=== PATIENT | female | born 1965 | race Caucasian/White ===

== ENCOUNTER → 2017-08-29 15:59 | Outpatient (CLI) | payer BC, SELFPAY ==
[2017-08-29 18:35] LABS: ALB/GLOB Ratio 1.2 RATIO (0.9-2.4); AST(SGOT) 15 U/L (15-37); Alanine Aminotransfer ALT/SGPT 26 U/L (13-56); Albumin, Serum 4.2 g/dL (3.2-5.0); Alkaline Phosphatase 145 U/L (45-117); Anion Gap 10 (5-15); BUN 13 mg/dL (7-18); BUN/Creat Ratio 19.5 RATIO (10-20); Calcium,Total 9.4 mg/dL (8.5-10.1); Chloride 103 mmol/L (98-107); Creatinine, Serum 0.67 mg/dL (0.55-1.02); EST Glomerular Filtration Rate 98 mL/min (>60); Est Glom Filt Rate - Afr Amer 118 mL/min (>60); Globulin 3.6 g/dL (2.2-4.2); Glucose 70 mg/dL (70-110); Potassium 3.6 mmol/L (3.5-5.1); Protein, Total 7.8 g/dL (6.4-8.2); Sodium Level 139 mmol/L (136-145); Thyroid Stim Hormone (TSH) 0.67 uIU/mL (0.358-3.74)
== END ==
PROVIDERS: Family Provider Family Medicine; PCP Family Medicine; Visit Provider Internal Medicine Endocrinology, Diabetes & Metabolism
DX: E03.8 Other specified hypothyroidism (principal); Q60.0 Renal agenesis, unilateral; N13.30 Unspecified hydronephrosis
CPT/HCPCS: 36415; 80053; 84443

== ENCOUNTER → 2017-10-03 16:02 | Outpatient (CLI) | payer BC, SELFPAY ==
[2017-10-03 18:02] LABS: Anion Gap 9 (5-15); BUN 17 mg/dL (7-18); BUN/Creat Ratio 20.6 RATIO (10-20); Calcium,Total 8.8 mg/dL (8.5-10.1); Chloride 104 mmol/L (98-107); Creatinine, Serum 0.83 mg/dL (0.55-1.02); EST Glomerular Filtration Rate 76 mL/min (>60); Est Glom Filt Rate - Afr Amer 93 mL/min (>60); Glucose 97 mg/dL (74-106); Potassium 3.8 mmol/L (3.5-5.1); Sodium Level 141 mmol/L (136-145)
== END ==
PROVIDERS: Family Provider Family Medicine; PCP Family Medicine; Visit Provider Family Medicine
DX: N13.30 Unspecified hydronephrosis (principal); Q60.0 Renal agenesis, unilateral
CPT/HCPCS: 36415; 80048

== ENCOUNTER → 2017-10-14 15:46 | Outpatient (CLI) | payer BC, SELFPAY ==
--- NOTE | 2017-10-14 15:47 | HPBI_ITS ---
MAMMOGRAPHY - BILATERAL SCREENING REASON FOR EXAM: Female, 52 years old. Routine annual screening examination. PERTINENT HISTORY: Aunt with breast cancer. TECHNIQUE: Digital bilateral breast clarita (3D mammographic acquisition) in the CC and MLO projections. 2-D mediolateral oblique (MLO) and craniocaudad (CC) views of both breasts were obtained. CAD: Full Field Digital Mammography with Computer Added Detection was performed. COMPARISON: Comparison is made with prior study dated October 10, 2016 and October 10, 2015. FINDINGS: Breast Composition: There are scattered areas of fibroglandular density. There are no dominant masses or suspicious calcifications. Stable bilateral benign appearing axillary lymph nodes. No other significant abnormalities are identified. There has been no significant change since the prior study. HPBI/SCREENING MAMM (CAD), BILAT IMPRESSION: Stable bilateral screening mammogram. Yearly follow-up mammogram recommended. (A) ASSESSMENT CATEGORY: BIRADS Category 2: Benign. A letter regarding these results will be sent to the patient by the facility within 30 days. Approximately 10% of breast cancers are not detected by mammography. A normal mammogram should not delay biopsy of a clinically suspicious abnormality. [id number] Electronically Signed: Jacob Chappell MD at 8:17 EDT Tel [phone], Service support ,
== END ==
PROVIDERS: Family Provider Family Medicine; PCP Family Medicine; Visit Provider Obstetrics & Gynecology
DX: Z12.31 Encounter for screening mammogram for malignant neoplasm of breast (principal)
CPT/HCPCS: 77063; 77067

== ENCOUNTER → 2017-10-31 16:09 | Outpatient (CLI) | payer BC, SELFPAY ==
[2017-10-31 18:04] LABS: Anion Gap 8 (5-15); BUN 18 mg/dL (7-18); BUN/Creat Ratio 21.1 RATIO (10-20); Calcium,Total 9.1 mg/dL (8.5-10.1); Chloride 106 mmol/L (98-107); Creatinine, Serum 0.85 mg/dL (0.55-1.02); EST Glomerular Filtration Rate 74 mL/min (>60); Est Glom Filt Rate - Afr Amer 89 mL/min (>60); Glucose 77 mg/dL (74-106); Potassium 4.1 mmol/L (3.5-5.1); Sodium Level 140 mmol/L (136-145)
== END ==
PROVIDERS: Family Provider Family Medicine; PCP Family Medicine; Visit Provider Family Medicine
DX: N13.30 Unspecified hydronephrosis (principal); Q60.0 Renal agenesis, unilateral
CPT/HCPCS: 36415; 80048

== ENCOUNTER → 2018-01-02 15:57 | Outpatient (CLI) | payer BC, SELFPAY ==
--- NOTE | 2018-01-02 15:57 | DT_ITS ---
This patient was seen during an EMR downtime December 30, 2017 - January 06, 2018. This patient may have a combination of paper and electronic documentation or all paper documentation. All documentation is viewable within the e-chart portion of [facility] for each patient visit.
[2018-01-07 03:07] LABS: Anion Gap 10 (5-15); BUN 16 mg/dL (7-18); BUN/Creat Ratio 16.8 RATIO (10-20); Calcium,Total 9.2 mg/dL (8.5-10.1); Chloride 105 mmol/L (98-107); Creatinine, Serum 0.95 mg/dL (0.55-1.02); EST Glomerular Filtration Rate 65 mL/min (>60); Est Glom Filt Rate - Afr Amer 79 mL/min (>60); Potassium 3.8 mmol/L (3.5-5.1); Sodium Level 140 mmol/L (136-145)
[2018-01-07 03:08] LABS: Glucose 97 mg/dL (74-106)
== END ==
PROVIDERS: Family Provider Family Medicine; PCP Family Medicine; Visit Provider Family Medicine
DX: Q60.0 Renal agenesis, unilateral (principal); N13.30 Unspecified hydronephrosis
CPT/HCPCS: 36415; 80048

== ENCOUNTER → 2018-02-25 16:11 | Outpatient (CLI) | payer BC, SELFPAY ==
--- NOTE | 2018-02-25 16:28 | VDUE_ITS ---
Reason For Study: RUE PAIN Right Proximal Right jugular vein is spontaneous, widely patent, phasic, with no intraluminal echogenicity noted. Right subclavian vein is spontaneous, widely patent, phasic, with no intraluminal echogenicity noted. Right Lower Arm Right radial vein is compressible. Right ulnar vein is compressible. Right Arm Right axillary vein is spontaneous, patent, phasic, competent, compressible and demonstrates augmentation. Right brachial vein is compressible. Right cephalic vein is compressible. Right basilic vein is compressible. Patient Safety Prelim Report faxed and called to Lisette SAAB @ Dr. Griggs's office 4:40 pm. Interpretation Summary Deep veins of the right upper extremity are patent and compressible segmentally. There is no evidence of deep vein thrombosis. The superficial veins of the right upper extremity, the basilic and cephalic veins, are patent and compressible. There is no evidence of right upper extremity superficial thrombophlebitis involving the veins imaged. Ordering Physician: Satinder Griggs Referring Physician: Satinder Griggs Performed By: Allison Doan, DAMIEN, RVT ???
== END ==
PROVIDERS: Family Provider Family Medicine; PCP Family Medicine; Visit Provider Family Medicine
DX: I80.8 Phlebitis and thrombophlebitis of other sites (principal)
CPT/HCPCS: 93971

== ENCOUNTER → 2018-03-03 15:46 | Outpatient (CLI) | payer BC, SELFPAY ==
[2018-03-03 17:08] LABS: ALB/GLOB Ratio 1.1 RATIO (0.9-2.4); AST(SGOT) 20 U/L (15-37); Alanine Aminotransfer ALT/SGPT 23 U/L (13-56); Albumin, Serum 3.8 g/dL (3.2-5.0); Alkaline Phosphatase 135 U/L (45-117); Anion Gap 9 (5-15); BUN 17 mg/dL (7-18); BUN/Creat Ratio 18.2 RATIO (10-20); Calcium,Total 8.8 mg/dL (8.5-10.1); Chloride 104 mmol/L (98-107); Creatinine, Serum 0.94 mg/dL (0.55-1.02); EST Glomerular Filtration Rate 66 mL/min (>60); Est Glom Filt Rate - Afr Amer 80 mL/min (>60); Globulin 3.6 g/dL (2.2-4.2); Glucose 87 mg/dL (74-106); Protein, Total 7.4 g/dL (6.4-8.2); Sodium Level 141 mmol/L (136-145); Thyroid Stim Hormone (TSH) 5.09 uIU/mL (0.358-3.74)
== END ==
PROVIDERS: Family Provider Family Medicine; PCP Family Medicine; Visit Provider Internal Medicine Endocrinology, Diabetes & Metabolism
DX: E03.8 Other specified hypothyroidism (principal)
CPT/HCPCS: 36415; 80053; 84443

== ENCOUNTER → 2018-05-08 15:50 | Outpatient (CLI) | payer BC, SELFPAY ==
[2018-05-08 18:02] LABS: Anion Gap 8 (5-15); BUN 25 mg/dL (7-18); BUN/Creat Ratio 25.3 RATIO (10-20); Calcium,Total 9.6 mg/dL (8.5-10.1); Chloride 103 mmol/L (98-107); Creatinine, Serum 0.99 mg/dL (0.55-1.02); EST Glomerular Filtration Rate 62 mL/min (>60); Est Glom Filt Rate - Afr Amer 75 mL/min (>60); Glucose 75 mg/dL (74-106); Potassium 4.5 mmol/L (3.5-5.1); Sodium Level 136 mmol/L (136-145); Thyroid Stim Hormone (TSH) 0.14 uIU/mL (0.358-3.74)
== END ==
PROVIDERS: Family Provider Family Medicine; PCP Family Medicine; Referring Provider Internal Medicine Endocrinology, Diabetes & Metabolism; Visit Provider Internal Medicine Endocrinology, Diabetes & Metabolism
DX: Q60.0 Renal agenesis, unilateral (principal); N13.30 Unspecified hydronephrosis; E03.8 Other specified hypothyroidism
CPT/HCPCS: 36415; 80048; 84443

== ENCOUNTER → 2018-08-01 11:56 | Outpatient (CLI) | payer BC, SELFPAY ==
[2018-08-05 14:47] LABS: HPV HC, High Risk Negative (Negative)
== END ==
PROVIDERS: Visit Provider Obstetrics & Gynecology
DX: Z12.4 Encounter for screening for malignant neoplasm of cervix (principal)
CPT/HCPCS: 87624; 88175; G0145

== ENCOUNTER → 2018-09-01 15:52 | Outpatient (CLI) | payer BC, SELFPAY ==
[2018-09-01 17:41] LABS: ALB/GLOB Ratio 1.1 RATIO (0.9-2.4); AST(SGOT) 20 U/L (15-37); Alanine Aminotransfer ALT/SGPT 27 U/L (13-56); Albumin, Serum 3.9 g/dL (3.2-5.0); Alkaline Phosphatase 140 U/L (45-117); Anion Gap 8 (5-15); BUN 18 mg/dL (7-18); BUN/Creat Ratio 21.4 RATIO (10-20); Calcium,Total 8.5 mg/dL (8.5-10.1); Chloride 107 mmol/L (98-107); Creatinine, Serum 0.84 mg/dL (0.55-1.02); EST Glomerular Filtration Rate 75 mL/min (>60); Est Glom Filt Rate - Afr Amer 90 mL/min (>60); Globulin 3.6 g/dL (2.2-4.2); Glucose 106 mg/dL (74-106); Potassium 3.9 mmol/L (3.5-5.1); Protein, Total 7.5 g/dL (6.4-8.2); Sodium Level 139 mmol/L (136-145); Thyroid Stim Hormone (TSH) 0.21 uIU/mL (0.358-3.74)
[2018-09-01 17:50] LABS: PTHIN 50.3 pg/mL (18.4-80.1)
== END ==
PROVIDERS: Family Provider Family Medicine; PCP Family Medicine; Referring Provider Internal Medicine Endocrinology, Diabetes & Metabolism; Visit Provider Internal Medicine Endocrinology, Diabetes & Metabolism
DX: E03.8 Other specified hypothyroidism (principal); E21.1 Secondary hyperparathyroidism, not elsewhere classified
CPT/HCPCS: 36415; 80053; 83970; 84443

== ENCOUNTER → 2018-10-15 15:48 | Outpatient (CLI) | payer BC, SELFPAY ==
--- NOTE | 2018-10-15 15:51 | BI_ITS ---
MAMMOGRAPHY - BILATERAL SCREENING 3-D ELISA SYNTHESIS REASON FOR EXAM: Female, 53 years old. Bilateral Screening 3-D tomosynthesis PERTINENT HISTORY: Right breast cyst removed at age 27. 8 years of hormone use. TECHNIQUE: 2-D mammograms and 3-D Elisa synthesis of the breast (s) were performed. CAD was performed. COMPARISON: October 10, 2016, October 10, 2015 FINDINGS: The breast composition is almost entirely fat. Scattered benign calcifications are stable. There are stable lymph nodes in both axillae. No dense spiculated masses or suspicious microcalcifications are identified. No architectural distortion is identified. There is no skin thickening or retraction. There has been no significant change since the prior study. BI/SCREENING MAMM (CAD), BILAT IMPRESSION: No mammographic signs of malignancy. Routine yearly mammograms recommended. ASSESSMENT CATEGORY: BIRADS Category 2: Benign. A letter regarding these results will be sent to the patient by the facility within 30 days. FOLLOW UP RECOMMENDATION: Yearly follow up mammogram recommended. (A) Approximately 10% of breast cancers are not detected by mammography. A normal mammogram should not delay biopsy of a clinically suspicious abnormality. Electronically Signed: Kevin Orosco MD at 13:12 EDT , Service support ,
== END ==
PROVIDERS: Visit Provider Obstetrics & Gynecology
DX: Z12.31 Encounter for screening mammogram for malignant neoplasm of breast (principal)
CPT/HCPCS: 77063; 77067

== ENCOUNTER → 2019-01-05 10:01 | Outpatient (CLI) | payer BC, SELFPAY | PROVIDERS: Family Provider Family Medicine; PCP Family Medicine; Visit Provider Family Medicine | DX: N30.00 Acute cystitis without hematuria (principal) | CPT/HCPCS: 87086; 87088 ==

== ENCOUNTER → 2019-01-20 10:41 | Outpatient (CLI) | payer BC, SELFPAY ==
--- NOTE | 2019-01-20 10:48 | US_ITS ---
STUDY: ABDOMINAL ULTRASOUND - RIGHT UPPER QUADRANT REASON FOR VISIT: Female, 53 years old. Right upper quadrant pain. TECHNIQUE: Ultrasound evaluation of the right upper quadrant was performed with real-time and static mcdonald-scale imaging. TECHNICAL QUALITY: Adequate. COMPARISON: July 27, 2017 FINDINGS: Liver: The liver measures 16.54 cm. There is normal echogenicity of the liver. The bile ducts are within normal limits. There is hepatic color flow. The direction of portal flow is hepatopetal. There is no demonstrated mass lesion. Gallbladder: Normal distended gallbladder. The gallbladder wall measures 2.4 mm. There is a negative sonographic Mina's sign. There is no pericholecystic fluid. There are no gallstones. Common Bile Duct (C.B.D.): The common bile duct measures 5.3 mm. Pancreas: Normal size of the head, body and tail of the pancreas. There is normal echogenicity of the pancreas. There is no demonstrated pancreatic mass or cyst. Right Kidney: Normal size of the right kidney. The right kidney measures 11.8 cm in length. Normal renal cortex. There is no demonstrated renal mass or cyst. There is no right hydronephrosis. US/Abdomen Limited IMPRESSION: Within normal limits right upper quadrant ultrasound examination. Electronically Signed: Theresa Aguiar MD at 16:21 EDT Tel , Service support ,
== END ==
PROVIDERS: Family Provider Family Medicine; PCP Family Medicine; Referring Provider Family Medicine; Visit Provider Family Medicine
DX: R10.11 Right upper quadrant pain (principal)
CPT/HCPCS: 76705

== ENCOUNTER → 2019-01-23 16:02 | Outpatient (CLI) | payer BC, SELFPAY ==
--- NOTE | 2019-01-23 16:05 | RAD_ITS ---
STUDY: X-RAY - THORACIC SPINE REASON FOR EXAM: Female, 53 years old. Pain. TECHNIQUE: 3 view(s) of the thoracic spine were obtained. COMPARISON: None. FINDINGS: Normal kyphosis of the thoracic spine. There is no substantial scoliosis. There is multilevel endplate spondylosis of the thoracic vertebrae. There is multilevel disc space narrowing of the thoracic spine. No acute fractures or dislocations. The soft tissue structures are unremarkable. RAD/Thoracic Spine 3 Views IMPRESSION: Mild degenerative changes. No acute or focal abnormality. Electronically Signed: Jesus Floyd MD at 19:29 EDT , Service support ,
== END ==
PROVIDERS: Family Provider Family Medicine; PCP Family Medicine; Referring Provider Family Medicine; Visit Provider Family Medicine
DX: M54.9 Dorsalgia, unspecified (principal)
CPT/HCPCS: 72072

== ENCOUNTER → 2019-01-26 09:19 | Outpatient (CLI) | payer BC, SELFPAY ==
--- NOTE | 2019-01-26 09:21 | NM_ITS ---
CLINICAL: 23-year-old female with reported history of right upper quadrant abdominal pain and nausea. RADIONUCLIDE HEPATOBILIARY SCINTIGRAPHY COMPARISON: Abdominal ultrasound report 01/20/2019 FINDINGS: Following the intravenous administration of 5.2 mCi of 99m Tc Mebrofenin, hepatobiliary images reveal:. 1. Relatively prompt and homogeneous radiopharmaceutical concentration is noted by a normal sized liver. No parenchymal defects are identified. 2. Gallbladder activity is identified at 45 minutes post radiopharmaceutical administration. 3. Small intestinal tract is observed at 15 minutes following tracer injection. 4. Washout of the radiopharmaceutical by the hepatic parenchyma appears qualitatively normal. Cholecystokinin (0.02 ug/kg) was administered intravenously over a 30-minute period. The post CCK gallbladder ejection fraction calculated at 20 minutes following Cholecystokinin administration was noted to be 63.0 % (normal greater than 35%). During 30 minutes of post CCK imaging, there is scintigraphic evidence of refilling of the gallbladder. NM/Hepatobilliary Img w/Pharm Int IMPRESSION: 1. A gallbladder ejection fraction calculated to be greater than 35% following the administration of Cholecystokinin makes the probability of functional hepatobiliary disease (gallbladder dyskinesia) and/or organic hepatobiliary disease (chronic acalculous cholecystitis and/or cystic duct syndrome) to be low. (Amanda Morillo et al, Journal of Nuclear Medicine 32:1695, 1991). 2. The presence a normal gallbladder ejection fraction with refilling of the gallbladder following CCK administration may represent the presence of Sphincter of Oddi dysfunction. Correlation with Sphincter of Oddi manometry may be of benefit. (Mary and Mary, J Nucl Med 38:1824, 1997). Electronically Signed: Mp Martin DO at 9:43 EDT Tel , Service support ,
== END ==
PROVIDERS: Family Provider Family Medicine; PCP Family Medicine; Referring Provider Family Medicine; Visit Provider Family Medicine
DX: R10.11 Right upper quadrant pain (principal)
CPT/HCPCS: 78227; A9537; J2805

== ENCOUNTER → 2019-02-19 15:54 | Outpatient (CLI) | payer BC, SELFPAY ==
[2019-02-19 17:52] LABS: Alkaline Phosphatase 140 U/L (45-117); GGTP 12 U/L (5-55)
[2019-02-22 17:00] LABS: Anti-Mitochondrial AB <20.0 Units (0.0-20.0)
== END ==
PROVIDERS: Family Provider Family Medicine; PCP Family Medicine; Referring Provider Internal Medicine; Visit Provider Internal Medicine
DX: R94.5 Abnormal results of liver function studies (principal)
CPT/HCPCS: 36415; 82977; 83516; 84075; 84080

== ENCOUNTER → 2019-03-02 12:09 | Outpatient (CLI) | payer BC, SELFPAY ==
[2019-03-02 13:55] LABS: AST(SGOT) 16 U/L (15-37); Alanine Aminotransfer ALT/SGPT 27 U/L (13-56); Albumin, Serum 3.7 g/dL (3.2-5.0); Alkaline Phosphatase 143 U/L (45-117); Anion Gap 9 (5-15); BUN 15 mg/dL (7-18); BUN/Creat Ratio 20.4 RATIO (10-20); Calcium,Total 8.9 mg/dL (8.5-10.1); Chloride 108 mmol/L (98-107); Creatinine, Serum 0.73 mg/dL (0.55-1.02); EST Glomerular Filtration Rate 87 mL/min (>60); Est Glom Filt Rate - Afr Amer 105 mL/min (>60); Globulin 3.6 g/dL (2.2-4.2); Glucose 87 mg/dL (74-106); Potassium 3.7 mmol/L (3.5-5.1); Protein, Total 7.3 g/dL (6.4-8.2); Sodium Level 143 mmol/L (136-145)
== END ==
PROVIDERS: Family Provider Family Medicine; PCP Family Medicine; Referring Provider Internal Medicine Endocrinology, Diabetes & Metabolism; Visit Provider Internal Medicine Endocrinology, Diabetes & Metabolism
DX: E03.8 Other specified hypothyroidism (principal); E55.9 Vitamin D deficiency, unspecified
CPT/HCPCS: 36415; 80053; 84443

== ENCOUNTER → 2019-05-04 15:47 | Outpatient (CLI) | payer BC, SELFPAY ==
[2019-05-04 17:39] LABS: Anion Gap 9 (5-15); BUN 13 mg/dL (7-18); BUN/Creat Ratio 15.2 RATIO (10-20); Calcium,Total 8.8 mg/dL (8.5-10.1); Chloride 107 mmol/L (98-107); Creatinine, Serum 0.86 mg/dL (0.55-1.02); EST Glomerular Filtration Rate 73 mL/min (>60); Est Glom Filt Rate - Afr Amer 88 mL/min (>60); Glucose 96 mg/dL (74-106); Potassium 3.6 mmol/L (3.5-5.1); Sodium Level 142 mmol/L (136-145)
== END ==
PROVIDERS: Family Provider Family Medicine; PCP Family Medicine; Referring Provider Family Medicine; Visit Provider Family Medicine
DX: I10 Essential (primary) hypertension (principal)
CPT/HCPCS: 36415; 80048

== ENCOUNTER → 2019-09-03 | Outpatient (CLI) | payer BC, SELFPAY ==
[2019-09-03 17:08] LABS: ALB/GLOB Ratio 1.1 RATIO (0.9-2.4); AST(SGOT) 18 U/L (15-37); Alanine Aminotransfer ALT/SGPT 28 U/L (13-56); Alkaline Phosphatase 147 U/L (45-117); Anion Gap 6 (5-15); BUN 17 mg/dL (7-18); Calcium,Total 9.2 mg/dL (8.5-10.1); Chloride 106 mmol/L (98-107); EST Glomerular Filtration Rate 69 mL/min (>60); Est Glom Filt Rate - Afr Amer 84 mL/min (>60); Globulin 3.8 g/dL (2.2-4.2); Glucose 84 mg/dL (74-106); Potassium 3.8 mmol/L (3.5-5.1); Protein, Total 7.8 g/dL (6.4-8.2); Sodium Level 139 mmol/L (136-145); Thyroid Stim Hormone (TSH) 0.45 uIU/mL (0.358-3.74)
== END | disposition home or self-care (01) ==
LOC: LAB 15:53
PROVIDERS: PCP Family Medicine; Referring Provider Internal Medicine Endocrinology, Diabetes & Metabolism; Visit Provider Internal Medicine Endocrinology, Diabetes & Metabolism
DX: E03.8 Other specified hypothyroidism (principal)
CPT/HCPCS: 36415; 80053; 84443

== ENCOUNTER → 2019-10-06 | Outpatient (CLI) | payer BC, SELFPAY ==
[2019-10-06 17:44] LABS: Absolute Lymphocyte Count 1.71 X10^3/uL (0.83-4.51); Absolute Neutrophil Count 4.2 X10^3/uL (2.0-7.7); Basophil# 0.03 X10^3/uL; Basophil% 0.4 % (0-1); Eosinophil# 0.16 X10^3/uL; Eosinophils% 2.4 % (0-5); Hematocrit 40.2 % (37-47); Hemoglobin 12.9 g/dL (12.0-15.0); Lymphocyte # 1.71 X10^3/ul (4.0); Lymphocyte % 25.6 % (19-41); Mean Corp Hgb Conc 32.1 g/dL (32-36); Mean Corpuscular Hgb 27.7 pg (27.0-32.0); Mean Corpuscular Volume 86.3 fL (81-99); Mean Platelet Vol. 9.7 fl (6.2-12.0); Monocyte# 0.55 X10^3/uL; Monocyte% 8.2 % (0-10); NRBC Flagged by Analyzer 0 % (0-5); Neutrophil % 63.1 % (47-70); Platelet Count 238 K/mm3 (150-450); RBC Distribution Width SD 40.3 fl (35.1-43.9); Red Blood Count 4.66 M/mm3 (4.2-5.4); White Blood Count 6.7 K/mm3 (4.4-11.0)
[2019-10-06 17:53] LABS: Erythrocyte Sedimentation Rate 14 mm/hr (0-30)
[2019-10-06 18:05] LABS: AST(SGOT) 16 U/L (15-37); Alanine Aminotransfer ALT/SGPT 29 U/L (13-56); Alkaline Phosphatase 155 U/L (45-117); Anion Gap 7 (5-15); BUN 13 mg/dL (7-18); BUN/Creat Ratio 15.3 RATIO (10-20); Calcium,Total 8.8 mg/dL (8.5-10.1); Chloride 104 mmol/L (98-107); Creatinine, Serum 0.85 mg/dL (0.55-1.02); EST Glomerular Filtration Rate 74 mL/min (>60); Est Glom Filt Rate - Afr Amer 89 mL/min (>60); Globulin 3.9 g/dL (2.2-4.2); Glucose 89 mg/dL (74-106); Potassium 3.6 mmol/L (3.5-5.1); Protein, Total 7.9 g/dL (6.4-8.2); Sodium Level 139 mmol/L (136-145); T4 Free Direct 1.75 ng/dL (0.76-1.46); Thyroid Stim Hormone (TSH) 0.54 uIU/mL (0.358-3.74)
[2019-10-06 18:55] LABS: Vitamin D,25 Hydroxy 81.5 ng/mL
[2019-10-09 03:06] LABS: Alkaline Phosphatase, Serum 143 IU/L (39-117); Bone Fraction 21 % (14-68); Intestinal Fraction 11 % (0-18); Liver Fraction 68 % (18-85)
[2019-10-09 10:15] LABS: CCP IgG Antibodies 17 units (0-19)
== END | disposition home or self-care (01) ==
LOC: MTLAB 16:16
PROVIDERS: PCP Family Medicine; Referring Provider Family Medicine; Visit Provider Family Medicine
DX: I10 Essential (primary) hypertension (principal); E03.9 Hypothyroidism, unspecified; Q60.0 Renal agenesis, unilateral; M06.4 Inflammatory polyarthropathy; R74.8 Abnormal levels of other serum enzymes
CPT/HCPCS: 36415; 80053; 82306; 84075; 84080; 84439; 84443; 85025; 85652; 86038; 86140; 86200; 86431

== ENCOUNTER → 2019-10-19 | Outpatient (CLI) | payer BC, SELFPAY ==
--- NOTE | 2019-10-19 15:59 | BI_ITS ---
MAMMOGRAPHY - BILATERAL SCREENING REASON FOR EXAM: Female, 54 years old. Routine annual screening examination. PERTINENT HISTORY: Aunt with breast cancer. TECHNIQUE: Digital bilateral breast elisa (3D mammographic acquisition) in the CC and MLO projections. 2-D mediolateral oblique (MLO) and craniocaudad (CC) views of both breasts were obtained. CAD: Full Field Digital Mammography with Computer Added Detection was performed. COMPARISON: Comparison is made with prior study dated October 15, 2018 and October 14, 2017. FINDINGS: Breast Composition: There are scattered areas of fibroglandular density. There are no dominant masses or suspicious calcifications. Stable benign-appearing bilateral axillary lymph nodes. No other significant abnormalities are identified. There has been no significant change since the prior study. BI/SCREEN MAMM (CAD) W/ELISA BILAT IMPRESSION: Stable bilateral screening mammogram. Yearly follow-up mammogram recommended. (A) ASSESSMENT CATEGORY: BIRADS Category 2: Benign. A letter regarding these results will be sent to the patient by the facility within 30 days. Approximately 10% of breast cancers are not detected by mammography. A normal mammogram should not delay biopsy of a clinically suspicious abnormality. [id number] Electronically Signed: Jacob Chappell, at 8:18 EDT , Service support ,
== END | disposition home or self-care (01) ==
LOC: OPBI 15:46
PROVIDERS: PCP Family Medicine; Referring Provider Obstetrics & Gynecology; Visit Provider Obstetrics & Gynecology
DX: Z12.31 Encounter for screening mammogram for malignant neoplasm of breast (principal)
CPT/HCPCS: 77063; 77067

== ENCOUNTER → 2019-12-11 | Outpatient (CLI) | payer BC, SELFPAY ==
[2019-12-11 17:33] LABS: Absolute Lymphocyte Count 1.82 X10^3/uL (0.83-4.51); Absolute Neutrophil Count 4.9 X10^3/uL (2.0-7.7); Basophil# 0.02 X10^3/uL; Basophil% 0.3 % (0-1); Eosinophil# 0.18 X10^3/uL; Eosinophils% 2.4 % (0-5); Hematocrit 40.4 % (37-47); Hemoglobin 13.1 g/dL (12.0-15.0); Lymphocyte # 1.82 X10^3/ul (4.0); Lymphocyte % 24.2 % (19-41); Mean Corp Hgb Conc 32.4 g/dL (32-36); Mean Corpuscular Hgb 28.1 pg (27.0-32.0); Mean Corpuscular Volume 86.5 fL (81-99); Mean Platelet Vol. 9.6 fl (6.2-12.0); Monocyte# 0.62 X10^3/uL; Monocyte% 8.2 % (0-10); NRBC Flagged by Analyzer 0 % (0-5); Neutrophil # 4.86 X10^3/uL (2.7-7.7); Neutrophil % 64.5 % (47-70); Platelet Count 231 K/mm3 (150-450); RBC Distribution Width CV 13.2 % (11.6-14.6); RBC Distribution Width SD 41.1 fl (35.1-43.9); Red Blood Count 4.67 M/mm3 (4.2-5.4); White Blood Count 7.5 K/mm3 (4.4-11.0)
[2019-12-11 17:52] LABS: AST(SGOT) 17 U/L (15-37); Alanine Aminotransfer ALT/SGPT 29 U/L (13-56); Albumin, Serum 3.9 g/dL (3.2-5.0); Alkaline Phosphatase 146 U/L (45-117); Anion Gap 7 (5-15); BUN 12 mg/dL (7-18); BUN/Creat Ratio 14.2 RATIO (10-20); Chloride 104 mmol/L (98-107); Creatinine, Serum 0.84 mg/dL (0.55-1.02); EST Glomerular Filtration Rate 74 mL/min (>60); Est Glom Filt Rate - Afr Amer 90 mL/min (>60); Globulin 3.9 g/dL (2.2-4.2); Glucose 75 mg/dL (74-106); Potassium 3.5 mmol/L (3.5-5.1); Protein, Total 7.8 g/dL (6.4-8.2); Sodium Level 138 mmol/L (136-145)
[2019-12-14 09:28] LABS: Hepatitis B Surface Antibody Non-Reactive; Hepatitis B Surface Antigen Non-Reactive (Nonreactive); Hepatitis C Antibody Non-Reactive (Nonreactive)
[2019-12-14 20:57] LABS: ANTINUCLEAR ANTIBODIES DIRECT Negative (Negative)
[2019-12-16 05:05] LABS: CCP IgG Antibodies 14 units (0-19); Hepatitis B Core AB IgM Negative (Negative)
== END | disposition home or self-care (01) ==
LOC: MTLAB 15:52
PROVIDERS: PCP Family Medicine; Referring Provider Internal Medicine Rheumatology; Visit Provider Internal Medicine Rheumatology
DX: M05.79 Rheumatoid arthritis with rheumatoid factor of multiple sites without organ or systems involvement (principal); M79.7 Fibromyalgia; M21.41 Flat foot [pes planus] (acquired), right foot; K21.9 Gastro-esophageal reflux disease without esophagitis; K44.9 Diaphragmatic hernia without obstruction or gangrene
CPT/HCPCS: 36415; 80053; 85025; 86038; 86200; 86431; 86705; 86706; 86803; 87340

== ENCOUNTER → 2020-02-16 | Outpatient (CLI) | payer BC, SELFPAY ==
[2020-02-16 17:14] LABS: Absolute Neutrophil Count 4.8 X10^3/uL (2.0-7.7); Basophil# 0.02 X10^3/uL; Basophil% 0.3 % (0-1); Eosinophil# 0.17 X10^3/uL; Eosinophils% 2.2 % (0-5); Hematocrit 38.6 % (37-47); Hemoglobin 12.9 g/dL (12.0-15.0); Mean Corp Hgb Conc 33.4 g/dL (32-36); Mean Corpuscular Hgb 29.4 pg (27.0-32.0); Mean Corpuscular Volume 87.9 fL (81-99); Monocyte# 0.67 X10^3/uL; Monocyte% 8.7 % (0-10); NRBC Flagged by Analyzer 0 % (0-5); Neutrophil % 62.5 % (47-70); Platelet Count 224 K/mm3 (150-450); RBC Distribution Width CV 14.2 % (11.6-14.6); Red Blood Count 4.39 M/mm3 (4.2-5.4); White Blood Count 7.7 K/mm3 (4.4-11.0)
[2020-02-16 18:01] LABS: ALB/GLOB Ratio 1.1 RATIO (0.9-2.4); AST(SGOT) 18 U/L (15-37); Alanine Aminotransfer ALT/SGPT 33 U/L (13-56); Albumin, Serum 4.1 g/dL (3.2-5.0); Alkaline Phosphatase 143 U/L (45-117); Anion Gap 6 (5-15); BUN 12 mg/dL (7-18); BUN/Creat Ratio 14.4 RATIO (10-20); Chloride 104 mmol/L (98-107); Creatinine, Serum 0.83 mg/dL (0.55-1.02); EST Glomerular Filtration Rate 75 mL/min (>60); Est Glom Filt Rate - Afr Amer 91 mL/min (>60); Globulin 3.7 g/dL (2.2-4.2); Glucose 85 mg/dL (74-106); Protein, Total 7.8 g/dL (6.4-8.2); Sodium Level 137 mmol/L (136-145)
== END | disposition home or self-care (01) ==
LOC: LAB 16:56
PROVIDERS: PCP Family Medicine; Referring Provider Internal Medicine Rheumatology; Visit Provider Internal Medicine Rheumatology
DX: M05.79 Rheumatoid arthritis with rheumatoid factor of multiple sites without organ or systems involvement (principal); M79.7 Fibromyalgia; M21.41 Flat foot [pes planus] (acquired), right foot; K21.9 Gastro-esophageal reflux disease without esophagitis; K44.9 Diaphragmatic hernia without obstruction or gangrene; I10 Essential (primary) hypertension; E03.9 Hypothyroidism, unspecified; L71.9 Rosacea, unspecified; K57.90 Diverticulosis of intestine, part unspecified, without perforation or abscess without bleeding; Z90.5 Acquired absence of kidney; Z79.899 Other long term (current) drug therapy
CPT/HCPCS: 36415; 80053; 85025

== ENCOUNTER → 2020-03-03 16:46 | Outpatient (CLI) | payer BC, SELFPAY ==
[2020-03-03 18:12] LABS: ALB/GLOB Ratio 1.1 RATIO (0.9-2.4); AST(SGOT) 13 U/L (15-37); Alanine Aminotransfer ALT/SGPT 27 U/L (13-56); Alkaline Phosphatase 139 U/L (45-117); Anion Gap 7 (5-15); BUN 14 mg/dL (7-18); BUN/Creat Ratio 17.2 RATIO (10-20); Chloride 105 mmol/L (98-107); Creatinine, Serum 0.81 mg/dL (0.55-1.02); EST Glomerular Filtration Rate 77 mL/min (>60); Est Glom Filt Rate - Afr Amer 94 mL/min (>60); Globulin 3.8 g/dL (2.2-4.2); Glucose 94 mg/dL (74-106); Potassium 3.9 mmol/L (3.5-5.1); Protein, Total 7.8 g/dL (6.4-8.2); Sodium Level 138 mmol/L (136-145); Thyroid Stim Hormone (TSH) 0.15 uIU/mL (0.358-3.74)
== END ==
PROVIDERS: PCP Family Medicine; Referring Provider Internal Medicine Endocrinology, Diabetes & Metabolism; Visit Provider Internal Medicine Endocrinology, Diabetes & Metabolism
DX: E03.8 Other specified hypothyroidism (principal)
CPT/HCPCS: 36415; 80053; 84443

== ENCOUNTER → 2020-04-21 | Outpatient (CLI) | payer BC, SELFPAY ==
[2020-04-21 17:17] LABS: Absolute Lymphocyte Count 2.19 X10^3/uL (0.83-4.51); Absolute Neutrophil Count 4.8 X10^3/uL (2.0-7.7); Basophil# 0.04 X10^3/uL; Basophil% 0.5 % (0-1); Eosinophil# 0.15 X10^3/uL; Eosinophils% 1.9 % (0-5); Hematocrit 38.7 % (37-47); Hemoglobin 12.6 g/dL (12.0-15.0); Lymphocyte # 2.19 X10^3/ul (4.0); Mean Corp Hgb Conc 32.6 g/dL (32-36); Mean Corpuscular Hgb 29.2 pg (27.0-32.0); Mean Corpuscular Volume 89.6 fL (81-99); Mean Platelet Vol. 9.3 fl (6.2-12.0); Monocyte# 0.63 X10^3/uL; Monocyte% 8.1 % (0-10); NRBC Flagged by Analyzer 0 % (0-5); Neutrophil # 4.78 X10^3/uL (2.7-7.7); Neutrophil % 61.1 % (47-70); Platelet Count 255 K/mm3 (150-450); RBC Distribution Width CV 13.3 % (11.6-14.6); RBC Distribution Width SD 42.9 fl (35.1-43.9); Red Blood Count 4.32 M/mm3 (4.2-5.4); White Blood Count 7.8 K/mm3 (4.4-11.0)
[2020-04-21 17:51] LABS: ALB/GLOB Ratio 1.1 RATIO (0.9-2.4); AST(SGOT) 17 U/L (15-37); Alanine Aminotransfer ALT/SGPT 26 U/L (13-56); Albumin, Serum 4.1 g/dL (3.2-5.0); Alkaline Phosphatase 142 U/L (45-117); Anion Gap 7 (5-15); BUN 12 mg/dL (7-18); BUN/Creat Ratio 14.6 RATIO (10-20); Calcium,Total 9.1 mg/dL (8.5-10.1); Chloride 104 mmol/L (98-107); Creatinine, Serum 0.82 mg/dL (0.55-1.02); EST Glomerular Filtration Rate 76 mL/min (>60); Est Glom Filt Rate - Afr Amer 92 mL/min (>60); Globulin 3.6 g/dL (2.2-4.2); Glucose 73 mg/dL (74-106); Potassium 3.7 mmol/L (3.5-5.1); Protein, Total 7.7 g/dL (6.4-8.2); Sodium Level 138 mmol/L (136-145)
[2020-04-21 17:57] LABS: Thyroid Stim Hormone (TSH) 0.79 uIU/mL (0.358-3.74)
== END | disposition home or self-care (01) ==
LOC: LAB 16:47
PROVIDERS: Internal Medicine Rheumatology; PCP Family Medicine; Referring Provider Internal Medicine Endocrinology, Diabetes & Metabolism; Visit Provider Internal Medicine Endocrinology, Diabetes & Metabolism
DX: M05.79 Rheumatoid arthritis with rheumatoid factor of multiple sites without organ or systems involvement (principal); M79.7 Fibromyalgia; M21.41 Flat foot [pes planus] (acquired), right foot; K21.9 Gastro-esophageal reflux disease without esophagitis; K44.9 Diaphragmatic hernia without obstruction or gangrene; E03.8 Other specified hypothyroidism; Z90.5 Acquired absence of kidney; Z79.899 Other long term (current) drug therapy
CPT/HCPCS: 36415; 80053; 84443; 85025

== ENCOUNTER → 2020-06-09 15:54 | Outpatient (CLI) | payer BC, SELFPAY ==
[2020-06-09 16:11] LABS: Absolute Neutrophil Count 5.8 X10^3/uL (2.0-7.7); Basophil# 0.03 X10^3/uL; Basophil% 0.3 % (0-1); Eosinophil# 0.21 X10^3/uL; Eosinophils% 2.4 % (0-5); Lymphocyte % 23.6 % (19-41); Mean Corp Hgb Conc 32.5 g/dL (32-36); Mean Corpuscular Hgb 29.5 pg (27.0-32.0); Mean Corpuscular Volume 90.7 fL (81-99); Mean Platelet Vol. 9.3 fl (6.2-12.0); Monocyte# 0.71 X10^3/uL; NRBC Flagged by Analyzer 0 % (0-5); Neutrophil # 5.82 X10^3/uL (2.7-7.7); Neutrophil % 65.4 % (47-70); Platelet Count 253 K/mm3 (150-450); RBC Distribution Width CV 13.6 % (11.6-14.6); RBC Distribution Width SD 45.2 fl (35.1-43.9); Red Blood Count 4.41 M/mm3 (4.2-5.4); White Blood Count 8.9 K/mm3 (4.4-11.0)
[2020-06-09 16:37] LABS: ALB/GLOB Ratio 1.1 RATIO (0.9-2.4); AST(SGOT) 16 U/L (15-37); Alanine Aminotransfer ALT/SGPT 30 U/L (13-56); Alkaline Phosphatase 151 U/L (45-117); Anion Gap 3 (5-15); BUN 11 mg/dL (7-18); BUN/Creat Ratio 12.8 RATIO (10-20); Calcium,Total 8.8 mg/dL (8.5-10.1); Chloride 105 mmol/L (98-107); Creatinine, Serum 0.86 mg/dL (0.55-1.02); EST Glomerular Filtration Rate 72 mL/min (>60); Est Glom Filt Rate - Afr Amer 87 mL/min (>60); Globulin 3.8 g/dL (2.2-4.2); Glucose 84 mg/dL (74-106); Potassium 3.7 mmol/L (3.5-5.1); Protein, Total 7.8 g/dL (6.4-8.2); Sodium Level 138 mmol/L (136-145)
== END ==
PROVIDERS: PCP Family Medicine; Referring Provider Internal Medicine Rheumatology; Visit Provider Internal Medicine Rheumatology
DX: M05.79 Rheumatoid arthritis with rheumatoid factor of multiple sites without organ or systems involvement (principal); M79.7 Fibromyalgia; M21.41 Flat foot [pes planus] (acquired), right foot; K21.9 Gastro-esophageal reflux disease without esophagitis; K44.9 Diaphragmatic hernia without obstruction or gangrene; I10 Essential (primary) hypertension; E03.9 Hypothyroidism, unspecified; L71.9 Rosacea, unspecified; K57.90 Diverticulosis of intestine, part unspecified, without perforation or abscess without bleeding; Z90.5 Acquired absence of kidney; Z79.899 Other long term (current) drug therapy
CPT/HCPCS: 36415; 80053; 85025

== ENCOUNTER → 2020-07-20 15:58 | Outpatient (CLI) | payer BC, SELFPAY ==
[2020-07-20 16:30] LABS: Absolute Lymphocyte Count 2.22 X10^3/uL (0.83-4.51); Absolute Neutrophil Count 4.4 X10^3/uL (2.0-7.7); Basophil# 0.03 X10^3/uL; Basophil% 0.4 % (0-1); Eosinophil# 0.23 X10^3/uL; Eosinophils% 3.1 % (0-5); Hematocrit 38.7 % (37-47); Hemoglobin 12.5 g/dL (12.0-15.0); Lymphocyte # 2.22 X10^3/ul (4.0); Lymphocyte % 29.6 % (19-41); Mean Corp Hgb Conc 32.3 g/dL (32-36); Mean Corpuscular Hgb 29.6 pg (27.0-32.0); Mean Corpuscular Volume 91.7 fL (81-99); Mean Platelet Vol. 9.3 fl (6.2-12.0); Monocyte# 0.62 X10^3/uL; Monocyte% 8.3 % (0-10); NRBC Flagged by Analyzer 0 % (0-5); Neutrophil # 4.38 X10^3/uL (2.7-7.7); Neutrophil % 58.2 % (47-70); Platelet Count 248 K/mm3 (150-450); RBC Distribution Width CV 13.7 % (11.6-14.6); Red Blood Count 4.22 M/mm3 (4.2-5.4); White Blood Count 7.5 K/mm3 (4.4-11.0)
[2020-07-20 16:46] LABS: ALB/GLOB Ratio 1.1 RATIO (0.9-2.4); AST(SGOT) 17 U/L (15-37); Alanine Aminotransfer ALT/SGPT 30 U/L (13-56); Alkaline Phosphatase 142 U/L (45-117); Anion Gap 5 (5-15); BUN 12 mg/dL (7-18); BUN/Creat Ratio 15.9 RATIO (10-20); Calcium,Total 8.7 mg/dL (8.5-10.1); Chloride 103 mmol/L (98-107); Creatinine, Serum 0.76 mg/dL (0.55-1.02); EST Glomerular Filtration Rate 84 mL/min (>60); Est Glom Filt Rate - Afr Amer 101 mL/min (>60); Globulin 3.5 g/dL (2.2-4.2); Glucose 80 mg/dL (74-106); Potassium 3.6 mmol/L (3.5-5.1); Protein, Total 7.5 g/dL (6.4-8.2); Sodium Level 137 mmol/L (136-145)
== END ==
PROVIDERS: PCP Family Medicine; Visit Provider Internal Medicine Rheumatology
DX: M05.79 Rheumatoid arthritis with rheumatoid factor of multiple sites without organ or systems involvement (principal); M79.7 Fibromyalgia; G56.02 Carpal tunnel syndrome, left upper limb; G56.01 Carpal tunnel syndrome, right upper limb; M21.41 Flat foot [pes planus] (acquired), right foot; K21.9 Gastro-esophageal reflux disease without esophagitis; K44.9 Diaphragmatic hernia without obstruction or gangrene; I10 Essential (primary) hypertension; E03.9 Hypothyroidism, unspecified; L71.9 Rosacea, unspecified; K57.90 Diverticulosis of intestine, part unspecified, without perforation or abscess without bleeding; Z90.5 Acquired absence of kidney; Z79.899 Other long term (current) drug therapy
CPT/HCPCS: 36415; 80053; 85025

== ENCOUNTER → 2020-10-07 07:49 | Outpatient (CLI) | payer OTHER, SELFPAY ==
[2020-10-07 08:08] LABS: Absolute Lymphocyte Count 1.14 X10^3/uL (0.83-4.51); Absolute Neutrophil Count 4.9 X10^3/uL (2.0-7.7); Basophil# 0.02 X10^3/uL; Basophil% 0.3 % (0-1); Eosinophil# 0.14 X10^3/uL; Eosinophils% 2.1 % (0-5); Hematocrit 43.5 % (37-47); Hemoglobin 14.1 g/dL (12.0-15.0); Lymphocyte # 1.14 X10^3/ul (4.0); Lymphocyte % 16.9 % (19-41); Mean Corp Hgb Conc 32.4 g/dL (32-36); Mean Corpuscular Hgb 29.4 pg (27.0-32.0); Mean Corpuscular Volume 90.6 fL (81-99); Mean Platelet Vol. 9.3 fl (6.2-12.0); Monocyte# 0.55 X10^3/uL; Monocyte% 8.2 % (0-10); NRBC Flagged by Analyzer 0 % (0-5); Neutrophil # 4.86 X10^3/uL (2.7-7.7); Neutrophil % 72.2 % (47-70); Platelet Count 263 K/mm3 (150-450); RBC Distribution Width CV 13.1 % (11.6-14.6); RBC Distribution Width SD 43.2 fl (35.1-43.9); White Blood Count 6.7 K/mm3 (4.4-11.0)
[2020-10-07 08:39] LABS: AST(SGOT) 24 U/L (15-37); Alanine Aminotransfer ALT/SGPT 33 U/L (13-56); Alkaline Phosphatase 149 U/L (45-117); Anion Gap 3 (5-15); BUN 12 mg/dL (7-18); BUN/Creat Ratio 14.9 RATIO (10-20); Calcium,Total 9.4 mg/dL (8.5-10.1); Chloride 106 mmol/L (98-107); Cholesterol 155 mg/dL (200); EST Glomerular Filtration Rate 78 mL/min (>60); Est Glom Filt Rate - Afr Amer 94 mL/min (>60); Globulin 3.9 g/dL (2.2-4.2); Glucose 99 mg/dL (74-106); High Density Lipoprotein 56 mg/dL; Potassium 4.2 mmol/L (3.5-5.1); Protein, Total 7.9 g/dL (6.4-8.2); Sodium Level 140 mmol/L (136-145); Triglycerides 133 mg/dL; Very Low Density Lipoprotein 27 mg/dL (5-40)
== END ==
PROVIDERS: PCP Family Medicine; Referring Provider Family Medicine; Visit Provider Family Medicine
DX: M05.79 Rheumatoid arthritis with rheumatoid factor of multiple sites without organ or systems involvement (principal); M79.7 Fibromyalgia; G56.03 Carpal tunnel syndrome, bilateral upper limbs; M21.41 Flat foot [pes planus] (acquired), right foot; K21.9 Gastro-esophageal reflux disease without esophagitis; K44.9 Diaphragmatic hernia without obstruction or gangrene; I10 Essential (primary) hypertension; E03.9 Hypothyroidism, unspecified; L71.9 Rosacea, unspecified; K57.90 Diverticulosis of intestine, part unspecified, without perforation or abscess without bleeding; Z90.5 Acquired absence of kidney; Z79.899 Other long term (current) drug therapy
CPT/HCPCS: 36415; 80053; 80061; 85025

== ENCOUNTER → 2020-10-25 16:00 | Outpatient (CLI) | payer OTHER, SELFPAY ==
[2020-10-25 17:34] LABS: T4 Free Direct 1.47 ng/dL (0.76-1.46); Thyroid Stim Hormone (TSH) 1.71 uIU/mL (0.358-3.74)
== END ==
PROVIDERS: PCP Family Medicine; Referring Provider Family Medicine; Visit Provider Family Medicine
DX: E03.9 Hypothyroidism, unspecified (principal)
CPT/HCPCS: 36415; 84439; 84443

== ENCOUNTER → 2020-11-09 16:09 | Outpatient (CLI) | payer OTHER, SELFPAY ==
[2020-10-26 08:55] VITALS: BMI 29.0
[2020-11-14 17:56] LABS: HPV APTIMA, High Risk Negative (Negative); HPV Reflexed? YES, CHARGE PATIENT
== END ==
PROVIDERS: PCP Family Medicine; Visit Provider Obstetrics & Gynecology
DX: Z12.4 Encounter for screening for malignant neoplasm of cervix (principal)
CPT/HCPCS: 87624; 88175; G0145

== ENCOUNTER → 2020-11-28 11:11 | Outpatient (CLI) | payer OTHER, SELFPAY ==
[2020-10-26 08:55] VITALS: BMI 29.0
--- NOTE | 2020-11-28 11:15 | BI_ITS ---
MAMMOGRAPHY - BILATERAL SCREENING REASON FOR EXAM: Female, 55 years old. Routine annual screening examination. PERTINENT HISTORY: Aunt with breast cancer. TECHNIQUE: Digital bilateral breast elisa (3D mammographic acquisition) in the CC and MLO projections. 2-D mediolateral oblique (MLO) and craniocaudad (CC) views of both breasts were obtained. CAD: Full Field Digital Mammography with Computer Added Detection was performed. COMPARISON: Comparison is made with prior study of 10/19/2019 and 10/15/2018. FINDINGS: Breast Composition: There are scattered areas of fibroglandular density. There are no dominant masses or suspicious calcifications. Stable benign-appearing bilateral axillary. No other significant abnormalities are identified. There has been no significant change since the prior study. BI/SCRN MAMM (CAD)W/ELISA BILAT IMPRESSION: Stable bilateral screening mammogram. Yearly follow-up mammogram recommended. (A) ASSESSMENT CATEGORY: BIRADS Category 2: Benign. A letter regarding these results will be sent to the patient by the facility within 30 days. Approximately 10% of breast cancers are not detected by mammography. A normal mammogram should not delay biopsy of a clinically suspicious abnormality. [id number] Electronically Signed: Jacob Chappell MD at 12:10 EDT , Service support ,
== END ==
PROVIDERS: PCP Family Medicine; Referring Provider Obstetrics & Gynecology; Visit Provider Obstetrics & Gynecology
DX: Z12.31 Encounter for screening mammogram for malignant neoplasm of breast (principal)
CPT/HCPCS: 77063; 77067

== ENCOUNTER → 2021-04-11 | Outpatient (CLI) | payer OTHER, SELFPAY ==
[2021-04-11 13:33] LABS: Bacteria 0 SEEN /hpf (None Seen); Mucous, Urine 0 SEEN /hpf (<or=2+); Red Blood Cells-Urine 0 SEEN /hpf (0-5)
[2021-04-11 13:44] LABS: Color, Urine Yellow (Yellow); Glucose, Dipstick Normal (Normal); Ketone-Dipstick Negative (Negative); Leukocyte Esterase-Dipstick 100 /ul (Negative); Nitrite-Dipstick Negative (Negative); Occult Blood-Urine Negative /ul (Negative); Protein-Dipstick 30 mg/dl (Negative); Specific Gravity, Urine 1.015 (1.002-1.030); Urine Bilirubin Dipstick Negative (Negative); Urine Clarity Sl. Cloudy (Clear); Urine Urobilinogen Normal (Normal)
[2021-04-11 13:49] LABS: Squamous Epithelial Cells - UA 10-25 SEEN /hpf (5-10)
[2021-04-11 13:50] LABS: White Blood Cells 0-5 SEEN /hpf (0-5)
== END | disposition home or self-care (01) ==
LOC: LABSPEC 12:20
PROVIDERS: PCP Family Medicine; Visit Provider Physician Assistant Surgical
DX: R39.15 Urgency of urination (principal)
CPT/HCPCS: 81001; 87086; 87088; 87186

== ENCOUNTER → 2021-11-17 | Outpatient (CLI) | payer BC, SELFPAY ==
[2021-11-17 17:31] LABS: Ferritin 87 ng/mL (8-252); T4 Free Direct 1.44 ng/dL (0.76-1.46); Thyroid Stim Hormone (TSH) 0.51 uIU/mL (0.358-3.74)
[2021-11-17 17:53] LABS: Vitamin B12 349 pg/mL (211-911); Vitamin D,25 Hydroxy 64.2 ng/mL
== END | disposition home or self-care (01) ==
LOC: BIMLAB 15:51
PROVIDERS: PCP Family Medicine; Referring Provider Internal Medicine Endocrinology, Diabetes & Metabolism; Visit Provider Internal Medicine Endocrinology, Diabetes & Metabolism
DX: E03.8 Other specified hypothyroidism (principal); E06.3 Autoimmune thyroiditis; R53.83 Other fatigue; E55.9 Vitamin D deficiency, unspecified
CPT/HCPCS: 36415; 82306; 82607; 82728; 84439; 84443

== ENCOUNTER → 2021-11-30 | Outpatient (CLI) | payer BC, SELFPAY ==
--- NOTE | 2021-11-30 13:56 | BI_ITS ---
MAMMOGRAPHY - BILATERAL SCREENING REASON FOR EXAM: Female, 56 years old. Routine annual screening examination. PERTINENT HISTORY: Aunt with breast cancer. TECHNIQUE: Digital bilateral breast elisa (3D mammographic acquisition) in the CC and MLO projections. 2-D mediolateral oblique (MLO) and craniocaudad (CC) views of both breasts were obtained. CAD: Full Field Digital Mammography with Computer Added Detection was performed. COMPARISON: Comparison is made with prior study dated 11/28/2020 and 10/19/2019. FINDINGS: Breast Composition: There are scattered areas of fibroglandular density. There are no dominant masses or suspicious calcifications. No other significant abnormalities are identified. There has been no significant change since the prior study. BI/SCRN MAMM (CAD)W/ELISA BILAT IMPRESSION: Stable bilateral screening mammogram. Yearly follow-up mammogram recommended. (A) ASSESSMENT CATEGORY: BIRADS Category 2: Benign. A letter regarding these results will be sent to the patient by the facility within 30 days. Approximately 10% of breast cancers are not detected by mammography. A normal mammogram should not delay biopsy of a clinically suspicious abnormality. [id number] Electronically Signed: Jacob Chappell MD at 15:03 EDT ,
== END | disposition home or self-care (01) ==
LOC: OPBI 13:55
PROVIDERS: PCP Family Medicine; Visit Provider Obstetrics & Gynecology
DX: Z12.31 Encounter for screening mammogram for malignant neoplasm of breast (principal)
CPT/HCPCS: 77063; 77067

== ENCOUNTER → 2021-12-15 | Outpatient (CLI) | payer BC, SELFPAY | END | disposition home or self-care (01) | PROVIDERS: PCP Family Medicine; Visit Provider Family Medicine | DX: R10.9 Unspecified abdominal pain (principal); R30.0 Dysuria | CPT/HCPCS: 87086; 87088 ==

== ENCOUNTER → 2022-01-01 | Outpatient (CLI) | payer BC, SELFPAY ==
--- NOTE | 2022-01-01 07:49 | US_ITS ---
STUDY: ABDOMINAL ULTRASOUND REASON FOR EXAM: Female, 56 years old. RIGHT FLANK PAIN . Prior left nephrectomy. TECHNIQUE: Transabdominal ultrasound was performed with real-time and static mcdonald scale imaging. TECHNICAL QUALITY: Adequate. COMPARISON: Comparison is made with prior study dated 01/20/2019. FINDINGS: Liver: The liver measures 16.6 cm. There is increased echogenicity consistent with fatty infiltration. The bile ducts are within normal limits. There is hepatic color flow. The direction of portal flow is hepatopetal. There is no demonstrated mass lesion. Portal vein measurement: Gallbladder: Normal distended gallbladder. The gallbladder wall measures 2.6 mm. There is a negative sonographic Mina''s sign. There is no pericholecystic fluid. There are no gallstones. Common Bile Duct (C.B.D.): The common bile duct measures 3.6 mm. Pancreas: Normal size of the head, body and tail of the pancreas. There is normal echogenicity of the pancreas. There is no demonstrated pancreatic mass or cyst. Spleen: Normal size of the spleen. The spleen measures 10.3 cm x 5.1 cm x 5.3 cm. Right Kidney: Normal size of the right kidney. The right kidney measures 13.1 cm x 6.5 cm x 5.4 cm. Normal renal cortex. The right cortex measures 1.4 cm. There is no demonstrated renal mass or cyst. There is mild hydronephrosis of the right kidney. Left Kidney: The patient is status post left nephrectomy. Aorta: Unremarkable I.V.C.: The IVC is patent. There is no ascites. US/Abdomen Complete IMPRESSION: Fatty infiltration of the liver. Status post left nephrectomy. Electronically Signed: Jacob Chappell MD at 9:56 EDT ,
== END | disposition home or self-care (01) ==
LOC: US 07:46
PROVIDERS: PCP Family Medicine; Referring Provider Family Medicine; Visit Provider Family Medicine
DX: R10.9 Unspecified abdominal pain (principal)
CPT/HCPCS: 76700

== ENCOUNTER → 2022-04-20 | Outpatient (CLI) | payer BC, SELFPAY | END | disposition home or self-care (01) | PROVIDERS: PCP Family Medicine; Referring Provider Family Medicine; Visit Provider Family Medicine | DX: R30.0 Dysuria (principal) | CPT/HCPCS: 87086; 87088 ==

== ENCOUNTER → 2022-05-08 | Outpatient (CLI) | payer BC, SELFPAY ==
[2022-05-08 16:05] LABS: Absolute Lymphocyte Count 2.11 X10^3/uL (0.83-4.51); Absolute Neutrophil Count 5.1 X10^3/uL (2.0-7.7); Basophil# 0.02 X10^3/uL; Basophil% 0.2 % (0-1); Eosinophil# 0.19 X10^3/uL; Eosinophils% 2.3 % (0-5); Hematocrit 38.9 % (37-47); Lymphocyte # 2.11 X10^3/ul (0.83-4.51); Lymphocyte % 25.9 % (19-41); Mean Corp Hgb Conc 33.4 g/dL (32-36); Mean Corpuscular Hgb 29.1 pg (27.0-32.0); Mean Corpuscular Volume 87.2 fL (81-99); Monocyte# 0.66 X10^3/uL; Monocyte% 8.1 % (0-10); NRBC Flagged by Analyzer 0 % (0-5); Neutrophil # 5.14 X10^3/uL (2.7-7.7); Neutrophil % 63.3 % (47-70); Platelet Count 263 K/mm3 (150-450); RBC Distribution Width CV 12.9 % (11.6-14.6); RBC Distribution Width SD 41.2 fl (35.1-43.9); Red Blood Count 4.46 M/mm3 (4.2-5.4); White Blood Count 8.1 K/mm3 (4.4-11.0)
[2022-05-08 16:28] LABS: Vitamin B12 347 pg/mL (211-911)
[2022-05-08 16:34] LABS: AST(SGOT) 12 U/L (15-37); Alanine Aminotransfer ALT/SGPT 20 U/L (13-56); Albumin, Serum 3.9 g/dL (3.2-5.0); Alkaline Phosphatase 133 U/L (45-117); Anion Gap 6 (5-15); BUN 12 mg/dL (7-18); BUN/Creat Ratio 14.9 RATIO (10-20); Calcium,Total 9.1 mg/dL (8.5-10.1); Chloride 108 mmol/L (98-107); Creatinine, Serum 0.81 mg/dL (0.55-1.02); EST Glomerular Filtration Rate 77 mL/min (>60); Est Glom Filt Rate - Afr Amer 93 mL/min (>60); Globulin 3.9 g/dL (2.2-4.2); Glucose 98 mg/dL (74-106); Potassium 3.7 mmol/L (3.5-5.1); Protein, Total 7.8 g/dL (6.4-8.2); Sodium Level 140 mmol/L (136-145); Thyroid Stim Hormone (TSH) 0.86 uIU/mL (0.358-3.74)
== END | disposition home or self-care (01) ==
LOC: LAB 15:51
PROVIDERS: PCP Family Medicine
DX: E03.8 Other specified hypothyroidism (principal); D51.3 Other dietary vitamin B12 deficiency anemia
CPT/HCPCS: 36415; 80053; 82607; 84439; 84443; 85025

== ENCOUNTER → 2022-11-07 | Outpatient (CLI) | payer BC, SELFPAY ==
[2022-11-07 12:08] LABS: Anion Gap 1 (5-15); BUN 16 mg/dL (7-18); BUN/Creat Ratio 20.1 RATIO (10-20); Calcium,Total 9.7 mg/dL (8.5-10.1); Chloride 108 mmol/L (98-107); EST Glomerular Filtration Rate 78 mL/min (>60); Est Glom Filt Rate - Afr Amer 95 mL/min (>60); Glucose 122 mg/dL (74-106); Potassium 3.9 mmol/L (3.5-5.1); Sodium Level 138 mmol/L (136-145); T4 Free Direct 1.39 ng/dL (0.76-1.46); Thyroid Stim Hormone (TSH) 0.76 uIU/mL (0.358-3.74)
== END | disposition home or self-care (01) ==
LOC: LAB 10:58
PROVIDERS: PCP Family Medicine; Referring Provider Internal Medicine Endocrinology, Diabetes & Metabolism; Visit Provider Internal Medicine Endocrinology, Diabetes & Metabolism
DX: E03.8 Other specified hypothyroidism (principal)
CPT/HCPCS: 36415; 80048; 84439; 84443

== ENCOUNTER → 2022-12-11 | Outpatient (CLI) | payer BC, SELFPAY ==
--- NOTE | 2022-12-11 15:34 | BI_ITS ---
MAMMOGRAPHY - BILATERAL SCREENING REASON FOR EXAM: Female, 57 years old. Routine annual screening examination. PERTINENT HISTORY: Aunt with breast cancer. TECHNIQUE: Digital bilateral breast elisa (3D mammographic acquisition) in the CC and MLO projections. 2-D mediolateral oblique (MLO) and craniocaudad (CC) views of both breasts were obtained. CAD: Full Field Digital Mammography with Computer Added Detection was performed. COMPARISON: Comparison is made with prior study November 30, 2021 and November 28, 2020. FINDINGS: Breast Composition: There are scattered areas of fibroglandular density. There are no dominant masses or suspicious calcifications. Stable benign appearing bilateral axillary nodes. No other significant abnormalities are identified. There has been no significant change since the prior study. BI/SCRN MAMM (CAD)W/ELISA BILAT IMPRESSION: Stable bilateral screening mammogram. Yearly follow-up mammogram recommended. (A) ASSESSMENT CATEGORY: BIRADS Category 2: Benign. A letter regarding these results will be sent to the patient by the facility within 30 days. Approximately 10% of breast cancers are not detected by mammography. A normal mammogram should not delay biopsy of a clinically suspicious abnormality. [id number] Electronically Signed: Jacob Chappell MD at 8:16 EDT ,
== END | disposition home or self-care (01) ==
LOC: OPBI 15:33
PROVIDERS: PCP Nurse Practitioner Family; Referring Provider Nurse Practitioner Family; Visit Provider Nurse Practitioner Family
DX: Z12.31 Encounter for screening mammogram for malignant neoplasm of breast (principal)
CPT/HCPCS: 77063; 77067

== ENCOUNTER → 2023-05-06 | Outpatient (CLI) | payer BC, SELFPAY ==
[2023-05-06 17:45] LABS: Anion Gap 7 (5-15); BUN 18 mg/dL (7-18); BUN/Creat Ratio 21.8 RATIO (10-20); Calcium,Total 9.4 mg/dL (8.5-10.1); Chloride 105 mmol/L (98-107); Creatinine, Serum 0.82 mg/dL (0.55-1.02); EST Glomerular Filtration Rate 75 mL/min (>60); Est Glom Filt Rate - Afr Amer 91 mL/min (>60); Glucose 95 mg/dL (74-106); Potassium 3.7 mmol/L (3.5-5.1); Sodium Level 138 mmol/L (136-145); T4 Free Direct 1.45 ng/dL (0.76-1.46); Thyroid Stim Hormone (TSH) 0.96 uIU/mL (0.358-3.74)
== END | disposition home or self-care (01) ==
LOC: LAB 16:46
PROVIDERS: PCP Nurse Practitioner Family; Referring Provider Internal Medicine Endocrinology, Diabetes & Metabolism; Visit Provider Internal Medicine Endocrinology, Diabetes & Metabolism
DX: E03.8 Other specified hypothyroidism (principal)
CPT/HCPCS: 36415; 80048; 84439; 84443

== ENCOUNTER → 2023-06-11 | Outpatient (CLI) | payer BC, SELFPAY ==
--- NOTE | 2023-06-11 16:30 | RAD_ITS ---
STUDY: X-RAY - PELVIS AND RIGHT HIP REASON FOR EXAM: Female, 58 years old. RIGHT HIP PAIN TECHNIQUE: 3 views of the pelvis and hip. COMPARISON: None. FINDINGS: There is a non-specific bowel gas pattern. Normal visualized soft tissue structures. Normal bilateral iliac wings, sacroiliac joints and visualized sacrum. Normal bilateral superior and inferior pubic rami. Normal pubic symphysis. Normal bilateral ischial tuberosities. Normal visualized femoral head. Normal acetabulum. Normal hip joint. RAD/HIP, UNI W/ Pelvis 2-3 Views IMPRESSION: Normal x-ray examination of the pelvis and hip. Electronically Signed: Hollis Galaviz MD at 23:26 [facility] ,
== END | disposition home or self-care (01) ==
LOC: RAD.FUTURE 16:26 → RAD 16:28
PROVIDERS: PCP Nurse Practitioner Family; Referring Provider Nurse Practitioner Family; Visit Provider Nurse Practitioner Family
DX: M25.551 Pain in right hip (principal)
CPT/HCPCS: 73502

== ENCOUNTER → 2023-08-30 | Outpatient (CLI) | payer BC, SELFPAY ==
--- NOTE | 2023-08-30 08:52 | RAD_ITS ---
EXAM: XR LEFT FOOT COMPLETE, 3 OR MORE VIEWS CLINICAL INDICATION: FOOT PAIN TECHNIQUE: Frontal, lateral and oblique views of the left foot. COMPARISON: No relevant prior studies available. FINDINGS: BONES/JOINTS: There is a hallux valgus deformity. No acute fracture. Preservation of the joint space. No sclerotic or destructive changes observed. SOFT TISSUES: Unremarkable. No soft tissue swelling or gas. No radiopaque foreign body. RAD/Foot min 3 Views IMPRESSION: Hallux valgus deformity. There is no acute osseous abnormality. Electronically Signed: Luc Mccarty MD at 18:21 EST ,
--- NOTE | 2023-08-30 08:52 | RAD_ITS ---
EXAM: XR RIGHT FOOT COMPLETE, 3 OR MORE VIEWS CLINICAL INDICATION: FOOT PAIN TECHNIQUE: Frontal, lateral and oblique views of the right foot. COMPARISON: No relevant prior studies available. FINDINGS: BONES/JOINTS: There is a small calcaneal spur. No acute fracture. No subluxation. Normal alignment. Preservation of the joint space. No sclerotic or destructive changes observed. SOFT TISSUES: Unremarkable. No soft tissue swelling or gas. No radiopaque foreign body. RAD/Foot min 3 Views IMPRESSION: Small calcaneal spur. There is no acute osseous abnormality. Electronically Signed: Luc Mccarty MD at 18:21 EST ,
--- OUTSIDE RECORDS SUMMARY | 2023-08-30 08:54 | XMS RPT_ITS | CCD ---
Author Name Unknown Address [address] [place] [address] Organization [facility] Care Team Providers Care Cargo Service Agent Name Role Phone Steve Cotter Unavailable Gera Chavez Unavailable [phone] SATINDER GRIGGS Primary Care Unavailable JACQUELIN SANCHEZ Attending UnavailJACQUELIN Miller Admitting UnavailSTEPHEN Mitchell Referring Unavailable SATINDER GRIGGS Primary Care Unavailable IGOE, STEPHEN FRY Attending Unavailable SATINDER GRIGGS Primary Care Unavailable IGOE, STEPHEN FRY Attending Unavailable IGOE, STEPHEN FRY Referring Unavailable IGOE, STEPHEN FRY Attending Unavailable SATINDER GRIGGS Primary Care Unavailable IGOE, STEPHEN FRY Referring Unavailable SATINDER GRIGGS Primary Care Unavailable IGOE, STEPHEN FRY Referring Unavailable SATINDER GRIGGS Primary Care Unavailable YEIMY, STEPHEN FRY Attending Unavailable Satinder Griggs MD Primary Care Provider IGOE, STEPHEN FRY Attending Unavailable SATINDER GRIGGS Primary Care Unavailable SATINDER GRIGGS Primary Care Unavailable SATINDER GRIGGS Referring Unavailable IGHILDA, STEPHEN FRY Attending Unavailable SATINDER GRIGGS Admitting Unavailable BIJU LOPEZ, DR DAT Olivarez Attending Tricia PINTO MD, DR CASTRO Primary Care Unavailable Allergies Allergy Classification Reported Allergen(s) Allergy Type Date of Onset Reaction(s) Facility (3 sources) Shellfish; Translations: [SHELLFISH DERIVED] Propensity to adverse reactions to drug (disorder) 08-02-19 Other (See Comments) [facility] Repository (3 sources) Sulfamethoxazole / Trimethoprim; Translations: [SULFAMETHOXAZOLE-T RIMETHOPRIM] Drug Allergy 08-02-19 23 [facility] Medications Current Medications Medication Drug Class(es) Dates Sig (Normalized) Sig (Original) amLODIPine 5 mg oral tablet (3 sources) Dihydropyridine Calcium [employer] [facility] Start: 06-01-2022 take 1 tablet by mouth once daily amLODIPine (NORVASC) 5 MG tablet Take 1 (one) tablet (5 mg total) by mouth daily . 0 06/01/2022 Active Completed/Discontinued Medications Medication Drug Class(es) Dates Sig (Normalized) Sig (Original) nitrofurantoin, macrocrystals 25 mg / nitrofurantoin, monohydrate 75 mg oral capsule (2 sources) Start: 06-27-2017 MACROBID 100 MG CAPS 1 capsule twice daily NITROFURANTOIN MONOHYD MACRO [id number] Gera SANCHES Problems Active Problems Problem Classification Problem Date Documented Date Episodic/Chronic Abdominal pain (2 sources) Unspecified abdominal pain; Translations: [Pelvic and perineal pain] Onset: 07-05-2022 Episodic Diabetes mellitus without complication (1 source) Prediabetes; Translations: [Prediabetes] 11-07-2022 Episodic Diverticulosis and diverticulitis (1 source) Diverticulosis of large intestine without perforation or abscess without bleeding; Translations: [DVRTCLOS LG INT NO PERF/ABSC W/O BL] Onset: 07-05-2022 Chronic Essential hypertension (2 sources) Hypertensive disorder; Translations: [Essential (primary) hypertension] 06-27-2017 Chronic Immunizations and screening for infectious disease (1 source) Rheumatoid factor positive; Translations: [Other specified abnormal immunological findings in serum] 11-07-2022 Episodic Osteoarthritis (3 sources) Degenerative joint disease involving multiple joints; Translations: [Polyosteoarthritis, unspecified] Onset: 11-07-2022 11-07-2022 Chronic Other diseases of kidney and ureters (2 sources) Unspecified hydronephrosis; Translations: [UNSPECIFIED HYDRONEPHROSIS] Onset: 07-05-2022 Episodic Other non-traumatic joint disorders (1 source) Joint pain; Translations: [Pain in unspecified joint] 11-07-2022 Episodic Other nutritional; endocrine; and metabolic disorders (1 source) Obesity; Translations: [Obesity, unspecified] 11-07-2022 Chronic Other nutritional; endocrine; and metabolic disorders (2 sources) Obesity, unspecified; Translations: [Obesity, unspecified] Onset: 11-07-2022 Chronic Residual codes; unclassified (1 source) Acquired absence of kidney; Translations: [ACQUIRED ABSENCE OF KIDNEY] Onset: 07-05-2022 Episodic Rheumatoid arthritis and related disease (4 sources) Rheumatoid arthritis, unspecified; Translations: [Rheumatoid arthritis, unspecified] Onset: 08-06-2022 Chronic Spondylosis; intervertebral disc disorders; other back problems (1 source) Spondylosis, unspecified; Translations: [SPONDYLOSIS UNSPECIFIED] Onset: 07-05-2022 Chronic Past or Other Problems Problem Classification Problem Date Documented Da te Episodic/Chronic Urinary tract infections (2 sources) Pyelonephritis; Translations: [Tubulo-interstit ial nephritis, not specified as acute or chronic] Onset: 06-27-2017 06-27-2017 Episodic Results Test Name Value Interpretation Reference Range Facil ity Vital Signs Date Time Vital Sign Value Performing Clinician Facility 11-07-2022 08:24-0400 Body mass index (BMI) [Ratio] 29.29 kg/m2 Stephen Rey MD Work Phone: [facility] 11-07-2022 08:24-0400 Body weight 70.31 kg Stephen Rey MD Work Phone: [facility] 11-07-2022 08:24-0400 Diastolic blood pressure 79 mm[Hg] Stephen Rey MD Work Phone: [facility] 11-07-2022 08:24-0400 Heart rate 67 /min Stephen Rey MD Work Phone: [facility] 11-07-2022 08:24-0400 Systolic blood pressure 127 mm[Hg] Stephen Rey MD Work Phone: [facility] 06-27-2017 16:22-0500 BMI (Body Mass Index) 26.77 kg/m2 Gera SANCHES [facility] Work Phone: 06-27-2017 16:22-0500 Body Temperature 97.5 [degF] Gera SANCHES [facility] Work Phone: 06-27-2017 16:22-0500 BP Diastolic 78 mm[Hg] Gera SANCHES [facility] Work Phone: 06-27-2017 16:22-0500 BP Systolic 128 mm[Hg] Gera Violeta SANCHES [facility] Work Phone: 06-27-2017 16:22-0500 Height 162.56 cm Gera Violeta SANCHES [facility] Work Phone: 06-27-2017 16:22-0500 Pulse (Heart Rate) 82 /min Gera SANCHES [facility] Work Phone: 06-27-2017 16:22-0500 Respiratory Rate 14 /min Gera SANCHES [facility] Work Phone: 06-27-2017 16:22-0500 Weight 70.76 kg Gera SANCHES [facility] Work Phone: Encounters Encounter Date Encounter Type Care Provider Facility Start: 05-27-2023 End: 05-28-2023 Emergency department patient visit DR DAT IVY MD Facility:B Start: 11-07-2022 End: 11-07-2022 ambulatory STEPHEN REY [facility] Start: 11-07-2022 End: 11-07-2022 Office outpatient visit 40 minutes Stephen Rey MD Work Phone: [facility] Procedures Date Procedure Procedure Detail Performing Clinician Start: 06-27-2017 End: 06-27-2017 Urine test visual color cmprsn meths Gera SANCHES Work Phone: Start: 06-27-2017 End: 06-27-2017 Urnls dip stick/tablet rgnt non-auto w/o micrscp Gera SANCHES Work Phone: Plan of Treatment Date Care Activity Detail Author Start: 11-12-2023 End: 11-12-2023 Patient encounter procedure 11/12/2023 8:30 AM EDT Office Visit [facility] [address] [place] [address] [place] [id number] Stephen Rey MD [address] [place] [address] [facility] Start: 03-29-2023 Influenza vaccination Sequential Influenza Vaccine (Season Ended) [facility] Start: 06-27-2017 End: 06-27-2017 Appointment Appointment [facility] Work Phone: Start: 2013 Administration of herpes zoster vaccine Zoster Vaccines (1 of 2) [facility] Start: 2013 Screening for malignant neoplasm of colon Flexible sigmoidoscopy [facility] Start: 2003 Screening for malignant neoplasm of breast Mammogram [facility] Start: 1978 HIV screening HIV Screening [facility] Start: 1975 Depression screening using PHQ-9 (Patient Health Questionnaire 9) score Depression Screening (PHQ-2/9) [facility] Start: 1966 History and physical examination, annual for health maintenance Wellness Visit [facility] Start: 1963 COVID-19 Vaccine (#1) COVID-19 Vaccine (#1) [facility] Start: 1963 Screening for malignant neoplasm of cervix Pap Smear [facility] Start: 1963 Screening for malignant neoplasm of colon [facility] Start: 1963 Tetanus vaccination Tetanus: Every 10yrs [facility] Work Phone: Payers Date Payer Category Payer Unknown MARIA D MONIQUE/YOJANA/HMO/PPO [id number] 2021-Present [phone] [address] [place] [address] [id number] 1965 Unknown [id number] 1965 Unknown [id number] 1965 Unknown [id number] 1965 Unknown [id number] 1965 Unknown [id number] 1963 Unknown [id number] 1965 Unknown [id number] 1965 Unknown [id number] 1965 Unknown [id number] 1959 Unknown [id number] Social History Date Type Detail Facility Start: 08-06-2022 Tobacco smoking status NHIS Never sm oked tobacco [facility] Start: 08-06-2022 Tobacco use and exposure Smokeless t obacco non-user [facility] Start: 08-06-2022 History of Social function [facility] Start: 08-06-2022 Tobacco use panel [facility] Start: 1965 Sex Assigned At Not on file [facility] Start: 10-21-2022 End: 10-31-2022 Exposure to SARS-CoV-2 (event) Not sure [facility] History of Present illness Narrative 11-07-2022 Stephen Rey MD - 11/07/2022 8:42 AM EDT Note Date & Type Note Facility 11-07-2022 History of Presen t illness Narrative Formatting of this note is different fro m the original. Images from the original note were not included. RHEUMATOLOGY EST PATIENT VISIT Patients name: Lydia Bolaños : 1965 Today's date: 11/07/2022 Reason for visit: establish care Disease summary:RA diagnosed [place] [address] Tellez, Sep [address] Rey, no evidence of RA Status: stable Serology: +ve RF(Low titre) -ve CCP, DEVAN Radiology: DJD Current Meds: HCQ 400mg Pain control: Prior Meds: HPC: This is a 57 y.o. female with a pmhx of DJD, vit D def, hypothyroidism, HTN, obesity who presents for evaluation of RA. 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 She was put on methotrexate which did not relieve any of her symptoms. She has not been on any medication for quite some time. When she was first diagnosed she had slightly elevated CRP, normal ESR slightly elevated rheumatoid factor. Patient denies any obvious joint redness or swelling. She denies any swelling around her MCPs. Patient does report pain in the DIP joints of her fingers. She does have family history of notable osteoarthritis. Patient denies any swelling of her feet or ankles. Prior Rheum appts: Dr. Tellez - put her on methotrexate Jul 2022 - New patient Interim: Feels somewhat better, no arthralgia Never had issues wihth swelling I have reviewed the patient's medical history in detail and updated the computerized patient record. No past medical history on file. Past Surgical History: Procedure Laterality Date CYST REMOVAL Right 1982 breast ENDOMETRIAL ABLATION 2003 FOOT SURGERY Right 2009 bunionectomy and posterior tendon removal GYNECOLOGIC CRYOSURGERY 2014 cervix mild dysplasia micro discectomy N/A - 10/2003 NEPHRECTOMY Left 1981 SHOULDER SURGERY Left 12/2016 arthroscopy/bicep tendon release Social History Tobacco Use Smoking status: Never Smokeless tobacco: Never Substance Use Topics Drug use: Never No family history on file. Allergies Allergen Reactions Shellfish Derived Other (See Comments) Wheezing Sulfamethoxazole-Trimethoprim Rash Outpatient Medications Marked as Taking for the 11/07/22 encounter (Office Visit) with Stephen Rey MD Medication Sig Dispense Refill amLODIPine (NORVASC) 5 MG tablet Take 1 (one) tablet (5 mg total) by mouth daily . ascorbic acid, vitamin C, 500 mg cap Take by mouth daily . biotin 2,500 mcg cap Take 0.8 capsules (2,000 mcg total) by mouth 3 (three) times a day . cholecalciferol, vitamin D3, 5,000 unit Tab tablet Take 1 (one) tablet (5,000 Units total) by mouth Saturday, Saturday, Saturday . hydrOXYchloroQUINE (PLAQUENIL) 200 mg tablet Take 2 (two) tablets (400 mg total) by mouth daily . 180 tablet 3 levothyroxine (SYNTHROID, LEVOTHROID) 88 MCG tablet Take 1 (one) tablet (88 mcg total) by mouth daily . naproxen sodium 220 mg cap Take 1 Unspecified by mouth as needed . omeprazole (PRILOSEC) 40 MG capsule Take 1 (one) capsule (40 mg total) by mouth daily . spironolactone (ALDACTONE) 50 MG tablet Take 1 (one) tablet (50 mg total) by mouth daily . vitamin E mixed 400 unit cap Take by mouth daily . Review of Systems: General Constitutional: Denied fevers, chills, anorexia, weight loss, or night sweats Eyes: denied blurry vision, no dry eyes, no RP ENT: denied nasal drainage, sinus pressure, nasal ulcers Mouth: denied oral ulcers, dry mouth Lymphatics: no new adenopathy in cervical, supraclavicular, axillary, inguinal regions Respiratory: no cough, SOB CV: denied palpitations, chest pain/pressure, PND, orthopnea. GI: denied abd pain, n/v/d, constipation, melena. : denied dysuria, urgency, frequency or hematuria. Skin: no rashes or lesions Musculoskeletal: as per HPI Hematologic/lmmunologic: no adenopathy, bleeding, easy bruisiality or recurrent infection. Neurology: Denied new headaches, speech/balance/coordination problems. Denied new focal numbness or weakness of extremities Psych: denied anxiety, depression or mood swings A 10 point review of systems was completed. Physical Exam: BP 127/79 Pulse 67 Wt 70.3 kg (155 lb) BMI 29.29 kg/m Gen: NAD, resting comfortably,Alert, cooperative, no distress, appears stated age HEENT: NCAT, no temporal wasting, EOMI, perrl, anicteric sclerae, mmm, no op lesions Neck: supple, no thyromegaly or LAD, no bruits Lymphatics: no cervical, axillary, or inguinal adenopathy Chest: Good a/e b/l, no added sounds, no respiratory distress CV: RRR, no m/r/g, normal S1, S2 Abd: soft, nontender, nondistended, +BS, no hepatosplenomegaly Ext: no clubbing, cyanosis or edema MSK: No synovitis of the MCPs or PIPs. Crepitus of the knees no effusion or warmth. Skin: no rashes or lesions Neuro: no focal deficits, moves all four extremities Psych: Mood and affect appropriate DATA: I have reviewed lab work and imaging. Labs:reviewed. Imaging: reviewed. Health Maintenance Due Topic Date Due Tetanus: Every 10yrs Never done Colorectal Cancer Screening/Monitoring Never done Pap Smear Never done COVID-19 Vaccine (1) Never done Wellness Visit Never done Depression Screening (PHQ-2/9) Never done HIV Screening Never done Mammogram Never done Zoster Vaccines (1 of 2) Never done Assessment & Plan Arthralgia - no evidence of RA - Plan: suspect DJD, can stay on HCQ Rheumatoid factor positive - Plan: can stay on HCQ and f/u in 1 year or sooner if any joint swelling ensues Primary osteoarthritis involving multiple joints - Plan: I explained that the goals of osteoarthritis management are to minimize pain, optimize function, and beneficially modify the process of joint damage. The primary aim is to target modifiable risk factors. Discussed that although there are no approved disease-modifying OA drugs, a wide selection of interventions are available to address pain and function Obesity - counseled - Plan: topiramate (TOPAMAX) 50 MG/night for binge eating disorder Prediabetes - Plan: counseled The patient indicates understanding of these issues and agrees with the plan. Return to clinic in 12 month(s) Telehealth appointments ok. Stephen Rey MD Reconciliation Analyst Operations Leader Note: To expedite correspondence this note was generated by [employer] voice recognition software. Some grammatical or spelling errors may occur using the system. documented in this encounter [facility] Evaluation note Note Date & Type Note Facility documented in this encounter [facility] Summary Purpose Family History No Family History Records FoundNo Family History Records FoundNo Family History Records FoundNo Family History Records Found Advance Directives No Advanced Directives Records FoundNo Advanced Directives Records FoundNo Advanced Directives Records FoundNo Advanced Directives Records Found Additional Source Comments INFORMATION SOURCE (unrecogn ized section and content) DATE CREATED AUTHOR AUTHOR'S ORGANIZ ATION 08/11/2022 [facility] DATE CREATED AUTHOR AUTHOR'S ORGANIZ ATION 11/09/2022 [facility] DATE CREATED AUTHOR AUTHOR'S ORGANIZ ATION 06/02/2023 [facility] ([place]) Care Teams (unrecognized sec tion and content) FOR RECORDS PERTAINING TO PATIENTS WHO ARE OR HAVE BEEN ENROLLED IN A CHEMICAL DEPENDENCY/SUBSTANCEABUSE PROGRAM, SOME INFORMATION MAY BE OMITTED. This clinical summary was aggregated from multiple sources. Caution should be exercised in using it in the provision of clinical care. This summary normalizes information from multiple sources, and as a consequence, information in this document may materially change the coding, format and clinical context of patient data. In addition, data may be omitted in some cases. CLINICAL DECISIONS SHOULD BE BASED ON THE PRIMARY CLINICAL RECORDS. [facility]. provides no warranty or guarantee of the accuracy or completeness of information in this document.
[2023-08-30 10:08] LABS: AST(SGOT) 12 U/L (15-37); Alanine Aminotransfer ALT/SGPT 23 U/L (13-56); Albumin, Serum 3.8 g/dL (3.2-5.0); Alkaline Phosphatase 116 U/L (45-117); Bilirubin, Direct 0.15 mg/dL (0.00-0.30); Cholesterol 163 mg/dL (200); Globulin 3.7 g/dL (2.2-4.2); High Density Lipoprotein 50 mg/dL; Protein, Total 7.5 g/dL (6.4-8.2); Triglycerides 101 mg/dL; Very Low Density Lipoprotein 20 mg/dL (5-40)
== END | disposition home or self-care (01) ==
LOC: LAB 08:33
PROVIDERS: PCP Nurse Practitioner Family; Referring Provider Nurse Practitioner Family; Visit Provider Nurse Practitioner Family
DX: I10 Essential (primary) hypertension (principal); E78.5 Hyperlipidemia, unspecified; M79.671 Pain in right foot; M79.672 Pain in left foot
CPT/HCPCS: 36415; 73630; 80061; 80076

== ENCOUNTER 2023-10-11 16:00 | Outpatient (RCR) | payer BC, SELFPAY ==
--- NOTE | 2023-09-19 17:32 | HP.PTEVAL_ITS ---
Patient's Visit Information Visit Information Visit Information: ALINE BOLAÑOS is a 58 year old F referred to Physical Therapy by Dr. Kit Oconnor DPM with a diagnosis of PERONEAL TENDONITIS LEFT AND RIGHT. Date of Evaluation: 09/19/23 Physical Therapist: Carrillo Carroll, PT, Cert MDT, OCS Visit Plan Frequency: 2x /Week Duration: 4 Weeks Plan: PT INTERVETIONS FLEXABLITY G-S,STRENGTHENING EX'S ANKLE STABILZERS , ARCH STRENGTHENING ,AND US/CP/ESTIM FOR PAIN PERONEAL TENDON Subjective Subjective: This 58 y/o female presents to physical therapy peroneal tendonitis left > right. Patient has had tendonitis ~ 2 months . Seen research laboratory specialist , Patient thinks stopped using reason. Recommended PT and try prednisone. X-rays done which was negative. Patient has had initial x-rays 3weeks ago . Lateral foot peroneal tendon. Patient aggravating factors standing at work and extended walking. Alleviating factors rest. Denies paresthesia/tingling-. Sleeping good. Patient condition affects QOL and job demands. Patient goals to decrease pain. 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 Pain Bilateral Foot: Pain Intensity (Out of 10): 6 Pain Intensity Range: 10 Comment: left > right Objective Objective: POSTURE : (frontal plane mechanics) pes planus left > right ,hallux valgus deformity GAIT: reciprocal pattern NEURO: denies paresthesia/tingling PALAPTION: tender 5th metatarsal head peroneal insertion AROM: dorsiflexion 5 degrees ,inversion 40 degrees ,plantar flexion 65 degrees ,,eversion 5 degrees MMT: ankle stabilizers 4/5 grossly ,G-S ,peroneus ,posterior tibialis , dorsiflexion Balance/Special Test Scores Lower Extremity Functional Score: 36 Goals Goal 1:: Patient to be I with HEP for ankle/ foot Goal Time Frame: 4-6 Weeks Goal 2:: Patient to demonstrate 50% improvement with less pain and improved function Goal Time Frame: 4-6 Weeks Goal 3:: Patient to improve LFES score by 5-10 points to improve QOL and function Goal Time Frame: 4-6 Weeks Goal 4:: Patient be able to perform full day at work with min limitations being on feet all day Goal Time Frame: 4-6 Weeks Rehabilitation Potential Physical Therapy Diagnosis: Patient has peroneal tendonitis left > right with tenderness pain with walking and standing affects job demands thus benefit from skilled PT Rehabilitation Potential: Good Anticipated Interventions Patient/Client Instruction: Educate patient on: Condition and Plan of Care For the Purpose of:: To decrease pain, To increase ROM, To improve muscle performance and motor function, To increase tolerance to activity/condition/position, To improve ability of physical actions for home/community/work/leisure, To improve gait and locomotor functions, To improve health of tissue, To decrease soft tissue restriction, To increase flexibility/ROM, To improve endurance and To prevent re-injury Therapeutic Exercise to Include: Strength training, Balance training, Flexibilty training and Active ROM Comment: ANKLE For the Purpose of:: To decrease pain, To increase ROM, To increase oxygenation perfusion, To increase tolerance to activity/condition/position, To improve ability of physical actions for home/community/work/leisure, To improve health of tissue, To increase flexibility/ROM and To improve endurance TENS: Yes IF ES: Yes Cryotherapy (ice pack, ice massage): Yes Thermo therapy (hot pack): Yes Ultrasound (thermal/non thermal): Yes For the Purpose of:: To decrease pain, To increase ROM, To improve health of tissue, To decrease soft tissue restriction and To increase flexibility/ROM Text: Thank you for the opportunity to evaluate your patient. For Medicare and Medicare HMO plans, please review the plan of care and approve it. It will need to be FAXED BACK to us at [phone] for Medicare purposes. For Medicare only, by signing this I certify the plan of care. Please let me know if there are questions or concerns regarding this plan of care. Physician Signature: Date:
--- NOTE | 2023-11-19 15:23 | HP.PT.NRP ---
Patient Information Patient Information: ALINE BOLAÑOS was seen in my office for initial evaluation on 09/19/23. The following Plan of Care was established for this patient: POC Established Initial Frequency: 2x /Week Initial Duration: 4 Weeks Anticipated Interventions Patient/Client Instruction: Educate patient on: Condition and Plan of Care For the Purpose of:: To decrease pain, To increase ROM, To improve muscle performance and motor function, To increase tolerance to activity/condition/position, To improve ability of physical actions for home/community/work/leisure, To improve gait and locomotor functions, To improve health of tissue, To decrease soft tissue restriction, To increase flexibility/ROM, To improve endurance and To prevent re-injury Therapeutic Exercise to Include: Strength training, Balance training, Flexibilty training and Active ROM For the Purpose of:: To decrease pain, To increase ROM, To increase oxygenation perfusion, To increase tolerance to activity/condition/position, To improve ability of physical actions for home/community/work/leisure, To improve health of tissue, To increase flexibility/ROM and To improve endurance TENS: Yes IF ES: Yes Cryotherapy (ice pack, ice massage): Yes Thermo therapy (hot pack): Yes Ultrasound (thermal/non thermal): Yes For the Purpose of:: To decrease pain, To increase ROM, To improve health of tissue, To decrease soft tissue restriction and To increase flexibility/ROM Last Seen Last Seen: This patient was last seen in our office . Pertinent comments regarding their Physical therapy will appear below: Patient was seen for PT for peroneal tendonitis with modalities and stretching/strengthening thus d/c to RTD At this point I will be discontinuing this patient from physical therapy. I would be happy to see this patient again in the future if found appropriate by the physician. Thank you! Carrillo Carroll, PT, Cert MDT, OCS Balance/Gait/Functional tests Balance/Special Test Scores Lower Extremity Functional Score: 71
== END 2023-10-11 19:00 | disposition home or self-care (01) ==
LOC: PT 16:00
PROVIDERS: PCP Nurse Practitioner Family; Referring Provider Podiatrist; Visit Provider Podiatrist
DX: M76.71 Peroneal tendinitis, right leg (principal); M76.72 Peroneal tendinitis, left leg
CPT/HCPCS: 97035; 97110; 97113; 97162; 97530

== ENCOUNTER → 2023-11-06 | Outpatient (CLI) | payer BC, SELFPAY ==
[2023-11-06 17:28] LABS: Vitamin D,25 Hydroxy 65.3 ng/mL
[2023-11-06 17:34] LABS: Anion Gap 4 (5-15); BUN 15 mg/dL (7-18); BUN/Creat Ratio 20.3 RATIO (10-20); Calcium,Total 9.4 mg/dL (8.5-10.1); Chloride 108 mmol/L (98-107); Creatinine, Serum 0.74 mg/dL (0.55-1.02); EST Glomerular Filtration Rate 85 mL/min (>60); Est Glom Filt Rate - Afr Amer 103 mL/min (>60); Glucose 89 mg/dL (74-106); Potassium 3.9 mmol/L (3.5-5.1); Sodium Level 138 mmol/L (136-145); Thyroid Stim Hormone (TSH) 1.33 uIU/mL (0.358-3.74)
== END | disposition home or self-care (01) ==
LOC: LAB 16:47
PROVIDERS: PCP Nurse Practitioner Family; Referring Provider Internal Medicine Endocrinology, Diabetes & Metabolism; Visit Provider Internal Medicine Endocrinology, Diabetes & Metabolism
DX: E03.8 Other specified hypothyroidism (principal); E55.9 Vitamin D deficiency, unspecified
CPT/HCPCS: 36415; 80048; 82306; 84439; 84443

== ENCOUNTER → 2024-01-10 | Outpatient (CLI) | payer BC, SELFPAY ==
--- NOTE | 2024-01-10 07:59 | BI_ITS ---
MAMMOGRAPHY - BILATERAL SCREENING REASON FOR EXAM: Female, 58 years old. Routine annual screening examination. PERTINENT HISTORY: Aunt with breast cancer. TECHNIQUE: Digital bilateral breast elisa (3D mammographic acquisition) in the CC and MLO projections. 2-D mediolateral oblique (MLO) and craniocaudad (CC) views of both breasts were obtained. CAD: Full Field Digital Mammography with Computer Added Detection was performed. COMPARISON: Comparison is made with prior study dated December 11, 2022 and November 30, 2021. FINDINGS: Breast Composition: There are scattered areas of fibroglandular density. There are no dominant masses or suspicious calcifications. Stable bilateral fat containing axillary lymph nodes. No other significant abnormalities are identified. There has been no significant change since the prior study. BI/SCRN MAMM (CAD)W/ELISA BILAT IMPRESSION: Stable bilateral screening mammogram. Yearly follow-up mammogram recommended. (A) ASSESSMENT CATEGORY: BIRADS Category 2: Benign. A letter regarding these results will be sent to the patient by the facility within 30 days. Approximately 10% of breast cancers are not detected by mammography. A normal mammogram should not delay biopsy of a clinically suspicious abnormality. [id number] Electronically Signed: Jacob Chappell MD at 9:08 EDT ,
== END | disposition home or self-care (01) ==
LOC: OPBI 07:58
PROVIDERS: PCP Nurse Practitioner Family; Referring Provider Nurse Practitioner Family; Visit Provider Nurse Practitioner Family
DX: Z12.31 Encounter for screening mammogram for malignant neoplasm of breast (principal)
CPT/HCPCS: 77063; 77067

== ENCOUNTER → 2024-02-11 | Outpatient (CLI) | payer BC, SELFPAY ==
[2024-02-11 17:40] LABS: Absolute Lymphocyte Count 1.73 X10^3/uL (0.83-4.51); Absolute Neutrophil Count 5.3 X10^3/uL (2.0-7.7); Basophil# 0.03 X10^3/uL; Basophil% 0.4 % (0-1); Eosinophil# 0.17 X10^3/uL; Eosinophils% 2.1 % (0-5); Hematocrit 42.3 % (37-47); Hemoglobin 14.2 g/dL (12.0-15.0); Lymphocyte # 1.73 X10^3/ul (0.83-4.51); Lymphocyte % 21.5 % (19-41); Mean Corp Hgb Conc 33.6 g/dL (32-36); Mean Corpuscular Hgb 29.7 pg (27.0-32.0); Mean Corpuscular Volume 88.5 fL (81-99); Mean Platelet Vol. 9.5 fl (6.2-12.0); Monocyte# 0.74 X10^3/uL; Monocyte% 9.2 % (0-10); NRBC Flagged by Analyzer 0 % (0-5); Neutrophil # 5.34 X10^3/uL (2.7-7.7); Neutrophil % 66.4 % (47-70); Platelet Count 253 K/mm3 (150-450); RBC Distribution Width CV 12.8 % (11.6-14.6); RBC Distribution Width SD 41.7 fl (35.1-43.9); Red Blood Count 4.78 M/mm3 (4.2-5.4)
[2024-02-11 17:58] LABS: Vitamin B12 322 pg/mL (211-911); Vitamin D,25 Hydroxy 52.8 ng/mL
[2024-02-11 18:12] LABS: ALB/GLOB Ratio 0.9 RATIO (0.9-2.4); AST(SGOT) 9 U/L (15-37); Alanine Aminotransfer ALT/SGPT 18 U/L (13-56); Albumin, Serum 3.7 g/dL (3.2-5.0); Alkaline Phosphatase 134 U/L (45-117); Anion Gap 9 (5-15); BUN 15 mg/dL (7-18); Chloride 106 mmol/L (98-107); Creatinine, Serum 0.79 mg/dL (0.55-1.02); EST Glomerular Filtration Rate 79 mL/min (>60); Est Glom Filt Rate - Afr Amer 96 mL/min (>60); Glucose 111 mg/dL (74-106); Magnesium 2.2 mg/dL (1.6-2.6); Potassium 3.9 mmol/L (3.5-5.1); Protein, Total 7.7 g/dL (6.4-8.2); Sodium Level 140 mmol/L (136-145); T4 Free Direct 1.45 ng/dL (0.76-1.46); Thyroid Stim Hormone (TSH) 0.73 uIU/mL (0.358-3.74)
[2024-02-11 18:22] LABS: Hemoglobin A1c 5.6 % (3.8-5.6)
== END | disposition home or self-care (01) ==
LOC: BFHLAB 16:12
PROVIDERS: PCP Nurse Practitioner Family; Referring Provider Nurse Practitioner Family; Visit Provider Nurse Practitioner Family
DX: R73.01 Impaired fasting glucose (principal); R25.2 Cramp and spasm; R53.83 Other fatigue; E55.9 Vitamin D deficiency, unspecified
CPT/HCPCS: 36415; 80053; 82306; 82607; 83036; 83735; 84439; 84443; 85025

== ENCOUNTER → 2024-05-11 | Outpatient (CLI) | payer BC, SELFPAY ==
[2024-05-11 17:20] LABS: Anion Gap 7 (5-15); BUN 14 mg/dL (7-18); BUN/Creat Ratio 18.9 RATIO (10-20); Calcium,Total 9.8 mg/dL (8.5-10.1); Chloride 106 mmol/L (98-107); Creatinine, Serum 0.74 mg/dL (0.55-1.02); EST Glomerular Filtration Rate 85 mL/min (>60); Est Glom Filt Rate - Afr Amer 103 mL/min (>60); Glucose 98 mg/dL (74-106); Potassium 3.8 mmol/L (3.5-5.1); Sodium Level 138 mmol/L (136-145); T4 Free Direct 1.43 ng/dL (0.76-1.46); Thyroid Stim Hormone (TSH) 0.553 uIU/mL (0.358-3.740)
== END | disposition home or self-care (01) ==
LOC: LAB 15:58
PROVIDERS: PCP Nurse Practitioner Family; Referring Provider Internal Medicine Endocrinology, Diabetes & Metabolism; Visit Provider Internal Medicine Endocrinology, Diabetes & Metabolism
DX: E03.8 Other specified hypothyroidism (principal)
CPT/HCPCS: 36415; 80048; 84439; 84443

== ENCOUNTER → 2024-06-18 | Outpatient (CLI) | payer BC, SELFPAY ==
--- NOTE | 2024-06-18 15:26 | RAD_ITS ---
INDICATION: Abdominal pain/right SIDE PAIN EXAMINATION/TECHNIQUE: X-RAY - XR Chest 2 Views COMPARISON: October 26, 2020 FINDINGS: LINES/DEVICES: None. LUNGS: No consolidation, edema or effusion. No pneumothorax. MEDIASTINUM AND CARDIOVASCULAR STRUCTURES: Cardiac silhouette not enlarged. Central airways and mediastinal contour are unremarkable. BONES AND SOFT TISSUES: Unremarkable. RAD/Chest PA and Lateral IMPRESSION: No radiographic evidence of acute cardiopulmonary disease. Electronically Signed: Theresa Aguiar MD at 21:26 EST ,
--- NOTE | 2024-06-18 15:26 | RAD_ITS ---
EXAM: XR THORACIC SPINE, 3 VIEWS CLINICAL INDICATION: ABD PAIN/R SIDE PAIN TECHNIQUE: Frontal, lateral and swimmer''s views of the thoracic spine. COMPARISON: No relevant prior studies available. FINDINGS: VERTEBRAE: There are mild degenerative changes with anterior osteophytes. Preserved vertebral body height. No fracture. No spondylolisthesis. Preservation of the normal thoracic kyphosis. No significant facet arthropathy. DISC SPACES: Unremarkable. Disc spaces are maintained. RAD/Thoracic Spine 3 Views IMPRESSION: Mild degenerative changes with osteophyte formation. There are no acute osseous abnormalities. Electronically Signed: Luc Mccarty MD at 0:21 EST ,
--- NOTE | 2024-06-18 15:26 | RAD_ITS ---
EXAM: XR ABDOMEN, 1 VIEW CLINICAL INDICATION: ABD PAIN/R SIDE PAIN TECHNIQUE: Frontal supine view of the abdomen/pelvis. COMPARISON: No relevant prior studies available. FINDINGS: LOWER THORAX: No acute pathology. GASTROINTESTINAL TRACT: Unremarkable. Non-obstructive. No bowel or stomach distention. ORGANS: Unremarkable as visualized. No organomegaly. No abnormal calcifications. BONES/JOINTS: No acute pathology. SOFT TISSUES: No acute pathology. RAD/Abdomen Single View IMPRESSION: Non-obstructive bowel gas pattern. Electronically Signed: Luc Mccarty MD at 0:11 EST ,
[2024-06-18 15:56] LABS: Absolute Lymphocyte Count 2.06 X10^3/uL (0.83-4.51); Absolute Neutrophil Count 7.3 X10^3/uL (2.0-7.7); Basophil# 0.03 X10^3/uL; Basophil% 0.3 % (0-1); Eosinophil# 0.19 X10^3/uL; Eosinophils% 1.8 % (0-5); Hematocrit 43.9 % (37-47); Hemoglobin 14.2 g/dL (12.0-15.0); Lymphocyte # 2.06 X10^3/ul (0.83-4.51); Lymphocyte % 19.9 % (19-41); Mean Corp Hgb Conc 32.3 g/dL (32-36); Mean Corpuscular Hgb 28.4 pg (27.0-32.0); Mean Corpuscular Volume 87.8 fL (81-99); Mean Platelet Vol. 9.2 fl (6.2-12.0); Monocyte# 0.77 X10^3/uL; Monocyte% 7.4 % (0-10); NRBC Flagged by Analyzer 0 % (0-5); Neutrophil # 7.25 X10^3/uL (2.7-7.7); Neutrophil % 70.2 % (47-70); Platelet Count 275 K/mm3 (150-450); RBC Distribution Width CV 12.6 % (11.6-14.6); RBC Distribution Width SD 40.1 fl (35.1-43.9); White Blood Count 10.3 K/mm3 (4.4-11.0)
[2024-06-18 16:13] LABS: ALB/GLOB Ratio 1.1 RATIO (0.9-2.4); AST(SGOT) 13 U/L (15-37); Alanine Aminotransfer ALT/SGPT 21 U/L (13-56); Albumin, Serum 4.3 g/dL (3.2-5.0); Alkaline Phosphatase 129 U/L (45-117); Anion Gap 8 (5-15); BUN 15 mg/dL (7-18); BUN/Creat Ratio 18.9 RATIO (10-20); Calcium,Total 9.8 mg/dL (8.5-10.1); Chloride 102 mmol/L (98-107); EST Glomerular Filtration Rate 78 mL/min (>60); Est Glom Filt Rate - Afr Amer 94 mL/min (>60); Globulin 3.9 g/dL (2.2-4.2); Glucose 89 mg/dL (74-106); Lipase 33 U/L (13-75); Potassium 3.7 mmol/L (3.5-5.1); Protein, Total 8.2 g/dL (6.4-8.2); Sodium Level 136 mmol/L (136-145)
== END | disposition home or self-care (01) ==
LOC: LAB 15:18
PROVIDERS: PCP Nurse Practitioner Family; Referring Provider Family Medicine; Visit Provider Family Medicine
DX: R10.11 Right upper quadrant pain (principal); R07.81 Pleurodynia
CPT/HCPCS: 36415; 71046; 72072; 74018; 80053; 83690; 85025

== ENCOUNTER → 2024-11-12 | Outpatient (CLI) | payer BC, SELFPAY ==
[2024-11-12 17:59] LABS: Anion Gap 11 (5-15); BUN 16 mg/dL (4-19); BUN/Creat Ratio 19.7 RATIO (10-20); Calcium,Total 9.6 mg/dL (7.6-11.0); Carbon Dioxide 25.5 mmol/L (21.0-32.0); Chloride 103 mmol/L (98-108); EST Glomerular Filtration Rate 84 (>60); Glucose 75 mg/dL (70-99); Potassium 4.5 mmol/L (3.3-5.1); Sodium Level 139 mmol/L (133-145)
[2024-11-14 04:07] LABS: Thyroid Peroxidase AB > 600 IU/mL (0-34)
== END | disposition home or self-care (01) ==
LOC: LAB 15:52
PROVIDERS: PCP Nurse Practitioner Family; Referring Provider Internal Medicine Endocrinology, Diabetes & Metabolism; Visit Provider Internal Medicine Endocrinology, Diabetes & Metabolism
DX: E03.8 Other specified hypothyroidism (principal)
CPT/HCPCS: 36415; 80048; 84439; 84443; 86376; 86800

== ENCOUNTER → 2024-12-01 | Outpatient (CLI) | payer BC, SELFPAY ==
--- NOTE | 2024-12-01 15:14 | RAD_ITS ---
PROCEDURE: HIP, UNI W/ PELVIS 2-3 VIEWS 12/01/2024 REASON FOR EXAM: PAIN IN HIP, ARTHRITIS TECHNIQUE: Three views of the left hip COMPARISON: None FINDINGS: No acute fracture or dislocation. Mild-moderate osteoarthritis, including small osteophytes and joint space narrowing. No focal soft tissue abnormality. SI joints are unremarkable. No suspicious lytic or blastic lesion. Mild degenerative changes of the imaged lower lumbar spine. RAD/HIP, UNI W/ Pelvis 2-3 Views IMPRESSION: No acute findings. Mild-moderate osteoarthritis. [facility]
== END | disposition home or self-care (01) ==
LOC: MTRAD 15:13
PROVIDERS: PCP Nurse Practitioner Family; Referring Provider Nurse Practitioner Family; Visit Provider Nurse Practitioner Family
DX: M25.552 Pain in left hip (principal)
CPT/HCPCS: 73502

== ENCOUNTER 2025-01-06 13:16 | Emergency (ER) | payer BC, SELFPAY ==
[2025-01-06 13:16] VITALS: BP 149/72; PULSE 78; RESP 15; TEMP 36.6; O2SAT 98; BMI 27.6
--- NOTE | 2025-01-06 18:03 | CT_ITS ---
PROCEDURE: ABDOMEN/PELVIS W IV CONT ONLY 01/06/2025 REASON FOR EXAM: BLUNT TRAUMA, PAIN RIGHT UPPER QUADRANT, SOLITARY TECHNIQUE: CT abdomen and pelvis with multi planar reconstructions after utilization of 75 cc Isovue 370. One or more dose reduction techniques were used (e.g., Automated exposure control, adjustment of the mA and/or kV according to patient size, use of iterative reconstruction technique. FINDINGS: Lung bases are clear. Normal liver and gallbladder. Normal spleen. Surgical absence left kidney. No right renal mass or hydronephrosis. Incidental parapelvic cysts in the right kidney. No bowel obstruction, free fluid or free air. Negative for abscess. Negative for abdominal aneurysm. CT/Abdomen/Pelvis W IV Cont ONLY IMPRESSION: There is no acute abnormality. OVERALL FINAL ASSESSMENT: . Reading [facility]
[2025-01-06 18:09] VITALS: BP 169/80; PULSE 83; RESP 18; O2SAT 95
--- NOTE | 2025-01-06 18:11 | EX.ED.GENINJ ---
HPI History of Present Illness Chief Complaint: Other, Pain/Inj Detail of Chief Complaint: Blunt trauma to upper extremities and abdomen Informant: patient Onset/Context/Timing Onset: Hours Mechanism/Context: Blunt Injury Location of pain/injuries: Right forearm, Left forearm and - (Upper abdomen) Quality of Pain: Dull and Aching Location: Subxiphoid region Current Severity: Mild Maximum Severity: Severe Worsened by: Palpation and movement Relieved by: Nothing Associated Symptoms Associated Symptoms: Negative for Parasthesias, Weakness, Loss of function, Inability to ambulate, Loss of consciousness or Amnesia Narrative Narrative: Patient is a 59-year-old woman. She does have history of hypertension. 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 She was at work. Boxes that were on a forklift shifted. Boxes apparently weighed 35 to 40 pounds. They fell on her. She sustained a skin tear dorsal mid left forearm. She has bruising right elbow region. She complains of pain she localizes to the xiphoid region. She denies head trauma. She denies loss of conscious she not amnestic. She denies neck pain. She denies paresthesia, anesthesia or motor weakness upper extremities. She states it does hurt to breathe. She does report mild shortness of breath. She is not on an anticoagulant. Review of prior records indicates she has history of hypertension, hypothyroidism and GERD. 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 Bunion, right foot Endometriosis determined by laparoscopy Diverticular disease Vision problems Rheumatoid arthritis GERD (gastroesophageal reflux disease) Kidney stone Gastrointestinal problem Chronic bronchiolitis Carpal tunnel syndrome Breast lump H/O transfusion of whole blood Back problem Arthritis Allergies Disorder of thyroid Shoulder pain Hypertension Home Medications ?Medication ?Instructions ?Recorded ?Last Taken ?Type amlodipine 2.5 mg tablet 5 mg PO DAILY 10/19/13 Unknown History cholecalciferol (vitamin D3) 125 125 mcg PO DAILY 10/26/20 Unknown History mcg (5,000 unit) tablet omeprazole 40 mg capsule,delayed 40 mg PO DAILY 10/26/20 Unknown History release spironolactone 50 mg tablet 50 mg PO DAILY 10/26/20 Unknown History vitamin E (dl, acetate) 180 mg 450 mg PO DAILY 10/26/20 Unknown History (400 unit) capsule allergy shots IM 11/17/21 Unknown History amlodipine 5 mg tablet 5 mg PO 11/17/21 Unknown History ascorbic acid (vitamin C) 500 mg mg PO 11/17/21 Unknown History capsule biotin 2,500 mcg capsule 2,000 mcg PO DAILY 11/17/21 Unknown History naproxen sodium 220 mg capsule 220 mg PO Q12H PRN 11/17/21 Unknown History (Aleve) levothyroxine 88 mcg tablet 88 mcg PO DAILY #90 tabs 11/21/21 Unknown Rx oxycodone-acetaminophen 5 mg-325 1 tab PO Q6H PRN PRN pain 5 days 01/06/25 Unknown Rx mg tablet #20 TABLETS Allergy/AdvReac Type Severity Reaction Status Date / Time shellfish derived Allergy Anaphylaxis Verified 04/11/21 10:36 sulfamethoxazole (From AdvReac Rash Verified 04/11/21 10:36 Bactrim) trimethoprim (From Bactrim) AdvReac Rash Verified 04/11/21 10:36 Family History Other Alcohol abuse Angina at rest Arthritis Autoimmune disorder Breast cancer CVA (cerebral vascular accident) Cancer Cervical cancer Diabetes H/O transfusion of whole blood [place] disease Hypertension Myocardial infarction Ovarian cancer Respiratory disease Skin cancer Surgical History H/O release of tendon History of cryosurgery History of nephrectomy Social History Smoking Status: Never smoker alcohol intake: current alcohol intake frequency: a few times a week Alcohol type: beer substance use type: does not use what type of physical activity do you participate in: none ROS ROS ED Constitutional Constitutional ED: Denies chills or fever(s) Eyes Eyes: Denies blurry vision or change in vision ENT ENT ED: Reports other Details: Negative epistaxis or dental trauma. ; Denies ear pain, rhinorrhea or sore throat Cardiovascular Cardiovascular: Reports chest pain; Denies palpitations, paroxysmal nocturnal dyspnea or racing heartbeat Respiratory/Chest Respiratory/Chest: Reports dyspnea; Denies cough, dyspnea on exertion or paroxysmal nocturnal dyspnea Gastrointestinal Gastrointestinal: Reports abdominal pain; Denies constipation, diarrhea, melena, nausea or vomiting Musculoskeletal Musculoskeletal: Denies back pain or neck pain Integumentary Denies rash Neurologic Neurologic: Denies headache(s), paresthesias or weakness Hematologic/Lymphatic Hematologic/Lymphatic: Denies easy bleeding or easy bruising EXAM Physical Exam Const Vital Signs: 01/06/25 13:16 01/06/25 18:02 01/06/25 18:02 Temperature 97.9 F Temperature Source Oral Pulse Rate 78 Respiratory Rate 15 Respiratory Effort Normal Non-Labored Normal Non-Labored Respiratory Depth Normal Respiratory Pattern Normal Normal Blood Pressure 149/72 H Blood Pressure Mean 97 Pulse Ox 98 Oxygen Delivery Method Room Air Room Air 01/06/25 18:09 Temperature Temperature Source Pulse Rate 83 Respiratory Rate 18 Respiratory Effort Respiratory Depth Respiratory Pattern Blood Pressure 169/80 H Blood Pressure Mean 109 Pulse Ox 95 Oxygen Delivery Method Room Air Positive well nourished and well developed Constitutional Narrative: Patient grimaces with movement. She has a Band-Aid on her left forearm. General Appearance ED: well developed HEENT HEENT Narrative: Head is atraumatic no cephalic. Ears are normal. Nares patent. No dental trauma. No posterior midline cervical neck pain. Full active range of motion. Trachea midline. No dysphonia. Eyes PERRL and EOMs intact bilaterally General Eye ED: Yes other Other Details: There is no subconjunctival hemorrhage noted. Neck full ROM General: Negative for tenderness Chest Wall palpation of chest normal Chest Narrative: Reports pain over the xiphoid process. There is no crepitus subcutaneous air. Resp normal respiratory effort and clear to auscultation bilaterally Cardio regular rhythm, S1 normal heart sound, S2 normal heart sound and no murmurs Cardio Narrative: There is no Monae's crunch. GI normal to inspection, nondistended, normoactive bowel sounds, non-distended and no masses; Negative for non-tender GI Narrative: There is significant tenderness right costal margin and subxiphoid area. Patient guards. There is also pain outpatient over the right lower ribs anteriorly. Auscultation: normoactive bowel sounds Palpation: soft Back/Spine normal to inspection and no thoracic nor lumbar tenderness Extremity full ROM; Negative for normal to inspection Extremity Narrative: Patient has skin tear approximately 2 cm length. There is a Steri-Strip by the nurse at work. This was not removed since the skin tear is approximated well and there is no active bleeding. There is no pain ovation over the lateral medial epicondyle, olecranon process or radial head. There is no pain the patient over the distal radius or ulna. Patient has multiple bruises right elbow region. There is no pain ovation of the lateral medial epicondyle, olecranon process or radial head with supination pronation. There is no pain ovation over the shaft of the ulna or radius or the distal radius or ulna new Axillary, median, radial and ulnar function intact bilaterally. Radial pulses 2+ bilaterally. General Extremety ED: Negative for deformity or edema General Extremity: Negative for deformity or edema Neuro oriented x3, CN's II-XII intact bilaterally, moves all extremities, no focal motor deficits and no sensory deficits noted Nina Coma Scale: document GCS findings Spontaneous Obeys Commands Oriented 15 Sensorium / Orientation: alert Psych mental status grossly normal and thought process normal Skin no rashes or lesions noted and no wounds MDM MDM MDM Narrative Medical decision making narrative: Patient has contusion to the right upper extremity. Since there is no point bony tenderness she has no limited range of motion in my opinion imaging is not indicated. Furthermore there is no point bone tenderness and no limited range of motion left upper extremity and in my opinion imaging is not indicated. Because of the significant pain in the right upper quadrant concerned there may have hepatic injury. Also concern for pulmonary contusion, pneumothorax, hemothorax or fractured ribs. CT of the abdomen and pelvis with IV contrast was ordered. Will wait for BMP to return since patient has solitary kidney. Lab Data Attestation: I reviewed the patient's lab results. Lab results narrative: Basic metabolic panel reveals normal renal function. CO2 is slightly decreased at 19.7. Labs: Laboratory Results - last 24 hr 01/06/25 18:14 Sodium 140 Potassium 3.8 Chloride 107 Carbon Dioxide 19.7 L Anion Gap 13 BUN 11 Creatinine 0.66 L Estim Creat Clear Calc 81.24 Est GFR (MDRD) Non-Af 100 BUN/Creatinine Ratio 16.2 Glucose 98 Calcium 9.4 Radiography Diagnostic Testing: Clinical Impression(s) from Imaging Studies Abdomen/Pelvis CT 01/06/25 18:03 IMPRESSION: There is no acute abnormality. OVERALL FINAL ASSESSMENT: . Reading Location: [facility] CT of the abdomen and pelvis reveals no evidence of liver or splenic injury i.e. laceration or subcapsular hematoma. Patient has solitary right kidney. There is no evidence of pneumoperitoneum. There is no subcutaneous hematoma noted. Awaiting formal read by radiologist, 1924 Radiologist report was read/reviewed at 2045. There is no abnormalities noted. Plan is to discharge to home. Discharge Plan Triage Chief Complaint: Other, Pain/Inj ED Provider: Lazaro Koenig Dx/Rx/DC Orders Clinical Impression: Blunt chest trauma, Blunt abdominal trauma, Contusion of multiple sites of right upper extremity, ISTAP type 1 skin tear of left forearm, Hypertension Instructions: Bruises (Contusions), ED Abd Injury Blunt Benign, ED Laceration Superficial No Stitch Prescriptions: New oxycodone-acetaminophen 5-325 mg tablet 1 tab PO Q6H PRN PRN (Reason: pain) 5 Days Qty: 20 0RF No Action spironolactone 50 mg tablet 50 mg PO DAILY cholecalciferol (vitamin D3) 125 mcg (5,000 unit) tablet 125 mcg PO DAILY vitamin E (dl, acetate) 400 unit capsule 450 mg PO DAILY omeprazole 40 mg capsule,delayed release(DR/EC) 40 mg PO DAILY amlodipine 5 mg tablet 5 mg PO Patient Comments: take 1 tablet by mouth once daily ascorbic acid (vitamin C) 500 mg capsule PO biotin 2,500 mcg capsule 2,000 mcg PO DAILY naproxen sodium [Aleve] 220 mg capsule 220 mg PO Q12H PRN allergy shots IM amlodipine 2.5 MG tablet 5 mg PO DAILY Patient Comments: take 1 tablet by mouth once daily levothyroxine 88 mcg tablet 88 mcg PO DAILY Qty: 90 3RF Primary Care Provider: Swapna Corea Referrals: Swapna Corea, ASSOCIATE CHIEF NURSE-C [Primary Care Provider] - 3-5 Days if not improving Activity Restrictions/Additional Instructions: 1. Apply ice to areas of discomfort 6-8 times a day. 2. Take pain medicine as prescribed for your pain. 3. You will hurt in more places and you presently do 4. You will feel worse than you presently do over the next 24 to 48 hours 5. You may hurt for 3 to 7 days if not longer Print Language: Mohawk Disposition Disposition: Home, Self Care
[2025-01-06] MEDS: Ondansetron 4 MG/2 ML Vial IV (18:18)
[2025-01-06] MEDS: Morphine 4 MG/ML Syringe IV ×2 (18:19→21:27)
[2025-01-06 18:54] LABS: Anion Gap 13 (5-15); BUN 11 mg/dL (4-19); BUN/Creat Ratio 16.2 RATIO (10-20); Calcium,Total 9.4 mg/dL (7.6-11.0); Carbon Dioxide 19.7 mmol/L (21.0-32.0); Chloride 107 mmol/L (98-108); Creatinine, Serum 0.66 mg/dL (0.70-1.20); EST Glomerular Filtration Rate 100 (>60); Estimated Creatinine Clearance 81.24 ml/min (50-250); Glucose 98 mg/dL (70-99); Potassium 3.8 mmol/L (3.3-5.1); Sodium Level 140 mmol/L (133-145)
[2025-01-06 21:00] VITALS: BP 150/81; PULSE 70; RESP 18; TEMP 36.8; O2SAT 98
== END 2025-01-06 21:38 | disposition home or self-care (01) ==
PROVIDERS: Emergency Provider Emergency Medicine; PCP Nurse Practitioner Family; Referring Provider Emergency Medicine; Visit Provider Emergency Medicine
DX: S30.1XXA Contusion of abdominal wall, initial encounter (principal); S29.9XXA Unspecified injury of thorax, initial encounter; W19.XXXA Unspecified fall, initial encounter; M79.632 Pain in left forearm; Y99.0 Civilian activity done for income or pay; R06.02 Shortness of breath; Q60.0 Renal agenesis, unilateral; I10 Essential (primary) hypertension; M79.631 Pain in right forearm; R10.10 Upper abdominal pain, unspecified; S51.802A Unspecified open wound of left forearm, initial encounter; Z90.5 Acquired absence of kidney
CPT/HCPCS: 74177; 80048; 96374; 96375; 96376; 99285; Q9967; A4216; J2405

== ENCOUNTER → 2025-01-18 | Outpatient (CLI) | payer OTHER, SELFPAY ==
--- OUTSIDE RECORDS SUMMARY | 2025-01-18 06:57 | XMS RPT_ITS | CCD ---
Author Organization [facility] Care Team Providers Care Metals Analyst Name Role Phone Steve Cotter Unavailable Jalen Chavez Unavailable Dr. Satinder Griggs Primary Care Provider [phone] Dr. Satinder Griggs Referring Provider Dr. Abdulaziz Paul Attending Provider [phone] SATINDER GRIGGS Primary Care Unavailable JACQUELIN SANCHEZ Attending Unavailabl e JACQUELIN SANCHEZ Admitting Unavailabl e IGOE, STEPHEN FRY Referring Unavailable SATINDER GRIGGS Primary Care Unavailable IGOE, STEPHEN FRY Attending Unavailable SATINDER GRIGSG Primary Care Unavailable IGOE, STEPHEN FRY Attending Unavailable IGOE, STEPHEN FRY Referring Unavailable IGOE, STEPHEN FRY Attending Unavailable SATINDER GRIGGS Primary Care Unavailable IGHILDA, STEPHEN FRY Referring Unavailable SATINDER GRIGGS Primary Care Unavailable IGOE, STEPHEN FRY Referring Unavailable SATINDER GRIGGS Primary Care Unavailable IGOE, STEPHEN FRY Attending Unavailable Satinder Griggs MD Primary Care Provider IGOE, STEPHEN FRY Attending Unavailable SATINDER GRIGGS Primary Care Unavailable SATINDER GRIGGS Primary Care Unavailable SATINDER GRIGGS Referring Unavailable IGHILDA, STEPHEN FRY Attending Unavailable SATINDER GRIGGS Admitting Unavailable BIJU LOPEZ, DR DAT Olivarez Attending Tricia PINTO MD, DR CASTRO Primary Care Unavailable Anmol TORRES-C, Swapna Primary Care Provider Margarita LOPEZ, Dr. Mondragon Attending Provider Margarita LOPEZ, Dr. Mondragon Referring Provider Anmol PINION AND WHEEL TRUER-C, Swapna Attending Provider Anmol [employer] WHE[employer]ER-C, Swapna Referring Provider Dr. Lazaro Koenig MD Referring Provider Dr. Lazaro Koenig MD Emergency Provider [phone] Jalen Chavez Attending Provider Anmol, Swapna Primary Care Unavailable Malys, Lisette Attending Unavailable Malys, Lisette Referring Unavailable Runer, Alanna Attending Unavailable Runer, Alanna Referring Unavailable Anmol, Swapna Primary Care Unavailable Anmol, Swapna Referring Unavailable Jalen Chavez Attending Unavailable Anmol, Swapna Primary Care Unavailable Anmol, Swapna Referring Unavailable Anmol, Swapna Primary Care Unavailable Anmol, Swapna Attending Unavailable Anmol, Swapna Primary Care Unavailable Koenig, Lazaro Attending Unavailable Koenig, Lazaro Referring Unavailable Anmol, Swapna Referring Unavailable Anmol, Swapna Primary Care Unavailable Anmol, Swapna Attending Unavailable Anmol, Swapna Referring Unavailable Anmol, Swapna Primary Care Unavailable Anmol, Swapna Attending Unavailable Runer, Alanna Attending Unavailable Runer, Alanna Referring Unavailable Anmol, Swapna Primary Care Unavailable Arya LOPEZ, Dr. Willis Attending Provider Allergies Allergy Classification Reported Allergen(s) Allergy Type Date of Onset Reaction(s) Facility (18 sources) Shellfish; Translations: [SHELLFISH DERIVED] Allergy to substance 04-11-20 Other (See Comments) [facility] Repository (14 sources) Sulfamethoxazole Drug Allergy 04-11-20 21 [facility] (14 sources) Trimethoprim Drug Allergy 04-11-20 [facility] (3 sources) Sulfamethoxazole / Trimethoprim; Translations: [SULFAMETHOXAZOLE-TR IMETHOPRIM] Drug Allergy 08-02-19 [facility] Repository (1 source) Sulfamethoxazole Drug Allergy 01-12-20 [facility] Repository (1 source) Trimethoprim Drug Allergy 01-12-20 [facility] Repository Medications Current Medications Medication Drug Class(es) Dates Sig (Normalized) Sig (Original) acetaminophen 325 mg / oxyCODONE hydrochloride 5 mg oral tablet (3 sources) Opioid Agonist Start: 01-06-2025 take 1 tablet by mouth every six hours as needed for pain Oxycodone-Acetami nophen 5-325 mg tablet Active 1 {tbl} PO EVERY 6 HOURS NEEDED as needed for pain 20 5 January 06, 2025 allergy shots (14 sources) Start: 11-17-2021 allergy shots Active IM November 17, 2021 3:22pm Start: 11-17-2021 allergy shots Active IM November 16, 2021 11:00pm Start: 11-17-2021 allergy shots Active IM November 17, 2021 12:00am amLODIPine 5 mg oral tablet (20 sources) Dihydropyridine Calcium Channel Charles Start: 11-17-2021 Amlodipine 5 mg tablet Active 5 mg PO November 17, 2021 12:00am Start: 06-27-2017 AMLODIPINE BES YLATE 5 MG TABS as directed AMLODIPINE BESYLATE [id number] Jalen SANCHES Start: 10-19-2013 End: 01-11-2025 take 2 tablets by mouth once daily Amlodipine 2.5 MG tablet Discontinued 5 mg PO DAILY October 19, 2013 12:00am January 11, 2025 6:21am Start: 10-19-2013 take 5 mg by mouth once daily Amlodipine Active 5 MG PO DAILY October 19, 2013 12:00am ascorbic acid 500 mg oral capsule (15 sources) Vitamin C Start: 11-17-2021 Ascorbic Acid (Vitamin C) 500 mg capsule Active mg PO November 17, 2021 12:00am Start: 11-17-2021 Ascorbic Acid (Vitamin C) Active MG PO November 17, 2021 12:00am biotin 2.5 mg oral capsule (15 sources) Start: 11-17-2021 take 0.8 capsule by mouth three times daily biotin 2,500 mcg cap Take 0.8 capsules (2,000 mcg total) by mouth 3 (three) times a day . 0 11/17/2021 Active Start: 11-17-2021 Biotin 2,500 m cg capsule Active 2000 ug PO DAILY November 17, 2021 12:00am Start: 11-17-2021 take 2000 ug by mouth once dejah ly Biotin Active 2000 MCG PO DAILY November 17, 2021 12:00am cholecalciferol 0.125 mg oral tablet (17 sources) Vitamin D Start: 10-26-2020 take 1 tablet by mouth once daily Cholecalciferol (Vitamin D3) 125 mcg (5,000 unit) tablet Active 125 ug PO DAILY October 26, 2020 12:00am Start: 06-27-2017 cholecalcifero l, vitamin D3, 5,000 unit Tab tablet Take 1 (one) tablet (5,000 Units total) by mouth Saturday, Saturday, Saturday . 0 06/27/2017 Active Start: 06-27-2017 VITAMIN D (CHO LECALCIFEROL) 400 UNIT CAPS as directed CHOLECALCIFEROL [id number] Jalen SANCHES doxycycline monohydrate 100 mg oral capsule (2 sources) Tetracycline-class Drug Start: 01-11-2025 take 1 capsule by mouth twice daily Doxycycline Monohydrate 100 mg capsule Active 100 mg PO TWICE A DAY January 11, 2025 12:00am hydroxychloroquine sulfate 200 mg oral tablet (1 source) Antimalarial, Antirheumatic Agent Start: 08-06-2022 End: 08-06-2023 take 2 tablets by mouth once daily hydrOXYchloroQUINE (PLAQUENIL) 200 mg tablet Indications: Rheumatoid arthritis, involving unspecified site, unspecified whether rheumatoid factor present (HCC) Take 2 (two) tablets (400 mg total) by mouth daily . 180 tablet 3 08/06/2022 08/06/2023 Active Multivitamin (Daily Multi-Vitamin) tablet (2 sources) Start: 01-11-2025 Multivitamin (Daily Multi-Vitamin) tablet Active 1 {tbl} PO EVERY MORNING January 11, 2025 12:00am omeprazole 40 mg delayed release oral capsule (15 sources) Proton Pump Inhibitor Start: 10-26-2020 take 1 capsule by mouth once daily Omeprazole 40 mg capsule,delayed release(DR/EC) Active 40 mg PO DAILY October 26, 2020 12:00am spironolactone 50 mg oral tablet (17 sources) Aldosterone Antagonist Start: 10-26-2020 take 1 tablet by mouth once daily Spironolactone 50 mg tablet Active 50 mg PO DAILY October 26, 2020 12:00am Start: 06-27-2017 SPIRONOLACTONE 100 MG TABS as directed SPIRONOLACTONE [id number] Jalen SANCHES topiramate 50 mg oral tablet (1 source) Start: 11-07-2022 End: 11-07-2023 take 1 tablet by mouth twice daily topiramate (TOPAMAX) 50 MG tablet Indications: Obesity, unspecified classification, unspecified obesity type, unspecified whether serious comorbidity present Take 1 (one) tablet (50 mg total) by mouth 2 (two) times a day . 180 tablet 3 11/07/2022 11/07/2023 Active vitamin e 180 mg oral capsule (17 sources) Start: 10-26-2020 take 450 mg by mouth once daily Vitamin E (Dl, Acetate) Active 450 MG PO DAILY October 26, 2020 12:00am Start: 06-27-2017 take 1 capsule by mo [facility] once daily Vitamin E (Dl, Acetate) 400 unit capsule Active 450 mg PO DAILY October 26, 2020 12:00am Start: 06-27-2017 VITAMIN E 100 UNIT TABS as directed VITAMIN E [id number] Jalen SANCHES Completed/Discontinued Medications Medication Drug Class(es) Dates Sig (Normalized) Sig (Original) amoxicillin 875 mg / clavulanate 125 mg oral tablet (14 sources) Penicillin-class Antibacterial Start: 12-30-2020 End: 01-09-2021 Amoxicillin-Pot Clavulanate (Augmentin) 875-125 mg tablet Discontinued 1 {tbl} PO Q12H 20 December 30, 2020 12:00am January 08, 2021 12:00am January 09, 2021 12:01am cephalexin 500 mg oral capsule (14 sources) Cephalosporin Antibacterial Start: 04-11-2021 End: 04-21-2021 take 1 capsule by mouth every twelve hours Cephalexin 500 mg capsule Discontinued 500 mg PO Q12H 17 05April 11, 2021 12:00am April 20, 2021 12:00am April 21, 2021 12:01am Norethindrone-E.Es tradiol-Iron (14 sources) Estrogen Start: 07-15-2015 End: 12-30-2020 Norethindrone-E.Es tradiol-Iron Discontinued 1 EACH PO DAILY July 15, 2015 12:39pm December 30, 2020 9:22am Start: 07-15-2015 End: 12-30-2020 Norethindrone-E.Estradiol-Ir on 1 EACH tablet,chewable Discontinued 1 NMA PO DAILY July 15, 2015 1:00am December 30, 2020 9:22am Start: 07-15-2015 End: 12-30-2020 Norethindrone-E.Estradiol-Ir on Discontinued 1 EACH PO DAILY July 15, 2015 12:00am December 30, 2020 8:22am Start: 07-15-2015 End: 12-30-2020 Norethindrone-E.Estradiol-Ir on Discontinued 1 EACH PO DAILY July 15, 2015 1:00am December 30, 2020 9:22am naproxen sodium 220 mg oral capsule (15 sources) Nonsteroidal Anti-inflammatory Drug Start: 11-17-2021 End: 01-11-2025 take 1 capsule by mouth every twelve hours as needed Naproxen Sodium (Aleve) 220 mg capsule Discontinued 220 mg PO Q12H as needed November 17, 2021 12:00am January 11, 2025 6:22am nitrofurantoin, macrocrystals 25 mg / nitrofurantoin, monohydrate 75 mg oral capsule (2 sources) Start: 06-27-2017 MACROBID 100 MG CAPS 1 capsule twice daily NITROFURANTOIN MONOHYD MACRO [id number] Jalen SANCHES levothyroxine sodium 0.075 mg oral tablet (20 sources) l-Thyroxine Start: 11-21-2021 take 1 tablet by mouth once daily Levothyroxine 88 mcg tablet Active 88 ug PO DAILY November 21, 2021 12:00am Start: 06-27-2017 LEVOTHYROXINE SODIUM 100 MCG TABS as directed LEVOTHYROXINE SODIUM [id number] Jalen SANCHES Start: 07-15-2015 End: 11-21-2021 Levothyroxine 75 mcg tablet Discontinued 88 ug PO DAILY November 21, 2021 12:29pm November 21, 2021 3:01pm Start: 07-15-2015 End: 11-21-2021 take 88 ug by mouth once daily Levothyroxine Discontin ued 88 MCG PO DAILY November 21, 2021 12:29pm November 21, 2021 3:01pm Problems Active Problems Problem Classification Problem Date Documented Date Episodic/Chronic Diverticulosis and diverticulitis (1 source) Diverticulosis of large intestine without perforation or abscess without bleeding; Translations: [DVRTCLOS LG INT NO PERF/ABSC W/O BL] Onset: 07-05-2022 Chronic Essential hypertension (5 sources) Hypertensive disorder; Translations: [Essential (primary) hypertension] 06-27-2017 Chronic Immunizations and screening for infectious disease (1 source) Rheumatoid factor positive; Translations: [Other specified abnormal immunological findings in serum] 11-07-2022 Episodic Malaise and fatigue (18 sources) Fatigue; Translations: [Other fatigue] Episodic Nonspecific chest pain (14 sources) Chest pain; Translations: [Chest pain, unspecified] 07-16-2015 Episodic Open wounds of extremities (7 sources) Open wound of left forearm; Translations: [Laceration without foreign body of left forearm, initial encounter] 01-06-2025 Episodic Osteoarthritis (3 sources) Degenerative joint disease involving multiple joints; Translations: [Polyosteoarthritis, unspecified] Onset: 11-07-2022 11-07-2022 Chronic Other diseases of kidney and ureters (2 sources) Unspecified hydronephrosis; Translations: [UNSPECIFIED HYDRONEPHROSIS] Onset: 07-05-2022 Episodic Other injuries and conditions due to external causes (5 sources) Blunt injury of abdomen; Translations: [Unspecified injury of abdomen, initial encounter] 01-06-2025 Episodic Other injuries and conditions due to external causes (5 sources) Blunt injury of thorax; Translations: [Other specified injuries of thorax, initial encounter] 01-06-2025 Episodic Other non-traumatic joint disorders (1 source) Joint pain; Translations: [Pain in unspecified joint] 11-07-2022 Episodic Other non-traumatic joint disorders (1 source) Pain in left hip; Translations: [Pain in left hip] Onset: 12-07-2024 Episodic Other nutritional; endocrine; and metabolic disorders (1 source) Obesity; Translations: [Obesity, unspecified] 11-07-2022 Chronic Other nutritional; endocrine; and metabolic disorders (2 sources) Obesity, unspecified; Translations: [Obesity, unspecified] Onset: 04-12-2023 Chronic Other screening for suspected conditions (not mental disorders or infectious disease) (1 source) Encounter for other screening for malignant neoplasm of breast; Translations: [Encounter for other screening for malignant neoplasm of breast] Onset: 01-11-2025 Episodic Other upper respiratory infections (14 sources) Acute sinusitis; Translations: [Acute sinusitis, unspecified] 12-30-2020 Episodic Residual codes; unclassified (1 source) Acquired absence of kidney; Translations: [ACQUIRED ABSENCE OF KIDNEY] Onset: 07-05-2022 Episodic Rheumatoid arthritis and related disease (4 sources) Rheumatoid arthritis, unspecified; Translations: [Rheumatoid arthritis, unspecified] Onset: 08-06-2022 Chronic Spondylosis; intervertebral disc disorders; other back problems (1 source) Spondylosis, unspecified; Translations: [SPONDYLOSIS UNSPECIFIED] Onset: 07-05-2022 Chronic Superficial injury; contusion (20 sources) Contusion of rib; Translations: [Contusion of left front wall of thorax, initial encounter] Onset: 01-11-2025 10-26-2020 Episodic Thyroid disorders (19 sources) 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; Translations: [Other specified hypothyroidism] Onset: 11-18-2024 Chronic Urinary tract infections (16 sources) Pyelonephritis; Translations: [Cystitis] Onset: 06-27-2017 06-27-2017 Episodic Past or Other Problems Problem Classification Problem Date Documented Da te Episodic/Chronic Abdominal pain (3 sources) Unspecified abdominal pain; Translations: [Pelvic and perineal pain] Onset: 07-05-2022 Episodic Diabetes mellitus without complication (2 sources) Prediabetes; Translations: [Prediabetes] Onset: 02-27-2024 11-07-2022 Episodic Results Test Name Value Interpretation Reference Range Facility Urgent Care Visit Reporton 0 01-11-2025 Urgent Care Visit Report [facility] [address], [address] [place] [address] OFFICE VISIT Date of Service: 01/11/25 MR#: [id number] Acct: [id number] Name: ALINE BOLAÑOS Rep #: [id number] : 1965 Provider: MYRON Hurtado Age/Sex: 59/F Location: [facility] [place] Status: Signed Intake Vital Signs 01/06/25 13:16 01/11/25 06:27 Height 5 ft 2 in 5 ft 2 in Weight: 151 lb BMI 27.6 BP 102/62 Position Sitting Respiration 14 Pulse 58 L Temp 98.4 F Temp Source Oral Pulse Oximetry (%) 98 Oxygen Delivery Method room air Intake Visit Reasons: ER FU/ [facility] Accompanied by: Self Is patient in pain?: Yes Pain scale (1-10): 7 Allergies shellfish derived Allergy (Verified 01/11/25 06:21) Anaphylaxis sulfamethoxazole (From Bactrim) Adverse Reaction (Verified 01/11/25 06:21) Rash trimethoprim (From Bactrim) Adverse Reaction (Verified 01/11/25 06:21) Rash Medications ???Medication ???Instructions ???Recorded ???Confirmed ???Type cholecalciferol (vitamin D3) 125 125 mcg PO DAILY 10/26/20 01/11/25 History mcg (5,000 unit) tablet omeprazole 40 mg capsule,delayed 40 mg PO DAILY 10/26/20 01/11/25 H istory release spironolactone 50 mg tablet 50 mg PO DAILY 10/26/20 01/11/25 H istory vitamin E (dl, acetate) 180 mg 450 mg PO DAILY 10/26/20 01/11/25 History (400 unit) capsule allergy shots IM 11/17/21 History amlodipine 5 mg tablet 5 mg PO 11/17/21 01/11/25 History ascorbic acid (vitamin C) 500 mg mg PO 11/17/21 01/11/25 History capsule biotin 2,500 mcg capsule 2,000 mcg PO DAILY 11/17/21 History levothyroxine 88 mcg tablet 88 mcg PO DAILY #90 tabs 11/21/21 01/11/25 Rx oxycodone-acetaminophe n 5 mg-325 1 tab PO Q6H PRN PRN pain 5 days 0 01/06/25 Rx mg tablet #20 TABLETS doxycycline monohydrate 100 mg 100 mg PO BID #14 caps 01/11/25 Rx capsule multivitamin (Daily Multi-Vitamin 1 tab PO QAM 01/11/25 01/11/25 Hi story tablet) Nurse's Note: Patient here for a [facility] ER f/u. Patient thinks her left arm is infected. Patient states her ribs are better but still not good. 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 Bunion, right foot Endometriosis determined by laparoscopy Diverticular disease Vision problems Rheumatoid arthritis GERD (gastroesophageal reflux disease) Kidney stone Gastrointestinal problem Chronic bronchiolitis Carpal tunnel syndrome Breast lump H/O transfusion of whole blood Back problem Arthritis Allergies Disorder of thyroid Shoulder pain Hypertension Surgical History H/O release of tendon History of cryosurgery History of nephrectomy Family History Other Alcohol abuse Angina at rest Arthritis Autoimmune disorder Breast cancer CVA (cerebral vascular accident) Cancer Cervical cancer Diabetes H/O transfusion of whole blood [place] disease Hypertension Myocardial infarction Ovarian cancer Respiratory disease Skin cancer Social History Smoking Status: Never smoker alcohol intake: current alcohol intake frequency: a few times a week Alcohol type: beer substance use type: does not use what type of physical activity do you participate in: none HPI HPI Details: ALINE BOLAÑOS, is a 59 F who presents to the office today for initial evaluation at the [facility] status post work-related injury suffered on 01/06/2025 patient so states. 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 She reported to [facility] ED where treated for released the same day with blunt trauma to the chest wall and abdomen as well as contusion right forearm and skin tear to left forearm. Patient notes still having moderate aching discomfort to chest wall and abdomen with slight improvement, no complaints of chest pain or shortness of breath or dyspnea on exertion, and digesting and moving bowels/urinating without complaints. She feels her right forearm is essentially resolved though her left forearm laceration/skin tear has become more tender with purulent discharge appreciated; no complaints of fever, chills, sweats, lightheadedness/dizzin ess, nausea/vomiting. She has not returned to work since date of injury. No [id number] medications have been taken to assist. No other associated symptoms and no other alleviating/aggravatin g factors. ROS C (more content not included)... Normal [facility] Abdomen/Pelvis W IV Cont ONL Yon 01-06-2025 Abdomen/Pelvis W IV Cont ONLY [facility] Imaging Services [address] [place] [address] Abdomen/Pelvis W IV Cont ONLY MR#: [id number] Acct: [id number] Name: ALINE BOLAÑOS Rep #: [id number] : 1965 F 59 From: Андрей Sherman MD PCP: MICHAEL Beach Status: REG ER Study: Abdomen/Pelvis W IV Cont ONLY Date of Exam: Exam# [id number] Ordering Dr: Lazaro Koenig MD PROCEDURE: ABDOMEN/PELVIS W IV CONT ONLY 01/06/2025 REASON FOR EXAM: BLUNT TRAUMA, PAIN RIGHT UPPER QUADRANT, SOLITARY TECHNIQUE: CT abdomen and pelvis with multi planar reconstructions after utilization of 75 cc Isovue 370. One or more dose reduction techniques were used (e.g., Automated exposure control, adjustment of the mA and/or kV according to patient size, use of iterative reconstruction technique. FINDINGS: Lung bases are clear. Normal liver and gallbladder. Normal spleen. Surgical absence left kidney. No right renal mass or hydronephrosis. Incidental parapelvic cysts in the right kidney. No bowel obstruction, free fluid or free air. Negative for abscess. Negative for abdominal aneurysm. CT/Abdomen/Pelvis W IV Cont ONLY IMPRESSION: There is no acute abnormality. OVERALL FINAL ASSESSMENT: . Reading [facility] CC: PINION AND WHEEL TRUER-C Swapna Corea; Dr. Lazaro Koenig MD [place] [employer] Professor: Signed Normal [facility] Anion gap in Serum or Plasma Ordered By: Lazaro Koenig on 01-06-2025 Anion gap [Moles/Vol] 13 mmol/L 5-15 [facility] BUN/creatinine ratioOrdered By: Lazaro Koenig on 01-06-2025 Urea nitrogen/Creatinine [Mass ratio] 16.2 mg/mg 10-20 [facility] Basic Metabolic Profile (BMP )on 01-06-2025 BUN/CRE 16.2 RATIO Normal -20 [facility] Comment on above: Performed By: #### L 500.2500 ####[facility] [address] [place], [address] Calcium [Mass/Vol] 9.4 mg/dL Normal 7.6-11.0 [facility] Comment on above: Performed By: #### L 500.2500 ####[facility] [address] [place], [address] Chloride [Moles/Vol] 107 mmol/L Normal 98-108 [facility] Comment on above: Performed By: #### L 500.2500 ####[facility] [address] [place], [address] CO2 [Moles/Vol] 19.7 mmol/L Low 21.0-32.0 [facility] Comment on above: Performed By: #### L 500.2500 ####[facility] [address] [place], [address] Creatinine [Mass/Vol] 0.66 mg/dL Low 0.70-1.20 [facility] Comment on above: Performed By: #### L 500.2500 ####[facility] [address] [place], [address] ECRCL 81.24 ml/min Normal 50-250 [facility] Comment on above: Performed By: #### L 500.2500 ####[facility] [address] [place], [address] GAP 13 Normal 5-15 [facility] Comment on above: Performed By: #### L 500.2500 ####[facility] [address] [place], [address] GFR/1.73 sq M.predicted among non-blacks MDRD (S/P/Bld) [Vol rate/Area] 100 mL/min/{1.73_m2} Normal >60 [facility] Comment on above: Result Comment: mL/m in/1.73m2 CKD-EPI Creatinine Equation (2020) Performed By: #### L 500.2500 ####[facility] [address] [place], [address] Glucose [Mass/Vol] 98 mg/dL Normal 70-99 [facility] Comment on above: Performed By: #### L 500.2500 ####[facility] [address] [place], [address] Potassium [Moles/Vol] 3.8 mmol/L Normal 3.3-5.1 [facility] Comment on above: Performed By: #### L 500.2500 ####[facility] [address], [address] Sodium [Moles/Vol] 140 mmol/L Normal 133-145 [facility] Comment on above: Performed By: #### L 500.2500 ####[facility] [address] [place] [place], [address] Urea nitrogen [Mass/Vol] 11 mg/dL Normal 4-19 [facility] Comment on above: Performed By: #### L 500.2500 ####[facility] [address] [place], [address] Carbon dioxide, total [Moles /volume] in Central venous bloodOrdered By: Lazaro Koenig on 01-06-2025 CO2 [Moles/Vol] 19.7 mmol/L Low 21.0-32.0 [facility] Chloride assayOrdered By: Sharif Koenig on 01-06-2025 Chloride [Moles/Vol] 107 mmol/L 98-108 [facility] Emergency Department Summary on 01-06-2025 Emergency Department Summary [facility] [place] [facility] Medical Records Department [address] [place] [address] Emergency Department Summary 01/06/25 MR#: [id number] Acct: [id number] Name: ALINE BOLAÑOS Rep #: [id number] : 1965 59 From: Lazaro Koenig MD PCP: MICHAEL Beach Status:REG ER Location: ED HPI History of Present Illness Chief Complaint: Other, Pain/Inj Detail of Chief Complaint: Blunt trauma to upper extremities and abdomen Informant: patient Onset/Context/Timing Onset: Hours Mechanism/Context: Blunt Injury Location of pain/injuries: Right forearm, Left forearm and - (Upper abdomen) Quality of Pain: Dull and Aching Location: Subxiphoid region Current Severity: Mild Maximum Severity: Severe Worsened by: Palpation and movement Relieved by: Nothing Associated Symptoms Associated Symptoms: Negative for Parasthesias, Weakness, Loss of function, Inability to ambulate, Loss of consciousness or Amnesia Narrative Narrative: Patient is a 59-year-old woman. She does have history of hypertension. 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 She was at work. Boxes that were on a forklift shifted. Boxes apparently weighed 35 to 40 pounds. They fell on her. She sustained a skin tear dorsal mid left forearm. She has bruising right elbow region. She complains of pain she localizes to the xiphoid region. She denies head trauma. She denies loss of conscious she not amnestic. She denies neck pain. She denies paresthesia, anesthesia or motor weakness upper extremities. She states it does hurt to breathe. She does report mild shortness of breath. She is not on an anticoagulant. Review of prior records indicates she has history of hypertension, hypothyroidism and GERD. 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 Bunion, right foot Endometriosis determined by laparoscopy Diverticular disease Vision problems Rheumatoid arthritis GERD (gastroesophageal reflux disease) Kidney stone Gastrointestinal problem Chronic bronchiolitis Carpal tunnel syndrome Breast lump H/O transfusion of whole blood Back problem Arthritis Allergies Disorder of thyroid Shoulder pain Hypertension Home Medications ???Medication ???Instructions ???Recorded ???Last Taken ???Type amlodipine 2.5 mg tablet 5 mg PO DAILY 10/19/13 Unknown His tory cholecalciferol (vitamin D3) 125 125 mcg PO DAILY 10/26/20 Unknown History mcg (5,000 unit) tablet omeprazole 40 mg capsule,delayed 40 mg PO DAILY 10/26/20 Unknown Hi story release spironolactone 50 mg tablet 50 mg PO DAILY 10/26/20 Unknown Hi story vitamin E (dl, acetate) 180 mg 450 mg PO DAILY 10/26/20 Unknown H istory (400 unit) capsule allergy shots IM 11/17/21 Unknown History amlodipine 5 mg tablet 5 mg PO 11/17/21 Unknown History ascorbic acid (vitamin C) 500 mg mg PO 11/17/21 Unknown History capsule biotin 2,500 mcg capsule 2,000 mcg PO DAILY 11/17/21 Unknow n History naproxen sodium 220 mg capsule 220 mg PO Q12H PRN 11/17/21 Unknow n History (Aleve) levothyroxine 88 mcg tablet 88 mcg PO DAILY #90 tabs 11/21/21 Unknown Rx oxycodone-acetaminophe n 5 mg-325 1 tab PO Q6H PRN PRN pain 5 days 0 01/06/25 Unknown Rx mg tablet #20 TABLETS Allergy/AdvReac Type Severity Reaction Status Date / Time shellfish derived Allergy Anaphylaxis Verified 04/11/21 10:36 sulfamethoxazole (From AdvReac Rash Verified 04/11/21 10:36 Bactrim) trimethoprim (From Bactrim) AdvReac Rash Verified 04/11/21 10:36 Family History Other Alcohol abuse Angina at rest Arthritis Autoimmune disorder Breast cancer CVA (cerebral vascular accident) Cancer Cervical cancer Diabetes H/O transfusion of whole blood [place] disease Hypertension Myocardial infarction Ovarian cancer Respiratory disease Skin cancer Surgical History H/O release of tendon History of cryosurgery History of nephrectomy Social History Smoking Status: Never smoker alcohol intake: current alcohol intake frequency: a few times a week Alcohol type: beer substance use type: does not use what type of physical activity do you participate in: none ROS ROS ED Constitutional Constitutional ED: Denies chills or fever(s) Eyes Eyes: Denies blurry vision or change in vision ENT ENT ED: Reports other Details: Negative epistaxis or dental trauma. ; Denies ear pain, rhinorrhea or sore throat Cardiovascular Cardiovascular: Reports chest (more content not included)... Normal [facility] Glomerular filtration rate ( GFR) estimation/1.73 sq m using serum, plasma, or whole bOrdered By: Lazaro Koenig on 01-06-2025 GFR/1.73 sq M.predicted among non-blacks MDRD (S/P/Bld) [Vol rate/Area] 100 mL/min/{1.73_m2} >60 [facility] Comment on above: mL/min/1.73m2 CKD-EP I Creatinine Equation (2020) Potassium measurement (mass/ volume)Ordered By: Lazaro Koenig on 01-06-2025 Potassium (Unsp spec) [Mass/Vol] 3.8 mmol/L 3.3-5.1 [facility] Serum creatinine measurement (mass/volume)Ordered By: Lazaro Koenig on 01-06-2025 Creatinine [Mass/Vol] 0.66 mg/dL Low 0.70-1.20 [facility] Serum glucose measurement (m ass/volume)Ordered By: Lazaroadriane Koenig on 01-06-2025 Glucose [Mass/Vol] 98 mg/dL 70-99 [facility] Serum or plasma calcium bria urement (mass/volume)Ordered By: Lazaro Koenig on 01-06-2025 Calcium [Mass/Vol] 9.4 mg/dL 7.6-11.0 [facility] Serum or plasma urea nitroge n measurement (mass/volume)Ordered By: Lazaro Koenig on 01-06-2025 Urea nitrogen [Mass/Vol] 11 mg/dL 4-19 [facility] Sodium levelOrdered By: Lazaro Koenig on 01-06-2025 Sodium [Moles/Vol] 140 mmol/L 133-145 [facility] HIP, UNI W/ Pelvis 2-3 Views on 12-01-2024 HIP, UNI W/ Pelvis 2-3 Views [facility] Imaging Services [address] [place], [place] [address] HIP, UNI W/ Pelvis 2-3 Views MR#: [id number] Acct: [id number] Name: ALINE BOLAÑOS Rep #: [id number] : 1965 F 59 From: Kade hou MD PCP: MICHAEL Beach Status: REG CLI Study: HIP, UNI W/ Pelvis 2-3 Views Date of Exam: 01/20 Exam# [id number] Ordering Dr: Swapna Corea PINION AND WHEEL TRUERJair PROCEDURE: HIP, UNI W/ PELVIS 2-3 VIEWS 12/01/2024 REASON FOR EXAM: PAIN IN HIP, ARTHRITIS TECHNIQUE: Three views of the left hip COMPARISON: None FINDINGS: No acute fracture or dislocation. Mild-moderate osteoarthritis, including small osteophytes and joint space narrowing. No focal soft tissue abnormality. SI joints are unremarkable. No suspicious lytic or blastic lesion. Mild degenerative changes of the imaged lower lumbar spine. RAD/HIP, UNI W/ Pelvis 2-3 Views IMPRESSION: No acute findings. Mild-moderate osteoarthritis. Reading Location: [facility] CC: PINION AND WHEEL TRUERJair Corea [employer] [place] [employer] Professor: Signed Normal [facility] Thyroid Peroxidase ABon 10-27 THYR PEROX AB > 600 High 0-34 [facility] Comment on above: Order Comment: CANCE L THYROID AB, ADD TPO Result Comment: Perf ormed at: - [facility] [address] [id number] Extension Service Specialist: Juan Anderson PhD, Phone: [phone] Performed By: #### L 499.3026, N134.0881, W033.5636, V3652.5046 ####[facility] [address] [place], [place], [address] Anion gap in Serum or Plasma Ordered By: Alanna Avila on 11-12-2024 Anion gap [Moles/Vol] 11 mmol/L -15 [facility] BUN/creatinine ratioOrdered By: Alanna Avila on 11-12-2024 Urea nitrogen/Creatinine [Mass ratio] 19.7 mg/mg 10- [facility] Basic Metabolic Profile (BMP )on 11-12-2024 BUN/CRE 19.7 RATIO Normal - [facility] Comment on above: Performed By: #### L 501.9520, L500.2500, L506.0400, L3300.6900 ####[facility] [address] [place], [address] Calcium [Mass/Vol] 9.6 mg/dL Normal 7.6-11.0 [facility] Comment on above: Performed By: #### L 501.9520, L500.2500, L506.0400, L3300.6900 ####[facility] [address] [place], [address] Chloride [Moles/Vol] 103 mmol/L Normal 98-108 [facility] Comment on above: Performed By: #### L 501.9520, L500.2500, L506.0400, L3300.6900 ####[facility] [address] [place], [address] CO2 [Moles/Vol] 25.5 mmol/L Normal 21.0-32.0 [facility] Comment on above: Performed By: #### L 501.9520, L500.2500, L506.0400, L3300.6900 ####[facility] [address] [place], [address] Creatinine [Mass/Vol] 0.80 mg/dL Normal 0.70-1.20 [facility] Comment on above: Performed By: #### L 501.9520, L500.2500, L506.0400, L3300.6900 ####[facility] [address] [place], [address] GAP 11 Normal 5-15 [facility] Comment on above: Performed By: #### L 501.9520, L500.2500, L506.0400, L3300.6900 ####[facility] [address] [place], [address] GFR/1.73 sq M.predicted among non-blacks MDRD (S/P/Bld) [Vol rate/Area] 84 mL/min/{1.73_m2} Normal >60 [facility] Comment on above: Result Comment: mL/m in/1.73m2 CKD-EPI Creatinine Equation (2020) Performed By: #### L 501.9520, L500.2500, L506.0400, L3300.6900 ####[facility] [address] [place], [address] Glucose [Mass/Vol] 75 mg/dL Normal 70-99 [facility] Comment on above: Performed By: #### L 501.9520, L500.2500, L506.0400, L3300.6900 ####[facility] [address] [place], [address] Potassium [Moles/Vol] 4.5 mmol/L Normal 3.3-5.1 [facility] Comment on above: Performed By: #### L 501.9520, L500.2500, L506.0400, L3300.6900 ####[facility] [address] [place], [address] Sodium [Moles/Vol] 139 mmol/L Normal 133-145 [facility] Comment on above: Performed By: #### L 501.9520, L500.2500, L506.0400, L3300.6900 ####[facility] [address] [place], [address] Urea nitrogen [Mass/Vol] 16 mg/dL Normal 4-19 [facility] Comment on above: Performed By: #### L 501.9520, L500.2500, L506.0400, L3300.6900 ####[facility] [address] [place], [address] Carbon dioxide, total [Moles /volume] in Central venous bloodOrdered By: Alanna Avila on 11-12-2024 CO2 [Moles/Vol] 25.5 mmol/L 21.0-32.0 [facility] Chloride assayOrdered By: Rizwana Avila on 11-12-2024 Chloride [Moles/Vol] 103 mmol/L 98-108 [facility] Glomerular filtration rate ( GFR) estimation/1.73 sq m using serum, plasma, or whole bOrdered By: Alanna Avila on 11-12-2024 GFR/1.73 sq M.predicted among non-blacks MDRD (S/P/Bld) [Vol rate/Area] 84 mL/min/{1.73_m2} >60 [facility] Comment on above: mL/min/1.73m2 CKD-EP I Creatinine Equation (2020) Potassium measurement (mass/ volume)Ordered By: Alanna Avila on 11-12-2024 Potassium (Unsp spec) [Mass/Vol] 4.5 mmol/L 3.3-5.1 [facility] Serum creatinine measurement (mass/volume)Ordered By: Alanna Avila on 11-12-2024 Creatinine [Mass/Vol] 0.80 mg/dL 0.70-1.20 [facility] Serum glucose measurement (m ass/volume)Ordered By: Alanna Avila on 11-12-2024 Glucose [Mass/Vol] 75 mg/dL 70-99 [facility] Serum or plasma calcium bria urement (mass/volume)Ordered By: Alanna Avila on 11-12-2024 Calcium [Mass/Vol] 9.6 mg/dL 7.6-11.0 [facility] Serum or plasma thyroperoxid ase antibody assay (units/volume)Ordered By: Alanna Avila on 11-12-2024 TPO Ab Qn [IU]/mL High 0-34 [facility] Comment on above: Performed at: [address] [id number] Director: Juan Anderson PhD, Phone: [phone] Serum or plasma urea nitroge n measurement (mass/volume)Ordered By: Alanna Avila on 11-12-2024 Urea nitrogen [Mass/Vol] 16 mg/dL 4-19 [facility] Sodium levelOrdered By: Steffen Avila on 11-12-2024 Sodium [Moles/Vol] 139 mmol/L 133-145 [facility] T4 Free Directon 11-12-2024 T4 FREE DIRECT 1.70 ng/dL High 0.76-1.46 [facility] Comment on above: Performed By: #### L 501.9520, L500.2500, L506.0400, L3300.6900 ####[facility] [address] [place], [address] T4 freeOrdered By: Alanna sweeney on 11-12-2024 Free T4 [Mass/Vol] 1.70 ng/dL High 0.76-1.46 [facility] TSH DL <= 0.005 mIU/L QnOrde red By: Alanna Avila on 11-12-2024 TSH Qn 2.090 uIU/mL 0.300-4.200 [facility] Thyroid Stim Hormone (TSH)on 11-12-2024 TSH 2.090 uIU/mL Normal 0.300-4.200 [facility] Comment on above: Performed By: #### L 501.9520, L500.2500, L506.0400, L3300.6900 ####[facility] [address] [place], [address] Abdomen Single Viewon 2023 Abdomen Single View [facility] Imaging Services [address] [place] [address] Abdomen Single View MR#: [id number] Acct: [id number] Name: ALINE BOLAÑOS Rep #: [id number] : 1965 F 59 From: Luc Mccarty MD PCP: MICHAEL Beach Status: REG CLI Study: Abdomen Single View Date of Exam: 06/18/24 Exam# [id number] Ordering Dr: Lisette Richardson DO [id number] EXAM: XR ABDOMEN, 1 VIEW CLINICAL INDICATION: ABD PAIN/R SIDE PAIN TECHNIQUE: Frontal supine view of the abdomen/pelvis. COMPARISON: No relevant prior studies available. FINDINGS: LOWER THORAX: No acute pathology. GASTROINTESTINAL TRACT: Unremarkable. Non-obstructive. No bowel or stomach distention. ORGANS: Unremarkable as visualized. No organomegaly. No abnormal calcifications. BONES/JOINTS: No acute pathology. SOFT TISSUES: No acute pathology. RAD/Abdomen Single View IMPRESSION: Non-obstructive bowel gas pattern. Electronically Signed: Luc Mccarty MD at 0:11 EST , CC: MICHAEL Corea; Dr. Lisette Richardson DO [employer] Professor: Signed Normal [facility] CBC W/Diff, Automatedon 11-2 Absolute Lymph 2.06 X10 3/uL Normal 0.83-4.51 [facility] Comment on above: Performed By: #### L 500.4050, L100.0100, L501.2450 ####[facility] [address] [place], [address] Absolute Neut 7.3 X10 3/uL Normal 2.0-7.7 [facility] Comment on above: Performed By: #### L 500.4050, L100.0100, L501.2450 ####[facility] [address] [place], [address] Basophils/100 WBC (Bld) 0.3 % Normal 0-1 [facility] Comment on above: Performed By: #### L 500.4050, L100.0100, L501.2450 ####[facility] [address] [place], [address] Eosinophils/100 WBC (Bld) 1.8 % Normal 0-5 [facility] Comment on above: Performed By: #### L 500.4050, L100.0100, L501.2450 ####[facility] [address] [place], [address] Erythrocyte distribution width (RBC) [Ratio] 12.6 % Normal 11.6-14.6 [facility] Comment on above: Performed By: #### L 500.4050, L100.0100, L501.2450 ####[facility] [address] [place], [address] Hematocrit (Bld) [Volume fraction] 43.9 % Normal 37-47 [facility] Comment on above: Performed By: #### L 500.4050, L100.0100, L501.2450 ####[facility] [address] [place], [address] Hemoglobin (Bld) [Mass/Vol] 14.2 g/dL Normal 12.0-15.0 [facility] Comment on above: Performed By: #### L 500.4050, L100.0100, L501.2450 ####[facility] [address] [place], [address] IG% 0.400 Normal 0.0-0.9 [facility] Comment on above: Result Comment: IG% - Immature Granulocytes (promyelocytes, myelocytes and metamyelocytes) > 1% indicates that a LEFT SHIFT is Present. Performed By: #### L 500.4050, L100.0100, L501.2450 ####[facility] [address] [place], [address] Lymphocytes/100 WBC (Bld) 19.9 % Normal 19-41 [facility] Comment on above: Performed By: #### L 500.4050, L100.0100, L501.2450 ####[facility] [address] [place], [address] MCH (RBC) [Entitic mass] 28.4 pg Normal 27.0-32.0 [facility] Comment on above: Performed By: #### L 500.4050, L100.0100, L501.2450 ####[facility] [address] [place], [address] MCHC (RBC) [Mass/Vol] 32.3 g/dL Normal 32-36 [facility] Comment on above: Performed By: #### L 500.4050, L100.0100, L501.2450 ####[facility] [address] [place], [address] MCV (RBC) [Entitic vol] 87.8 fL Normal 81-99 [facility] Comment on above: Performed By: #### L 500.4050, L100.0100, L501.2450 ####[facility] [address] [place], [address] Monocytes/100 WBC (Bld) 7.4 % Normal 0-10 [facility] Comment on above: Performed By: #### L 500.4050, L100.0100, L501.2450 ####[facility] [address] [place], [address] Neutrophils/100 WBC (Bld) 70.2 % High 47-70 [facility] Comment on above: Performed By: #### L 500.4050, L100.0100, L501.2450 ####[facility] [address] [place], [address] Nucleated RBC (Bld) [#/Vol] 0 10*3/uL Normal 0-5 [facility] Comment on above: Performed By: #### L 500.4050, L100.0100, L501.2450 ####[facility] [address] [place], [address] Platelet mean volume (Bld) [Entitic vol] 9.2 fL Normal 6.2-12.0 [facility] Comment on above: Performed By: #### L 500.4050, L100.0100, L501.2450 ####[facility] [address] [place], [address] Platelets (Bld) [#/Vol] 275 10*3/uL Normal 150-450 [facility] Comment on above: Performed By: #### L 500.4050, L100.0100, L501.2450 ####[facility] [address] [place], [address] RBC (Bld) [#/Vol] 5.00 10*6/uL Normal 4.2-5.4 [facility] Comment on above: Performed By: #### L 500.4050, L100.0100, L501.2450 ####[facility] [address] [place], [address] RDW SD 40.1 fl Normal 35.1-43.9 [facility] Comment on above: Performed By: #### L 500.4050, L100.0100, L501.2450 ####[facility] [address] [place], [address] WBC (Bld) [#/Vol] 10.3 10*3/uL Normal 4.4-11.0 [facility] Comment on above: Performed By: #### L 500.4050, L100.0100, L501.2450 ####[facility] [address] [place], [address] Chest PA and Lateralon 06-18 Chest PA and Lateral [facility] Imaging Services [address] [place] [address] Chest PA and Lateral MR#: [id number] Acct: [id number] Name: ALINE BOLAÑOS Rep #: [id number] : 1965 F 59 From: Theresa Aguiar MD PCP: MICHAEL Beach Status: REG CLI Study: Chest PA and Lateral Date of Exam: 06/18/24 Exam# [id number] Ordering Dr: Lisette Richardson DO [id number] INDICATION: Abdominal pain/right SIDE PAIN EXAMINATION/TECHNIQUE: X-RAY - XR Chest 2 Views COMPARISON: October 26, 2020 FINDINGS: LINES/DEVICES: None. LUNGS: No consolidation, edema or effusion. No pneumothorax. MEDIASTINUM AND CARDIOVASCULAR STRUCTURES: Cardiac silhouette not enlarged. Central airways and mediastinal contour are unremarkable. BONES AND SOFT TISSUES: Unremarkable. RAD/Chest PA and Lateral IMPRESSION: No radiographic evidence of acute cardiopulmonary disease. Electronically Signed: Theresa Aguiar MD at 21:26 EST , CC: P[employer] WHEEL TRUER-C Swapna Corea; Dr. Lisette Richardson DO [employer] Professor: Signed Normal [facility] Comprehensive Metabolic Prof ilon 06-18-2024 Albumin [Mass/Vol] 4.3 g/dL Normal 3.2-5.0 [facility] Comment on above: Performed By: #### L 500.4050, L100.0100, L501.2450 ####[facility] [address] [place], [address] Albumin/Globulin [Mass ratio] 1.1 {ratio} Normal 0.9-2.4 [facility] Comment on above: Performed By: #### L 500.4050, L100.0100, L501.2450 ####[facility] [address] [place], [address] ALK P 129 U/L High 45-117 [facility] Comment on above: Performed By: #### L 500.4050, L100.0100, L501.2450 ####[facility] [address] [place], [address] ALT [Catalytic activity/Vol] 21 U/L Normal 13-56 [facility] Comment on above: Performed By: #### L 500.4050, L100.0100, L501.2450 ####[facility] [address] [place], [address] AST [Catalytic activity/Vol] 13 U/L Low 15-37 [facility] Comment on above: Performed By: #### L 500.4050, L100.0100, L501.2450 ####[facility] [address] [place], [address] Bilirubin [Mass/Vol] 0.70 mg/dL Normal 0.20-1.00 [facility] Comment on above: Result Comment: For patients on eltrombopag therapy, use of Dimension [place] TBIL is not recommended. Performed By: #### L 500.4050, L100.0100, L5.2450 ####[facility] [address] [place], [address] BUN/CRE 18.9 RATIO Normal 10-20 [facility] Comment on above: Performed By: #### L 500.4050, L100.0100, L501.2450 ####[facility] [address] [place], [address] CA,Total 9.8 mg/dL Normal 8.5-10.1 [facility] Comment on above: Performed By: #### L 500.4050, L100.0100, L501.2450 ####[facility] [address] [place], [address] Chloride [Moles/Vol] 102 mmol/L Normal 98-107 [facility] Comment on above: Performed By: #### L 500.4050, L100.0100, L501.2450 ####[facility] [address] [place], [address] CO2 [Moles/Vol] 26.0 mmol/L Normal 21.0-32.0 [facility] Comment on above: Performed By: #### L 500.4050, L100.0100, L501.2450 ####[facility] [address] [place], [address] Creatinine [Mass/Vol] 0.80 mg/dL Normal 0.55-1.02 [facility] Comment on above: Result Comment: The validity of the calculated GFR GFRAA in patients over 70 years has not been determined. Clinical correlation is essential. Performed By: #### L 500.4050, L100.0100, L501.2450 ####[facility] [address] [place], [address] EST GFR - AA 94 mL/min Normal >60 [facility] Comment on above: Result Comment: Afri can [place]ine[place] GFR Calc Performed By: #### L 500.4050, L100.0100, L501.2450 ####[facility] [address] [place], [address] GAP 8 Normal 5-15 [facility] Comment on above: Performed By: #### L 500.4050, L100.0100, L501.2450 ####[facility] [address] [place], [address] GFR/1.73 sq M.predicted among non-blacks MDRD (S/P/Bld) [Vol rate/Area] 78 mL/min/{1.73_m2} Normal >60 [facility] Comment on above: Result Comment: Non- GFR Calc Performed By: #### L 500.4050, L100.0100, L501.2450 ####[facility] [address] [place], [address] Globulin (S) [Mass/Vol] 3.9 g/dL Normal 2.2-4.2 [facility] Comment on above: Performed By: #### L 500.4050, L100.0100, L501.2450 ####[facility] [address] [place], [address] Glucose [Mass/Vol] 89 mg/dL Normal 74-106 [facility] Comment on above: Performed By: #### L 500.4050, L100.0100, L501.2450 ####[facility] [address] [place], [address] Potassium [Moles/Vol] 3.7 mmol/L Normal 3.5-5.1 [facility] Comment on above: Performed By: #### L 500.4050, L100.0100, L501.2450 ####[facility] [address] [place], [address] Sodium [Moles/Vol] 136 mmol/L Normal 136-145 [facility] Comment on above: Performed By: #### L 500.4050, L100.0100, L501.2450 ####[facility] [address] [place], [address] T PROT 8.2 g/dL Normal 6.4-8.2 [facility] Comment on above: Performed By: #### L 500.4050, L100.0100, L501.2450 ####[facility] [address] [place], [address] Urea nitrogen [Mass/Vol] 15 mg/dL Normal 7-18 [facility] Comment on above: Performed By: #### L 500.4050, L100.0100, L501.2450 ####[facility] [address] [place], [address] Lipaseon 06-18-2024 Lipase [Catalytic activity/Vol] 33 U/L Normal 13-75 [facility] Comment on above: Result Comment: Nai caldera note: LIPASE revised reference range effective 22. New Lipase methodology. Expected to produce lower values than the previous assay method. NEW Reference Range: 13 - 75 U/L Performed By: #### L 500.4050, L100.0100, L501.2450 ####[facility] [address] [place], [address] Thoracic Spine 3 Viewson Thoracic Spine 3 Views [facility] Imaging Services [address] [place], [place] [address] Thoracic Spine 3 Views MR#: [id number] Acct: [id number] Name: ALINE BOLAÑOS Rep #: [id number] : 1965 F 59 From: Luc Mccarty MD PCP: MICHAEL Beach Status: REG CLI Study: Thoracic Spine 3 Views Date of Exam: 06/18/24 Exam# [id number] Ordering Dr: Lisette Richardson DO [id number] EXAM: XR THORACIC SPINE, 3 VIEWS CLINICAL INDICATION: ABD PAIN/R SIDE PAIN TECHNIQUE: Frontal, lateral and swimmer''s views of the thoracic spine. COMPARISON: No relevant prior studies available. FINDINGS: VERTEBRAE: There are mild degenerative changes with anterior osteophytes. Preserved vertebral body height. No fracture. No spondylolisthesis. Preservation of the normal thoracic kyphosis. No significant facet arthropathy. DISC SPACES: Unremarkable. Disc spaces are maintained. RAD/Thoracic Spine 3 Views IMPRESSION: Mild degenerative changes with osteophyte formation. There are no acute osseous abnormalities. Electronically Signed: Luc Mccarty MD at 0:21 EST , CC: MICHAEL Corea; Dr. Lisette Richardson DO [employer] Professor: Signed Normal [facility] Basic Metabolic Profile (BMP )on 05-11-2024 BUN/CRE 18.9 RATIO Normal 10-20 [facility] Comment on above: Performed By: #### L 501.9520, L506.0400, L500.2500 ####[facility] [address] [place], [address] CA,Total 9.8 mg/dL Normal 8.5-10.1 [facility] Comment on above: Performed By: #### L 501.9520, L506.0400, L500.2500 ####[facility] [address] [place], [address] Chloride [Moles/Vol] 106 mmol/L Normal 98-107 [facility] Comment on above: Performed By: #### L 501.9520, L506.0400, L500.2500 ####[facility] [address] [place], [address] CO2 [Moles/Vol] 25.0 mmol/L Normal 21.0-32.0 [facility] Comment on above: Performed By: #### L 501.9520, L506.0400, L500.2500 ####[facility] [address] [place], [address] Creatinine [Mass/Vol] 0.74 mg/dL Normal 0.55-1.02 [facility] Comment on above: Result Comment: The validity of the calculated GFR GFRAA in patients over 70 years has not been determined. Clinical correlation is essential. Performed By: #### L 501.9520, L506.0400, L500.2500 ####[facility] [address] [place], [address] EST GFR - AA 103 mL/min Normal >60 [facility] Comment on above: Result Comment: Afri can Guinean GFR Calc Performed By: #### L 501.9520, L506.0400, L500.2500 ####[facility] [address] [place], [address] GAP 7 Normal 5-15 [facility] Comment on above: Performed By: #### L 501.9520, L506.0400, L500.2500 ####[facility] [address] [place], [address] GFR/1.73 sq M.predicted among non-blacks MDRD (S/P/Bld) [Vol rate/Area] 85 mL/min/{1.73_m2} Normal >60 [facility] Comment on above: Result Comment: Non- GFR Calc Performed By: #### L 501.9520, L506.0400, L500.2500 ####[facility] [address] [place], [address] Glucose [Mass/Vol] 98 mg/dL Normal 74-106 [facility] Comment on above: Performed By: #### L 501.9520, L506.0400, L500.2500 ####[facility] [address] [place], [address] Potassium [Moles/Vol] 3.8 mmol/L Normal 3.5-5.1 [facility] Comment on above: Performed By: #### L 501.9520, L506.0400, L500.2500 ####[facility] [address] [place], [address] Sodium [Moles/Vol] 138 mmol/L Normal 136-145 [facility] Comment on above: Performed By: #### L 501.9520, L506.0400, L500.2500 ####[facility] [address] [place], [address] Urea nitrogen [Mass/Vol] 14 mg/dL Normal 7-18 [facility] Comment on above: Performed By: #### L 501.9520, L506.0400, L500.2500 ####[facility] [address] [place], [address] T4 Free Directon 05-11-2024 T4 FREE DIRECT 1.43 ng/dL Normal 0.76-1.46 [facility] Comment on above: Performed By: #### L 501.9520, L506.0400, L500.2500 ####[facility] [address] [place], [address] Thyroid Stim Hormone (TSH)on 05-11-2024 TSH 0.553 uIU/mL Normal 0.358-3.740 [facility] Comment on above: Performed By: #### L 501.9520, L506.0400, L500.2500 ####[facility] [address] [place], [address] CBC W/Diff, Automatedon 07- Absolute Lymph 1.73 X10 3/uL Normal 0.83-4.51 [facility] Comment on above: Performed By: #### L 500.4050, L503.0105, L501.9520, L506.1000, L506.0400, L501.9985, L501.5200, L100.0100 #### [facility] [address] [place], [address] Absolute Neut 5.3 X10 3/uL Normal 2.0-7.7 [facility] Comment on above: Performed By: #### L 500.4050, L503.0105, L501.9520, L506.1000, L506.0400, L501.9985, L501.5200, L100.0100 #### [facility] [address] [place], [address] Basophils/100 WBC (Bld) 0.4 % Normal 0-1 [facility] Comment on above: Performed By: #### L 500.4050, L503.0105, L501.9520, L506.1000, L506.0400, L501.9985, L501.5200, L100.0100 #### [facility] [address] [place], [address] Eosinophils/100 WBC (Bld) 2.1 % Normal 0-5 [facility] Comment on above: Performed By: #### L 500.4050, L503.0105, L501.9520, L506.1000, L506.0400, L501.9985, L501.5200, L100.0100 #### [facility] [address] [place], [address] Erythrocyte distribution width (RBC) [Ratio] 12.8 % Normal 11.6-14.6 [facility] Comment on above: Performed By: #### L 500.4050, L503.0105, L501.9520, L506.1000, L506.0400, L501.9985, L501.5200, L100.0100 #### [facility] [address] [place], [address] Hematocrit (Bld) [Volume fraction] 42.3 % Normal 37-47 [facility] Comment on above: Performed By: #### L 500.4050, L503.0105, L501.9520, L506.1000, L506.0400, L501.9985, L501.5200, L100.0100 #### [facility] [address] [place], [address] Hemoglobin (Bld) [Mass/Vol] 14.2 g/dL Normal 12.0-15.0 [facility] Comment on above: Performed By: #### L 500.4050, L503.0105, L501.9520, L506.1000, L506.0400, L501.9985, L501.5200, L100.0100 #### [facility] [address] [place], [address] IG% 0.400 Normal 0.0-0.9 [facility] Comment on above: Result Comment: IG% - Immature Granulocytes (promyelocytes, myelocytes and metamyelocytes) > 1% indicates that a LEFT SHIFT is Present. Performed By: #### L 500.4050, L503.0105, L501.9520, L506.1000, L506.0400, L501.9985, L501.5200, L100.0100 #### [facility] [address] [place], [address] Lymphocytes/100 WBC (Bld) 21.5 % Normal 19-41 [facility] Comment on above: Performed By: #### L 500.4050, L503.0105, L501.9520, L506.1000, L506.0400, L501.9985, L501.5200, L100.0100 #### [facility] [address] [place], [address] MCH (RBC) [Entitic mass] 29.7 pg Normal 27.0-32.0 [facility] Comment on above: Performed By: #### L 500.4050, L503.0105, L501.9520, L506.1000, L506.0400, L501.9985, L501.5200, L100.0100 #### [facility] [address] [place], [address] MCHC (RBC) [Mass/Vol] 33.6 g/dL Normal 32-36 [facility] Comment on above: Performed By: #### L 500.4050, L503.0105, L501.9520, L506.1000, L506.0400, L501.9985, L501.5200, L100.0100 #### [facility] [address] [place], [address] MCV (RBC) [Entitic vol] 88.5 fL Normal 81-99 [facility] Comment on above: Performed By: #### L 500.4050, L503.0105, L501.9520, L506.1000, L506.0400, L501.9985, L501.5200, L100.0100 #### [facility] [address] [place], [address] Monocytes/100 WBC (Bld) 9.2 % Normal 0-10 [facility] Comment on above: Performed By: #### L 500.4050, L503.0105, L501.9520, L506.1000, L506.0400, L501.9985, L501.5200, L100.0100 #### [facility] [address] [place], [address] Neutrophils/100 WBC (Bld) 66.4 % Normal 47-70 [facility] Comment on above: Performed By: #### L 500.4050, L503.0105, L501.9520, L506.1000, L506.0400, L501.9985, L501.5200, L100.0100 #### [facility] [address] [place], [address] Nucleated RBC (Bld) [#/Vol] 0 10*3/uL Normal 0-5 [facility] Comment on above: Performed By: #### L 500.4050, L503.0105, L501.9520, L506.1000, L506.0400, L501.9985, L501.5200, L100.0100 #### [facility] [address] [place], [address] Platelet mean volume (Bld) [Entitic vol] 9.5 fL Normal 6.2-12.0 [facility] Comment on above: Performed By: #### L 500.4050, L503.0105, L501.9520, L506.1000, L506.0400, L501.9985, L501.5200, L100.0100 #### [facility] [address] [place], [address] Platelets (Bld) [#/Vol] 253 10*3/uL Normal 150-450 [facility] Comment on above: Performed By: #### L 500.4050, L503.0105, L501.9520, L506.1000, L506.0400, L501.9985, L501.5200, L100.0100 #### [facility] [address] [place], [address] RBC (Bld) [#/Vol] 4.78 10*6/uL Normal 4.2-5.4 [facility] Comment on above: Performed By: #### L 500.4050, L503.0105, L501.9520, L506.1000, L506.0400, L501.9985, L501.5200, L100.0100 #### [facility] [address] [place], [address] RDW SD 41.7 fl Normal 35.1-43.9 [facility] Comment on above: Performed By: #### L 500.4050, L503.0105, L501.9520, L506.1000, L506.0400, L501.9985, L501.5200, L100.0100 #### [facility] [address] [place], [address] WBC (Bld) [#/Vol] 8.0 10*3/uL Normal 4.4-11.0 [facility] Comment on above: Performed By: #### L 500.4050, L503.0105, L501.9520, L506.1000, L506.0400, L501.9985, L501.5200, L100.0100 #### [facility] [address] [place], [address] Comprehensive Metabolic Prof il 02-11-2024 Albumin [Mass/Vol] 3.7 g/dL Normal 3.2-5.0 [facility] Comment on above: Performed By: #### L 500.4050, L503.0105, L501.9520, L506.1000, L506.0400, L501.9985, L501.5200, L100.0100 ####[facility] [address] [place], [address] Albumin/Globulin [Mass ratio] 0.9 {ratio} Normal 0.9-2.4 [facility] Comment on above: Performed By: #### L 500.4050, L503.0105, L501.9520, L506.1000, L506.0400, L501.9985, L501.5200, L100.0100 ####[facility] [address] [place], [place], [id number] ALK P 134 U/L High 45-117 [facility] Comment on above: Performed By: #### L 500.4050, L503.0105, L501.9520, L506.1000, L506.0400, L501.9985, L501.5200, L100.0100 ####[facility] [address] [place], [address] ALT [Catalytic activity/Vol] 18 U/L Normal 13-56 [facility] Comment on above: Performed By: #### L 500.4050, L503.0105, L501.9520, L506.1000, L506.0400, L501.9985, L501.5200, L100.0100 ####[facility] [address] [place], [address] AST [Catalytic activity/Vol] 9 U/L Low 15-37 [facility] Comment on above: Performed By: #### L 500.4050, L503.0105, L501.9520, L506.1000, L506.0400, L501.9985, L501.5200, L100.0100 ####[facility] [address] [place], [address] Bilirubin [Mass/Vol] 0.30 mg/dL Normal 0.20-1.00 [facility] Comment on above: Result Comment: For patients on eltrombopag therapy, use of Dimension [place] TBIL is not recommended. Performed By: #### L 500.4050, L503.0105, L501.9520, L506.1000, L506.0400, L501.9985, L501.5200, L100.0100 ####[facility] [address] [place], [address] BUN/CRE 19.0 RATIO Normal 10-20 [facility] Comment on above: Performed By: #### L 500.4050, L503.0105, L501.9520, L506.1000, L506.0400, L501.9985, L501.5200, L100.0100 ####[facility] [address] [place], [place], [phone] CA,Total 9.0 mg/dL Normal 8.5-10.1 [facility] Comment on above: Performed By: #### L 500.4050, L503.0105, L501.9520, L506.1000, L506.0400, L501.9985, L501.5200, L100.0100 ####[facility] [address] [place], [address] Chloride [Moles/Vol] 106 mmol/L Normal 98-107 [facility] Comment on above: Performed By: #### L 500.4050, L503.0105, L501.9520, L506.1000, L506.0400, L501.9985, L501.5200, L100.0100 ####[facility] [address] [place], [address] CO2 [Moles/Vol] 25.0 mmol/L Normal 21.0-32.0 [facility] Comment on above: Performed By: #### L 500.4050, L503.0105, L501.9520, L506.1000, L506.0400, L501.9985, L501.5200, L100.0100 ####[facility] [address] [place], [address] Creatinine [Mass/Vol] 0.79 mg/dL Normal 0.55-1.02 [facility] Comment on above: Result Comment: The validity of the calculated GFR GFRAA in patients over 70 years has not been determined. Clinical correlation is essential. Performed By: #### L 500.4050, L503.0105, L501.9520, L506.1000, L506.0400, L501.9985, L501.5200, L100.0100 ####[facility] [address] [place], [place], [phone] EST GFR - AA 96 mL/min Normal >60 [facility] Comment on above: Result Comment: Afri can Guinean GFR Calc Performed By: #### L 500.4050, L503.0105, L501.9520, L506.1000, L506.0400, L501.9985, L501.5200, L100.0100 ####[facility] [address] [place], [address] GAP 9 Normal 5-15 [facility] Comment on above: Performed By: #### L 500.4050, L503.0105, L501.9520, L506.1000, L506.0400, L501.9985, L501.5200, L100.0100 ####[facility] [address] [place], [address] GFR/1.73 sq M.predicted among non-blacks MDRD (S/P/Bld) [Vol rate/Area] 79 mL/min/{1.73_m2} Normal >60 [facility] Comment on above: Result Comment: Non- GFR Calc Performed By: #### L 500.4050, L503.0105, L501.9520, L506.1000, L506.0400, L501.9985, L501.5200, L100.0100 ####[facility] [address] [place], [address] Globulin (S) [Mass/Vol] 4.0 g/dL Normal 2.2-4.2 [facility] Comment on above: Performed By: #### L 500.4050, L503.0105, L501.9520, L506.1000, L506.0400, L501.9985, L501.5200, L100.0100 ####[facility] [address] [place], [address] Glucose [Mass/Vol] 111 mg/dL High 74-106 [facility] Comment on above: Result Comment: Fast ing Glucose result from 100 to 125 mg/dL suggests IMPAIRED HOMEOSTASIS per A.D.A. criteria. Performed By: #### L 500.4050, L503.0105, L501.9520, L506.1000, L506.0400, L501.9985, L501.5200, L100.0100 ####[facility] [address] [place], [address] Potassium [Moles/Vol] 3.9 mmol/L Normal 3.5-5.1 [facility] Comment on above: Performed By: #### L 500.4050, L503.0105, L501.9520, L506.1000, L506.0400, L501.9985, L501.5200, L100.0100 ####[facility] [address] [place], [address] Sodium [Moles/Vol] 140 mmol/L Normal 136-145 [facility] Comment on above: Performed By: #### L 500.4050, L503.0105, L501.9520, L506.1000, L506.0400, L501.9985, L501.5200, L100.0100 ####[facility] [address] [place], [address] T PROT 7.7 g/dL Normal 6.4-8.2 [facility] Comment on above: Performed By: #### L 500.4050, L503.0105, L501.9520, L506.1000, L506.0400, L501.9985, L501.5200, L100.0100 ####[facility] [address] [place], [address] Urea nitrogen [Mass/Vol] 15 mg/dL Normal 7-18 [facility] Comment on above: Performed By: #### L 500.4050, L503.0105, L501.9520, L506.1000, L506.0400, L501.9985, L501.5200, L100.0100 ####[facility] [address] [place], [address] Hemoglobin A1con 02-11-2024 HbA1c (Bld) [Mass fraction] 5.6 % Normal 3.8-5.6 [facility] Comment on above: Result Comment: Norm al < 5.7 % Prediabetic 5.7 - 6.4 % Diabetic >or= 6.5 % Please note range changes. Performed By: #### L 500.4050, L503.0105, L501.9520, L506.1000, L506.0400, L501.9985, L501.5200, L100.0100 ####[facility] [address] [place], [address] Magnesiumon 02-11-2024 Magnesium [Mass/Vol] 2.2 mg/dL Normal 1.6-2.6 [facility] Comment on above: Performed By: #### L 500.4050, L503.0105, L501.9520, L506.1000, L506.0400, L501.9985, L501.5200, L100.0100 ####[facility] [address] [place], [place], [id number] T4 Free Directon 02-11-2024 T4 FREE DIRECT 1.45 ng/dL Normal 0.76-1.46 [facility] Comment on above: Performed By: #### L 500.4050, L503.0105, L501.9520, L506.1000, L506.0400, L501.9985, L501.5200, L100.0100 ####[facility] [address] [place], [place], [id number] Thyroid Stim Hormone (TSH)on 02-11-2024 TSH 0.73 uIU/mL Normal 0.358-3.74 [facility] Comment on above: Performed By: #### L 500.4050, L503.0105, L501.9520, L506.1000, L506.0400, L501.9985, L501.5200, L100.0100 ####[facility] [address] [place], [place], [id number] Vitamin B12on 02-11-2024 Cobalamin (Vitamin B12) [Mass/Vol] 322 pg/mL Normal 211-911 [facility] Comment on above: Performed By: #### L 500.4050, L503.0105, L501.9520, L506.1000, L506.0400, L501.9985, L501.5200, L100.0100 #### [facility] [address] [place], [place], [id number] Vitamin D,25 Hydroxyon 02-10 Vitamin D 25-OH 52.8 ng/mL Normal [facility] Comment on above: Result Comment: Rhoda min D 25(OH) Status Range Deficiency <20 ng/mL (50nmol/L) Insufficiency 20 - 30 ng/mL (50 - 75 nmol/L) Sufficiency 30 - 100 ng/mL (75 - 250 nmol/L) Toxicity >100 ng/mL (>250 nmol/L) Performed By: #### L 500.4050, L503.0105, L501.9520, L506.1000, L506.0400, L501.9985, L501.5200, L100.0100 #### [facility] [place], [address] Basophil percentageOrdered B y: Alanna Avila on 11-06-2023 Chloride [Moles/Vol] 108 mmol/L 98-107 [facility] Glucose [Mass/Vol] 89 mg/dL 74-106 [facility] Potassium [Moles/Vol] 3.9 mmol/L 3.5-5.1 [facility] Sodium [Moles/Vol] 138 mmol/L 136-145 [facility] - Chemistry and C hemistry - challengeOrdered By: Alanna Avila on 11-06-2023 CO2 [Moles/Vol] 26.0 mmol/L 21.0-32.0 [facility] Urea nitrogen/Creatinine [Mass ratio] 20.3 mg/mg 10-20 [facility] No Panel InformationOrdered By: Alanna Avila on 11-06-2023 Estimated GFR (MDRD) Amer 103 mL/min >60 [facility] Comment on above: GFR Calc Estimated GFR (MDRD) Non-Af Amer 85 mL/min >60 [facility] Comment on above: Non- GFR Calc Vitamin D 25-Hydroxy 65.3 ng/mL [facility] Comment on above: Vitamin D 25(OH) Sta tus Range Deficiency <20 ng/mL (50nmol/L) Insufficiency 20 - 30 ng/mL (50 - 75 nmol/L) Sufficiency 30 - 100 ng/mL (75 - 250 nmol/L) Toxicity >100 ng/mL (>250 nmol/L) Serum or plasma calcium bria urement (mass/volume)Ordered By: Alanna Avila on 11-06-2023 Calcium [Mass/Vol] 9.4 mg/dL 8.5-10.1 [facility] Serum or plasma creatinine m easurement (mass/volume)Ordered By: Alanna Avila on 11-06-2023 Creatinine [Mass/Vol] 0.74 mg/dL 0.55-1.02 [facility] Comment on above: The validity of the calculated GFR & GFRAA in patients over 70 years has not been determined. Clinical correlation is essential. Serum or plasma thyroid stim ulating hormone (TSH) measurement (units/volume)Ordered By: Alanna Avila on 11-06-2023 TSH Qn 1.33 uIU/mL 0.358-3.74 [facility] Serum or plasma urea nitroge n measurement (mass/volume)Ordered By: Alanna Avila on 11-06-2023 Urea nitrogen [Mass/Vol] 15 mg/dL 7-18 [facility] Thin prep Papanicolaou smear with manual screeningOrdered By: Alannahilary Avila on 11-06-2023 Thin prep Papanicolaou smear with manual screening 4 5-15 [facility] Thin prep Papanicolaou smear with manual screening 1.60 ng/dL 0.76-1.46 [facility] Basophil percentageOrdered B y: Swapna Corea on 08-30-2023 Bilirubin [Mass/Vol] 0.50 mg/dL 0.20-1.00 [facility] Comment on above: For patients on eltr ombopag therapy, use of Dimension [place] TBIL is not recommended. Cholesterol [Mass/Vol] 163 mg/dL <200 [facility] Comment on above: <200 mg/dL Desirable 200-240 mg/dL Borderline >240 mg/dL High Risk Protein [Mass/Vol] 7.5 g/dL 6.4-8.2 [facility] Triglyceride [Mass/Vol] 101 mg/dL <199 [facility] Comment on above: The drugs N-Acetylcy steine and Metamizole may falsely depress this assay.Serum Triglycerides Reference Interval Normal <150 mg/dL Borderline high 150 - 199 mg/dL High 200 - 499 mg/dL Very High > or = 500 mg/dL Direct bilirubinOrdered By: Swapna Corea on 08-30-2023 Bilirubin.direct [Mass/Vol] 0.15 mg/dL 0.00-0.30 [facility] - Chemistry and C hemistry - challengeOrdered By: Swapna Corea on 08-30-2023 ALP [Catalytic activity/Vol] 116 U/L 45-117 [facility] ALT [Catalytic activity/Vol] 23 U/L 13-56 [facility] Cholesterol in HDL (Body fld) [Mass/Vol] 50 mg/dL >40 [facility] Comment on above: The drugs N-Acetylcy steine and Metamizole may falsely depress this assay. Reference Range HDL <40 mg/dL Low HDL Cholesterol HDL >or= 60 mg/dL High HDL Cholesterol Cholesterol in LDL (Body fld) [Moles/Vol] 93 mg/dL 0-130 [facility] Cholesterol in VLDL Calc [Moles/Vol] 20 mg/dL 5-40 [facility] Globulin (S) [Mass/Vol] 3.7 g/dL 2.2-4.2 [facility] Thin prep Papanicolaou smear with manual screeningOrdered By: Swapna Corea on 08-30-2023 Thin prep Papanicolaou smear with manual screening 3.8 g/dL 3.2-5.0 [facility] Thin prep Papanicolaou smear with manual screening 12 U/L 15-37 [facility] .Auto Diffon 05-27-2023 Basophil, Absolute 0.0 10 3/mcL Normal 0.0-0.2 [facility] ([place]) Comment on above: Performed By: #### L IP, GFR, FRIDA MUHAMMAD MDW, CBC, TROPHS, CMP #### [address] [address] Basophils/100 WBC (Bld) 0.1 % Normal 0.0-2.5 [facility] ([place]) Comment on above: Performed By: #### L IP, GFR, FRIDA MUHAMMAD MDW, CBC, TROPHS, CMP #### [address] [address] Eosinophil, Absolute 0.0 10 3/mcL Normal 0.0-0.4 [facility] ([place]) Comment on above: Performed By: #### L IP, GFR, ADFRIDA THOMSON MDW, CBC, TROPHS, CMP #### [address] [address] Eosinophils/100 WBC (Bld) 0.1 % Normal 0.0-7.0 [facility] ([place]) Comment on above: Performed By: #### L IP, GFR, ADIFF, ANEU, MDW, CBC, TROPHS, CMP #### [address] [address] Lymphocyte, Absolute 0.7 10 3/mcL Low 0.8-3.9 [facility] ([place]) Comment on above: Performed By: #### L IP, GFR, ADIFF, ANEU, MDW, CBC, TROPHS, CMP #### [address] [address] Lymphocytes/100 WBC (Bld) 4.5 % Low 10.0-50.0 [facility] ([place]) Comment on above: Performed By: #### L IP, GFR, ADIFF, ANEU, MDW, CBC, TROPHS, CMP #### [address] [address] Monocyte, Absolute 0.5 10 3/mcL Normal 0.2-1.0 [facility] ([place]) Comment on above: Performed By: #### L IP, GFR, ADIFF, ANEU, MDW, CBC, TROPHS, CMP #### [address] [address] Monocytes/100 WBC (Bld) 3.2 % Normal 1.7-13.0 [facility] ([place]) Comment on above: Performed By: #### L IP, GFR, ADIFF, ANEU, MDW, CBC, TROPHS, CMP #### [address] [address] Neutrophils/100 WBC (Bld) 92.1 % High 37.0-80.0 [facility] ([place]) Comment on above: Performed By: #### L IP, GFR, ADIFF, ANEU, MDW, CBC, TROPHS, CMP #### [address] [address] .GFRon 05-27-2023 GFR 79 ml/min/1.73sqm Normal [facility] ([place]) Comment on above: Result Comment: GFR Population mean for , Non- Americans Ages 20-29 = 116 mL/min/1.73 sq.m. Ages 30-39 = 107 mL/min/1.73 sq.m. Ages 40-49 = 99 mL/min/1.73 sq.m. Ages 50-59 = 93 mL/min/1.73 sq.m. Ages 60-69 = 85 mL/min/1.73 sq.m. Ages 70+ = 75 mL/min/1.73 sq.m. Chronic Kidney Disease: Less than 60 mL/min/1.73 square meters End Stage Renal Disease: Less than 15 mL/min/1.73 square meters Performed By: #### L IP, GFR, ADIFF, ANEU, MDW, CBC, TROPHS, CMP #### [address] [address] GFR Non- 66 ml/min/1.73sqm Normal [facility] ([place]) Comment on above: Result Comment: GFR Population mean for , Non- Americans Ages 20-29 = 116 mL/min/1.73 sq.m. Ages 30-39 = 107 mL/min/1.73 sq.m. Ages 40-49 = 99 mL/min/1.73 sq.m. Ages 50-59 = 93 mL/min/1.73 sq.m. Ages 60-69 = 85 mL/min/1.73 sq.m. Ages 70+ = 75 mL/min/1.73 sq.m. Chronic Kidney Disease: Less than 60 mL/min/1.73 square meters End Stage Renal Disease: Less than 15 mL/min/1.73 square meters Performed By: #### L IP, GFR, ADIFF, ANEU, MDW, CBC, TROPHS, CMP #### [address] [address] .Won 05-27-2023 Monocyte Distribution Width 16.33 Normal 0.00-20.00 [facility] ([place]) Comment on above: Result Comment: For ED adult patients suspected of sepsis, MDW<=20.0 does not rule out sepsis or risk of sepsis Performed By: #### L IP, GFR, ADIFF, ANEU, MDW, CBC, TROPHS, CMP #### [place] [address] .NEUABSon 05-27-2023 Neutrophil, Absolute 14.0 10 3/mcL High 2.9-6.2 A [facility] ([place]) Comment on above: Performed By: #### L IP, GFR, ADIFF, ANEU, MDW, CBC, TROPHS, CMP #### [place] [address] CBCon 05-27-2023 Erythrocyte distribution width (RBC) [Ratio] 13.1 % Normal 11.5-14.5 [facility] ([place]) Comment on above: Performed By: #### L IP, GFR, ADIFF, ANEU, MDW, CBC, TROPHS, CMP #### [place] [address] Hematocrit (Bld) [Volume fraction] 43.3 % Normal 37.0-47.0 [facility] ([place] Comment on above: Performed By: #### L IP, GFR, ADIFF, ANEU, MDW, CBC, TROPHS, CMP #### [place] [address] Hgb 14.6 G/dL Normal 12.0-16.0 [facility] ([place]) Comment on above: Performed By: #### L IP, GFR, ADIFF, ANEU, MDW, CBC, TROPHS, CMP #### [place] [address] MCH (RBC) [Entitic mass] 29.3 pg Normal 27.0-31.2 [facility] ([place] Comment on above: Performed By: #### L IP, GFR, ADIFF, ANEU, MDW, CBC, TROPHS, CMP #### [place] [address] MCHC 33.8 G/dL Normal 33.0-37.0 [facility] ([place] Comment on above: Performed By: #### L IP, GFR, ADIFF, ANEU, MDW, CBC, TROPHS, CMP #### [address] [address] MCV (RBC) [Entitic vol] 86.5 fL Normal 80.0-94.0 [facility] ([place] Comment on above: Performed By: #### L IP, GFR, ADIFF, ANEU, MDW, CBC, TROPHS, CMP #### [place] [address] Platelet 209 10 3/mcL Normal 130-400 [facility] ([place] Comment on above: Performed By: #### L IP, GFR, ADIFF, ANEU, MDW, CBC, TROPHS, CMP #### [place] [address] Platelet mean volume (Bld) [Entitic vol] 7.1 fL Low 7.4-10.4 [facility] ([place] Comment on above: Performed By: #### L IP, GFR, ADIFF, ANEU, MDW, CBC, TROPHS, CMP #### [place] [address] RBC 5.00 10 6/mcL Normal 4.20-5.40 [facility] ([place] Comment on above: Performed By: #### L IP, GFR, ADIFF, ANEU, MDW, CBC, TROPHS, CMP #### [place] [address] WBC 15.2 10 3/mcL High 4.6-10.8 [facility] ([place] Comment on above: Performed By: #### L IP, GFR, ADIFF, ANEU, MDW, CBC, TROPHS, CMP #### [place] [address] CMPon 05-27-2023 Albumin Level 4.5 G/dL Normal 3.4-4.8 [facility] ([place] Comment on above: Performed By: #### L IP, GFR, ADIFF, ANEU, MDW, CBC, TROPHS, CMP #### [place] [id number] Albumin/Globulin [Mass ratio] 1.4 {ratio} Normal 1.1-2.5 [facility] ([place] Comment on above: Performed By: #### L IP, GFR, ADIFF, ANEU, MDW, CBC, TROPHS, CMP #### [address] [address] ALP [Catalytic activity/Vol] 146 U/L High 40-135 [facility] ([place] Comment on above: Performed By: #### L IP, GFR, ADIFF, ANEU, MDW, CBC, TROPHS, CMP #### [address] [address] ALT [Catalytic activity/Vol] 21 U/L Normal 14-59 [facility] ([place] Comment on above: Performed By: #### L IP, GFR, ADIFF, ANEU, MDW, CBC, TROPHS, CMP #### [address] [address] AST [Catalytic activity/Vol] 17 U/L Normal 10-40 [facility] ([place] Comment on above: Performed By: #### L IP, GFR, ADIFF, ANEU, MDW, CBC, TROPHS, CMP #### [address] [address] Bili Total 1.0 mg/dL Normal 0.2-1.0 [facility] ([place]) Comment on above: Result Comment: Use of this assay is not recommended for patients undergoing treatment with eltrombopag due to the potential for falsely elevated results. Performed By: #### L IP, GFR, ADIFF, ANEU, MDW, CBC, TROPHS, CMP #### [address] [address] BUN/Creatinine Ratio 20 ratio Normal 7-27 [facility] ([place]) Comment on above: Performed By: #### L IP, GFR, ADIFF, ANEU, MDW, CBC, TROPHS, CMP #### [address] [address] Calcium [Mass/Vol] 9.1 mg/dL Normal 8.4-10.2 [facility] ([place]) Comment on above: Performed By: #### L IP, GFR, ADIFF, ANEU, MDW, CBC, TROPHS, CMP #### [address] [address] Chloride [Moles/Vol] 96 mmol/L Low 98-107 [facility] ([place]) Comment on above: Performed By: #### L IP, GFR, ADIFF, ANEU, MDW, CBC, TROPHS, CMP #### [address] [address] CO2 [Moles/Vol] 24 mmol/L Normal 23-31 [facility] ([place] Comment on above: Performed By: #### L IP, GFR, ADIFF, ANEU, MDW, CBC, TROPHS, CMP #### [address] [address] Creatinine [Mass/Vol] 0.88 mg/dL Normal 0.55-1.02 [facility] ([place]) Comment on above: Performed By: #### L IP, GFR, ADIFF, ANEU, MDW, CBC, TROPHS, CMP #### [address] [address] Electrolyte Balance 14.0 mEq/L Normal 4.0-15.0 [facility] ([place]) Comment on above: Performed By: #### L IP, GFR, ADIFF, ANEU, MDW, CBC, TROPHS, CMP #### [address] [address] Globulin 3.3 G/dL Normal [facility] ([place] Comment on above: Performed By: #### L IP, GFR, ADIFF, ANEU, MDW, CBC, TROPHS, CMP #### [address] [address] Glucose [Mass/Vol] 149 mg/dL High 80-115 [facility] ([place]) Comment on above: Performed By: #### L IP, GFR, ADIFF, ANEU, MDW, CBC, TROPHS, CMP #### [address] [place] [address] Potassium [Moles/Vol] 4.3 mmol/L Normal 3.5-5.1 [facility] ([place]) Comment on above: Performed By: #### L IP, GFR, ADIFF, ANEU, MDW, CBC, TROPHS, CMP #### [address] [address] Sodium [Moles/Vol] 134 mmol/L Low 136-145 [facility] ([place] Comment on above: Performed By: #### L IP, GFR, ADIFF, ANEU, MDW, CBC, TROPHS, CMP #### [address] [address] Total Protein 7.8 G/dL Normal 6.4-8.2 [facility] ([place] Comment on above: Performed By: #### L IP, GFR, ADIFF, ANEU, MDW, CBC, TROPHS, CMP #### [address] [address] Urea nitrogen [Mass/Vol] 18 mg/dL Normal 7-18 [facility] ([place] Comment on above: Performed By: #### L IP, GFR, ADIFF, ANEU, MDW, CBC, TROPHS, CMP #### [address] [address] [address] ABD/PELVIS W/ IV CONTRAST ONLYon 05-27-2023 CT ABD/PELVIS W/ IV CONTRAST ONLY ORIGINAL EXAMINATION: CT OF THE ABDOMEN AND PELVIS WITH CONTRAST 05/27/2023 9:38 pm TECHNIQUE: CT of the abdomen and pelvis was performed with the administration of intravenous contrast. Multiplanar reformatted images are provided for review. Automated exposure control, iterative reconstruction, and/or weight based adjustment of the mA/kV was utilized to reduce the radiation dose to as low as reasonably achievable. COMPARISON: None. HISTORY: ORDERING SYSTEM PROVIDED HISTORY: Reason for Exam: pain FINDINGS: Minor degenerative changes are noted in the spine. Lung bases are unremarkable. Very small sliding hiatal hernia noted. Small cyst is noted at the upper aspect of the right hepatic lobe. Minimal fatty infiltration of the liver is evident at the fissure for the falciform ligament. No other liver lesion. Spleen, adrenal glands are unremarkable. Patient is status post left nephrectomy. There is some compensatory hypertrophy of the right kidney. The right kidney is otherwise unremarkable. Solid pelvic organs and urinary bladder are unremarkable. Mild sigmoid diverticulosis is present without diverticulitis. There is long segment wall thickening of the left colon, extending past the splenic flexure to the very distal transverse colon. No diverticula are noted in this area. There is mild pericolic infiltrative increased density within these areas. No pneumatosis or free air is visible. No other GI tract abnormality is visible. No additional contributory finding. IMPRESSION: 1. Mild sigmoid diverticulosis without diverticulitis. 2. Long segment moderate colitis of the left colon extending to the splenic flexure. This is presumably infectious or inflammatory. No free air or abscess seen. Interpreted by: Reji Keith MD Preliminary Report By: Reji Keith MD Electronically signed By Reji Keith MD Dictated Date: 05/27/2023 9:40:52 PM Prelim Date: 05/27/2023 9:43:32 PM Sign Date: 05/27/2023 9:43:32 PM Ordering Provider: DAT IVY Normal [facility]) LIPon 05-27-2023 Lipase Level 25 U/L Normal 16-77 [facility] ([place] Comment on above: Performed By: #### L IP, GFRJB ANEU, MDW, CBC, TROPHS, CMP #### [address] [address] TROPHSon 05-27-2023 Troponin I High Sensitivity 4.4 ng/L Normal 0.0-51.4 [facility]) Comment on above: Performed By: #### L IP, GFR, FRIDA MUHAMMAD MDW, CBC, TROPHS, CMP #### [address] [address] UAon 05-27-2023 Color (U) Yellow Normal [facility]) Comment on above: Performed By: #### U A #### [address] [address] Glucose (U) [Mass/Vol] Negative Normal Negative [facility] [place] Comment on above: Performed By: #### U A #### [address] [address] Ketones Ql (U) >=160 Abnormal Negative [facility] [place] Comment on above: Performed By: #### U A #### [address] [address] UA Appear Clear Normal Clear [facility] [place] Comment on above: Performed By: #### U A #### [address] [address] UA Blood Negative Normal Negative [facility] ([place] Comment on above: Performed By: #### U A #### [place] [address] UA Leuk Est Negative Normal Negative [facility] ([place] Comment on above: Performed By: #### U A #### [place] [id number] UA Nitrite Negative Normal Negative [facility] [place] Comment on above: Performed By: #### U A #### [address] [address] UA pH 5.5 Normal 5.0 - 8.0 [facility] ([place] Comment on above: Performed By: #### U A #### [address] [address] UA Protein Negative Normal Negative [facility] [place] Comment on above: Performed By: #### U A #### [address] [address] UA Spec Grav 1.025 Normal 1.015-1.025 [facility] ([place] Comment on above: Performed By: #### U A #### [address] [address] UA Specimen Type Void Normal [facility] [place] Comment on above: Performed By: #### U A #### [address] [address] UA Urobilinogen 0.2 E.U./dL Normal 0.2-1.0 [facility] ([place] Comment on above: Performed By: #### U A #### [facility] [address] [place], [place] [address] Urobilinogen (U) [Mass/Vol] Negative Normal Negative [facility] [place] Comment on above: Performed By: #### U A #### [facility] [address] [place], [place] [address] Basophil percentageOrdered B y: Alanna Avila on 05-06-2023 Chloride [Moles/Vol] 105 mmol/L 98-107 [facility] Glucose [Mass/Vol] 95 mg/dL 74-106 [facility] Potassium [Moles/Vol] 3.7 mmol/L 3.5-5.1 [facility] Sodium [Moles/Vol] 138 mmol/L 136-145 [facility] Laboratory - Chemistry and C hemistry - challengeOrdered By: Alanna Avila on 05-06-2023 CO2 [Moles/Vol] 26.0 mmol/L 21.0-32.0 [facility] Free T4 [Mass/Vol] 1.45 ng/dL 0.76-1.46 [facility] Urea nitrogen/Creatinine [Mass ratio] 21.8 mg/mg 10-20 [facility] No Panel InformationOrdered By: Alanna Avila on 05-06-2023 Estimated GFR (MDRD) Amer 91 mL/min >60 [facility] Comment on above: GFR Calc Estimated GFR (MDRD) Non-Af Amer 75 mL/min >60 [facility] Comment on above: Non- GFR Calc Thyroid Stimulating Hormone (TSH) 0.96 uIU/mL 0.358-3.74 [facility] Serum or plasma calcium bria urement (mass/volume)Ordered By: Alanna Avila on 05-06-2023 Calcium [Mass/Vol] 9.4 mg/dL 8.5-10.1 [facility] Serum or plasma creatinine m easurement (mass/volume)Ordered By: Alanna Avila on 05-06-2023 Creatinine [Mass/Vol] 0.82 mg/dL 0.55-1.02 [facility] Comment on above: The validity of the calculated GFR & GFRAA in patients over 70 years has not been determined. Clinical correlation is essential. Serum or plasma urea nitroge n measurement (mass/volume)Ordered By: Alanna Avila on 05-06-2023 Urea nitrogen [Mass/Vol] 18 mg/dL 02-12 [facility] Thin prep Papanicolaou smear with manual screeningOrdered By: Alanna Avila on 05-06-2023 Thin prep Papanicolaou smear with manual screening 7 -15 [facility] XR FOOT LEFT 3+ VIEWS (STAND MARY)on 08-06-2022 XR FOOT LEFT 3+ VIEWS (STANDARD) EXAMINATION: XR FOOT LEFT 3+ VIEWS (STANDARD) 08/06/2022 2:37 pm HISTORY: ORDERING SYSTEM PROVIDED HISTORY: assess for any evidence of RA, TECHNOLOGIST PROVIDED HISTORY: Illness/Other Reason for exam: assess for any evidence of RA Cancer History: Surgery, RadiationHistory: Encounter Type: Initial Additional signs and symptoms: Pain ORDERING SYSTEM PROVIDED DIAGNOSIS CODES: M06.9 Rheumatoid arthritis, involving unspecified site, unspecified whether rheumatoid factor present ([facility]) COMPARISON: None. FINDINGS: Three views of the left foot. No fractures. Hallux valgus deformity with mild osteoarthrosis of the 1st metatarsophalangeal joint. No periarticular osteopenia or erosions. Plantar calcaneal and Achilles insertional enthesophytes. Normal soft tissues. IMPRESSION: No evidence of erosive arthropathy. 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 Plantar calcaneal and Achilles insertional enthesophytes. [facility] Workstation ID: [id number] Dictated by: JOLYNN THIBODEAUX on SatAug 08, 2022 6:25:44 AM EST Transcribed by: DIMAS BURRELL on SatAug 08, 2022 6:27:37 AM EST Finalized by: JOLYNN THIBODEAUX on SatAug 08, 2022 6:48:08 AM EST Normal [facility] Comment on above: Order Comment: Injur y/Trauma or Illness?:Illness/Other How long have you had these symptoms (acute/chronic)?:Chronic Reason for exam?:assess for any evidence of RA History of cancer?: Surgeries, chemotherapy, or radiation?: Type of Exam?:Initial Additional signs and symptoms?:Pain XR FOOT RIGHT 3+ VIEWS (MELISSA MART)on 08-06-2022 XR FOOT RIGHT 3+ VIEWS (STANDARD) EXAMINATION: XR FOOT RIGHT 3+ VIEWS (STANDARD) 08/06/2022 2:37 pm HISTORY: ORDERING SYSTEM PROVIDED HISTORY: assess for any evidence of RA, TECHNOLOGIST PROVIDED HISTORY: Illness/Other Reason for exam: assess for any evidence of RA Cancer History: Surgery, RadiationHistory: Encounter Type: Initial Additional signs and symptoms: Pain ORDERING SYSTEM PROVIDED DIAGNOSIS CODES: M06.9 Rheumatoid arthritis, involving unspecified site, unspecified whether rheumatoid factor present ([facility]) COMPARISON: None. FINDINGS: Three views of the right foot. No fractures. Evidence of prior osteotomy of the 1st metatarsal head. Moderate degenerative changes of the 1st metatarsophalangeal joint. No periarticular osteopenia or erosions. Plantar calcaneal and Achilles insertional enthesophytes. Normal soft tissues. IMPRESSION: No evidence of erosive arthropathy. 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 Plantar calcaneal and Achilles insertional enthesophytes. [employer] Workstation ID: [id number] Dictated by: JOLYNN THIBODEAUX on SatAug 08, 2022 6:24:45 AM EST Transcribed by: CHACORTA CHATMAN on SatAug 08, 2022 6:27:10 AM EST Finalized by: JOLYNN THIBODEAUX on SatAug 08, 2022 6:48:14 AM EST Normal [facility] Comment on above: Order Comment: Injur y/Trauma or Illness?:Illness/Other How long have you had these symptoms (acute/chronic)?:Chronic Reason for exam?:assess for any evidence of RA History of cancer?: Surgeries, chemotherapy, or radiation?: Type of Exam?:Initial Additional signs and symptoms?:Pain XR HANDS BILATERAL BALL CATC HERS 2 VIEWSon 08-06-2022 XR HANDS BILATERAL BALL CATCHERS 2 VIEWS EXAMINATION: XR HANDS BILATERAL BALL CATCHERS 2 VIEWS 08/06/2022 2:37 pm HISTORY: ORDERING SYSTEM PROVIDED HISTORY: assess for any evidence of RA, TECHNOLOGIST PROVIDED HISTORY: Illness/Other Reason for exam: assess for any evidence of RA Cancer History: Surgery, RadiationHistory: Encounter Type: Initial Additional signs and symptoms: Pain ORDERING SYSTEM PROVIDED DIAGNOSIS CODES: M06.9 Rheumatoid arthritis, involving unspecified site, unspecified whether rheumatoid factor present ([facility]) COMPARISON: None. FINDINGS: Two views of both hands. No fractures. Joint spaces are preserved. No periarticular osteopenia or erosions. Small osteophytes surround the interphalangeal joints. No aggressive osseous lesions or bony demineralization. Normal soft tissues. IMPRESSION: No evidence of erosive arthropathy. Scattered mild degenerative changes throughout the interphalangeal joints. [facility]/f Workstation ID: [id number] Dictated by: JOLYNN THIBODEAUX on SatAug 08, 2022 6:26:49 AM EST Transcribed by: CHACORTA CHATMAN on SatAug 08, 2022 6:27:59 AM EST Finalized by: JOLYNN THIBODEAUX on SatAug 08, 2022 6:48:03 AM EST [facility] Comment on above: Order Comment: Injur y/Trauma or Illness?:Illness/Other How long have you had these symptoms (acute/chronic)?:Chronic Reason for exam?:assess for any evidence of RA History of cancer?: Surgeries, chemotherapy, or radiation?: Type of Exam?:Initial Additional signs and symptoms?:Pain XR KNEE RIGHT 2 VIEWS (STAND MARY)on 08-06-2022 XR KNEE RIGHT 2 VIEWS (STANDARD) EXAMINATION: XR KNEE RIGHT 2 VIEWS (STANDARD) 08/06/2022 1:37 pm HISTORY: ORDERING SYSTEM PROVIDED HISTORY: assess for any evidence of RA, TECHNOLOGIST PROVIDED HISTORY: Illness/Other Reason for exam: assess for any evidence of RA Cancer History: Surgery, RadiationHistory: Encounter Type: Initial Additional signs and symptoms: Pt. denies any symptoms at this time ORDERING SYSTEM PROVIDED DIAGNOSIS CODES: M06.9 Rheumatoid arthritis, involving unspecified site, unspecified whether rheumatoid factor present ([facility]) COMPARISON: None IMPRESSION: FINDINGS/ No erosions or periosteal reaction. Quadriceps insertion enthesophyte. No osteophytes. No joint effusion. Workstation ID: [id number] Dictated by: JALEN SPRINGER on SatAug 06, 2022 6:22:06 PM EST Transcribed by: JALEN SPRINGER on SatAug 06, 2022 6:22:06 PM EST Finalized by: JALEN SPRINGER on SatAug 06, 2022 6:22:06 PM EST [facility] Comment on above: Order Comment: AP/LA T Injury/Trauma or Illness?:Illness/Other How long have you had these symptoms (acute/chronic)?:Acute Reason for exam?:assess for any evidence of RA History of cancer?: Surgeries, chemotherapy, or radiation?: Type of Exam?:Initial Additional signs and symptoms?:Pt. denies any symptoms at this time CT Abdomen / Pelvis without contraston 07-04-2022 CT Abdomen / Pelvis without contrast HISTORY: Solitary kidney, pain Noncontrast CT of the abdomen / pelvis is performed. No comparison studies are available. IMPRESSION: 1. Mild caliectasis right kidney with nondilated renal pelvis and nondilated right ureter. 2. Absent left kidney surgically. 3. Diverticulosis colon with normal appendix, degenerative changes lumbar spine, no free air or free fluid or masses seen Report Dictated on Authenticated by: Jason Jarvis On: 07/05/2022 10:37 Read by: JASON JARVIS MD, Date: 07/05/2022 10:37 [facility] Comment on above: Order Comment: CONTR AST PER RADIOLOGIST DISCRETION No Oral or IV contrast Absolute lymphocyte counton 05-08-2022 Lymphocytes Auto (Unsp spec) [#/Vol] 2.11 10*3/uL 0.83-4.51 [facility] Work Phone: Basophil percentageon 2021 Basophils/100 WBC (Bld) 0.2 % 0-1 [facility] Work Phone: Bilirubin [Mass/Vol] 0.40 mg/dL 0.20-1.00 [facility] Work Phone: Comment on above: For patients on eltr ombopag therapy, use of Dimension [place] TBIL is not recommended. Chloride [Moles/Vol] 108 mmol/L 98-107 [facility] Work Phone: [phone] Eosinophils/100 WBC (Bld) 2.3 % 0-5 [facility] Work Phone: Glucose [Mass/Vol] 98 mg/dL 74-106 [facility] Work Phone: [phone] Neutrophils (Bld) [#/Vol] 5.1 10*3/uL 2.0-7.7 [facility] Work Phone: Neutrophils/100 WBC (Bld) 63.3 % 47-70 [facility] Work Phone: Potassium [Moles/Vol] 3.7 mmol/L 3.5-5.1 [facility] Work Phone: Protein [Mass/Vol] 7.8 g/dL 6.4-8.2 [facility] Work Phone: Sodium [Moles/Vol] 140 mmol/L 136-145 [facility] Work Phone: WBC (Bld) [#/Vol] 8.1 10*3/uL 4.4-11.0 [facility] Work Phone: Blood erythrocytes count (nu mber/volume)on 05-08-2022 RBC (Bld) [#/Vol] 4.46 10*6/uL 4.2-5.4 [facility] Work Phone: Blood hemoglobin measurement (mass/volume)on 05-08-2022 Hemoglobin (Bld) [Mass/Vol] 13.0 g/dL 12.0-15.0 [facility] Work Phone: Blood lymphocytes/100 leukoc yteson 05-08-2022 Lymphocytes/100 WBC (Bld) 25.9 % 19-41 [facility] Work Phone: Blood monocytes/100 leukocyt eson 05-08-2022 Monocytes/100 WBC (Bld) 8.1 % 0-10 [facility] Work Phone: Blood platelet mean volumeon 05-08-2022 Platelet mean volume (Bld) [Entitic vol] 9.0 fL 6.2-12.0 [facility] Work Phone: Determination of erythrocyte mean corpuscular volume (MCV)on 05-08-2022 MCV (RBC) [Entitic vol] 87.2 fL 81-99 [facility] Work Phone: Hematocrit Auto (Bld) [Volum e fraction]on 05-08-2022 Hematocrit (Bld) [Volume fraction] 38.9 % 37-47 [facility] Work Phone: Laboratory - Chemistry and C hemistry - challengeon 05-08-2022 ALP [Catalytic activity/Vol] 133 U/L 45-117 [facility] Work Phone: [phone] ALT [Catalytic activity/Vol] 20 U/L 13-56 [facility] Work Phone: [phone] CO2 [Moles/Vol] 26.0 mmol/L 21.0-32.0 [facility] Work Phone: Cobalamin (Vitamin B12) [Mass/Vol] 347 pg/mL 211-911 [facility] Work Phone: [phone] Free T4 [Mass/Vol] 1.50 ng/dL 0.76-1.46 [facility] Work Phone: [phone] Globulin (S) [Mass/Vol] 3.9 g/dL 2.2-4.2 [facility] Work Phone: [phone] Urea nitrogen/Creatinine [Mass ratio] 14.9 mg/mg 05-17 [facility] Work Phone: [phone] Laboratory - Hematology and Cell countson 05-08-2022 Erythrocyte distribution width (RBC) [Entitic vol] 41.2 fL 35.1-43.9 [facility] Work Phone: [phone] Erythrocyte distribution width (RBC) [Ratio] 12.9 % 11.6-14.6 [facility] Work Phone: [phone] Immature granulocytes/100 WBC (Bld) 0.200 % 0.0-0.9 [facility] Work Phone: [phone] Comment on above: IG% - Immature Granu locytes (promyelocytes, myelocytes and metamyelocytes) > 1% indicates that a LEFT SHIFT is Present. MCH (RBC) [Entitic mass] 29.1 pg 27.0-32.0 [facility] Work Phone: [phone] Nucleated RBC/100 WBC (Bld) [Ratio] 0 % 0-5 [facility] Work Phone: MCHC Auto (RBC) [Mass/Vol]on 05-08-2022 MCHC (RBC) [Mass/Vol] 33.4 g/dL 32-36 [facility] Work Phone: No Panel Informationon 05-08 Estimated GFR (MDRD) Amer 93 mL/min >60 [facility] Work Phone: Comment on above: GFR Calc Estimated GFR (MDRD) Non-Af Amer 77 mL/min >60 [facility] Work Phone: Comment on above: Non- GFR Calc Thyroid Stimulating Hormone (TSH) 0.86 uIU/mL 0.358-3.74 [facility] Work Phone: Platelets bldon 05-08-2022 Platelets (Bld) [#/Vol] 263 10*3/uL 150-450 [facility] Work Phone: Serum or plasma albumin bria urement (mass/volume)on 05-08-2022 Albumin [Mass/Vol] 3.9 g/dL 3.2-5.0 [facility] Work Phone: Serum or plasma albumin/glob ulin mass ratioon 05-08-2022 Albumin/Globulin [Mass ratio] 1.0 {ratio} 0.9-2.4 [facility] Work Phone: Serum or plasma calcium bria urement (mass/volume)on 05-08-2022 Calcium [Mass/Vol] 9.1 mg/dL 8.5-10.1 [facility] Work Phone: Serum or plasma creatinine m easurement (mass/volume)on 05-08-2022 Creatinine [Mass/Vol] 0.81 mg/dL 0.55-1.02 [facility] Work Phone: Comment on above: The validity of the calculated GFR & GFRAA in patients over 70 years has not been determined. Clinical correlation is essential. Serum or plasma urea nitroge n measurement (mass/volume)on 05-08-2022 Urea nitrogen [Mass/Vol] 12 mg/dL 7-18 [facility] Work Phone: Thin prep Papanicolaou smear with manual screeningon 05-08-2022 Thin prep Papanicolaou smear with manual screening 12 U/L 15-37 [facility] Work Phone: Thin prep Papanicolaou smear with manual screening 6 5-15 [facility] Work Phone: Culture, urineon 12-15-2021 Bacteria identified Cx Nom (U) Positive [facility] Work Phone: Laboratory - Chemistry and C hemistry - challengeon 11-17-2021 Cobalamin (Vitamin B12) [Mass/Vol] 349 pg/mL 211-911 [facility] Work Phone: Free T4 [Mass/Vol] 1.44 ng/dL 0.76-1.46 [facility] Work Phone: No Panel Informationon 11-17 Thyroid Stimulating Hormone (TSH) 0.51 uIU/mL 0.358-3.74 [facility] Work Phone: Vitamin D 25-Hydroxy 64.2 ng/mL [facility] Work Phone: Comment on above: Vitamin D 25(OH) Sta tus Range Deficiency <20 ng/mL (50nmol/L) Insufficiency 20 - 30 ng/mL (50 - 75 nmol/L) Sufficiency 30 - 100 ng/mL (75 - 250 nmol/L) Toxicity >100 ng/mL (>250 nmol/L) Serum or plasma ferritin shirley surement (mass/volume)on 11-17-2021 Ferritin [Mass/Vol] 87 ng/mL 8-252 [facility] Work Phone: Office Visit: UC: pyelonephr itison 06-27-2017 Documentation of current medications (procedure) Done Invalid Interpretation Code [facility] Work Phone: Fall risk assessment No Invalid Interpretation Code [facility] Work Phone: Tobacco smoking status NHIS Never Invalid Interpretation Code [facility] Work Phone: Tobacco smoking status NHIS Tobacco smoking status NHIS Invalid Interpretation Code [facility] Work Phone: Tobacco use [facility] Never smoker Invalid Interpretation Code [facility] Work Phone: Culture, urine Bacteria identified Cx Nom (U) Positive [facility] Work Phone: Vital Signs Date Time Vital Sign Value Performing Clinician Facility 01-11-2025 06:43-0400 Body height 157.48 cm Swapna Anmol [employer] Work Phone: [facility] 01-11-2025 06:43-0400 Body temperature 98.4 [degF] Swapna Anmol [employer] Work Phone: [facility] 01-11-2025 06:43-0400 Diastolic blood pressure 66 mm[Hg] Swapna Anmol [employer] Work Phone: [facility] 01-11-2025 06:43-0400 Heart rate 71 /min Swapna Anmol [employer] Work Phone: [facility] 01-11-2025 06:43-0400 Respiratory rate 16 /min Swapna Anmol [employer] Work Phone: [facility] 01-11-2025 06:43-0400 SaO2% (BldA) [Mass fraction] 98 % Swapna Anmol [employer] Work Phone: [facility] 01-11-2025 06:43-0400 Systolic blood pressure 110 mm[Hg] Swapna Anmol [employer] Work Phone: [facility] 01-11-2025 06:27-0400 Body mass index (BMI) [Ratio] 27.6 kg/m2 Swapna Anmol [employer] Work Phone: [facility] 01-11-2025 06:27-0400 Body temperature 98.4 [degF] Swapna Anmol [employer] Work Phone: [facility] 01-11-2025 06:27-0400 Body weight 68.49 kg Swapna Anmol [employer] Work Phone: [facility] 01-11-2025 06:27-0400 Diastolic blood pressure 62 mm[Hg] Swapna Anmol [employer] Work Phone: [facility] 01-11-2025 06:27-0400 Heart rate 58 /min Swapna Anmol [employer] Work Phone: [facility] 01-11-2025 06:27-0400 Respiratory rate 14 /min Swapna Anmol [employer] Work Phone: [facility] 01-11-2025 06:27-0400 SaO2% (BldA) [Mass fraction] 98 % Swapna Anmol [employer] Work Phone: [facility] 01-11-2025 06:27-0400 Systolic blood pressure 102 mm[Hg] Swapna Anmol [employer] Work Phone: [facility] 01-06-2025 21:00-0400 Body temperature 98.2 [degF] Swapna Anmol [employer] Work Phone: [facility] 01-06-2025 21:00-0400 Diastolic blood pressure 81 mm[Hg] Swapna Anmol [employer] Work Phone: [facility] 01-06-2025 21:00-0400 Heart rate 70 /min Swapna Anmol [employer] Work Phone: [facility] 01-06-2025 21:00-0400 Respiratory rate 18 /min Swapna Anmol [employer] Work Phone: [facility] 01-06-2025 21:00-0400 SaO2% (BldA) [Mass fraction] 98 % Swapna Anmol [employer] Work Phone: [facility] 01-06-2025 21:00-0400 Systolic blood pressure 150 mm[Hg] Swapna Corea [employer] Work Phone: [facility] 01-06-2025 13:16-0400 Body height 157.48 cm Swapna Corea [employer] Work Phone: [facility] 01-06-2025 13:16-0400 Body mass index (BMI) [Ratio] 27.6 kg/m2 Swapna Corea [employer] Work Phone: [facility] 01-06-2025 13:16-0400 Body weight 68.58 kg Swapnayohana Corea [employer] Work Phone: [facility] 11-07-2022 08:24-0400 Body mass index (BMI) [Ratio] 29.29 kg/m2 Stephen Rey MD Work Phone: [facility] 11-07-2022 08:24-0400 Body weight 70.31 kg Stephen Rey MD Work Phone: [facility] 11-07-2022 08:24-0400 Diastolic blood pressure 79 mm[Hg] Stephen Rey MD Work Phone: [facility] 11-07-2022 08:24-0400 Heart rate 67 /min Stephen Rey MD Work Phone: [facility] 11-07-2022 08:24-0400 Systolic blood pressure 127 mm[Hg] Stephen Rey MD Work Phone: [facility] 11-17-2021 15:22-0400 Body height 157.[address] Satinder Griggs Work Phone: [facility] Work Phone: 11-17-2021 15:22-0400 Body mass index (BMI) [Ratio] 30.4 kg/m2 Dr. Satinder Griggs Work Phone: [facility] Work Phone: 11-17-2021 15:22-0400 Body temperature 97.2 [degF] Dr. Satinder Griggs Work Phone: [facility] Work Phone: 11-17-2021 15:22-0400 Body weight 75.[address] Satinder Griggs Work Phone: [facility] Work Phone: 11-17-2021 15:22-0400 Diastolic blood pressure 78 mm[Hg] Dr. Satinder Griggs Work Phone: [facility] Work Phone: 11-17-2021 15:22-0400 Heart rate 75 /min Dr. Satinder Griggs Work Phone: [facility] Work Phone: 11-17-2021 15:22-0400 Respiratory rate 18 /min Dr. Satinder Griggs Work Phone: [facility] Work Phone: 11-17-2021 15:22-0400 SaO2% (BldA) [Mass fraction] 98 % Dr. Satinder Griggs Work Phone: [facility] Work Phone: 11-17-2021 15:22-0400 Systolic blood pressure 120 mm[Hg] Dr. Satinder Griggs Work Phone: [facility] Work Phone: 06-27-2017 16:22-0500 BMI (Body Mass Index) 26.77 kg/m2 Jalen SANCHES [facility] Work Phone: 06-27-2017 16:22-0500 Body Temperature 97.5 [degF] Jalen SANCHES [facility] Work Phone: 06-27-2017 16:22-0500 BP Diastolic 78 mm[Hg] Jalen SANCHES [facility] Work Phone: 06-27-2017 16:22-0500 BP Systolic 128 mm[Hg] Jalen SANCHES [facility] Work Phone: 06-27-2017 16:22-0500 Height 162.56 cm Jalen SANCHES [facility] Work Phone: 06-27-2017 16:22-0500 Pulse (Heart Rate) 82 /min Jalen SANCHES [facility] Work Phone: 06-27-2017 16:22-0500 Respiratory Rate 14 /min Jalen SANCHES [facility] Work Phone: 06-27-2017 16:22-0500 Weight 70.76 kg Jalen SANCHES [facility] Work Phone: Encounters Encounter Date Encounter Type Care Provider Facility Start: 01-18-2025 End: 01-18-2025 ambulatory Swapna Suttongar [employer] Work Phone: [facility] Work Phone: Start: 01-18-2025 End: 01-18-2025 Patient encounter procedure Jalen SANCHES -[facility] Work Phone: Start: 01-12-2025 ambulatory Swapna Corea Facility:[facility] Start: 01-11-2025 End: 01-11-2025 Patient encounter procedure Jalen SANCHES -[facility] Work Phone: Start: 01-11-2025 End: 01-11-2025 ambulatory Swapnayohana Corea [employer] Work Phone: [facility] Work Phone: Start: 01-06-2025 End: 01-06-2025 Emergency department patient visit Swapna Suttongar [employer] Work Phone: -Emergency Department Work Phone: Start: 12-01-2024 End: 12-01-2024 ambulatory Swapnayohana Corea [employer] Work Phone: [facility] Work Phone: Start: 12-01-2024 End: 12-01-2024 Patient encounter procedure Swapna Corea [employer] -Radiology, [place] Work Phone: Start: 12-01-2024 End: 12-01-2024 ambulatory [facility] Facility:[facility] Start: 11-12-2024 End: 11-12-[address] Alanna Avila MD -Laboratory Work Phone: Start: 11-12-2024 End: 11-12-2024 ambulatory Alanna Avila Facility:[facility] Start: 06-18-2024 End: 06-18-2024 ambulatory [facility] Facility:[facility] Start: 05-11-2024 End: 05-11-2024 ambulatory Alanna [facility] Facility:[facility] Start: 02-11-2024 End: 02-11-2024 ambulatory [facility] Facility:[facility] Start: 11-06-2023 End: 11-06-2023 ambulatory [facility] Work Phone: Start: 11-06-2023 End: 11-06-2023 Patient encounter procedure [facility] Work Phone: Start: 10-11-2023 End: 10-11-2023 ambulatory [facility] Work Phone: Start: 10-11-2023 End: 10-11-2023 Discharged Recurring [facility] Therapy Work Phone: Start: 10-11-2023 Registered Recurring [facility] Work Phone: Start: 08-30-2023 End: 08-30-2023 ambulatory [facility] Work Phone: Start: 08-30-2023 End: 08-30-2023 Patient encounter procedure [facility] Work Phone: Start: 06-11-2023 End: 06-11-2023 ambulatory [facility] Work Phone: Start: 06-11-2023 End: 06-11-2023 Patient encounter procedure [facility]Rad[facility], [facility] Work Phone: Start: 05-27-2023 End: 05-28-2023 Emergency department patient visit DR DAT IVY MD Facility:B Start: 05-06-2023 End: 05-06-2023 ambulatory [facility] Work Phone: Start: 05-06-2023 End: 05-06-2023 Patient encounter procedure [facility] Work Phone: Start: 11-07-2022 End: 11-07-2022 ambulatory STEPHEN FRY [facility] Start: 11-07-2022 End: 11-07-2022 Office outpatient visit 40 minutes Stephen Rey MD Work Phone: [facility] Comment on above: Arthralgia, unspecif ied joint (Primary Dx); Rheumatoid factor positive; Primary osteoarthritis involving multiple joints; Obesity, unspecified classification, unspecified obesity type, unspecified whether serious comorbidity present; Prediabetes Start: 08-06-2022 End: 08-10-2022 ambulatory [facility] Start: 08-06-2022 End: 08-10-2022 Encounter for general adult medical examination without abnormal findings [facility] Start: 08-06-2022 End: 08-06-2022 ambulatory [facility] Start: 08-06-2022 End: 08-06-2022 Encounter for general adult medical examination without abnormal findings [facility] Amb[facility] Start: 07-04-2022 End: 07-05-2022 ambulatory [facility] Start: 05-08-2022 End: 05-08-2022 ambulatory [facility] Work Phone: Start: 05-08-2022 End: 05-08-2022 Patient encounter procedure [facility] Start: 04-20-2022 End: 04-20-2022 Patient encounter procedure [facility]Labor[facility], Specimen Start: 01-01-2022 End: 01-01-[address] Satinder Griggs Work Phone: [facility]-Ultrasound, WC Start: 12-15-2021 End: 12-15-[address] Satinder Griggs Work Phone: [facility]Laboratory, Specimen Start: 11-30-2021 End: 11-30-[address] Satinder Griggs Work Phone: [facility]Out[facility] Start: 11-17-2021 End: 11-17-[address] Satinder Griggs Work Phone: [facility] [facility] Procedures Date Procedure Procedure Detail Performing Clinician Start: 01-06-2025 Estimated creatinine clearance Swapna Corea [employer] Work Phone: Start: 01-06-2025 Computed tomography of abdomen and pelvis with intravenous contrast Swapna Corea [employer] Work Phone: Start: 12-01-2024 Plain x-ray of pelvi s and lower extremity Swapna Corea [employer] Work Phone: Start: 08-30-2023 X-ray of both feet Start: 06-11-2023 Plain x-ray of pelvi s and lower extremity Start: 01-01-[address] Satinder Griggs Work Phone: Start: 12-15-[address] Satinder Griggs Work Phone: Start: 11-30-2021 Screening mammography Abebe Griggs Work Phone: Start: 06-27-2017 End: 06-27-2017 Urine test visual color cmprsn meths Jalen SANCHES Work Phone: Start: 06-27-2017 End: 06-27-2017 Urnls dip stick/tablet rgnt non-auto w/o micrscp Jalen SANCHES Work Phone: Urine culture Plan of Treatment Date Care Activity Detail Author Start: 01-06-2025 [facility] Start: 11-12-2023 End: 11-12-2023 Patient encounter procedure 11/12/2023 8:30 AM EDT Office Visit [facility] [address] [place] [address] Stephen Rey MD [address] [place] [address] [facility] Start: 03-29-2023 Influenza vaccination Sequential Influenza Vaccine (Season Ended) [facility] Start: 06-27-2017 End: 06-27-2017 Appointment Appointment [facility] Work Phone: Start: 2013 Administration of herpes zoster vaccine Zoster Vaccines (1 of 2) [facility] Start: 2013 Screening for malignant neoplasm of colon Flexible sigmoidoscopy [facility] Start: 2003 Screening for malignant neoplasm of breast Mammogram [facility] Start: 1978 HIV screening HIV Screening [facility] Start: 1975 Depression screening using PHQ-9 (Patient Health Questionnaire 9) score Depression Screening (PHQ-2/9) [facility] Start: 1966 History and physical examination, annual for health maintenance Wellness Visit [facility] Start: 1963 COVID-19 Vaccine (#1) COVID-19 Vaccine (#1) [facility] Start: 1963 Screening for malignant neoplasm of cervix Pap Smear [facility] Start: 1963 Screening for malignant neoplasm of colon [facility] Start: 1963 Tetanus vaccination Tetanus: Every 10yrs [facility] Patient Education Bruises (Contu sions) ED Abd Injury Blunt Benign ED Laceration Superficial No Stitch [facility] Work Phone: Patient referral [facility] Work Phone: XR Ribs GE 3 Views a nd Chest PA [facility] Work Phone: Payers Date Payer Category Payer Self-pay [id number] 2021 Unknown MARIA D MONIQUE/PREF/HMO/PPO [id number] 2021-Present [phone] [address] [place] [address] [id number] 1965 Unknown [id number] 1965 Unknown [id number] 1965 Unknown [id number] [id number] 1965 Unknown [id number] [id number] 1965 Unknown [id number] [id number] 1963 Unknown [id number] [id number] 1965 Unknown [id number] [id number] 1965 Unknown [id number] [id number] 1965 Unknown [id number] [id number] 1959 Unknown [id number] Unknown [id number] Unknown [id number] [id number] Unknown [id number] [id number] Unknown [id number] [id number] Unknown [id number] [id number] Unknown [id number] [id number] Unknown [id number] [id number] Unknown [id number] Unknown [id number] Social History Date Type Detail Facility Start: 11-17-2021 End: 11-17-2021 Tobacco smoking status NHIS Unknown if ever smoked [facility] Start: 1965 Sex Assigned At Female [facility] Start: 08-06-2022 End: 01-11-2025 Tobacco smoking status NHIS Never smoked tobacco [facility] Start: 08-06-2022 Tobacco use and exposure Smokeless tobacco non-user [facility] Start: 08-06-2022 History of Social function [facility] Start: 08-06-2022 Tobacco use panel [facility] Start: 1965 Sex Assigned At Not on file O [facility] Start: 10-21-2022 End: 10-31-2022 Exposure to SARS-CoV-2 (event) Not sure [facility] Mental Status Date Assessment Result Facility 01-06-2025 Cognitive function Level Of Cons ciousness Awake;Alert;Appropriate [facility] Work Phone: Clinical Notes 11-07-2022 to 01-11-2025 Note Date & Type Note Facility 01-11-2025 Evaluation note Diagnosis Onset Date Resolution Laceration of left forearm acute January 11, 2025 6:15am Blunt abdominal trauma inactive 2024 6:15am Blunt chest trauma inactive December 272024 6:15am Contusion of multiple sites of right upper extremity inactive January 11, 2025 6:15am [facility] Work Phone: [phone] 496-763706-11-2025 Discharge summary [facility] [place] [facility] Medical Records Department [address] [place] [address] Emergency Department Summary 01/06/25 MR#: [id number] Acct: [id number] Name: ALINE BOLAÑOS Rep #:[id number] : 1965 59 From: Lazaro Koenig MD PCP: MICHAEL Beach Status:REG ER Location: ED HPI History of Present Illness Chief Complaint: Other, Pain/Inj Detail of Chief Complaint: Blunt trauma to upper extremities and abdomen Informant: patient Onset/Context/Timing Onset: Hours Mechanism/Context: Blunt Injury Location of pain/injuries: Right forearm, Left forearm and - (Upper abdomen) Quality of Pain: Dull and Aching Location: Subxiphoid region Current Severity: Mild Maximum Severity: Severe Worsened by: Palpation and movement Relieved by: Nothing Associated Symptoms Associated Symptoms: Negative for Parasthesias, Weakness, Loss of function, Inability to ambulate, Loss of consciousness or Amnesia Narrative Narrative: Patient is a 59-year-old woman. She does have history of hypertension. 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 She was at work. Boxes that were on a forklift shifted. Boxes apparently weighed 35 to 40 pounds. They fell on her.She sustained a skin tear dorsal mid left forearm. She has bruising right elbow region. She complains of pain she localizes to the xiphoid region. She denies head trauma. She denies loss of consciousshe not amnestic. She denies neck pain. She denies paresthesia, anesthesia or motor weakness upper extremities. She states it does hurt to breathe. She does report mild shortness of breath. She is not on an anticoagulant. Review of prior records indicates she has history of hypertension, hypothyroidism and GERD. 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 Bunion, right foot Endometriosis determined by laparoscopy Diverticular disease Vision problems Rheumatoid arthritis GERD (gastroesophageal reflux disease) Kidney stone Gastrointestinal problem Chronic bronchiolitis Carpal tunnel syndrome Breast lump H/O transfusion of whole blood Back problem Arthritis Allergies Disorder of thyroid Shoulder pain Hypertension Home Medications ?Medication ?Instructions ?Recorded ?Last Taken ?Type amlodipine 2.5 mg tablet 5 mg PO DAILY 10/19/13 Unkno wn History cholecalciferol (vitamin D3) 125 125 mcg PO DAILY 09/28 08/18 Unknown History mcg (5,000 unit) tablet omeprazole 40 mg capsule,delayed 40 mg PO DAILY Unknown History release spironolactone 50 mg tablet 50 mg PO DAILY 10/26/20 Un known History vitamin E (dl, acetate) 180 mg 450 mg PO DAILY 1 Unknown History (400 unit) capsule allergy shots IM 11/17/21 Unknown History amlodipine 5 mg tablet 5 mg PO 11/17/21 Unknown His tory ascorbic acid (vitamin C) 500 mg mg PO 11/17/21 Unknow n History capsule biotin 2,500 mcg capsule 2,000 mcg PO DAILY 11/17/21 Unknown History naproxen sodium 220 mg capsule 220 mg PO Q12H PRN 10/28 09/19 Unknown History (Aleve) levothyroxine 88 mcg tablet 88 mcg PO DAILY #90 tabs 0 11/21/21 Unknown Rx oxycodone-acetaminophen 5 mg-325 1 tab PO Q6H PRN PRN pain 5 days 01/06/25 Unknown Rx mg tablet #20 TABLETS Allergy/AdvReac Type Severity Reaction Status Date / Time shellfish derived Allergy Anaphylaxis Verified 04/11/21 10:36 sulfamethoxazole (From AdvReac Rash Verified 04/11/21 10:36 Bactrim) trimethoprim (From Bactrim) AdvReac Rash Verified 04/11/21 10:36 Family History Other Alcohol abuse Angina at rest Arthritis Autoimmune disorder Breast cancer CVA (cerebral vascular accident) Cancer Cervical cancer Diabetes H/O transfusion of whole blood [place] disease Hypertension Myocardial infarction Ovarian cancer Respiratory disease Skin cancer Surgical History H/O release of tendon History of cryosurgery History of nephrectomy Social History Smoking Status: Never smoker alcohol intake: current alcohol intake frequency: a few times a week Alcohol type: beer substance use type: does not use what type of physical activity do you participate in: none ROS ROS ED Constitutional Constitutional ED: Denies chills or fever(s) Eyes Eyes: Denies blurry vision or change in vision ENT ENT ED: Reports other Details: Negative epistaxis or dental trauma. ; Denies ear pain, rhinorrhea or sore throat Cardiovascular Cardiovascular: Reports chest pain; Denies palpitations, paroxysmal nocturnal dyspnea or racing heartbeat Respiratory/Chest Respiratory/Chest: Reports dyspnea; Denies cough, dyspnea on exertion or paroxysmal nocturnal dyspnea Gastrointestinal Gastrointestinal: Reports abdominal pain; Denies constipation, diarrhea, melena,nausea or vomiting Musculoskeletal Musculoskeletal: Denies back pain or neck pain Integumentary Denies rash Neurologic Neurologic: Denies headache(s), paresthesias or weakness Hematologic/Lymphatic Hematologic/Lymphatic: Denies easy bleeding or easy bruising EXAM Physical Exam Const Vital Signs: 01/06/25 13:16 01/06/25 18:02 01/06/25 18:02 Temperature 97.9 F Temperature Source Oral Pulse Rate 78 Respiratory Rate 15 Respiratory Effort Normal Non-Labored Normal Non-Labored Respiratory Depth Normal Respiratory Pattern Normal Normal Blood Pressure 149/72 H Blood Pressure Mean 97 Pulse Ox 98 Oxygen Delivery Method Room Air Room Air 01/06/25 18:09 Temperature Temperature Source Pulse Rate 83 Respiratory Rate 18 Respiratory Effort Respiratory Depth Respiratory Pattern Blood Pressure 169/80 H Blood Pressure Mean 109 Pulse Ox 95 Oxygen Delivery Method Room Air Positive well nourished and well developed Constitutional Narrative: Patient grimaces with movement. She has a Band-Aid on her left forearm. General Appearance ED: well developed HEENT HEENT Narrative: Head is atraumatic no cephalic. Ears are normal. Nares patent. No dental trauma. No posterior midline cervical neck pain. Full active range of motion. Trachea midline. No dysphonia. Eyes PERRL and EOMs intact bilaterally General Eye ED: Yes other Other Details: There is no subconjunctival hemorrhage noted. Neck full ROM General: Negative for tenderness Chest Wall palpation of chest normal Chest Narrative: Reports pain over the xiphoid process. There is no crepitus subcutaneous air. Resp normal respiratory effort and clear to auscultation bilaterally Cardio regular rhythm, S1 normal heart sound, S2 normal heart sound and no murmurs Cardio Narrative: There is no Monae's crunch. GI normal to inspection, nondistended, normoactive bowel sounds, non-distended and no masses; Negativefor non-tender GI Narrative: There is significant tenderness right costal margin and subxiphoid area. Patient guards. There is also pain outpatient over the right lower ribs anteriorly. Auscultation: normoactive bowel sounds Palpation: soft Back/Spine normal to inspection and no thoracic nor lumbar tenderness Extremity full ROM; Negative for normal to inspection Extremity Narrative: Patient has skin tear approximately 2 cm length. There is a Steri-Strip by the nurse at work. This was not removed since the skin tear is approximated well and there is no active bleeding. There is no pain ovation over the lateral medial epicondyle, olecranon process or radial head. There is no pain the patient over the distal radius or ulna. Patient has multiple bruises right elbow region. There is no pain ovation of the lateral medial epicondyle, olecranon process or radial head with supination pronation. There is no pain ovation over the shaft of the ulna or radius or thedistal radius or ulna new Axillary, median, radial and ulnar function intact bilaterally. Radial pulses 2+ bilaterally. General Extremety ED: Negative for deformity or edema General Extremity: Negative for deformity or edema Neuro oriented x3, CN's II-XII intact bilaterally, moves all extremities, no focal motor deficits and no sensory deficits noted Quin[place] Coma Scale: document GCS findings Spontaneous Obeys Commands Oriented 15 Sensorium / Orientation: alert Psych mental status grossly normal and thought process normal Skin no rashes or lesions noted and no wounds MDM MDM MDM Narrative Medical decision making narrative: Patient has contusion to the right upper extremity. Since there is no point bony tenderness she hasno limited range of motion in my opinion imaging is not indicated. Furthermore there is no point bone tenderness and no limited range of motion left upper extremity and in my opinion imaging is not indicated. Because of the significant pain in the right upper quadrant concerned there may have hepatic injury. Also concern for pulmonary contusion, pneumothorax, hemothorax or fractured ribs. CT of the abdomen and pelvis with IV contrast wasordered. Will wait for BMP to return since patient has solitary kidney. Lab Data Attestation: I reviewed the patient's lab results. Lab results narrative: Basic metabolic panel reveals normal renal function. CO2 is slightly decreased at 19.7. Labs: Laboratory Results - last 24 hr 01/06/25 18:14 Sodium 140 Potassium 3.8 Chloride 107 Carbon Dioxide 19.7 L Anion Gap 13 BUN 11 Creatinine 0.66 L Estim Creat Clear Calc 81.24 Est GFR (MDRD) Non-Af 100 BUN/Creatinine Ratio 16.2 Glucose 98 Calcium 9.4 Radiography Diagnostic Testing: Clinical Impression(s) from Imaging Studies Abdomen/Pelvis CT 01/06/25 18:03 IMPRESSION: There is no acute abnormality. OVERALL FINAL ASSESSMENT: . Reading Location: [facility] CT of the abdomen and pelvis reveals no evidence of liver or splenic injury i.e.laceration or subcapsular hematoma. Patient has solitary right kidney. There is no evidence of pneumoperitoneum. There is no subcutaneous hematoma noted. Awaiting formal read by radiologist, 1924 Radiologist report was read/reviewed at 2045. There is no abnormalities noted. Plan is to dischargeto home. Discharge Plan Triage Chief Complaint: Other, Pain/Inj ED Provider: Lazaro Koenig Dx/Rx/DC Orders Clinical Impression: Blunt chest trauma, Blunt abdominal trauma, Contusion of multiple sites of right upper extremity, ISTAP type 1 skin tear of left forearm, Hypertension Instructions: Bruises (Contusions), ED Abd Injury Blunt Benign, ED Laceration Superficial No Stitch Prescriptions: New oxycodone-acetaminophen 5-325 mg tablet 1 tab PO Q6H PRN PRN (Reason: pain) 5 Days Qty: 20 0RF No Action spironolactone 50 mg tablet 50 mg PO DAILY cholecalciferol (vitamin D3) 125 mcg (5,000 unit) tablet 125 mcg PO DAILY vitamin E (dl, acetate) 400 unit capsule 450 mg PO DAILY omeprazole 40 mg capsule,delayed release(DR/EC) 40 mg PO DAILY amlodipine 5 mg tablet 5 mg PO Patient Comments: take 1 tablet by mouth once daily ascorbic acid (vitamin C) 500 mg capsule PO biotin 2,500 mcg capsule 2,000 mcg PO DAILY naproxen sodium [Aleve] 220 mg capsule 220 mg PO Q12H PRN allergy shots IM amlodipine 2.5 MG tablet 5 mg PO DAILY Patient Comments: take 1 tablet by mouth once daily levothyroxine 88 mcg tablet 88 mcg PO DAILY Qty: 90 3RF Primary Care Provider: Swapna Corea Referrals: Swapna Corea, BRIAN-C [Primary Care Provider] - 3-5 Days if not improving Activity Restrictions/Additional Instructions: 1. Apply ice to areas of discomfort 6-8 times a day. 2. Take pain medicine as prescribed for your pain. 3. You will hurt in more places and you presently do 4. You will feel worse than you presently do over the next 24 to 48 hours 5. You may hurt for 3 to 7 days if not longer Print Language: Brazilian Disposition Disposition: Home, Self Care What to do if you have Problems For any increased pain, shortness of breath, bleeding, nausea or vomiting, chestpain, or any unexpected problems, contact your Primary Care Provider. Call [facility] ([phone]) or report tothe closest Emergency Room. Call 911 if necessary. 01/06/252049 Cosigner Signature (if applicable): CC: PINION AND WHEEL TRUERJair Corea ~ Signed [facility]06-11-2025 Radiology Diagnostic study note [facility] Imaging Services [address] [place], [place] [address] Abdomen/Pelvis W IV Cont ONLY MR#: [id number] Acct: [id number] Name: ALINE BOLAÑOS Rep #: [id number] : 1965 F 59 From: Chandan Sherman MD PCP: MICHAEL Beach Status: REG ER Study:Abdomen/Pelvis W IV Cont ONLY Date of E xam: 01/06/25 Exam# [id number] Ordering Dr: Sharif Koenig MD PROCEDURE: ABDOMEN/PELVIS W IV CONT ONLY 01/06/2025 REASON FOR EXAM: BLUNT TRAUMA, PAIN RIGHT UPPER QUADRANT, SOLITARY TECHNIQUE: CT abdomen and pelvis with multi planar reconstructions after utilization of 75 cc Isovue 370. One or more dose reduction techniques were used (e.g., Automated exposure control, adjustment of the mA and/or kV according to patient size, use of iterative reconstruction technique. FINDINGS: Lung bases are clear. Normal liver and gallbladder. Normal spleen. Surgical absence left kidney. Noright renal mass or hydronephrosis. Incidental parapelvic cysts in the right kidney. No bowel obstruction, free fluid or free air. Negative for abscess. Negative for abdominal aneurysm. CT/Abdomen/Pelvis W IV Cont ONLY IMPRESSION: There is no acute abnormality. OVERALL FINAL ASSESSMENT: . Reading [facility] CC: MICHAEL Corea; Dr. Lazaro Koenig MD ~ [place] Archeology Professor: Signed [facility]06-11-2025 Discharge summary Author Lazaro Koenig [facility] Note Date/Time January 06, 2025 8:50 pm [facility] Medical Records Department [address] [place] [address] Emergency Department Summary 01/06/25 MR#: [id number] Acct: [id number] Name: ALINE BOLAÑOS Rep #:[id number] : 1965 59 From: Lazaro Koenig MD PCP: MICHAEL Beach Status:REG ER Location: ED HPI History of Present Illness Chief Complaint: Other, Pain/Inj Detail of Chief Complaint: Blunt trauma to upper extremities and abdomen Informant: patient Onset/Context/Timing Onset: Hours Mechanism/Context: Blunt Injury Location of pain/injuries: Right forearm, Left forearm and - (Upper abdomen) Quality of Pain: Dull and Aching Location: Subxiphoid region Current Severity: Mild Maximum Severity: Severe Worsened by: Palpation and movement Relieved by: Nothing Associated Symptoms Associated Symptoms: Negative for Parasthesias, Weakness, Loss of function, Inability to ambulate, Loss of consciousness or Amnesia Narrative Narrative: Patient is a 59-year-old woman. She does have history of hypertension. 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 She was at work. Boxes that were on a forklift shifted. Boxes apparently weighed 35 to 40 pounds. They fell on her. She sustained a skin tear dorsal mid left forearm. She has bruising right elbow region. She complains of pain she localizes to the xiphoid region. She denies head trauma. She denies loss of conscious she not amnestic. She denies neck pain. She denies paresthesia, anesthesia or motor weakness upper extremities. She states it does hurt to breathe. She does report mild shortness of breath. She is not on an anticoagulant. Review of prior records indicates she has history of hypertension, hypothyroidism and GERD. 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 Bunion, right foot Endometriosis determined by laparoscopy Diverticular disease Vision problems Rheumatoid arthritis GERD (gastroesophageal reflux disease) Kidney stone Gastrointestinal problem Chronic bronchiolitis Carpal tunnel syndrome Breast lump H/O transfusion of whole blood Back problem Arthritis Allergies Disorder of thyroid Shoulder pain Hypertension Home Medications ?Medication ?Instructions ?Recorded ?Last Taken ?Type amlodipine 2.5 mg tablet 5 mg PO DAILY 10/19/13 Unkno wn History cholecalciferol (vitamin D3) 125 125 mcg PO DAILY 09/28 08/18 Unknown History mcg (5,000 unit) tablet omeprazole 40 mg capsule,delayed 40 mg PO DAILY Unknown History release spironolactone 50 mg tablet 50 mg PO DAILY 10/26/20 Un known History vitamin E (dl, acetate) 180 mg 450 mg PO DAILY 1 Unknown History (400 unit) capsule allergy shots IM 11/17/21 Unknown History amlodipine 5 mg tablet 5 mg PO 11/17/21 Unknown His tory ascorbic acid (vitamin C) 500 mg mg PO 11/17/21 Unknow n History capsule biotin 2,500 mcg capsule 2,000 mcg PO DAILY 11/17/21 Unknown History naproxen sodium 220 mg capsule 220 mg PO Q12H PRN 10/28 09/19 Unknown History (Aleve) levothyroxine 88 mcg tablet 88 mcg PO DAILY #90 tabs 0 11/21/21 Unknown Rx oxycodone-acetaminophen 5 mg-325 1 tab PO Q6H PRN PRN pain 5 days 01/06/25 Unknown Rx mg tablet #20 TABLETS Allergy/AdvReac Type Severity Reaction Status Date / Time shellfish derived Allergy Anaphylaxis Verified 04/11/21 10:36 sulfamethoxazole (From AdvReac Rash Verified 04/11/21 10:36 Bactrim) trimethoprim (From Bactrim) AdvReac Rash Verified 04/11/21 10:36 Family History Other Alcohol abuse Angina at rest Arthritis Autoimmune disorder Breast cancer CVA (cerebral vascular accident) Cancer Cervical cancer Diabetes H/O transfusion of whole blood [place] disease Hypertension Myocardial infarction Ovarian cancer Respiratory disease Skin cancer Surgical History H/O release of tendon History of cryosurgery History of nephrectomy Social History Smoking Status: Never smoker alcohol intake: current alcohol intake frequency: a few times a week Alcohol type: beer substance use type: does not use what type of physical activity do you participate in: none ROS ROS ED Constitutional Constitutional ED: Denies chills or fever(s) Eyes Eyes: Denies blurry vision or change in vision ENT ENT ED: Reports other Details: Negative epistaxis or dental trauma. ; Denies ear pain, rhinorrhea or sore throat Cardiovascular Cardiovascular: Reports chest pain; Denies palpitations, paroxysmal nocturnal dyspnea or racing heartbeat Respiratory/Chest Respiratory/Chest: Reports dyspnea; Denies cough, dyspnea on exertion or paroxysmal nocturnal dyspnea Gastrointestinal Gastrointestinal: Reports abdominal pain; Denies constipation, diarrhea, melena,nausea or vomiting Musculoskeletal Musculoskeletal: Denies back pain or neck pain Integumentary Denies rash Neurologic Neurologic: Denies headache(s), paresthesias or weakness Hematologic/Lymphatic Hematologic/Lymphatic: Denies easy bleeding or easy bruising EXAM Physical Exam Const Vital Signs: 01/06/25 13:16 01/06/25 18:02 01/06/25 18:02 Temperature 97.9 F Temperature Source Oral Pulse Rate 78 Respiratory Rate 15 Respiratory Effort Normal Non-Labored Normal Non-Labored Respiratory Depth Normal Respiratory Pattern Normal Normal Blood Pressure 149/72 H Blood Pressure Mean 97 Pulse Ox 98 Oxygen Delivery Method Room Air Room Air 01/06/25 18:09 Temperature Temperature Source Pulse Rate 83 Respiratory Rate 18 Respiratory Effort Respiratory Depth Respiratory Pattern Blood Pressure 169/80 H Blood Pressure Mean 109 Pulse Ox 95 Oxygen Delivery Method Room Air Positive well nourished and well developed Constitutional Narrative: Patient grimaces with movement. She has a Band-Aid on her left forearm. General Appearance ED: well developed HEENT HEENT Narrative: Head is atraumatic no cephalic. Ears are normal. Nares patent. No dental trauma. No posterior midline cervical neck pain. Full active range of motion. Trachea midline. No dysphonia. Eyes PERRL and EOMs intact bilaterally General Eye ED: Yes other Other Details: There is no subconjunctival hemorrhage noted. Neck full ROM General: Negative for tenderness Chest Wall palpation of chest normal Chest Narrative: Reports pain over the xiphoid process. There is no crepitus subcutaneous air. Resp normal respiratory effort and clear to auscultation bilaterally Cardio regular rhythm, S1 normal heart sound, S2 normal heart sound and no murmurs Cardio Narrative: There is no Monae's crunch. GI normal to inspection, nondistended, normoactive bowel sounds, non-distended and no masses; Negative for non-tender GI Narrative: There is significant tenderness right costal margin and subxiphoid area. Patient guards. There is also pain outpatient over the right lower ribs anteriorly. Auscultation: normoactive bowel sounds Palpation: soft Back/Spine normal to inspection and no thoracic nor lumbar tenderness Extremity full ROM; Negative for normal to inspection Extremity Narrative: Patient has skin tear approximately 2 cm length. There is a Steri-Strip by the nurse at work. This was not removed since the skin tear is approximated well and there is no active bleeding. There is no pain ovation over the lateral medial epicondyle, olecranon process or radial head. There is no pain the patient over the distal radius or ulna. Patient has multiple bruises right elbow region. There is no pain ovation of the lateral medial epicondyle, olecranon process or radial head with supination pronation. There is no pain ovation over the shaft of the ulna or radius or thedistal radius or ulna new Axillary, median, radial and ulnar function intact bilaterally. Radial pulses 2+ bilaterally. General Extremety ED: Negative for deformity or edema General Extremity: Negative for deformity or edema Neuro oriented x3, CN's II-XII intact bilaterally, moves all extremities, no focal motor deficits and no sensory deficits noted Quincy Coma Scale: document GCS findings Spontaneous Obeys Commands Oriented 15 Sensorium / Orientation: alert Psych mental status grossly normal and thought process normal Skin no rashes or lesions noted and no wounds MDM MDM MDM Narrative Medical decision making narrative: Patient has contusion to the right upper extremity. Since there is no point bony tenderness she has no limited range of motion in my opinion imaging is not indicated. Furthermore there is no point bone tenderness and no limited range of motion left upper extremity and in my opinion imaging is not indicated. Because of the significant pain in the right upper quadrant concerned there may have hepatic injury. Also concern for pulmonary contusion, pneumothorax, hemothorax or fractured ribs. CT of the abdomen and pelvis with IV contrast wasordered. Will wait for BMP to return since patient has solitary kidney. Lab Data Attestation: I reviewed the patient's lab results. Lab results narrative: Basic metabolic panel reveals normal renal function. CO2 is slightly decreased at 19.7. Labs: Laboratory Results - last 24 hr 01/06/25 18:14 Sodium 140 Potassium 3.8 Chloride 107 Carbon Dioxide 19.7 L Anion Gap 13 BUN 11 Creatinine 0.66 L Estim Creat Clear Calc 81.24 Est GFR (MDRD) Non-Af 100 BUN/Creatinine Ratio 16.2 Glucose 98 Calcium 9.4 Radiography Diagnostic Testing: Clinical Impression(s) from Imaging Studies Abdomen/Pelvis CT 01/06/25 18:03 IMPRESSION: There is no acute abnormality. OVERALL FINAL ASSESSMENT: . Reading Location: [facility] CT of the abdomen and pelvis reveals no evidence of liver or splenic injury i.e.laceration or subcapsular hematoma. Patient has solitary right kidney. There is no evidence of pneumoperitoneum. There is no subcutaneous hematoma noted. Awaiting formal read by radiologist, 1924 Radiologist report was read/reviewed at 2045. There is no abnormalities noted. Plan is to discharge to home. Discharge Plan Triage Chief Complaint: Other, Pain/Inj ED Provider: Lazaro Koenig Dx/Rx/DC Orders Clinical Impression: Blunt chest trauma, Blunt abdominal trauma, Contusion of multiple sites of right upper extremity, ISTAP type 1 skin tear of left forearm, Hypertension Instructions: Bruises (Contusions), ED Abd Injury Blunt Benign, ED Laceration Superficial No Stitch Prescriptions: New oxycodone-acetaminophen 5-325 mg tablet 1 tab PO Q6H PRN PRN (Reason: pain) 5 Days Qty: 20 0RF No Action spironolactone 50 mg tablet 50 mg PO DAILY cholecalciferol (vitamin D3) 125 mcg (5,000 unit) tablet 125 mcg PO DAILY vitamin E (dl, acetate) 400 unit capsule 450 mg PO DAILY omeprazole 40 mg capsule,delayed release(DR/EC) 40 mg PO DAILY amlodipine 5 mg tablet 5 mg PO Patient Comments: take 1 tablet by mouth once daily ascorbic acid (vitamin C) 500 mg capsule PO biotin 2,500 mcg capsule 2,000 mcg PO DAILY naproxen sodium [Aleve] 220 mg capsule 220 mg PO Q12H PRN allergy shots IM amlodipine 2.5 MG tablet 5 mg PO DAILY Patient Comments: take 1 tablet by mouth once daily levothyroxine 88 mcg tablet 88 mcg PO DAILY Qty: 90 3RF Primary Care Provider: Swapna Corea Referrals: Swapna Corea NP-C [Primary Care Provider] - 3-5 Days if not improving Activity Restrictions/Additional Instructions: 1. Apply ice to areas of discomfort 6-8 times a day. 2. Take pain medicine as prescribed for your pain. 3. You will hurt in more places and you presently do 4. You will feel worse than you presently do over the next 24 to 48 hours 5. You may hurt for 3 to 7 days if not longer Print Language: Brazilian Disposition Disposition: Home, Self Care What to do if you have Problems For any increased pain, shortness of breath, bleeding, nausea or vomiting, chestpain, or any unexpected problems, contact your Primary Care Provider. Call [facility] ([phone]) or report to the closest Emergency Room. Call 911 if necessary. 01/06/252049 <Electronically signed by Lazaro Koenig MD> Cosigner Signature (if applicable): CC: BRIAN-Jaspreet Corea ~ Signed [facility] Work Phone: 1(187) 692-824106-11-2025 Hospital Discharge instructions Additional Instructions 1. Apply ice to areas of discomfort 6-8 times a day. 2. Take pain medicine as prescribed for your pain. 3. You will hurt in more places and you presently do 4. You will feel worse than you presently do over the next 24 to 48 hours 5. You may hurt for 3 to 7 days if not longerWooSouthwest [facility] Work Phone: 1(787) 765-506005-06-2025 Radiology Diagnostic study note [facility] Imaging Services [address], [place] [id number] HIP, UNI W/ Pelvis 2-3 Views MR#: [id number] Acct: [id number] Name: ALINE BOLAÑOS Rep #: [id number] : 1965 F 59 From: Leeann Diego MD PCP: MICHAEL Beach Status: REG CLI Study:HIP, UNI W/ Pelvis 2-3 Views Date of Ex am: 12/01/24 Exam# [id number] Ordering Dr: Ra kameron Corea PROCEDURE: HIP, UNI W/ PELVIS 2-3 VIEWS 12/01/2024 REASON FOR EXAM: PAIN IN HIP, ARTHRITIS TECHNIQUE: Three views of the left hip COMPARISON: None FINDINGS: No acute fracture or dislocation. Mild-moderate osteoarthritis, including smallosteophytes and joint space narrowing. No focal soft tissue abnormality. SI joints are unremarkable. No suspicious lytic or blastic lesion. Mild degenerative changes of the imaged lower lumbar spine. RAD/HIP, UNI W/ Pelvis 2-3 Views IMPRESSION: No acute findings. Mild-moderate osteoarthritis. Reading Location: [facility] CC: MICHAEL Corea ~ [place] Archeology Professor: Signed [facility]04-23-2024 Discharge summary Author Carrillo Carroll [facility] November 19, 2023 3:27pm Note Date/Time November 19, 2023 3:2 4pm [facility] [address] [place] [address]. [address] [place] [address] / REHABILITATION SERVICES DISCHARGE SUMMARY MR#: [id number] Acct: [id number] Name: ALINE BOLAÑOS Rep #: [id number] : 1965 58 From: Cert. JESSICA HerreraT, OCS Referring Dr.: SOPHIE Oconnor Status: REG R Insurance: [facility] SELF PAY INSURANCE Patient Information Patient Information: ALINE BOLAÑOS was seen in my office for initial evaluation on 09/19/23. The following Plan of Care was established for this patient: POC Established Initial Frequency: 2x /Week Initial Duration: 4 Weeks Anticipated Interventions Patient/Client Instruction: Educate patient on: Condition and Plan of Care For the Purpose of:: To decrease pain, To increase ROM, To improve muscle performance and motor function, To increase tolerance to activity/condition/position, To improve ability of physical actions for home/community/work/leisure, To improve gait and locomotor functions, To improvehealth of tissue, To decrease soft tissue restriction, To increase flexibility/ROM, To improve endurance and To prevent re-injury Therapeutic Exercise to Include: Strength training, Balance training, Flexibiltytraining and Active ROM For the Purpose of:: To decrease pain, To increase ROM, To increase oxygenation perfusion, To increase tolerance to activity/condition/position, To improve ability of physical actions for home/community/work/leisure, To improve health of tissue, To increase flexibility/ROM and To improve endurance TENS: Yes IF ES: Yes Cryotherapy (ice pack, ice massage): Yes Thermo therapy (hot pack): Yes Ultrasound (thermal/non thermal): Yes For the Purpose of:: To decrease pain, To increase ROM, To improve health of tissue, To decrease soft tissue restriction and To increase flexibility/ROM Last Seen Last Seen: This patient was last seen in our office . Pertinent comments regarding their Physical therapy will appear below: Patient was seen for PT for peroneal tendonitis with modalities and stretching/strengthening thus d/c to RTD At this point I will be discontinuing this patient from physical therapy. I would be happy to see this patient again in the future if found appropriate by the physician. Thank you! Carrillo Carroll, PT, Cert MDT, OCS Balance/Gait/Functional tests Balance/Special Test Scores Lower Extremity Functional Score: 71 <Electronically signed by Carrillo Carroll PT Cert. T, OCS> 11/19/23 2200 CC: DPLouise Oconnor; PINION AND WHEEL TRUER-C Swapna Corea ~ ERUM Signed [facility] Work Phone: 1(333) 950-194004-12-2023 History of Present illness Narrative* Stephen Rey MD - 11/07/2022 8:42 AM EDT Images from the original note were not included. 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 She was put on methotrexate which did [...] CYST REMOVAL Right 1982 breast ENDOMETRIAL ABLATION 2002 FOOT SURGERY Right 2009 bunionectomy and posterior [...] 1 (one) tablet (5,000 Units total) by mouthMond, Saturday, Saturday . hydrOXYchloroQUINE (PLAQUENIL) 200 mg [...] headaches, speech/balance/coordination problems. Denied new focal numbness orweakness of extremities Psych: denied anxiety, depression or [...] month(s) Telehealth appointments ok. 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 Somegrammatical or spelling errors may occur using the system. 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 [facility] Work Phone: Evaluation noteNo assessment information available [facility] Work Phone: Evaluation note* Diagnosis Arthralgia, unspecified joint- Primary Rheumatoid factor positive Other and unspecified nonspecific immunological findings Primary osteoarthritis involving multiple joints Obesity, unspecified classification, unspecified obesity type, unspecified whether serious comorbidity present Prediabetes Other abnormal glucose [facility] this encounter [facility]* Diagnosis Onset Date Resolution Status Admit Date Blunt abdominal trauma acute Ju 2024 6:15am Blunt chest trauma acute December 272024 6:15am Contusion of multiple sites of right upper extremity acute January 11, 2025 6:15am Laceration of left forearm acute January 11, 2025 6:15am [facility] Work Phone: Reason for referral (narrative)No reason for referral information availableWAshtabula [facility] Work Phone: Chief Complaint and Reason for Visit Chief Complaint 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 RX HERE Chief Complaint Admit Date PAIN IN LEFT HIP, ARTHRITIS December 01 3:12pm Chief Complaint Admit Date PAIN IN LEFT HIP, ARTHRITIS December 01 3:12pm other January 06, 2025 1:16 pm Chief Complaint Admit Date PAIN IN LEFT HIP, ARTHRITIS December 01 3:12pm other January 06, 2025 1:16 pm ER FU/ DAWSON BRUSH January 11, 2025 6:1 5am Reason for Visit Admit Date Blunt abdominal trauma January 11, 2025 6 :15am Blunt chest trauma January 11, 2025 6:15 am Contusion of multiple sites of right upp er extremity January 11, 2025 6:15am Laceration of left forearm January 11 6:15am Chief Complaint Admit Date PAIN IN LEFT HIP, ARTHRITIS December 01 3:12pm other January 06, 2025 1:16 pm ER FU/ DAWSON BRUSH January 11, 2025 6:1 5am fu/ dawson brush January 18, 2025 6:01 am Reason for Visit Admit Date Laceration of left forearm January 11 6:15am Blunt abdominal trauma January 11, 2025 6 :15am Blunt chest trauma January 11, 2025 6:15 am Contusion of multiple sites of right upp er extremity January 11, 2025 6:15am Family History Relationship Condition Age at Onset Recorded Date/T blanche Not Specified History of transfusion of whole blood Un known Malignant neoplasm of skin Unknown Malignant neoplasm of cervix Unknown Malignant neoplasm of ovary Unknown Diabetes mellitus Unknown Alcohol abuse Unknown Angina at rest Unknown Arthritis Unknown Autoimmune disorder Unknown Wibaux's disease Unknown Myocardial infarction Unknown Malignant neoplasm of breast Unknown Disorder of respiratory system Unknown Malignant neoplasm Unknown Hypertension Unknown Cerebrovascular accident (CVA) Unknown Advance Directives Advance Directive Response Recorded Date/ Time Living Will No December 30, 2020 9 :14am Power of Lockstitch Shoulder Joiner No December 30, 2020 9:14am Advance Directive Response Recorded Date/ Time Living Will No December 30, 2020 8 :14am Power of Lockstitch Shoulder Joiner No December 30, 2020 8:14am Advance Directive Response Recorded Date/ Time Do you have a Healthcare Power of Lockstitch Shoulder Joiner? No January 06, 2025 6:07pm Summary Purpose Additional Source Comments Goals (unrecognized section and content) Goals may be documented in a n alternate sectionGoals may be documented in an alternate sectionGoals may be documented in an alternate sectionGoals may be documented in an alternate sectionGoals may be documented in an alternate sectionGoals may be documented in an alternate sectionGoals may be documented in an alternate sectionGoals may be documented in an alternate sectionGoals may be documented in an alternate sectionGoals may be documented in an alternate sectionGoals may be documented in an alternate sectionGoals may be documented in an alternate sectionGoals may be documented in an alternate sectionGoals may be documented in an alternate section INFORMATION SOURCE (unrecogn ized section and content) DATE CREATED AUTHOR 07/05/2022 [facility] DATE CREATED AUTHOR AUTHOR'S ORGANIZ ATION 08/11/2022 [facility] DATE CREATED AUTHOR AUTHOR'S ORGANIZ ATION 11/09/2022 [facility] DATE CREATED AUTHOR AUTHOR'S ORGANIZ ATION 06/02/2023 [facility] ([place]) DATE CREATED AUTHOR AUTHOR[facility]S OR[facility]IZ ATION [facility] Care Teams (unrecognized sec tion and content) Metals Analyst Relationship Specialty Start Date End Date Satinder Griggs MD [address] [place] [address] PCP - General Family Medicine 08/06/22 Team Status: Active Member Role Status Dates Dr. Satinder Griggs MD Family Provider Active Swapna Corea , [employer] WHEEL [employer]UER-C Primary Care Provider Active Team Status: Inactive Member Role Status Dates Swapna Corea [employer]-C Primary Care Provider Active Dr. Alanna Avila MD Attending Provider, Referring Pr ovider Active Team Status: Inactive Member Role Status Dates Swapna Corea [employer] WHE[employer]UER-C Primary Care Provide r, Attending Provider, Referring Provider Active Team Status: Active Member Role Status Dates Swapna Corea [employer] WHE[employer]UER-C Primary Care Provider Active Dr. Kit Oconnor DPM Attending Provider, Referring Provider Active Team Status: Inactive Member Role Status Dates Swapna Corea [employer] WHEEL [employer]UER-C Primary Care Provider Active Dr. Kit Oconnor DPM Attending Provider, Referring Provider Active Team Status: Inactive Member Role Status Dates Swapna Corea [employer]-C Primary Care Provider Active Start: November 12, 2024 End: November 12, 2024 Dr. Alanna Avila MD Attending Provider Active Start: November 12, 2024 End: November 12, 2024 Dr. Alanna Avila MD Referring Provider Active Start: November 12, 2024 End: November 12, 2024 Team Status: Inactive Member Role Status Dates Swapna Corea [employer]-C Primary Care Provider Active Start: December 01, 2024 End: December 01, 2024 Swapna Corea NP-C Attending Provider Active St art: December 01, 2024 End: December 01, 2024 Swapna Corea [employer] WHE[employer]UER-C Referring Provider Active St art: December 01, 2024 End: December 01, 2024 Team Status: Active Member Role Status Dates Swpana Corea , [employer] WHEEL [employer]UER-C Primary Care Provider Active Team Status: Inactive Member Role Status Dates Swapna Corea [employer] WHE[employer]UER-C Primary Care Provider Active Start: January 06, 2025 End: January 06, 2025 Dr. Lazaro Koenig MD Referring Provider Active Sta rt: January 06, 2025 End: January 06, 2025 Dr. Lazaro Koenig MD Emergency Provider Active Sta rt: January 06, 2025 End: January 06, 2025 Team Status: Inactive Member Role Status Dates Swapna Corea , [employer] WHEEL [employer]UER-C Primary Care Provider Active Start: January 11, 2025 End: January 11, 2025 Swapna Corea [employer]-C Referring Provider Active St art: January 11, 2025 End: January 11, 2025 MYRON Disla Attending Provider Active Start: January 11, 2025 End: January 11, 2025 Team Status: Inactive Member Role Status Dates MICHAEL Beach Primary Care Provider Active Start: January 06, 2025 End: January 06, 2025 Dr. Lazaro Koenig MD Attending Provider Active Sta rt: January 06, 2025 End: January 06, 2025 Dr. Lazaro Koenig MD Referring Provider Active Sta rt: January 06, 2025 End: January 06, 2025 Dr. Lazaro Koenig MD Emergency Provider Active Sta rt: January 06, 2025 End: January 06, 2025 Team Status: Inactive Member Role Status Dates MICHAEL Beach Primary Care Provider Active Start: January 18, 2025 End: January 18, 2025 MICHAEL Beach Referring Provider Active St art: January 18, 2025 End: January 18, 2025 MYRON Disla Attending Provider Active Start: January 18, 2025 End: January 18, 2025 FOR RECORDS PERTAINING TO PATIENTS WHO ARE [...] BE BASED ON THE PRIMARY CLINICAL RECORDS. [employer] provides no warranty or guarantee of the accuracy or completeness of information in this document.
--- NOTE | 2025-01-18 06:58 | RAD_ITS ---
PROCEDURE: RIBS UNI MIN 3V W/PA CHEST 01/18/2025 REASON FOR EXAM: CHEST TRAUMA TECHNIQUE: RIBS UNI MIN 3V W/PA CHEST COMPARISON: June 18, 2024 FINDINGS: Heart size and mediastinal configuration are within normal limits. There is minimal atelectasis or scar at the left lung base. There is no focal infiltrate or consolidation. There is no pneumothorax or effusion. There is no visible rib fracture or acute bony abnormality. Surgical clips are noted in the left upper abdomen. Aortic calcifications are visible. RAD/Ribs Uni Min 3V w/PA Chest IMPRESSION: There is no visible rib fracture. There is minimal atelectasis or scar at the left lung base. Reading Location: [facility]
== END | disposition home or self-care (01) ==
LOC: RAD 06:54
PROVIDERS: PCP Nurse Practitioner Family; Referring Provider Physician Assistant; Visit Provider Physician Assistant
DX: S29.8XXA Other specified injuries of thorax, initial encounter (principal); X58.XXXA Exposure to other specified factors, initial encounter
CPT/HCPCS: 71101

== ENCOUNTER → 2025-02-18 | Outpatient (CLI) | payer BC, SELFPAY ==
--- NOTE | 2025-02-18 15:47 | BI_ITS ---
EXAM: SCRN MAMM (CAD)W/ELISA BILAT DATE: 02/18/2025 CLINICAL HISTORY: F, Age 59 y/o , SCREENING TECHNIQUE: SCRN MAMM (CAD)W/ELISA BILAT COMPARISON: Prior exam(s) were compared FINDINGS: TISSUE DENSITY: The breasts are heterogeneously dense, which may obscure small masses. Bilateral Breast Mammographic Findings: No suspicious masses, calcifications or other abnormalities are identified. BI/SCRN MAMM (CAD)W/ELISA BILAT IMPRESSION: No mammographic evidence of malignancy in either breast. OVERALL FINAL ASSESSMENT BI-RADS 1: NEGATIVE. RECOMMENDATION: Routine annual follow-up in 1 Year A letter with findings and recommendations will be mailed to the patient. Reading Location: [id number]
== END | disposition home or self-care (01) ==
LOC: OPBI 15:45
PROVIDERS: PCP Nurse Practitioner Family; Referring Provider Nurse Practitioner Family; Visit Provider Nurse Practitioner Family
DX: Z12.31 Encounter for screening mammogram for malignant neoplasm of breast (principal)
CPT/HCPCS: 77063; 77067

== ENCOUNTER → 2025-05-13 | Outpatient (CLI) | payer BC, SELFPAY ==
--- OUTSIDE RECORDS SUMMARY | 2025-05-13 16:16 | XMS RPT_ITS | CCD ---
Author Organization [facility] Care Team Providers Care [facility] Support Center Director Name Role Phone Steve Cotter Unavailable Jalen Chavez Unavailable Dr. Satinder Griggs Primary Care Provider [phone] Dr. Satinder Griggs Referring Provider Dr. Abdulaziz Paul Attending Provider [phone] SATINDER GRIGGS Primary Care Unavailable JACQUELIN [...] Unavailable Satinder Griggs MD Primary Care Provider [phone] IGOE, STEPHEN FRY Attending Unavailable SATINDER GRIGGS Primary Care Unavailable SATINDER GRIGGS Primary Care Unavailable SATINDER GRIGGS Referring Unavailable IGHILDA, STEPHEN FRY Attending Unavailable SATINDER GRIGGS Admitting Unavailable BIJU LOPEZ, DR DAT Olivarez Attending Tricia PINTO MD, DR CASTRO Primary Care Unavailable Anmol TORRES-C, Swapna Primary Care Provider Margarita LOPEZ, Dr. Mondragon Attending Provider [phone] Margarita LOPEZ, Dr. Mondragon Referring Provider [phone] Anmol ARTS ADMINISTRATOR OR MANAGER-C, Swapna Attending Provider Anmol ARTS ADMINISTRATOR OR MANAGER-C, Swapna Referring Provider [phone] Arya LOPEZ, Dr. Willis Referring Provider [phone] Arya LOPEZ, Dr. Willis Emergency Provider [phone] Jalen Chavez Attending Provider [phone] Arya LOPEZ, Dr. Willis Attending Provider Jalen Chavez Referring Provider Anmol ARTS ADMINISTRATOR OR MANAGER-C, Swapna Primary Care Physician Arya LOPEZ, Dr. Willis Attending Physician Arya LOPEZ, Dr. Willis Emergency Department Physician Anmol ARTS ADMINISTRATOR OR MANAGER-C, Swapna Referring Provider Jalen Chavez Attending Physician Anmol ARTS ADMINISTRATOR OR MANAGER-C, Swapna Attending Physician Kai ARTS ADMINISTRATOR OR MANAGER-CMichelle Attending Physician [phone] Anmol, Swapna Primary Care Unavailable Anmol, Swapna Attending Unavailable Anmol, Swapna Referring Unavailable Anmol, Swapna Attending Unavailable Anmol, Swapna Referring Unavailable Anmol, Swapna Primary Care Unavailable KoenigSharifo Attending Unavailable KoenigSharifo Referring Unavailable Anmol, Swapna Primary Care Unavailable Jalen Chavez Attending Unavailable Jalen Chavez Referring Unavailable Anmol, Swapna Primary Care Unavailable Yong Nicholson Primary Care Unavaila ble Assessment, Health Risk Attending Unavaila ble Anmol, Swapna Primary Care Unavailable Alanna Avila Attending Unavailable Alanna Avila Referring Unavailable Jalen Chavez Attending Unavailable Anmol, Swapna Referring Unavailable Anmol, Swapna Primary Care Unavailable Jalen Chavez Attending Unavailable Anmol, Swapna Referring Unavailable Anmol, Swapna Primary Care Unavailable Jalen Chavez Attending Unavailable Anmol, Swapna Referring Unavailable Anmol, Swapna Primary Care Unavailable Michelle Quinn NP Attending Unavailable Anmol, Swapna Referring Unavailable Anmol, Swapna Primary Care Unavailable [facility] Primary Care Unavailable Lisette Richardson Attending Unavailable Lisette Richardson Referring Unavailable Anmol, Swapna Primary Care Unavailable Alanna Avila Attending Unavailable Alanna Avila Referring Unavailable Allergies Allergy Classification Reported Allergen(s) Allergy Type Date of Onset Reaction(s) Facility (20 sources) Shellfish; Translations: [SHELLFISH DERIVED] Allergy to substance 04-11-20 Other (See Comments) [facility] Repository (18 sources) Sulfamethoxazole Drug Allergy 04-11-20 [facility] (18 sources) Trimethoprim Drug Allergy 04-11-20 [facility] (3 sources) Sulfamethoxazole / Trimethoprim; Translations: [SULFAMETHOXAZOLE-TR IMETHOPRIM] Drug Allergy 08-02-19 [facility] Repository (1 source) Sulfamethoxazole Drug Allergy 04-22-20 [facility] Repository (1 source) Trimethoprim Drug Allergy 04-22-20 [facility] Repository Medications Current Medications Medication Drug Class(es) Dates Sig (Normalized) Sig (Original) allergy shots (18 sources) Start: 11-17-2021 allergy shots Active IM November 17, 2021 3:22pm Start: 11-17-2021 allergy shots Active IM 0 November 17, 2021 12:00am Complies with drug therapy Start: 11-17-2021 allergy shots Active IM 0 November 17, 2021 12:00am Start: 11-17-2021 allergy shots Active IM November 16, 2021 11:00pm Start: 11-17-2021 allergy shots Active IM November 17, 2021 12:00am amLODIPine 5 mg oral tablet (20 sources) Dihydropyridine Calcium Channel Charles Start: 11-17-2021 Amlodipine 5 mg tablet Active 5 mg PO November 17, 2021 12:00am Complies with drug therapy Start: 06-27-2017 AMLODIPINE BES YLATE 5 MG TABS as directed AMLODIPINE BESYLATE [id number] Jalen SANCHES Start: 10-19-2013 End: 01-11-2025 take 2 tablets by mouth once daily Amlodipine 2.5 MG tablet Discontinued 5 mg PO DAILY October 19, 2013 12:00am January 11, 2025 6:21am Start: 10-19-2013 take 5 mg by mouth once daily Amlodipine Active 5 MG PO DAILY October 19, 2013 12:00am ascorbic acid 500 mg oral capsule (19 sources) Vitamin C Start: 11-17-2021 Ascorbic Acid (Vitamin C) 500 mg capsule Active mg PO November 17, 2021 12:00am Complies with drug therapy Start: 11-17-2021 Ascorbic Acid (Vitamin C) Active MG PO November 17, 2021 12:00am biotin 2.5 mg oral capsule (19 sources) Start: 11-17-2021 take 0.8 capsule by mouth three times daily biotin 2,500 mcg cap Take 0.8 capsules (2,000 mcg total) by mouth 3 (three) times a day . 0 11/17/2021 Active Start: 11-17-2021 Biotin 2,500 m cg capsule Active 2000 ug PO DAILY November 17, 2021 12:00am Complies with drug therapy Start: 11-17-2021 take 2000 ug by mouth once dejah ly Biotin Active 2000 MCG PO DAILY November 17, 2021 12:00am cholecalciferol 0.125 mg oral tablet (20 sources) Vitamin D Start: 10-26-2020 take 1 tablet by mouth once daily Cholecalciferol (Vitamin D3) 125 mcg (5,000 unit) tablet Active 125 ug PO DAILY October 26, 2020 12:00am Complies with drug therapy Start: 06-27-2017 cholecalcifero l, vitamin D3, 5,000 unit Tab tablet Take 1 (one) tablet (5,000 Units total) by mouth Saturday, Saturday, Saturday . 0 06/27/2017 Active Start: 06-27-2017 VITAMIN D (CHO LECALCIFEROL) 400 UNIT CAPS as directed CHOLECALCIFEROL [id number] Jalen SANCHES estradiol 0.1 mg/ml vaginal cream (1 source) Estrogen Start: 04-22-2025 Estradiol 0.01 % (0.1 mg/gram) cream Active 0 VAGINAL .COMPLEX 42.5 2 April 22, 2025 12:00am small amount(.25mg) as directed vaginal every other day X 4 weeks then twice a week; Complies with drug therapy hydroxychloroquine sulfate 200 mg oral tablet (1 source) Antimalarial, Antirheumatic Agent Start: 08-06-2022 End: 08-06-2023 take 2 tablets by mouth once daily hydrOXYchloroQUINE (PLAQUENIL) 200 mg tablet Indications: Rheumatoid arthritis, involving unspecified site, unspecified whether rheumatoid factor present (HCC) Take 2 (two) tablets (400 mg total) by mouth daily . 180 tablet 3 08/06/2022 08/06/2023 Active omeprazole 40 mg delayed release oral capsule (19 sources) Proton Pump Inhibitor Start: 10-26-2020 take 1 capsule by mouth once daily Omeprazole 40 mg capsule,delayed release(DR/EC) Active 40 mg PO DAILY October 26, 2020 12:00am Complies with drug therapy spironolactone 50 mg oral tablet (20 sources) Aldosterone Antagonist Start: 10-26-2020 take 1 tablet by mouth once daily Spironolactone 50 mg tablet Active 50 mg PO DAILY October 26, 2020 12:00am Complies with drug therapy Start: 06-27-2017 SPIRONOLACTONE 100 MG TABS as directed SPIRONOLACTONE [id number] Jalen SANCHES topiramate 50 mg oral tablet [...] Active vitamin e 180 mg oral capsule (20 sources) Start: 10-26-2020 take 450 mg by mouth once daily Vitamin E (Dl, Acetate) Active 450 MG PO DAILY October 26, 2020 12:00am Start: 06-27-2017 take 1 capsule by [facility] once daily Vitamin E (Dl, Acetate) 400 unit capsule Active 450 mg PO DAILY October 26, 2020 12:00am Complies with drug therapy Start: 06-27-2017 VITAMIN E 100 UNIT TABS as directed VITAMIN E [id number] Jalen SANCHES Completed/Discontinued Medications Medication Drug Class(es) Dates Sig (Normalized) Sig (Original) acetaminophen 325 mg / oxyCODONE hydrochloride 5 mg oral tablet (7 sources) Opioid Agonist Start: 01-06-2025 End: 04-09-2025 Oxycodone-Acetamin ophen 5-325 mg tablet Discontinued 1 {tbl} PO EVERY 6 HOURS NEEDED as needed for pain 20 5 0 January 06, 2025 April 09, 2025 10:17am Blunt trauma to chest Blunt trauma to abdomen Other specified injuries of thorax, initial encounter Unspecified injury of abdomen, initial encounter amoxicillin 875 mg / clavulanate 125 mg oral tablet (18 sources) Penicillin-class Antibacterial Start: 12-30-2020 End: 01-09-2021 Amoxicillin-Pot Clavulanate (Augmentin) 875-125 mg tablet Discontinued 1 {tbl} PO Q12H 20 10 0 December 30, 2020 12:00am January 08, 2021 12:00am January 09, 2021 12:01am Acute sinusitis, unspecified cephalexin 500 mg oral capsule (18 sources) Cephalosporin Antibacterial Start: 04-11-2021 End: 04-21-2021 take 1 capsule by mouth every twelve hours Cephalexin 500 mg capsule Discontinued 500 mg PO Q12H 20 10 0 April 11, 2021 12:00am April 20, 2021 12:00am April 21, 2021 12:01am doxycycline monohydrate 100 mg oral capsule (6 sources) Tetracycline-class Drug Start: 01-11-2025 End: 04-09-2025 take 1 capsule by mouth twice daily Doxycycline Monohydrate 100 mg capsule Discontinued 100 mg PO TWICE A DAY 14 0 January 11, 2025 12:00am April 09, 2025 10:17am Contusion of multiple sites of right upper extremity Contusion of right upper arm, initial encounter Norethindrone-E.Est radiol-Iron (18 sources) Estrogen Start: 07-15-2015 End: 12-30-2020 Norethindrone-E.Es [...] 15, 2015 1:00am December 30, 2020 9:22am Multivitamin (Daily Multi-Vitamin) tablet (6 sources) Start: 01-11-2025 End: 04-09-2025 Multivitamin (Daily Multi-Vitamin) tablet Discontinued 1 {tbl} PO EVERY MORNING January 11, 2025 12:00am April 09, 2025 10:17am Start: 01-11-2025 Multivitamin ( Daily Multi-Vitamin) tablet Active 1 {tbl} PO EVERY MORNING January 11, 2025 12:00am naproxen sodium 220 mg oral capsule (19 sources) Nonsteroidal Anti-inflammatory Drug Start: 11-17-2021 End: [...] 1 capsule twice daily NITROFURANTOIN MONOHYD MACRO [id number] Jalen SANCHES levothyroxine sodium 0.075 mg oral tablet (20 sources) l-Thyroxine Start: 11-21-2021 take 1 tablet by mouth once daily Levothyroxine 88 mcg tablet Active 88 ug PO DAILY 90 3 November 21, 2021 12:00am Complies with drug therapy Start: 06-27-2017 LEVOTHYROXINE SODIUM 100 MCG TABS as directed LEVOTHYROXINE SODIUM [id number] Jalen SANCHES Start: 07-15-2015 End: 11-21-2021 Levothyroxine 75 mcg tablet Discontinued 88 ug PO DAILY 90 3 November 21, 2021 12:29pm November 21, 2021 3:01pm Start: 07-15-2015 End: 11-21-2021 take 88 ug by mouth once daily Levothyroxine Discontin ued 88 MCG PO DAILY 90 November 21, 2021 12:29pm November 21, 2021 3:01pm Problems Active Problems Problem Classification Problem Date Documented Date Episodic/Chronic Diabetes mellitus without complication (1 source) Prediabetes; Translations: [Prediabetes] 11-07-2022 Episodic Diverticulosis and diverticulitis (1 source) Diverticulosis of large intestine without perforation or abscess without bleeding; Translations: [DVRTCLOS LG INT NO PERF/ABSC W/O BL] Onset: 07-05-2022 Chronic Essential hypertension (9 sources) Hypertensive disorder; Translations: [Essential (primary) hypertension] 06-27-2017 Chronic Immunizations and screening for infectious disease (1 source) Rheumatoid factor positive; Translations: [Other specified abnormal immunological findings in serum] 11-07-2022 Episodic Malaise and fatigue (20 sources) Fatigue; Translations: [Other fatigue] Episodic Nonspecific chest pain (18 sources) Chest pain; Translations: [Chest pain, unspecified] 07-16-2015 Episodic Osteoarthritis (3 sources) Degenerative joint disease involving multiple joints; Translations: [Polyosteoarthritis, unspecified] Onset: 11-07-2022 11-07-2022 Chronic Other diseases of kidney and ureters (2 sources) Unspecified hydronephrosis; Translations: [UNSPECIFIED HYDRONEPHROSIS] Onset: 07-05-2022 Episodic Other injuries and conditions due to external causes (13 sources) Blunt injury of abdomen; Translations: [Unspecified injury of abdomen, initial encounter] 01-06-2025 Episodic Other injuries and conditions due to external causes (13 sources) Blunt injury of thorax; Translations: [Other specified injuries of thorax, initial encounter] 01-06-2025 Episodic Other non-traumatic joint disorders (1 source) Joint pain; Translations: [Pain in unspecified joint] 11-07-2022 Episodic Other nutritional; endocrine; and metabolic disorders (1 source) Obesity; Translations: [Obesity, unspecified] 11-07-2022 Chronic Other nutritional; endocrine; and metabolic disorders (2 sources) Obesity, unspecified; Translations: [Obesity, unspecified] Onset: 11-07-2022 Chronic Other screening for suspected conditions (not mental disorders or infectious disease) (1 source) Encounter for screening mammogram for malignant neoplasm of breast; Translations: [Encounter for screening mammogram for malignant neoplasm of breast] Onset: 02-23-2025 Episodic Other upper respiratory infections (18 sources) Acute sinusitis; Translations: [Acute sinusitis, unspecified] 12-30-2020 Episodic Prolapse of female genital organs (2 sources) Cystocele and rectocele co-occurrent with incomplete uterovaginal prolapse; Translations: [Incomplete uterovaginal prolapse] 04-22-2025 Chronic Residual codes; unclassified (1 source) Acquired absence of kidney; Translations: [ACQUIRED ABSENCE OF KIDNEY] Onset: 07-05-2022 Episodic Rheumatoid arthritis and related disease (4 sources) Rheumatoid arthritis, unspecified; Translations: [Rheumatoid arthritis, unspecified] Onset: 08-06-2022 Chronic Spondylosis; intervertebral disc disorders; other back problems (1 source) Spondylosis, unspecified; Translations: [SPONDYLOSIS UNSPECIFIED] Onset: 07-05-2022 Chronic Thyroid disorders (20 sources) 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; Translations: [Other specified hypothyroidism] Onset: 11-18-2024 Chronic Urinary tract infections (20 sources) Pyelonephritis; Translations: [Cystitis] Onset: 06-27-2017 06-27-2017 Episodic Past or Other Problems Problem Classification Problem Date Documented Da te Episodic/Chronic Abdominal pain (3 sources) Unspecified abdominal pain; Translations: [Pelvic and perineal pain] Onset: 07-05-2022 Episodic Open wounds of extremities (20 sources) Open wound of left forearm; Translations: [Laceration without foreign body of left forearm, initial encounter] Onset: 02-04-2025 01-06-2025 Episodic Other injuries and conditions due to external causes (3 sources) Other specified injuries of thorax, initial encounter; Translations: [Contusion of rib on left side] Onset: 02-04-2025 10-26-2020 Episodic Other injuries and conditions due to external causes (1 source) Unspecified injury of abdomen, initial encounter; Translations: [Unspecified injury of abdomen, initial encounter] Onset: 02-04-2025 Episodic Other non-traumatic joint disorders (1 source) Pain in left hip; Translations: [Pain in left hip] Onset: 12-07-2024 Episodic Superficial injury; contusion (20 sources) Contusion of rib; Translations: [Contusion of left front wall of thorax, initial encounter] Onset: 01-20-2025 10-26-2020 Episodic Results Test Name Value Interpretation Reference Range Facility Comprehensive Metabolic Prof omar 05-05-2025 Albumin [Mass/Vol] 4.5 g/dL Normal 3.4-4.8 [facility] Comment on above: Performed By: #### L 500.4100, L500.4050 #### [facility] [address] [place], [address] Albumin/Globulin [Mass ratio] 1.4 {ratio} Normal 0.9-2.4 [facility] Comment on above: Performed By: #### L 500.4100, L500.4050 #### [facility] [address] [place], [address] ALK PHOS 107 U/L High 35-104 [facility] Comment on above: Performed By: #### L 500.4100, L500.4050 #### [facility] [address] [place], [address] ALT [Catalytic activity/Vol] 12 U/L Normal <=34 [facility] Comment on above: Performed By: #### L 500.4100, L500.4050 #### [facility] [address] [place], [address] AST [Catalytic activity/Vol] 14 U/L Normal <=31 [facility] Comment on above: Performed By: #### L 500.4100, L500.4050 #### [facility] [address] [place], [address] Bilirubin [Mass/Vol] 0.42 mg/dL Normal 0.00-1.30 [facility] Comment on above: Performed By: #### L 500.4100, L500.4050 #### [facility] [address] [place], [address] BUN/CRE 24.7 RATIO High 10-20 [facility] Comment on above: Performed By: #### L 500.4100, L500.4050 #### [facility] [address] [place], [address] Calcium [Mass/Vol] 9.9 mg/dL Normal 7.6-11.0 [facility] Comment on above: Performed By: #### L 500.4100, L500.4050 #### [facility] [address] [place], [address] Chloride [Moles/Vol] 104 mmol/L Normal 98-108 [facility] Comment on above: Performed By: #### L 500.4100, L500.4050 #### [facility] [address] [place], [address] CO2 [Moles/Vol] 24.3 mmol/L Normal 21.0-32.0 [facility] Comment on above: Performed By: #### L 500.4100, [id number] #### [facility] [address] [place], [address] Creatinine [Mass/Vol] 0.73 mg/dL Normal 0.70-1.20 [facility] Comment on above: Performed By: #### L 500.4100, L500.4050 #### [facility] [address] [place], [address] GAP 12 Normal 5-15 [facility] Comment on above: Performed By: #### L 500.4100, L500.4050 #### [facility] [address] [place], [address] GFR/1.73 sq M.predicted among non-blacks MDRD (S/P/Bld) [Vol rate/Area] 94 mL/min/{1.73_m2} Normal >60 [facility] Comment on above: Result Comment: mL/m in/1.73m2 CKD-EPI Creatinine Equation (2020) Performed By: #### L 500.4100, L500.4050 #### [facility] [address] [place], [address] Globulin (S) [Mass/Vol] 3.1 g/dL Normal 2.2-4.2 [facility] Comment on above: Performed By: #### L 500.4100, L500.4050 #### [facility] [address] [place], [address] Glucose [Mass/Vol] 100 mg/dL High 70-99 [facility] Comment on above: Performed By: #### L 500.4100, [id number] #### [facility] [address] [place], [address] Potassium [Moles/Vol] 4.9 mmol/L Normal 3.3-5.1 [facility] Comment on above: Performed By: #### L 500.4100, [id number] #### [facility] [address] [place], [address] Sodium [Moles/Vol] 140 mmol/L Normal 133-145 [facility] Comment on above: Performed By: #### L 500.4100, [id number] #### [facility] [address] [place], [address] T PROT 7.6 g/dL Normal 5.9-8.4 [facility] Comment on above: Performed By: #### L 500.4100, [id number] #### [facility] [address] [place], [address] Urea nitrogen [Mass/Vol] 18 mg/dL Normal 4-19 [facility] Comment on above: Performed By: #### L 500.4100, L500.4050 #### [facility] [address] [place], [address] Lipid Profileon 05-05-2025 CHOL:HDL 3.12 Normal [facility] Comment on above: Performed By: #### L 500.4100, L500.4050 #### [facility] [address] [place], [address] Cholesterol [Mass/Vol] 183 mg/dL Normal <=200 [facility] Comment on above: Result Comment: Chol esterol level, Desirable <200 mg/dL Borderline high cholesterol 200-239 mg/dL High cholesterol >=240 mg/dL Recommendations of the NCEP Adult Treatment Panel for the following risk-cutoff thresholds for the [place] population. Performed By: #### L 500.4100, L500.4050 #### [facility] [address] [place], [address] Cholesterol in HDL [Mass/Vol] 59 mg/dL Normal [facility] Comment on above: Result Comment: Romina onal Cholesterol Education Program (NCEP) guidelines: <40 mg/dL: Low HDL-cholesterol (major risk factor for CHD) >= 60 mg/dL: High HDL-cholesterol (negative risk factor for CHD) HDL-cholesterol is affected by a number of factors, e.g. smoking, exercise, hormones, sex and age. Performed By: #### L 500.4100, L500.4050 #### [facility] [address] [place], [address] Cholesterol in LDL [Mass/Vol] 101 mg/dL Normal [facility] Comment on above: Result Comment: Bord ylibsd=136-516 mg/dL Higher Mvbz=481 mg/dL or greater Friedwald Equation for LDL-C Performed By: #### L 500.4100, L500.4050 #### [facility] [address] [place], [address] Cholesterol in VLDL [Mass/Vol] 23 mg/dL Normal 5-40 [facility] Comment on above: Performed By: #### L 500.4100, L500.4050 #### [facility] [address] [place], [address] Triglyceride [Mass/Vol] 116 mg/dL Normal [facility] Comment on above: Result Comment: The drugs N-Acetylcysteine and Metamizole may falsely depress this assay. Normal range: <150 mg/dL Borderline High: 150-199 mg/dL High: 200-499 mg/dL Very High: >500 mg/dL Performed By: #### L 500.4100, L500.4050 #### [facility] [address] 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 Required: No Is patient in pain?: No Allergies shellfish derived Allergy (Verified 04/22/25 09:00) Anaphylaxis sulfamethoxazole (From Bactrim) Adverse Reaction (Verified 04/22/25 09:00) Rash trimethoprim (From Bactrim) Adverse Reaction (Verified 04/22/25 09:00) Rash Medications ???Medication ???Instructions ???Recorded ???Confirmed ???Type cholecalciferol (vitamin D3) 125 125 mcg PO DAILY 10/26/20 04/22/25 History mcg (5,000 unit) tablet omeprazole 40 mg capsule,delayed 40 mg PO DAILY 10/26/20 04/22/25 H istory release spironolactone 50 mg tablet 50 mg PO DAILY 10/26/20 04/22/25 H istory vitamin E (dl, acetate) 180 mg 450 mg PO DAILY 10/26/20 04/22/25 History (400 unit) capsule allergy shots IM 11/17/21 04/22/25 History amlodipine 5 mg tablet 5 mg PO 11/17/21 04/22/25 History ascorbic acid (vitamin C) 500 mg mg PO 11/17/21 04/22/25 History capsule biotin 2,500 mcg capsule 2,000 mcg PO DAILY 11/17/21 History levothyroxine 88 mcg tablet 88 mcg PO DAILY #90 tabs 11/21/21 04/22/25 Rx estradiol 0.01% (0.1 mg/gram) See Rx Instructions vaginal 04/22/25 Rx vaginal cream .COMPLEX #42.5 grams Is last menstrual period known: No Post menopausal: Yes Patient : No : No PFSH Medical History Laceration of left forearm Fatigue 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 Bunion, right foot Endometriosis determined by laparoscopy Diverticular disease Vision problems Rheumatoid arthritis GERD (gastroesophageal reflux disease) Kidney stone Gastrointestinal problem Chronic bronchiolitis Carpal tunnel syndrome Breast lump H/O transfusion of whole blood Back problem Arthritis Allergies Disorder of thyroid Shoulder pain Hypertension Surgical History H/O arthroscopy of shoulder H/O microdiscectomy H/O release of tendon History of cryosurgery History of nephrectomy Family History Grandmother Diabetes Grandfather Maryellen disease Father Angina at rest Arthritis Myocardial infarction, Onset Age: 76 Respiratory disease Alcohol abuse Mother Alcohol abuse Cancer Hypertension Brother Bleeding disorder Cancer Diabetes Hypertension Respiratory disease Skin cancer Aunt Breast cancer Social History Smoking Status: Never smoker alcohol intake: current alcohol intake frequency: a few times a week Alcohol type: beer substance use type: does not use what type of physical activity do you participate in: none HPI Vaginal Discharge ([place]) Details: ALINE BOLAÑOS is a 60 year old who presents for new patient referral from [facility] for vaginal pressure. feels like I'm sitting on something. States some days worse then others and has days doesn't notice at all. Denies bleeding or discharge. Not sexually active 6 years. Follows pap and mammogram with PCP History 0 Elective abortions Hx Para Spontaneous abortions Hx # Term Pregnancies Ectopic pregnancies Hx # Pregnancies Multiple births # of living children ROS Const Constitutional: Reports system reviewed and no additional complaints, except as documented Eyes Eyes: Reports system reviewed and no additional complaints, except as documented GI GI: Denies abdominal pain or change in bowel habits : Reports as per HPI Exam Const General: cooperative and no acute distress Orientation: oriented x3 General: bladder normal to palpation External Female Exam: normal external appearance and normal appearance of the urethra Urethra: normal appearance of the urethra Speculum Exam - Vagina: normal vaginal discharge, vagina atrophic, no lesions and nontender Speculum Exam - Cervix: normal appearance of the cervix Bimanual Exam- Vagina Uterus: normal bimanual exam, uterine size normal, bladder normal to palpation, uterine shape normal, uterine mobility normal and non-tender Bimanual Exam- Adnexa, other: normal adnexae, no masses, non-tender, rectocele, cystocele and vaginal apex descent Pelvic Support: cys (more content not included)... Normal [facility] Breast imaging reportOrdered By: Sofya Mckeon on 02-18-2025 Study report [facility] Imaging Services [address] [place] [address] SCRN MAMM (CAD)W/ELISA BILAT MR#: [id number] Acct: [id number] Name: ALINE BOLAÑOS Rep #: [id number] : 1965 F 59 From: Lisandro Zeng MD PCP: MICHAEL Beach Status: REG CLI Study:SCRN MAMM (CAD)W/ELISA BILAT Date of Exa m: 02/18/25 Exam# [id number] Ordering Dr: Ra kameron Corea ARTS ADMINISTRATOR OR MANAGER-C EXAM: SCRN MAMM (CAD)W/ELISA BILAT DATE: 02/18/2025 CLINICAL HISTORY: F, Age 59 y/o , SCREENING TECHNIQUE: SCRN MAMM (CAD)W/ELISA BILAT COMPARISON: Prior exam(s) were compared FINDINGS: TISSUE DENSITY: The breasts are heterogeneously dense, which may obscure small masses. Bilateral Breast Mammographic Findings: No suspicious masses, calcifications or other abnormalities are identified. BI/SCRN MAMM (CAD)W/ELISA BILAT IMPRESSION: No mammographic evidence of malignancy in either breast. OVERALL FINAL ASSESSMENT BI-RADS 1: NEGATIVE. RECOMMENDATION: Routine annual follow-up in 1 Year A letter with findings and recommendations will be mailed to the patient. Reading Location: [id number] CC: MICHAEL Corea ~ Arts Administrator Or Manager: Signed [facility] SCRN MAMM (CAD)W/ELISA BILATo n 02-18-2025 SCRN MAMM (CAD)W/ELISA BILAT [facility] Imaging Services [address] [place], [place] [id number] SCRN MAMM (CAD)W/ELISA BILAT MR#: [id number] Acct: [id number] Name: ALINE BOLAÑOS Rep #: [id number] : 1965 F 59 From: Sofya Urias i, MD PCP: MICHAEL Beach Status: [facility] CLI Study: SCRN MAMM (CAD)W/ELISA BILAT Date of Exam: 01/27 11/20 Exam# [id number] Ordering Dr: Swapna Corea EXAM: SCRN MAMM (CAD)W/ELISA BILAT DATE: 02/18/2025 CLINICAL HISTORY: F, Age 59 y/o , SCREENING TECHNIQUE: SCRN MAMM (CAD)W/ELISA BILAT COMPARISON: Prior exam(s) were compared FINDINGS: TISSUE DENSITY: The breasts are heterogeneously dense, which may obscure small masses. Bilateral Breast Mammographic Findings: No suspicious masses, calcifications or other abnormalities are identified. BI/SCRN MAMM (CAD)W/ELISA BILAT IMPRESSION: No mammographic evidence of malignancy in either breast. OVERALL FINAL ASSESSMENT BI-RADS 1: NEGATIVE. RECOMMENDATION: Routine annual follow-up in 1 Year A letter with findings and recommendations will be mailed to the patient. Reading Location: [id number] CC: MICHAEL Corea Arts Administrator Or Manager: Signed Normal [facility] Urgent Care Visit Reporton 0 01-26-2025 Urgent Care Visit Report [facility] [address], [address] [place] [address] OFFICE VISIT Date of Service: 01/26/25 MR#: [id number] Acct: [id number] Name: ALINE BOLAÑOS Rep #: [id number] : 1965 Provider: MYRON Hurtado Age/Sex: 59/F Location: [facility] Status: Signed Intake Vital Signs 01/11/25 06:43 01/26/25 06:07 Height 5 ft 2 in BP 110/66 104/60 Position Sitting Sitting Respiration 16 16 Pulse 71 85 Temp 98.4 F 98.2 F Temp Source Oral Oral Pulse Oximetry (%) 98 99 Oxygen Delivery Method room air room air Intake Visit Reasons: FU / DAWSON BRUSH Accompanied by: Self Allergies shellfish derived Allergy (Verified 01/26/25 06:07) Anaphylaxis sulfamethoxazole (From Bactrim) Adverse Reaction (Verified 01/26/25 06:07) Rash trimethoprim (From Bactrim) Adverse Reaction (Verified 01/26/25 06:07) Rash Medications ???Medication ???Instructions ???Recorded ???Confirmed ???Type cholecalciferol (vitamin D3) 125 125 mcg PO DAILY 10/26/20 01/26/25 History mcg (5,000 unit) tablet omeprazole 40 mg capsule,delayed 40 mg PO DAILY 10/26/20 01/26/25 H istory release spironolactone 50 mg tablet 50 mg PO DAILY 10/26/20 01/26/25 H istory vitamin E (dl, acetate) 180 mg 450 mg PO DAILY 10/26/20 01/26/25 History (400 unit) capsule allergy shots IM 11/17/21 01/26/25 History amlodipine 5 mg tablet 5 mg PO 11/17/21 01/26/25 History ascorbic acid (vitamin C) 500 mg mg PO 11/17/21 01/26/25 History capsule biotin 2,500 mcg capsule 2,000 mcg PO DAILY 11/17/21 History levothyroxine 88 mcg tablet 88 mcg PO DAILY #90 tabs 11/21/21 01/26/25 Rx oxycodone-acetaminophe n 5 mg-325 1 tab PO Q6H PRN PRN pain 5 days 0 01/06/25 01/26/25 Rx mg tablet #20 TABLETS doxycycline monohydrate 100 mg 100 mg PO BID #14 caps 01/11/25 Rx capsule multivitamin (Daily Multi-Vitamin 1 tab PO QAM 01/11/25 01/26/25 Hi story tablet) Nurse's Note: Patient here for a [facility] f/u. Patient states that she feels like that she can go back to work. Patient states she was able to life yesterday at work. Patient state her right side she can't lay on but she is ok with lifting and her left arm looks better. [facility] Medical History (Updated 01/14/25 @ 00:00 by Steffi Mercado) Laceration of left forearm Fatigue Hypothyroidism due [...] cancer Diabetes H/O transfusion of whole blood [place] disease Hypertension Myocardial infarction Ovarian cancer Respiratory disease Skin cancer Social History Smoking Status: Never smoker alcohol intake: current alcohol intake frequency: a few times a week Alcohol type: beer substance use type: does not use what type of physical activity do you participate in: none HPI HPI Details: ALINE BOLAÑOS, is a 59 F who presents to the office today for f/u at the [facility] for f/u status post work-related injury suffered on 01/06/2025 patient so states. 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 She reported to [facility] ED where treated for released the same day with blunt trauma to the chest wall and abdomen as well as contusion right forearm and skin tear to left forearm. On f/u today, patient notes only trace aching improved discomfort to chest wall, no abdomen or R FA complaints, no complaints of chest pain or shortness of breath or dyspnea on exertion, and digesting and moving bowels/urinating without complaints. She notes her left forearm laceration/skin tear has resolved/ fully healed and wished to be released w/o restrictions at this time. No other associated symptoms and no other alleviating/aggravatin g factors. ROS Const Constitutional: No other (As above) Exam Const General: cooperative, healthy appearing and no acute distress Orien (more content not included)... Normal [facility] Ribs Uni Min 3V w/PA Cheston 01-18-2025 Ribs Uni Min 3V w/PA Chest [facility] Imaging Services [address] [place], [place] [address] Ribs Uni Min 3V w/PA Chest MR#: [id number] Acct: [id number] Name: ALINE BOLAÑOS Rep #: [id number] : 1965 F 59 From: John Gordon MD PCP: MICHAEL Beach Status: REG CLI Study: Ribs Uni Min 3V w/PA Chest Date of Exam: 01/18 Exam# [id number] Ordering Dr: Jalen Mcdaniel PA PROCEDURE: RIBS UNI MIN 3V W/PA CHEST 01/18/2025 REASON FOR EXAM: CHEST TRAUMA TECHNIQUE: RIBS UNI MIN 3V W/PA CHEST COMPARISON: June 18, 2024 FINDINGS: Heart size and mediastinal configuration are within normal limits. There is minimal atelectasis or scar at the left lung base. There is no focal infiltrate or consolidation. There is no pneumothorax or effusion. There is no visible rib fracture or acute bony abnormality. Surgical clips are noted in the left upper abdomen. Aortic calcifications are visible. RAD/Ribs Uni Min 3V w/PA Chest IMPRESSION: There is no visible rib fracture. There is minimal atelectasis or scar at the left lung base. Reading Location: [facility] CC: MICHAEL Corea; MYRON Hurtado Arts Administrator Or Manager: Signed Normal [facility] Urgent Care Visit Reporton 0 01-18-2025 Urgent Care Visit Report [facility] [address], [address] [place] [address] OFFICE VISIT Date of Service: 01/18/25 MR#: [id number] Acct: [id number] Name: ALINE BOLAÑOS Rep #: [id number] : 1965 Provider: MYRON Hurtado Age/Sex: 59/F Location: [facility] Status: Signed Intake Vital Signs 01/11/25 06:27 01/11/25 06:43 Height 5 ft 2 in 5 ft 2 in Weight: 151 lb BMI 27.6 BP 102/62 110/66 Position Sitting Sitting Respiration 14 16 Pulse 58 L 71 Temp 98.4 F 98.4 F Temp Source Oral Oral Pulse Oximetry (%) 98 98 Oxygen Delivery Method room air room air Intake Visit Reasons: / [place] brush Accompanied by: Self Allergies shellfish derived Allergy (Verified 01/18/25 06:07) Anaphylaxis sulfamethoxazole (From Bactrim) Adverse Reaction (Verified 01/18/25 06:07) Rash trimethoprim (From Bactrim) Adverse Reaction (Verified 01/18/25 06:07) Rash Medications ???Medication ???Instructions ???Recorded ???Confirmed ???Type cholecalciferol (vitamin D3) 125 125 mcg PO DAILY 10/26/20 01/18/25 History mcg (5,000 unit) tablet omeprazole 40 mg capsule,delayed 40 mg PO DAILY 10/26/20 01/18/25 H istory release spironolactone 50 mg tablet 50 mg PO DAILY 10/26/20 01/18/25 H istory vitamin E (dl, acetate) 180 mg 450 mg PO DAILY 10/26/20 01/18/25 History (400 unit) capsule allergy shots IM 11/17/21 01/18/25 History amlodipine 5 mg tablet 5 mg PO 11/17/21 01/18/25 History ascorbic acid (vitamin C) 500 mg mg PO 11/17/21 01/18/25 History capsule biotin 2,500 mcg capsule 2,000 mcg PO DAILY 11/17/21 History levothyroxine 88 mcg tablet 88 mcg PO DAILY #90 tabs 11/21/21 01/18/25 Rx oxycodone-acetaminophe n 5 mg-325 1 tab PO Q6H PRN PRN pain 5 days 0 01/06/25 01/18/25 Rx mg tablet #20 TABLETS doxycycline monohydrate 100 mg 100 mg PO BID #14 caps 01/11/25 Rx capsule multivitamin (Daily Multi-Vitamin 1 tab PO QAM 01/11/25 01/18/25 Hi story tablet) Nurse's Note: Patient here for [facility] f/u. Patient states that she is little better. [facility] Medical History (Updated 01/14/25 @ 00:00 by Background Daemon) Laceration of left forearm Fatigue Hypothyroidism due [...] cancer Diabetes H/O transfusion of whole blood [place] disease Hypertension Myocardial infarction Ovarian cancer Respiratory disease Skin cancer Social History Smoking Status: Never smoker alcohol intake: current alcohol intake frequency: a few times a week Alcohol type: beer substance use type: does not use what type of physical activity do you participate in: none HPI HPI Details: ALINE BOLAÑOS, is a 59 F who presents to the office today [facility] for f/u status post work-related injury suffered on 01/06/2025 patient so states. 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 She reported to [facility] ED where treated for released the same day with blunt trauma to the chest wall and abdomen as well as contusion right forearm and skin tear to left forearm. Patient notes still having moderate aching discomfort to chest wall discomfort and requesting x-rays to ensure she did not fracture rib at this time, though no abdomen or R FA complaints, no complaints of chest pain or shortness of breath or dyspnea on exertion, and digesting and moving bowels/urinating without complaints. She notes her left forearm laceration/skin tear has become improved with resolving purulent discharge appreciated; no complaints of fever, chills, sweats, lightheadedness/dizzin ess, nausea/vomiting. She has been working with restrictions as given last evaluation here, admitting compliance with wound care and doxycycline as previously prescribed. No [id number]-hcgapkg medications have been taken to assist. No other as (more content not included)... Normal [facility] Urgent Care Visit Reporton 0 01-11-2025 Urgent Care Visit Report [facility] [address], [address] [place] [address] OFFICE VISIT Date of Service: 01/11/25 MR#: [id number] Acct: [id number] Name: ALINE BOLAÑOS Rep #: [id number] : 1965 Provider: MYRON Hurtado Age/Sex: 59/F Location: [facility] Status: Signed Intake Vital Signs 01/06/25 13:16 01/11/25 06:27 Height 5 ft 2 in 5 ft 2 in Weight: 151 lb BMI 27.6 BP 102/62 Position Sitting Respiration 14 Pulse 58 L Temp 98.4 F Temp Source Oral Pulse Oximetry (%) 98 Oxygen Delivery Method room air Intake Visit Reasons: ER FU/ YAKIMA BRUSH Accompanied by: Self Is patient in [...] tablet) Nurse's Note: Patient here for a [facility] ER f/u. Patient thinks her left arm is infected. Patient states her ribs are better but still not good. [facility] Medical History (Updated 01/11/25 @ 06:29 by [...] cancer Diabetes H/O transfusion of whole blood [place] disease Hypertension Myocardial infarction Ovarian cancer Respiratory [...] BUE and anterior chest/abdomen. She reported to [facility] ED where treated for released the same [...] to work since date of injury. No [id number] medications have been taken to assist. No other associated symptoms and no other alleviating/aggravatin g factors. ROS C (more content not included)... Normal [facility] Abdomen/Pelvis W IV Cont ONL Yon 01-06-2025 Abdomen/Pelvis W IV Cont ONLY [facility] Imaging Services [address] [place], [place] [address] Abdomen/Pelvis W IV Cont ONLY MR#: [id number] Acct: [id number] Name: ALINE BOLAÑOS Rep #: [id number] : 1965 F 59 From: Андрей Sherman MD PCP: Swapna Corea NP-C Status: REG ER Study: Abdomen/Pelvis W IV Cont ONLY Date of Exam: Exam# [id number] Ordering Dr: Lazaro Koenig MD PROCEDURE: ABDOMEN/PELVIS [...] abnormality. OVERALL FINAL ASSESSMENT: . Reading Location: [facility] CC: ARTS ADMINISTRATOR OR MANAGER-C Swapna Corea; Dr. Lazaro Koenig MD Arts Administrator Or Manager: Signed Normal [facility] Anion gap in Serum or Plasma Ordered By: Lazaro Koenig on 01-06-2025 Anion gap [Moles/Vol] 13 mmol/L 12-10 [facility] BUN/creatinine ratioOrdered By: Lazaro Koenig on 01-06-2025 Urea nitrogen/Creatinine [Mass ratio] 16.2 mg/mg - [facility] Basic Metabolic Profile (BMP )on 01-06-2025 BUN/CRE 16.2 RATIO Normal 05-17 [facility] Comment on above: Performed By: #### L 500.2500 #### [facility] [address] [place], [address] Calcium [Mass/Vol] 9.4 mg/dL Normal 7.6-11.0 [facility] Comment on above: Performed By: #### L 500.2500 #### [facility] [address] [place], [address] Chloride [Moles/Vol] 107 mmol/L Normal 98-108 [facility] Comment on above: Performed By: #### L 500.2500 #### [facility] [address] [place], [address] CO2 [Moles/Vol] 19.7 mmol/L Low 21.0-32.0 [facility] Comment on above: Performed By: #### L 500.2500 #### [facility] [address] [place], [address] Creatinine [Mass/Vol] 0.66 mg/dL Low 0.70-1.20 [facility] Comment on above: Performed By: #### L 500.2500 #### [facility] [address] [place], [address] ECRCL 81.24 ml/min Normal 50-250 [facility] Comment on above: Performed By: #### L 500.2500 #### [facility] [address] [place], [address] GAP 13 Normal 5-15 [facility] Comment on above: Performed By: #### L 500.2500 #### [facility] [address] [place], [address] GFR/1.73 sq M.predicted among non-blacks MDRD (S/P/Bld) [Vol rate/Area] 100 mL/min/{1.73_m2} Normal >60 [facility] Comment on above: Result Comment: mL/m in/1.73m2 CKD-EPI Creatinine Equation (2020) Performed By: #### L 500.2500 #### [facility] [address] [place], [address] Glucose [Mass/Vol] 98 mg/dL Normal 70-99 [facility] Comment on above: Performed By: #### L 500.2500 #### [facility] [address] [place], [address] Potassium [Moles/Vol] 3.8 mmol/L Normal 3.3-5.1 [facility] Comment on above: Performed By: #### L 500.2500 #### [facility] [address] [place], [address] Sodium [Moles/Vol] 140 mmol/L Normal 133-145 [facility] Comment on above: Performed By: #### L 500.2500 #### [facility] [address], [address] Urea nitrogen [Mass/Vol] 11 mg/dL Normal 4-19 [facility] Comment on above: Performed By: #### L 500.2500 #### [facility] [address] [place], [address] Carbon dioxide, total [Moles /volume] in Central venous bloodOrdered By: Lazaro Koenig on 01-06-2025 CO2 [Moles/Vol] 19.7 mmol/L Low 21.0-32.0 [facility] Chloride assayOrdered By: Sharif Koenig on 01-06-2025 Chloride [Moles/Vol] 107 mmol/L 98-108 [facility] Emergency Department Summary on 01-06-2025 Emergency Department Summary [facility] Records Department [address] [place] [address] Emergency Department Summary 01/06/25 MR#: [id number] Acct: [id number] Name: ALINE BOLAÑOS Rep #: [id number] : 1965 59 From: Lazaro Koenig MD PCP: Swapna Corea NP-Jaspreet Status:REG ER Location: ED HPI History of [...] similar symptoms: No Recent Illness[facility]Hospital[facility]atio n: [facility] Medical History Fatigue Hypothyroidism due to Corie's [...] cancer Diabetes H/O transfusion of whole blood [place] disease Hypertension Myocardial infarction Ovarian cancer Respiratory [...] Reports chest (more content not included)... Normal [facility] Glomerular filtration rate ( GFR) estimation/1.73 sq m using serum, plasma, or whole bOrdered By: [facility] on 01-06-2025 GFR/1.73 sq M.predicted among non-blacks MDRD (S/P/Bld) [Vol rate/Area] 100 mL/min/{1.73_m2} >60 [facility] Comment on above: mL/min/1.73m2 CKD-EP I Creatinine Equation (2020) Potassium measurement (mass/ volume)Ordered By: [facility] on 01-06-2025 Potassium (Unsp spec) [Mass/Vol] 3.8 mmol/L 3.3-5.1 [facility] Serum creatinine measurement (mass/volume)Ordered By: [facility] on 01-06-2025 Creatinine [Mass/Vol] 0.66 mg/dL Low 0.70-1.20 [facility] Serum glucose measurement (m ass/volume)Ordered By: [facility] on 01-06-2025 Glucose [Mass/Vol] 98 mg/dL 70-99 [facility] Serum or plasma calcium bria urement (mass/volume)Ordered By: [facility] on 01-06-2025 Calcium [Mass/Vol] 9.4 mg/dL 7.6-11.0 [facility] Serum or plasma urea nitroge n measurement (mass/volume)Ordered By: [facility] on 01-06-2025 Urea nitrogen [Mass/Vol] 11 mg/dL 4-19 [facility] Sodium levelOrdered By: [facility] on 01-06-2025 Sodium [Moles/Vol] 140 mmol/L 133-145 [facility] HIP, UNI W/ Pelvis 2-3 Views on 12-01-2024 HIP, UNI W/ Pelvis 2-3 Views [facility] Imaging Services [address] [place] [address] HIP, UNI W/ Pelvis 2-3 Views MR#: [id number] Acct: [id number] Name: ALINE BOLAÑOS Rep #: [id number] : 1965 F 59 From: Kade hou MD PCP: MICHAEL Beach Status: REG CLI Study: HIP, UNI W/ Pelvis 2-3 Views Date of Exam: 01/20 Exam# [id number] Ordering Dr: Swapna Corea PROCEDURE: HIP, UNI W/ PELVIS 2-3 [...] No acute findings. Mild-moderate osteoarthritis. Reading Location[facility] CC: ARTS ADMINISTRATOR OR MANAGER-Jaspreet Corea Arts Administrator Or Manager: Signed Normal [facility] Thyroid Peroxidase ABon 04- THYR PEROX AB > 600 High 0-34 [facility] Comment on above: Order Comment: CANCE L THYROID AB, ADD TPO Result Comment: Perf ormed at: - [facility] [place] [id number] Train Gateman: Juan Anderson PhD, Phone: [phone] Performed By: #### L 500.2500, L506.0400, L3300.6900, L501.9520 ####[facility] [address] [place], [address] Anion gap in Serum or Plasma Ordered By: Alanna Avila on 11-12-2024 Anion gap [Moles/Vol] 11 mmol/L 12-10 [facility] BUN/creatinine ratioOrdered By: Alanna Avila on 11-12-2024 Urea nitrogen/Creatinine [Mass ratio] 19.7 mg/mg 05-17 [facility] Basic Metabolic Profile (BMP )on 11-12-2024 BUN/CRE 19.7 RATIO Normal 05-17 [facility] Comment on above: Performed By: #### L 500.2500, L506.0400, L3300.6900, L501.9520 ####[facility] [address] [place], [address] Calcium [Mass/Vol] 9.6 mg/dL Normal 7.6-11.0 [facility] Comment on above: Performed By: #### L 500.2500, L506.0400, L3300.6900, L501.9520 ####[facility] [address] [place], [address] Chloride [Moles/Vol] 103 mmol/L Normal 98-108 [facility] Comment on above: Performed By: #### L 500.2500, L506.0400, L3300.6900, L501.9520 ####[facility] [address] [place], [address] CO2 [Moles/Vol] 25.5 mmol/L Normal 21.0-32.0 [facility] Comment on above: Performed By: #### L 500.2500, L506.0400, L3300.6900, L501.9520 ####[facility] [address] [place], [address] Creatinine [Mass/Vol] 0.80 mg/dL Normal 0.70-1.20 [facility] Comment on above: Performed By: #### L 500.2500, L506.0400, L3300.6900, L501.9520 ####[facility] [address] [place], [address] GAP 11 Normal 5-15 [facility] Comment on above: Performed By: #### L 500.2500, L506.0400, L3300.6900, L501.9520 ####[facility] [address] [place], [address] GFR/1.73 sq M.predicted among non-blacks MDRD (S/P/Bld) [Vol rate/Area] 84 mL/min/{1.73_m2} Normal >60 [facility] Comment on above: Result Comment: mL/m in/1.73m2 CKD-EPI Creatinine Equation (2020) Performed By: #### L 500.2500, L506.0400, L3300.6900, L501.9520 ####[facility] [address] [place], [address] Glucose [Mass/Vol] 75 mg/dL Normal 70-99 [facility] Comment on above: Performed By: #### L 500.2500, L506.0400, L3300.6900, L501.9520 ####[facility] [address] [place], [address] Potassium [Moles/Vol] 4.5 mmol/L Normal 3.3-5.1 [facility] Comment on above: Performed By: #### L 500.2500, L506.0400, L3300.6900, L501.9520 ####[facility] [address] [place], [address] Sodium [Moles/Vol] 139 mmol/L Normal 133-145 [facility] Comment on above: Performed By: #### L 500.2500, L506.0400, L3300.6900, L501.9520 ####[facility] [address] [place], [address] Urea nitrogen [Mass/Vol] 16 mg/dL Normal 4-19 [facility] Comment on above: Performed By: #### L 500.2500, L506.0400, L3300.6900, L501.9520 ####[facility] [address] [place], [address] Carbon dioxide, total [Moles /volume] in Central venous bloodOrdered By: Alanna Avila on 11-12-2024 CO2 [Moles/Vol] 25.5 mmol/L 21.0-32.0 [facility] Chloride assayOrdered By: Rizwana Avila on 11-12-2024 Chloride [Moles/Vol] 103 mmol/L 98-108 [facility] Glomerular filtration rate ( GFR) estimation/1.73 sq m using serum, plasma, or whole bOrdered By: Alanna Avila on 11-12-2024 GFR/1.73 sq M.predicted among non-blacks MDRD (S/P/Bld) [Vol rate/Area] 84 mL/min/{1.73_m2} >60 [facility] Comment on above: mL/min/1.73m2 CKD-EP I Creatinine Equation (2020) Potassium measurement (mass/ volume)Ordered By: Alanna Avila on 11-12-2024 Potassium (Unsp spec) [Mass/Vol] 4.5 mmol/L 3.3-5.1 [facility] Serum creatinine measurement (mass/volume)Ordered By: Alanna Avila on 11-12-2024 Creatinine [Mass/Vol] 0.80 mg/dL 0.70-1.20 [facility] Serum glucose measurement (m ass/volume)Ordered By: Alanna Avila on 11-12-2024 Glucose [Mass/Vol] 75 mg/dL 70-99 [facility] Serum or plasma calcium bria urement (mass/volume)Ordered By: Alanna Avila on 11-12-2024 Calcium [Mass/Vol] 9.6 mg/dL 7.6-11.0 [facility] Serum or plasma thyroperoxid ase antibody assay (units/volume)Ordered By: Alanna Avila on 11-12-2024 TPO Ab Qn [IU]/mL High 0-34 [facility] Comment on above: Performed at: [address] [id number] Director: Juan Anderson PhD, Phone: [phone] Serum or plasma urea nitroge n measurement (mass/volume)Ordered By: Alanna Avila on 11-12-2024 Urea nitrogen [Mass/Vol] 16 mg/dL 4-19 [facility] Sodium levelOrdered By: Steffen Avila on 11-12-2024 Sodium [Moles/Vol] 139 mmol/L 133-145 [facility] T4 Free Directon 11-12-2024 T4 FREE DIRECT 1.70 ng/dL High 0.76-1.46 [facility] Comment on above: Performed By: #### L 500.2500, L506.0400, L3300.6900, L501.9520 ####[facility] [address] [place], [address] T4 freeOrdered By: Alanna sweeney on 11-12-2024 Free T4 [Mass/Vol] 1.70 ng/dL High 0.76-1.46 [facility] TSH DL <= 0.005 mIU/L QnOrde red By: Alanna Kumarer on 11-12-2024 TSH Qn 2.090 uIU/mL 0.300-4.200 [facility] Thyroid Stim Hormone (TSH)on 11-12-2024 TSH 2.090 uIU/mL Normal 0.300-4.200 [facility] Comment on above: Performed By: #### L 500.2500, L506.0400, L3300.6900, L501.9520 ####[facility] [address] [place], [address] Abdomen Single Viewon 2023 Abdomen Single View [facility] Imaging Services [address] [place] [address] Abdomen Single View MR#: [id number] Acct: [id number] Name: ALINE BOLAÑOS Rep #: [id number] : 1965 F 59 From: Luc Mccarty MD PCP: Swapna Corea NP-Jaspreet Status: REG CLI Study: Abdomen Single View Date of Exam: 06/18/24 Exam# [id number] Ordering Dr: Lisette Richardson DO [id number] EXAM: XR ABDOMEN, 1 VIEW CLINICAL INDICATION: [...] CC: MICHAEL Corea; Dr. Lisette Richardson DO Arts Administrator Or Manager: Signed Normal [facility] CBC W/Diff, Automatedon 05-30 Absolute Lymph 2.06 X10 3/uL Normal 0.83-4.51 [facility] Comment on above: Performed By: #### L 500.4050, L100.0100, L501.2450 #### [facility] [address] [place], [address] Absolute Neut 7.3 X10 3/uL Normal 2.0-7.7 [facility] Comment on above: Performed By: #### L 500.4050, L100.0100, L501.2450 #### [facility] [address] [place], [address] Basophils/100 WBC (Bld) 0.3 % Normal 0-1 [facility] Comment on above: Performed By: #### L 500.4050, L100.0100, L501.2450 #### [facility] [address] [place], [address] Eosinophils/100 WBC (Bld) 1.8 % Normal 0-5 [facility] Comment on above: Performed By: #### L 500.4050, L100.0100, L501.2450 #### [facility] [address] [place], [address] Erythrocyte distribution width (RBC) [Ratio] 12.6 % Normal 11.6-14.6 [facility] Comment on above: Performed By: #### L 500.4050, L100.0100, L501.2450 #### [facility] [address] [place], [address] Hematocrit (Bld) [Volume fraction] 43.9 % Normal 37-47 [facility] Comment on above: Performed By: #### L 500.4050, L100.0100, L501.2450 #### [facility] [address] [place], [address] Hemoglobin (Bld) [Mass/Vol] 14.2 g/dL Normal 12.0-15.0 [facility] Comment on above: Performed By: #### L 500.4050, L100.0100, L501.2450 #### [facility] [address] [place], [address] IG% 0.400 Normal 0.0-0.9 [facility] Comment on above: Result Comment: IG% - Immature Granulocytes (promyelocytes, myelocytes and metamyelocytes) > 1% indicates that a LEFT SHIFT is Present. Performed By: #### L 500.4050, L100.0100, L501.2450 #### [facility] [address] [place], [address] Lymphocytes/100 WBC (Bld) 19.9 % Normal 19-41 [facility] Comment on above: Performed By: #### L 500.4050, L100.0100, L501.2450 #### [facility] [address] [place], [address] MCH (RBC) [Entitic mass] 28.4 pg Normal 27.0-32.0 [facility] Comment on above: Performed By: #### L 500.4050, L100.0100, L501.2450 #### [facility] [address] [place], [address] MCHC (RBC) [Mass/Vol] 32.3 g/dL Normal 32-36 [facility] Comment on above: Performed By: #### L 500.4050, L100.0100, L501.2450 #### [facility] [address] [place], [address] MCV (RBC) [Entitic vol] 87.8 fL Normal 81-99 [facility] Comment on above: Performed By: #### L 500.4050, L100.0100, L501.2450 #### [facility] [address] [place], [address] Monocytes/100 WBC (Bld) 7.4 % Normal 0-10 [facility] Comment on above: Performed By: #### L 500.4050, L100.0100, L501.2450 #### [facility] [address] [place], [address] Neutrophils/100 WBC (Bld) 70.2 % High 47-70 [facility] Comment on above: Performed By: #### L 500.4050, L100.0100, L501.2450 #### [facility] [address] [place], [address] Nucleated RBC (Bld) [#/Vol] 0 10*3/uL Normal 0-5 [facility] Comment on above: Performed By: #### L 500.4050, L100.0100, L501.2450 #### [facility] [address] [place], [address] Platelet mean volume (Bld) [Entitic vol] 9.2 fL Normal 6.2-12.0 [facility] Comment on above: Performed By: #### L 500.4050, L100.0100, L501.2450 #### [facility] [address] [place], [address] Platelets (Bld) [#/Vol] 275 10*3/uL Normal 150-450 [facility] Comment on above: Performed By: #### L 500.4050, L100.0100, L501.2450 #### [facility] [address] [place], [address] RBC (Bld) [#/Vol] 5.00 10*6/uL Normal 4.2-5.4 [facility] Comment on above: Performed By: #### L 500.4050, L100.0100, L501.2450 #### [facility] [address] [place], [address] RDW SD 40.1 fl Normal 35.1-43.9 [facility] Comment on above: Performed By: #### L 500.4050, L100.0100, L501.2450 #### [facility] [address] [place], [address] WBC (Bld) [#/Vol] 10.3 10*3/uL Normal 4.4-11.0 [facility] Comment on above: Performed By: #### L 500.4050, L100.0100, L501.2450 #### [facility] [address] [place], [address] Chest PA and Lateralon 06-18 Chest PA and Lateral [facility] Imaging Services [address] [place] [address] Chest PA and Lateral MR#: [id number] Acct: [id number] Name: ALINE BOLAÑOS Rep #: [id number] : 1965 F 59 From: Theresa Aguiar MD PCP: MICHAEL Beach Status: REG CLI Study: Chest PA and Lateral Date of Exam: 06/18/24 Exam# [id number] Ordering Dr: Lisette Richardson DO [id number] INDICATION: Abdominal pain/right SIDE PAIN EXAMINATION/TECHNIQUE: X-RAY [...] Aguiar MD at 21:26 EST , CC: MICHAEL Corea; Dr. Lisette Richardson DO Arts Administrator Or Manager: Signed Normal [facility] Comprehensive Metabolic Prof nmon 06-18-2024 Albumin [Mass/Vol] 4.3 g/dL Normal 3.2-5.0 [facility] Comment on above: Performed By: #### L 500.4050, L100.0100, L501.2450 #### [facility] [address] [place], [address] Albumin/Globulin [Mass ratio] 1.1 {ratio} Normal 0.9-2.4 [facility] Comment on above: Performed By: #### L 500.4050, L100.0100, L501.2450 #### [facility] [address] [place], [address] ALK P 129 U/L High 45-117 [facility] Comment on above: Performed By: #### L 500.4050, L100.0100, L501.2450 #### [facility] [address] [place], [address] ALT [Catalytic activity/Vol] 21 U/L Normal 13-56 [facility] Comment on above: Performed By: #### L 500.4050, L100.0100, L501.2450 #### [facility] [address] [place], [address] AST [Catalytic activity/Vol] 13 U/L Low 15-37 [facility] Comment on above: Performed By: #### L 500.4050, L100.0100, L501.2450 #### [facility] [address] [place], [address] Bilirubin [Mass/Vol] 0.70 mg/dL Normal 0.20-1.00 [facility] Comment on above: Result Comment: For patients on eltrombopag therapy, use of Dimension Sodus TBIL is not recommended. Performed By: #### L 500.4050, L100.0100, L501.2450 #### [facility] [address] [place], [address] BUN/CRE 18.9 RATIO Normal 10-20 [facility] Comment on above: Performed By: #### L 500.4050, L100.0100, L501.2450 #### [facility] [address] [place], [address] CA,Total 9.8 mg/dL Normal 8.5-10.1 [facility] Comment on above: Performed By: #### L 500.4050, L100.0100, L501.2450 #### [facility] [address] [place], [address] Chloride [Moles/Vol] 102 mmol/L Normal 98-107 [facility] Comment on above: Performed By: #### L 500.4050, L100.0100, L501.2450 #### [facility] [address] [place], [address] CO2 [Moles/Vol] 26.0 mmol/L Normal 21.0-32.0 [facility] Comment on above: Performed By: #### L 500.4050, L100.0100, L501.2450 #### [facility] [address] [place], [address] Creatinine [Mass/Vol] 0.80 mg/dL Normal 0.55-1.02 [facility] Comment on above: Result Comment: The validity of the calculated GFR GFRAA in patients over 70 years has not been determined. Clinical correlation is essential. Performed By: #### L 500.4050, L100.0100, L501.2450 #### [facility] [address] [place], [address] EST GFR - AA 94 mL/min Normal >60 [facility] Comment on above: Result Comment: Afri can Spanish GFR Calc Performed By: #### L 500.4050, L100.0100, L501.2450 #### [facility] [address] [place], [address] GAP 8 Normal 5-15 [facility] Comment on above: Performed By: #### L 500.4050, L100.0100, L501.2450 #### [facility] [address] [place], [address] GFR/1.73 sq M.predicted among non-blacks MDRD (S/P/Bld) [Vol rate/Area] 78 mL/min/{1.73_m2} Normal >60 [facility] Comment on above: Result Comment: Non- GFR Calc Performed By: #### L 500.4050, L100.0100, L501.2450 #### [facility] [address] [place], [address] Globulin (S) [Mass/Vol] 3.9 g/dL Normal 2.2-4.2 [facility] Comment on above: Performed By: #### L 500.4050, L100.0100, L501.2450 #### [facility] [address] [place], [address] Glucose [Mass/Vol] 89 mg/dL Normal 74-106 [facility] Comment on above: Performed By: #### L 500.4050, L100.0100, L501.2450 #### [facility] [address] [place], [address] Potassium [Moles/Vol] 3.7 mmol/L Normal 3.5-5.1 [facility] Comment on above: Performed By: #### L 500.4050, L100.0100, L501.2450 #### [facility] [address] [place], [address] Sodium [Moles/Vol] 136 mmol/L Normal 136-145 [facility] Comment on above: Performed By: #### L 500.4050, L100.0100, L501.2450 #### [facility] [address] [place], [address] T PROT 8.2 g/dL Normal 6.4-8.2 [facility] Comment on above: Performed By: #### L 500.4050, L100.0100, L501.2450 #### [facility] [address] [place], [address] Urea nitrogen [Mass/Vol] 15 mg/dL Normal 7-18 [facility] Comment on above: Performed By: #### L 500.4050, L100.0100, L501.2450 #### [facility] [address] [place], [address] Lipaseon 06-18-2024 Lipase [Catalytic activity/Vol] 33 U/L Normal 13-75 [facility] Comment on above: Result Comment: Nai caldera note: LIPASE revised reference range effective 22. New Lipase methodology. Expected to produce lower values than the previous assay method. NEW Reference Range: 13 - 75 U/L Performed By: #### L 500.4050, L100.0100, L501.2450 #### [facility] [address] [place], [address] Thoracic Spine 3 Viewson Thoracic Spine 3 Views [facility] Imaging Services [address] [place] [address] Thoracic Spine 3 Views MR#: [id number] Acct: [id number] Name: ALINE BOLAÑOS Rep #: [id number] : 1965 F 59 From: Luc Mccarty MD PCP: MICHAEL Beach Status: REG CLI Study: Thoracic Spine 3 Views Date of Exam: 06/18/24 Exam# [id number] Ordering Dr: Lisette Richardson DO [id number] EXAM: XR THORACIC SPINE, 3 VIEWS CLINICAL [...] CC: MICHAEL Corea; Dr. Lisette Richardson DO Arts Administrator Or Manager: Signed Normal [facility] Basic Metabolic Profile (BMP )on 05-11-2024 BUN/CRE 18.9 RATIO Normal 05-17 [facility] Comment on above: Performed By: #### L 501.9520, L506.0400, L500.2500 ####[facility] [address] [place], [address] CA,Total 9.8 mg/dL Normal 8.5-10.1 [facility] Comment on above: Performed By: #### L 501.9520, L506.0400, L500.2500 ####[facility] [address] [place], [address] Chloride [Moles/Vol] 106 mmol/L Normal 98-107 [facility] Comment on above: Performed By: #### L 501.9520, L506.0400, L500.2500 ####[facility] [address] [place], [address] CO2 [Moles/Vol] 25.0 mmol/L Normal 21.0-32.0 [facility] Comment on above: Performed By: #### L 501.9520, L506.0400, L500.2500 ####[facility] [address] [place], [address] Creatinine [Mass/Vol] 0.74 mg/dL Normal 0.55-1.02 [facility] Comment on above: Result Comment: The validity of the calculated GFR GFRAA in patients over 70 years has not been determined. Clinical correlation is essential. Performed By: #### L 501.9520, L506.0400, L500.2500 ####[facility] [address] [place], [address] EST GFR - AA 103 mL/min Normal >60 [facility] Comment on above: Result Comment: Afri can Spanish GFR Calc Performed By: #### L 501.9520, L506.0400, L500.2500 ####[facility] [address] [place], [address] GAP 7 Normal 5-15 [facility] Comment on above: Performed By: #### L 501.9520, L506.0400, L500.2500 ####[facility] [address] [place], [address] GFR/1.73 sq M.predicted among non-blacks MDRD (S/P/Bld) [Vol rate/Area] 85 mL/min/{1.73_m2} Normal >60 [facility] Comment on above: Result Comment: Non- GFR Calc Performed By: #### L 501.9520, L506.0400, L500.2500 ####[facility] [address] [place], [address] Glucose [Mass/Vol] 98 mg/dL Normal 74-106 [facility] Comment on above: Performed By: #### L 501.9520, L506.0400, L500.2500 ####[facility] [address] [place], [address] Potassium [Moles/Vol] 3.8 mmol/L Normal 3.5-5.1 [facility] Comment on above: Performed By: #### L 501.9520, L506.0400, L500.2500 ####[facility] [address] [place], [address] Sodium [Moles/Vol] 138 mmol/L Normal 136-145 [facility] Comment on above: Performed By: #### L 501.9520, L506.0400, L500.2500 ####[facility] [address] [place], [address] Urea nitrogen [Mass/Vol] 14 mg/dL Normal 7-18 [facility] Comment on above: Performed By: #### L 501.9520, L506.0400, L500.2500 ####[facility] [address] [place], [address] T4 Free Directon 05-11-2024 T4 FREE DIRECT 1.43 ng/dL Normal 0.76-1.46 [facility] Comment on above: Performed By: #### L 501.9520, L506.0400, L500.2500 ####[facility] [address] [place], [address] Thyroid Stim Hormone (TSH)on 05-11-2024 TSH 0.553 uIU/mL Normal 0.358-3.740 [facility] Comment on above: Performed By: #### L 501.9520, L506.0400, L500.2500 ####[facility] [address] [place], [address] Basophil percentageOrdered B y: Alanna Avila on 11-06-2023 Chloride [Moles/Vol] 108 mmol/L 98-107 [facility] Glucose [Mass/Vol] 89 mg/dL 74-106 [facility] Potassium [Moles/Vol] 3.9 mmol/L 3.5-5.1 [facility] Sodium [Moles/Vol] 138 mmol/L 136-145 [facility] - Chemistry and C hemistry - challengeOrdered By: Alanna Avila on 11-06-2023 CO2 [Moles/Vol] 26.0 mmol/L 21.0-32.0 [facility] Urea nitrogen/Creatinine [Mass ratio] 20.3 mg/mg 05-17 [facility] No Panel InformationOrdered By: Alanna Avila on 11-06-2023 Estimated GFR (MDRD) Amer 103 mL/min >60 [facility] Comment on above: GFR Calc Estimated GFR (MDRD) Non-Af Amer 85 mL/min >60 [facility] Comment on above: Non- GFR Calc Vitamin D 25-Hydroxy 65.3 ng/mL [facility] Comment on above: Vitamin D 25(OH) Sta tus Range Deficiency <20 ng/mL (50nmol/L) Insufficiency 20 - 30 ng/mL (50 - 75 nmol/L) Sufficiency 30 - 100 ng/mL (75 - 250 nmol/L) Toxicity >100 ng/mL (>250 nmol/L) Serum or plasma calcium bria urement (mass/volume)Ordered By: Alanna Avila on 11-06-2023 Calcium [Mass/Vol] 9.4 mg/dL 8.5-10.1 [facility] Serum or plasma creatinine m easurement (mass/volume)Ordered By: Alanna Avila on 11-06-2023 Creatinine [Mass/Vol] 0.74 mg/dL 0.55-1.02 [facility] Comment on above: The validity of the calculated GFR & GFRAA in patients over 70 years has not been determined. Clinical correlation is essential. Serum or plasma thyroid stim ulating hormone (TSH) measurement (units/volume)Ordered By: Alanna Avila on 11-06-2023 TSH Qn 1.33 uIU/mL 0.358-3.74 [facility] Serum or plasma urea nitroge n measurement (mass/volume)Ordered By: Alanna Avila on 11-06-2023 Urea nitrogen [Mass/Vol] 15 mg/dL 7-18 [facility] Thin prep Papanicolaou smear with manual screeningOrdered By: Alanna Avila on 11-06-2023 Thin prep Papanicolaou smear with manual screening 4 5-15 [facility] Thin prep Papanicolaou smear with manual screening 1.60 ng/dL 0.76-1.46 [facility] Basophil percentageOrdered B y: Swapna Corea on 08-30-2023 Bilirubin [Mass/Vol] 0.50 mg/dL 0.20-1.00 [facility] Comment on above: For patients on eltr ombopag therapy, use of Dimension Sodus TBIL is not recommended. Cholesterol [Mass/Vol] 163 mg/dL <200 [facility] Comment on above: <200 mg/dL Desirable 200-240 mg/dL Borderline >240 mg/dL High Risk Protein [Mass/Vol] 7.5 g/dL 6.4-8.2 [facility] Triglyceride [Mass/Vol] 101 mg/dL <199 [facility] Comment on above: The drugs N-Acetylcy steine and Metamizole may falsely depress this assay.Serum Triglycerides Reference Interval Normal <150 mg/dL Borderline high 150 - 199 mg/dL High 200 - 499 mg/dL Very High > or = 500 mg/dL Direct bilirubinOrdered By: Swapna Corea on 08-30-2023 Bilirubin.direct [Mass/Vol] 0.15 mg/dL 0.00-0.30 [facility] - Chemistry and C hemistry - challengeOrdered By: Swapna Corea on 08-30-2023 ALP [Catalytic activity/Vol] 116 U/L 45-117 [facility] ALT [Catalytic activity/Vol] 23 U/L 13-56 [facility] Cholesterol in HDL (Body fld) [Mass/Vol] 50 mg/dL >40 [facility] Comment on above: The drugs N-Acetylcy steine and Metamizole may falsely depress this assay. Reference Range HDL <40 mg/dL Low HDL Cholesterol HDL >or= 60 mg/dL High HDL Cholesterol Cholesterol in LDL (Body fld) [Moles/Vol] 93 mg/dL 0-130 [facility] Cholesterol in VLDL Calc [Moles/Vol] 20 mg/dL 5-40 [facility] Globulin (S) [Mass/Vol] 3.7 g/dL 2.2-4.2 [facility] Thin prep Papanicolaou smear with manual screeningOrdered By: Swapna Corea on 08-30-2023 Thin prep Papanicolaou smear with manual screening 3.8 g/dL 3.2-5.0 [facility] Thin prep Papanicolaou smear with manual screening 12 U/L 15-37 [facility] .Auto Diffon 05-27-2023 Basophil, Absolute 0.0 10 3/mcL Normal 0.0-0.2 [facility] ([place]) Comment on above: Performed By: #### L IP, GFRJB ANEU, MDW, CBC, TROPHS, CMP #### [address] [address] Basophils/100 WBC (Bld) 0.1 % Normal 0.0-2.5 [facility] ([place]) Comment on above: Performed By: #### L IP, GFRJB ANEU, MDW, CBC, TROPHS, CMP #### [address] [address] Eosinophil, Absolute 0.0 10 3/mcL Normal 0.0-0.4 [facility] ([place]) Comment on above: Performed By: #### L IP, GFR, ADIFF, ANEU, MDW, CBC, TROPHS, CMP #### [address] [address] Eosinophils/100 WBC (Bld) 0.1 % Normal 0.0-7.0 [facility] ([place]) Comment on above: Performed By: #### L IP, GFR, ADIFF, ANEU, MDW, CBC, TROPHS, CMP #### [address] [address] Lymphocyte, Absolute 0.7 10 3/mcL Low 0.8-3.9 [facility] ([place]) Comment on above: Performed By: #### L IP, GFR, ADIFF, ANEU, MDW, CBC, TROPHS, CMP #### [address] [address] Lymphocytes/100 WBC (Bld) 4.5 % Low 10.0-50.0 [facility] ([place]) Comment on above: Performed By: #### L IP, GFR, ADIFF, ANEU, MDW, CBC, TROPHS, CMP #### [address] [address] Monocyte, Absolute 0.5 10 3/mcL Normal 0.2-1.0 [facility] ([place]) Comment on above: Performed By: #### L IP, GFR, ADIFF, ANEU, MDW, CBC, TROPHS, CMP #### [address] [address] Monocytes/100 WBC (Bld) 3.2 % Normal 1.7-13.0 [facility] ([place]) Comment on above: Performed By: #### L IP, GFR, ADIFF, ANEU, MDW, CBC, TROPHS, CMP #### [address] [address] Neutrophils/100 WBC (Bld) 92.1 % High 37.0-80.0 [facility] ([place]) Comment on above: Performed By: #### L IP, GFR, ADIFF, ANEU, MDW, CBC, TROPHS, CMP #### [address] [address] .GFRon 05-27-2023 GFR 79 ml/min/1.73sqm Normal [facility] ([place]) Comment on above: Result Comment: GFR Population [...] ADIFF, ANEU, MDW, CBC, TROPHS, CMP #### [address] [address] GFR Non- 66 ml/min/1.73sqm Normal [facility] ([place]) Comment on above: Result Comment: GFR Population [...] ADIFF, ANEU, MDW, CBC, TROPHS, CMP #### [address] [address] .MDWon 05-27-2023 Monocyte Distribution Width 16.33 Normal 0.00-20.00 [facility] ([place]) Comment on above: Result Comment: For ED adult patients suspected of sepsis, MDW<=20.0 does not rule out sepsis or risk of sepsis Performed By: #### L IP, GFR, ADIFF, ANEU, MDW, CBC, TROPHS, CMP #### [place] [address] .NEUABSon 05-27-2023 Neutrophil, Absolute 14.0 10 3/mcL High 2.9-6.2 A [facility] ([place]) Comment on above: Performed By: #### L IP, GFR, ADIFF, ANEU, MDW, CBC, TROPHS, CMP #### [place] [address] CBCon 05-27-2023 Erythrocyte distribution width (RBC) [Ratio] 13.1 % Normal 11.5-14.5 [facility] ([place]) Comment on above: Performed By: #### L IP, GFR, ADIFF, ANEU, MDW, CBC, TROPHS, CMP #### [place] [address] Hematocrit (Bld) [Volume fraction] 43.3 % Normal 37.0-47.0 [facility] ([place]) Comment on above: Performed By: #### L IP, GFR, ADIFF, ANEU, MDW, CBC, TROPHS, CMP #### [place] [address] Hgb 14.6 G/dL Normal 12.0-16.0 [facility] ([place]) Comment on above: Performed By: #### L IP, GFR, ADIFF, ANEU, MDW, CBC, TROPHS, CMP #### [place] [address] MCH (RBC) [Entitic mass] 29.3 pg Normal 27.0-31.2 [facility] ([place]) Comment on above: Performed By: #### L IP, GFR, ADIFF, ANEU, MDW, CBC, TROPHS, CMP #### [place] [address] MCHC 33.8 G/dL Normal 33.0-37.0 [facility] ([place]) Comment on above: Performed By: #### L IP, GFR, ADIFF, ANEU, MDW, CBC, TROPHS, CMP #### [address] [address] MCV (RBC) [Entitic vol] 86.5 fL Normal 80.0-94.0 [facility] ([place]) Comment on above: Performed By: #### L IP, GFR, ADIFF, ANEU, MDW, CBC, TROPHS, CMP #### [address] [address] Platelet 209 10 3/mcL Normal 130-400 [facility] ([place]) Comment on above: Performed By: #### L IP, GFR, ADIFF, ANEU, MDW, CBC, TROPHS, CMP #### [address] [address] Platelet mean volume (Bld) [Entitic vol] 7.1 fL Low 7.4-10.4 [facility] ([place]) Comment on above: Performed By: #### L IP, GFR, ADIFF, ANEU, MDW, CBC, TROPHS, CMP #### [address] [address] RBC 5.00 10 6/mcL Normal 4.20-5.40 [facility] ([place]) Comment on above: Performed By: #### L IP, GFR, ADIFF, ANEU, MDW, CBC, TROPHS, CMP #### [address] [address] WBC 15.2 10 3/mcL High 4.6-10.8 [facility] ([place]) Comment on above: Performed By: #### L IP, GFR, ADIFF, ANEU, MDW, CBC, TROPHS, CMP #### [address] [address] CMPon 05-27-2023 Albumin Level 4.5 G/dL Normal 3.4-4.8 [facility] ([place]) Comment on above: Performed By: #### L IP, GFR, ADIFF, ANEU, MDW, CBC, TROPHS, CMP #### [address] [address] Albumin/Globulin [Mass ratio] 1.4 {ratio} Normal 1.1-2.5 [facility] ([place]) Comment on above: Performed By: #### L IP, GFR, ADIFF, ANEU, MDW, CBC, TROPHS, CMP #### [address] [address] ALP [Catalytic activity/Vol] 146 U/L High 40-135 [facility] ([place]) Comment on above: Performed By: #### L IP, GFR, ADIFF, ANEU, MDW, CBC, TROPHS, CMP #### [place] [id number] ALT [Catalytic activity/Vol] 21 U/L Normal 14-59 [facility] ([place]) Comment on above: Performed By: #### L IP, GFR, ADIFF, ANEU, MDW, CBC, TROPHS, CMP #### [place] [id number] AST [Catalytic activity/Vol] 17 U/L Normal 10-40 [facility] ([place]) Comment on above: Performed By: #### L IP, GFR, ADIFF, ANEU, MDW, CBC, TROPHS, CMP #### [address] [address] Bili Total 1.0 mg/dL Normal 0.2-1.0 [facility] ([place]) Comment on above: Result Comment: Use of this assay is not recommended for patients undergoing treatment with eltrombopag due to the potential for falsely elevated results. Performed By: #### L IP, GFR, ADIFF, ANEU, MDW, CBC, TROPHS, CMP #### [address] [address] BUN/Creatinine Ratio 20 ratio Normal 7-27 [facility] ([place]) Comment on above: Performed By: #### L IP, GFR, ADIFF, ANEU, MDW, CBC, TROPHS, CMP #### [place] [id number] Calcium [Mass/Vol] 9.1 mg/dL Normal 8.4-10.2 [facility] ([place]) Comment on above: Performed By: #### L IP, GFR, ADIFF, ANEU, MDW, CBC, TROPHS, CMP #### [address] [address] Chloride [Moles/Vol] 96 mmol/L Low 98-107 [facility] ([place]) Comment on above: Performed By: #### L IP, GFR, ADIFF, ANEU, MDW, CBC, TROPHS, CMP #### [address] [address] CO2 [Moles/Vol] 24 mmol/L Normal 23-31 [facility] ([place]) Comment on above: Performed By: #### L IP, GFR, ADIFF, ANEU, MDW, CBC, TROPHS, CMP #### [address] [address] Creatinine [Mass/Vol] 0.88 mg/dL Normal 0.55-1.02 [facility] ([place]) Comment on above: Performed By: #### L IP, GFR, ADIFF, ANEU, MDW, CBC, TROPHS, CMP #### [address] [address] Electrolyte Balance 14.0 mEq/L Normal 4.0-15.0 [facility] ([place]) Comment on above: Performed By: #### L IP, GFR, ADIFF, ANEU, MDW, CBC, TROPHS, CMP #### [address] [address] Globulin 3.3 G/dL Normal [facility] ([place]) Comment on above: Performed By: #### L IP, GFR, ADIFF, ANEU, MDW, CBC, TROPHS, CMP #### [address] [address] Glucose [Mass/Vol] 149 mg/dL High 80-115 [facility] ([place]) Comment on above: Performed By: #### L IP, GFR, ADIFF, ANEU, MDW, CBC, TROPHS, CMP #### [address] [address] Potassium [Moles/Vol] 4.3 mmol/L Normal 3.5-5.1 [facility] ([place]) Comment on above: Performed By: #### L IP, GFR, ADIFF, ANEU, MDW, CBC, TROPHS, CMP #### [place] [address] [place], [place] [address] Sodium [Moles/Vol] 134 mmol/L Low 136-145 [facility] ([place]) Comment on above: Performed By: #### L IP, GFR, ADIFF, ANEU, MDW, CBC, TROPHS, CMP #### [address] [address] Total Protein 7.8 G/dL Normal 6.4-8.2 [facility] ([place]) Comment on above: Performed By: #### L IP, GFR, ADIFF, ANEU, MDW, CBC, TROPHS, CMP #### [address] [address] Urea nitrogen [Mass/Vol] 18 mg/dL Normal 7-18 [facility] ([place]) Comment on above: Performed By: #### L IP, GFR, ADIFF, ANEU, MDW, CBC, TROPHS, CMP #### [address] [address] [address] ABD/PELVIS W/ IV CONTRAST ONLYon 05-27-2023 [...] 9:43:32 PM Ordering Provider: DAT IVY Normal [facility] ([place]) LIPon 05-27-2023 Lipase Level 25 U/L Normal 16-77 [facility] ([place]) Comment on above: Performed By: #### L IP, GFR, FRIDA MUHAMMAD MDW, CBC, TROPHS, CMP #### [address] [address] TROPHSon 05-27-2023 Troponin I High Sensitivity 4.4 ng/L Normal 0.0-51.4 [facility] ([place]) Comment on above: Performed By: #### L IP, GFR, FRIDA MUHAMMAD MDW, CBC, TROPHS, CMP #### [place] [address] [place], [place] [address] UAon 05-27-2023 Color (U) Yellow Normal [facility] ([place]) Comment on above: Performed By: #### U A #### [address] [address] Glucose (U) [Mass/Vol] Negative Normal Negative [facility] ([place]) Comment on above: Performed By: #### U A #### [address] [address] Ketones Ql (U) >=160 Abnormal Negative [facility] ([place]) Comment on above: Performed By: #### U A #### [place] [address] [address] UA Appear Clear Normal Clear [facility] ([place]) Comment on above: Performed By: #### U A #### [address] [address] UA Blood Negative Normal Negative [facility] ([place]) Comment on above: Performed By: #### U A #### [address] [address] UA Leuk Est Negative Normal Negative [facility] ([place]) Comment on above: Performed By: #### U A #### [place] [address] UA Nitrite Negative Normal Negative [facility] ([place]) Comment on above: Performed By: #### U A #### [address] [address] UA pH 5.5 Normal 5.0 - 8.0 [facility] ([place]) Comment on above: Performed By: #### U A #### [address] [address] UA Protein Negative Normal Negative [facility] ([place]) Comment on above: Performed By: #### U A #### [address] [address] UA Spec Grav 1.025 Normal 1.015-1.025 [facility] ([place]) Comment on above: Performed By: #### U A #### [place] [address] UA Specimen Type Void Normal [facility] ([place]) Comment on above: Performed By: #### U A #### [address] [address] UA Urobilinogen 0.2 E.U./dL Normal 0.2-1.0 [facility] ([place]) Comment on above: Performed By: #### U A #### [place] [address] [place], [place] [address] Urobilinogen (U) [Mass/Vol] Negative Normal Negative [facility] ([place]) Comment on above: Performed By: #### U A #### [place] [address] [place], [place] [address] Basophil percentageOrdered B y: Alanna Avila on 05-06-2023 Chloride [Moles/Vol] 105 mmol/L 98-107 [facility] Glucose [Mass/Vol] 95 mg/dL 74-106 [facility] Potassium [Moles/Vol] 3.7 mmol/L 3.5-5.1 [facility] Sodium [Moles/Vol] 138 mmol/L 136-145 [facility] Laboratory - Chemistry and C hemistry - challengeOrdered By: Alanna Avila on 05-06-2023 CO2 [Moles/Vol] 26.0 mmol/L 21.0-32.0 [facility] Free T4 [Mass/Vol] 1.45 ng/dL 0.76-1.46 [facility] Urea nitrogen/Creatinine [Mass ratio] 21.8 mg/mg 10-20 [facility] No Panel InformationOrdered By: Alanna Avila on 05-06-2023 Estimated GFR (MDRD) Amer 91 mL/min >60 [facility] Comment on above: GFR Calc Estimated GFR (MDRD) Non-Af Amer 75 mL/min >60 [facility] Comment on above: Non- GFR Calc Thyroid Stimulating Hormone (TSH) 0.96 uIU/mL 0.358-3.74 [facility] Serum or plasma calcium bria urement (mass/volume)Ordered By: Alanna Avila on 05-06-2023 Calcium [Mass/Vol] 9.4 mg/dL 8.5-10.1 [facility] Serum or plasma creatinine m easurement (mass/volume)Ordered By: Alanna Avila on 05-06-2023 Creatinine [Mass/Vol] 0.82 mg/dL 0.55-1.02 [facility] Comment on above: The validity of the calculated GFR & GFRAA in patients over 70 years has not been determined. Clinical correlation is essential. Serum or plasma urea nitroge n measurement (mass/volume)Ordered By: Alanna Avila on 05-06-2023 Urea nitrogen [Mass/Vol] 18 mg/dL 7-18 [facility] Thin prep Papanicolaou smear with manual screeningOrdered By: Alanna Avila on 05-06-2023 Thin prep Papanicolaou smear with manual screening 7 5-15 [facility] XR FOOT LEFT 3+ VIEWS (STAND MARY)on [...] unspecified site, unspecified whether rheumatoid factor present ([facility]) COMPARISON: None. FINDINGS: Three views of the left foot. No fractures. Hallux valgus deformity with mild osteoarthrosis of the 1st metatarsophalangeal joint. No periarticular osteopenia or erosions. Plantar calcaneal and Achilles insertional enthesophytes. Normal soft tissues. IMPRESSION: No evidence of erosive arthropathy. 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 Plantar calcaneal and Achilles insertional enthesophytes. [facility]/[employer] [facility] Workstation ID: [id number] Dictated by: JOLYNN THIBODEAUX on SatAug 08, 2022 6:25:44 AM EST Transcribed by: DIMAS BURRELL on SatAug 08, 2022 6:27:37 AM EST Finalized by: JOLYNN THIBODEAUX on SatAug 08, 2022 6:48:08 AM EST Normal [facility] Comment on above: Order Comment: Injur y/Trauma or Illness?:Illness/Other How long have you had these symptoms (acute/chronic)?:Chronic Reason for exam?:assess for any evidence of RA History of cancer?: Surgeries, chemotherapy, or radiation?: Type of Exam?:Initial Additional signs and symptoms?:Pain XR FOOT RIGHT 3+ VIEWS (MELISSA HURSTAbebe)on 08-06-2022 XR FOOT RIGHT 3+ VIEWS (STANDARD) [...] unspecified site, unspecified whether rheumatoid factor present ([facility]) COMPARISON: None. FINDINGS: Three views of the right foot. No fractures. Evidence of prior osteotomy of the 1st metatarsal head. Moderate degenerative changes of the 1st metatarsophalangeal joint. No periarticular osteopenia or erosions. Plantar calcaneal and Achilles insertional enthesophytes. Normal soft tissues. IMPRESSION: No evidence of erosive arthropathy. 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 Plantar calcaneal and Achilles insertional enthesophytes. [employer] Workstation ID: [id number] Dictated by: JOLYNN THIBODEAUX on SatAug 08, 2022 6:24:45 AM EST Transcribed by: CHACORTA CHATMAN on SatAug 08, 2022 6:27:10 AM EST Finalized by: JOLYNN THIBODEAUX on SatAug 08, 2022 6:48:14 AM EST Normal [facility] Comment on above: Order Comment: Injur [...] mild degenerative changes throughout the interphalangeal joints. [facility]/[employer] Workstation ID: [id number] Dictated by: JOLYNN THIBODEAUX on SatAug 08, 2022 6:26:49 AM EST Transcribed by: CHACORTA CHATMAN on SatAug 08, 2022 6:27:59 AM EST Finalized by: JOLYNN THIBODEAUX on SatAug 08, 2022 6:48:[address] [facility] Comment on above: Order Comment: Injur [...] unspecified whether rheumatoid factor present (HCC) COMPARISON: None IMPRESSION: FINDINGS/ No erosions or periosteal reaction. Quadriceps insertion enthesophyte. No osteophytes. No joint effusion. Workstation ID: [id number] Dictated by: JALEN SPRINGER on SatAug 06, 2022 6:22:06 PM EST Transcribed by: JALEN SPRINGER on SatAug 06, 2022 6:22:06 PM EST Finalized by: JALEN SPRINGER on SatAug 06, 2022 6:22:[address] [facility] Comment on above: Order Comment: AP/LA [...] by: JASON JARVIS MD, Date: 07/05/2022 10:37 [facility] Comment on above: Order Comment: CONTR AST PER RADIOLOGIST DISCRETION No Oral or IV contrast Absolute lymphocyte counton 05-08-2022 Lymphocytes Auto (Unsp spec) [#/Vol] 2.11 10*3/uL 0.83-4.51 [facility] Work Phone: Basophil percentageon 2021 Basophils/100 WBC (Bld) 0.2 % 0-1 [facility] Work Phone: [phone] Bilirubin [Mass/Vol] 0.40 mg/dL 0.20-1.00 [facility] Work Phone: Comment on above: For patients on eltr ombopag therapy, use of Dimension Sodus TBIL is not recommended. Chloride [Moles/Vol] 108 mmol/L 98-107 [facility] Work Phone: [phone] Eosinophils/100 WBC (Bld) 2.3 % 0-5 [facility] Work Phone: [phone] Glucose [Mass/Vol] 98 mg/dL 74-106 [facility] Work Phone: [phone] Neutrophils (Bld) [#/Vol] 5.1 10*3/uL 2.0-7.7 [facility] Work Phone: Neutrophils/100 WBC (Bld) 63.3 % 47-70 [facility] Work Phone: Potassium [Moles/Vol] 3.7 mmol/L 3.5-5.1 [facility] Work Phone: Protein [Mass/Vol] 7.8 g/dL 6.4-8.2 [facility] Work Phone: Sodium [Moles/Vol] 140 mmol/L 136-145 [facility] Work Phone: WBC (Bld) [#/Vol] 8.1 10*3/uL 4.4-11.0 [facility] Work Phone: Blood erythrocytes count (nu mber/volume)on 05-08-2022 RBC (Bld) [#/Vol] 4.46 10*6/uL 4.2-5.4 [facility]: Blood hemoglobin measurement (mass/volume)on 05-08-2022 Hemoglobin (Bld) [Mass/Vol] 13.0 g/dL 12.0-15.0 [facility] Work Phone: Blood lymphocytes/100 leukoc yteson 05-08-2022 Lymphocytes/100 WBC (Bld) 25.9 % 19-41 [facility] Work Phone: Blood monocytes/100 leukocyt eson 05-08-2022 Monocytes/100 WBC (Bld) 8.1 % 0-10 [facility] Work Phone: Blood platelet mean volumeon 05-08-2022 Platelet mean volume (Bld) [Entitic vol] 9.0 fL 6.2-12.0 [facility] Work Phone: Determination of erythrocyte mean corpuscular volume (MCV)on 05-08-2022 MCV (RBC) [Entitic vol] 87.2 fL 81-99 [facility] Work Phone: Hematocrit Auto (Bld) [Volum e fraction]on 05-08-2022 Hematocrit (Bld) [Volume fraction] 38.9 % 37-47 [facility] Work Phone: Laboratory - Chemistry and C hemistry - challengeon 05-08-2022 ALP [Catalytic activity/Vol] 133 U/L 45-117 [facility] Work Phone: [phone] ALT [Catalytic activity/Vol] 20 U/L 13-56 [facility] Work Phone: [phone] CO2 [Moles/Vol] 26.0 mmol/L 21.0-32.0 [facility] Work Phone: [phone] Cobalamin (Vitamin B12) [Mass/Vol] 347 pg/mL 211-911 [facility] Work Phone: [phone] Free T4 [Mass/Vol] 1.50 ng/dL 0.76-1.46 [facility] Work Phone: Globulin (S) [Mass/Vol] 3.9 g/dL 2.2-4.2 [facility] Work Phone: Urea nitrogen/Creatinine [Mass ratio] 14.9 mg/mg 10-20 [facility] Work Phone: Laboratory - Hematology and Cell countson 05-08-2022 Erythrocyte distribution width (RBC) [Entitic vol] 41.2 fL 35.1-43.9 [facility] Work Phone: Erythrocyte distribution width (RBC) [Ratio] 12.9 % 11.6-14.6 [facility] Work Phone: Immature granulocytes/100 WBC (Bld) 0.200 % 0.0-0.9 [facility] Work Phone: Comment on above: IG% - Immature Granu locytes (promyelocytes, myelocytes and metamyelocytes) > 1% indicates that a LEFT SHIFT is Present. MCH (RBC) [Entitic mass] 29.1 pg 27.0-32.0 [facility] Work Phone: Nucleated RBC/100 WBC (Bld) [Ratio] 0 % 0-5 [facility] Work Phone: MCHC Auto (RBC) [Mass/Vol]on 05-08-2022 MCHC (RBC) [Mass/Vol] 33.4 g/dL 32-36 [facility] Work Phone: No Panel Informationon 05-08 Estimated GFR (MDRD) Amer 93 mL/min >60 [facility] Work Phone: Comment on above: GFR Calc Estimated GFR (MDRD) Non-Af Amer 77 mL/min >60 [facility] Work Phone: Comment on above: Non- GFR Calc Thyroid Stimulating Hormone (TSH) 0.86 uIU/mL 0.358-3.74 [facility] Work Phone: Platelets bldon 05-08-2022 Platelets (Bld) [#/Vol] 263 10*3/uL 150-450 [facility] Work Phone: Serum or plasma albumin bria urement (mass/volume)on 05-08-2022 Albumin [Mass/Vol] 3.9 g/dL 3.2-5.0 [facility] Work Phone: Serum or plasma albumin/glob ulin mass ratioon 05-08-2022 Albumin/Globulin [Mass ratio] 1.0 {ratio} 0.9-2.4 [facility] Work Phone: Serum or plasma calcium bria urement (mass/volume)on 05-08-2022 Calcium [Mass/Vol] 9.1 mg/dL 8.5-10.1 [facility] Work Phone: Serum or plasma creatinine m easurement (mass/volume)on 05-08-2022 Creatinine [Mass/Vol] 0.81 mg/dL 0.55-1.02 [facility] Work Phone: Comment on above: The validity of the calculated GFR & GFRAA in patients over 70 years has not been determined. Clinical correlation is essential. Serum or plasma urea nitroge n measurement (mass/volume)on 05-08-2022 Urea nitrogen [Mass/Vol] 12 mg/dL 7-18 [facility] Work Phone: Thin prep Papanicolaou smear with manual screeningon 05-08-2022 Thin prep Papanicolaou smear with manual screening 12 U/L 15-37 [facility] Work Phone: Thin prep Papanicolaou smear with manual screening 6 5-15 [facility] Work Phone: Culture, urineon 12-15-2021 Bacteria identified Cx Nom (U) Positive [facility] Work Phone: Laboratory - Chemistry and C hemistry - challengeon 11-17-2021 Cobalamin (Vitamin B12) [Mass/Vol] 349 pg/mL 211-911 [facility] Work Phone: Free T4 [Mass/Vol] 1.44 ng/dL 0.76-1.46 [facility] Work Phone: No Panel Informationon 11-17 Thyroid Stimulating Hormone (TSH) 0.51 uIU/mL 0.358-3.74 [facility] Work Phone: Vitamin D 25-Hydroxy 64.2 ng/mL [facility] Work Phone: Comment on above: Vitamin D 25(OH) Sta tus Range Deficiency <20 ng/mL (50nmol/L) Insufficiency 20 - 30 ng/mL (50 - 75 nmol/L) Sufficiency 30 - 100 ng/mL (75 - 250 nmol/L) Toxicity >100 ng/mL (>250 nmol/L) Serum or plasma ferritin shirley surement (mass/volume)on 11-17-2021 Ferritin [Mass/Vol] 87 ng/mL 8-252 [facility] Work Phone: Office Visit: UC: pyelonephr itison 06-27-2017 Documentation of current medications (procedure) Done Invalid Interpretation Code [facility] Work Phone: Fall risk assessment No Invalid Interpretation Code [facility] Work Phone: Tobacco smoking status NHIS Never Invalid Interpretation Code [facility] Work Phone: Tobacco smoking status NHIS Tobacco smoking status NHIS Invalid Interpretation Code [facility] Work Phone: Tobacco use [facility] Never smoker Invalid Interpretation Code [facility] Work Phone: Culture, urine Bacteria identified Cx Nom (U) Positive [facility] Work Phone: Vital Signs Date Time Vital Sign Value Performing Clinician Facility 04-22-2025 08:56-0400 Body height 157.48 cm Swapna Anmol [employer] ADMINISTRATOR OR MANAGER-C Work Phone: [facility] 04-22-2025 08:56-0400 Body mass index (BMI) [Ratio] 28.3 kg/m2 Swapna Anmol [employer]S ADMINISTRATOR OR MANAGER-C Work Phone: [facility] 04-22-2025 08:56-0400 Body weight 70.39 kg Swapna Anmol ARTS ADMINISTRATOR OR MANAGER-C Work Phone: [facility] 04-22-2025 08:56-0400 Diastolic blood pressure 82 mm[Hg] Swapna Anmol ARTS ADMINISTRATOR OR MANAGER-C Work Phone: [facility] 04-22-2025 08:56-0400 Systolic blood pressure 125 mm[Hg] Swapna Anmol ARTS ADMINISTRATOR OR MANAGER-C Work Phone: [facility] 01-26-2025 06:07-0400 Body temperature 98.2 [degF] Swapna Anmol ARTS ADMINISTRATOR OR MANAGER-C Work Phone: [facility] 01-26-2025 06:07-0400 Diastolic blood pressure 60 mm[Hg] Swapna Anmol ARTS ADMINISTRATOR OR MANAGER-C Work Phone: [facility] 01-26-2025 06:07-0400 Heart rate 85 /min Swapna Anmol ARTS ADMINISTRATOR OR MANAGER-C Work Phone: [facility] 01-26-2025 06:07-0400 Respiratory rate 16 /min Swapna Anmol ARTS ADMINISTRATOR OR MANAGER-C Work Phone: [facility] 01-26-2025 06:07-0400 SaO2% (BldA) [Mass fraction] 99 % Swapna Anmol ARTS ADMINISTRATOR OR MANAGER-C Work Phone: [facility] 01-26-2025 06:07-0400 Systolic blood pressure 104 mm[Hg] Swapna Anmol ARTS ADMINISTRATOR OR MANAGER-C Work Phone: [facility] 01-11-2025 06:43-0400 Body height 157.48 cm Swapna Anmol ARTS ADMINISTRATOR OR MANAGER-C Work Phone: [facility] 01-11-2025 06:43-0400 Body temperature 98.4 [degF] Swapna Anmol ARTS ADMINISTRATOR OR MANAGER-C Work Phone: [facility] 01-11-2025 06:43-0400 Diastolic blood pressure 66 mm[Hg] Swapna Anmol ARTS ADMINISTRATOR OR MANAGER-C Work Phone: [facility] 01-11-2025 06:43-0400 Heart rate 71 /min Swapna Anmol ARTS ADMINISTRATOR OR MANAGER-C Work Phone: [facility] 01-11-2025 06:43-0400 Respiratory rate 16 /min Swapna Anmol ARTS ADMINISTRATOR OR MANAGER-C Work Phone: [facility] 01-11-2025 06:43-0400 SaO2% (BldA) [Mass fraction] 98 % Swapna Anmol ARTS ADMINISTRATOR OR MANAGER-C Work Phone: [facility] 01-11-2025 06:43-0400 Systolic blood pressure 110 mm[Hg] Swapna Anmol ARTS ADMINISTRATOR OR MANAGER-C Work Phone: [facility] 01-11-2025 06:27-0400 Body mass index (BMI) [Ratio] 27.6 kg/m2 Swapna Anmol ARTS ADMINISTRATOR OR MANAGER-C Work Phone: [facility] 01-11-2025 06:27-0400 Body temperature 98.4 [degF] Swapna Anmol ARTS ADMINISTRATOR OR MANAGER-C Work Phone: [facility] 01-11-2025 06:27-0400 Body weight 68.49 kg Swapna Anmol ARTS ADMINISTRATOR OR MANAGER-C Work Phone: [facility] 01-11-2025 06:27-0400 Diastolic blood pressure 62 mm[Hg] Swapna Anmol ARTS ADMINISTRATOR OR MANAGER-C Work Phone: [facility] 01-11-2025 06:27-0400 Heart rate 58 /min Swapna Anmol ARTS ADMINISTRATOR OR MANAGER-C Work Phone: [facility] 01-11-2025 06:27-0400 Respiratory rate 14 /min Swapna Anmol ARTS ADMINISTRATOR OR MANAGER-C Work Phone: [facility] 01-11-2025 06:27-0400 SaO2% (BldA) [Mass fraction] 98 % Swapna Anmol ARTS ADMINISTRATOR OR MANAGER-C Work Phone: [facility] 01-11-2025 06:27-0400 Systolic blood pressure 102 mm[Hg] Swapna Anmol ARTS ADMINISTRATOR OR MANAGER-C Work Phone: [facility] 01-06-2025 21:00-0400 Body temperature 98.2 [degF] Swapna Anmol ARTS ADMINISTRATOR OR MANAGER-C Work Phone: [facility] 01-06-2025 21:00-0400 Diastolic blood pressure 81 mm[Hg] Swapna Anmol ARTS ADMINISTRATOR OR MANAGER-C Work Phone: [facility] 01-06-2025 21:00-0400 Heart rate 70 /min Swapna Anmol ARTS ADMINISTRATOR OR MANAGER-C Work Phone: [facility] 01-06-2025 21:00-0400 Respiratory rate 18 /min Swapna Anmol ARTS ADMINISTRATOR OR MANAGER-C Work Phone: [facility] 01-06-2025 21:00-0400 SaO2% (BldA) [Mass fraction] 98 % Swapna Anmol ARTS ADMINISTRATOR OR MANAGER-C Work Phone: [facility] 01-06-2025 21:00-0400 Systolic blood pressure 150 mm[Hg] Swapna Anmol ARTS ADMINISTRATOR OR MANAGER-C Work Phone: [facility] 01-06-2025 13:16-0400 Body height 157.48 cm Swapna Corea ARTS ADMINISTRATOR OR MANAGER-C Work Phone: [facility] 01-06-2025 13:16-0400 Body mass index (BMI) [Ratio] 27.6 kg/m2 Swapna Corea ARTS ADMINISTRATOR OR MANAGER-C Work Phone: [facility] 01-06-2025 13:16-0400 Body weight 68.58 kg Swapna Corea ARTS ADMINISTRATOR OR MANAGER-C Work Phone: [facility] 11-07-2022 08:24-0400 Body mass index (BMI) [Ratio] 29.29 kg/m2 Stephen Rey MD Work Phone: [facility] 11-07-2022 08:24-0400 Body weight 70.31 kg Stephen Rey MD Work Phone: [facility] 11-07-2022 08:24-0400 Diastolic blood pressure 79 mm[Hg] Stephen Rey MD Work Phone: [facility] 11-07-2022 08:24-0400 Heart rate 67 /min Stephen Rey MD Work Phone: [facility] 11-07-2022 08:24-0400 Systolic blood pressure 127 mm[Hg] Stephen Rey MD Work Phone: [facility] 11-17-2021 15:22-0400 Body height 157.[address] Satinder Griggs Work Phone: [facility] Work Phone: 11-17-2021 15:22-0400 Body mass index (BMI) [Ratio] 30.4 kg/m2 Dr. Satinder Griggs Work Phone: [facility] Work Phone: 11-17-2021 15:22-0400 Body temperature 97.2 [degF] Dr. Satinder Griggs Work Phone: [facility] Work Phone: 11-17-2021 15:22-0400 Body weight 75.[address] Satinder Griggs Work Phone: [facility] Work Phone: 11-17-2021 15:22-0400 Diastolic blood pressure 78 mm[Hg] Dr. Satinder Griggs Work Phone: [facility] Work Phone: 11-17-2021 15:22-0400 Heart rate 75 /min Dr. Satinder Griggs Work Phone: [facility] Work Phone: 11-17-2021 15:22-0400 Respiratory rate 18 /min Dr. Satinder Griggs Work Phone: [facility] Work Phone: 11-17-2021 15:22-0400 SaO2% (BldA) [Mass fraction] 98 % Dr. Satinder Griggs Work Phone: [facility] Work Phone: 11-17-2021 15:22-0400 Systolic blood pressure 120 mm[Hg] Dr. Satinder Griggs Work Phone: [facility] Work Phone: 06-27-2017 16:22-0500 BMI (Body Mass Index) 26.77 kg/m2 Jalen SANCHES [facility] Work Phone: 06-27-2017 16:22-0500 Body Temperature 97.5 [degF] Jalen SANCHES [facility] Work Phone: 06-27-2017 16:22-0500 BP Diastolic 78 mm[Hg] Jalen SANCHES [facility] Work Phone: 06-27-2017 16:22-0500 BP Systolic 128 mm[Hg] Jalen SANCHES [facility] Work Phone: 06-27-2017 16:22-0500 Height 162.56 cm Jalen SANCHES [facility] Work Phone: 06-27-2017 16:22-0500 Pulse (Heart Rate) 82 /min Jalen SANCHES [facility] Work Phone: 06-27-2017 16:22-0500 Respiratory Rate 14 /min Jalen SANCHES [facility] Work Phone: 06-27-2017 16:22-0500 Weight 70.76 kg Jalen SANCHES [facility] Work Phone: Encounters Encounter Date Encounter Type Care Provider Facility Start: 05-05-2025 ambulatory Yong SULLIVAN Facility:[facility] Start: 04-22-2025 End: 04-22-2025 ambulatory Swapna Anmol ARTS ADMINISTRATOR OR MANAGER-C Work Phone: -[facility] Start: 04-22-2025 End: 04-22-2025 Patient encounter procedure Michelle Quinn ARTS ADMINISTRATOR OR MANAGER-C -[facility] Work Phone: Start: 02-18-2025 End: 02-18-2025 ambulatory Swapna Anmol ARTS ADMINISTRATOR OR MANAGER-C Work Phone: -[facility] Start: 02-18-2025 End: 02-18-2025 Patient encounter procedure Swapna Anmol ARTS ADMINISTRATOR OR MANAGER-C -[facility] Work Phone: Start: 02-18-2025 End: 02-18-2025 ambulatory Swapna Anmol Facility:[facility] Start: 01-26-2025 End: 01-26-2025 Patient encounter procedure Jalen SANCHES [facility] Work Phone: Start: 01-26-2025 End: 01-26-2025 ambulatory Swapna Anmol ARTS ADMINISTRATOR OR MANAGER-C Work Phone: [facility] Start: 01-18-2025 End: 01-18-2025 Patient encounter procedure Jalen SANCHES [facility] Work Phone: Start: 01-18-2025 End: 01-18-2025 ambulatory Swapna Anmol ARTS ADMINISTRATOR OR MANAGER-C Work Phone: [facility] Work Phone: Start: 01-18-2025 End: 01-18-2025 ambulatory Jalen SANCHES Facility:[facility] Start: 01-11-2025 End: 01-11-2025 Patient encounter procedure Jalen SANCHES [facility] Work Phone: Start: 01-11-2025 End: 01-11-2025 ambulatory Swapna Corea ARTS ADMINISTRATOR OR MANAGER-C Work Phone: [facility] Work Phone: Start: 01-06-2025 End: 01-06-2025 Emergency department patient visit Swapna Corea ARTS ADMINISTRATOR OR MANAGER-C Work Phone: -Emergency Department Work Phone: Start: 12-01-2024 End: 12-01-2024 ambulatory Swapna Corea ARTS ADMINISTRATOR OR MANAGER-C Work Phone: [facility] Work Phone: Start: 12-01-2024 End: 12-01-2024 Patient encounter procedure Swapna Corea ARTS ADMINISTRATOR OR MANAGER-C -Radiology, [place] Work Phone: Start: 12-01-2024 End: 12-01-2024 ambulatory Swapna [place] Facility:[facility] Start: 11-12-2024 End: 11-12-[address] Alanna Avila MD -Laboratory Work Phone: Start: 11-12-2024 End: 11-12-2024 ambulatory [facility] Facility:[facility] Start: 06-18-2024 End: 06-18-2024 ambulatory [facility] Facility:[facility] Start: 05-11-2024 End: 05-11-2024 ambulatory [facility] Facility:[facility] Start: 11-06-2023 End: 11-06-2023 ambulatory [facility] Work Phone: Start: 11-06-2023 End: 11-06-2023 Patient encounter procedure [facility]-Laboratory Work Phone: Start: 10-11-2023 End: 10-11-2023 ambulatory [facility] Work Phone: Start: 10-11-2023 End: 10-11-2023 Discharged Recurring [facility]-Physical Therapy Work Phone: Start: 10-11-2023 Registered Rec[facility]ring [facility] Therapy Work Phone: Start: 08-30-2023 End: 08-30-2023 ambulatory [facility] Work Phone: Start: 08-30-2023 End: 08-30-2023 Patient encounter procedure [facility]-Laboratory Work Phone: Start: 06-11-2023 End: 06-11-2023 ambulatory [facility] Work Phone: Start: 06-11-2023 End: 06-11-2023 Patient encounter procedure [facility]-Radiology, [facility] Work Phone: Start: 05-27-2023 End: 05-28-2023 Emergency department patient visit DR DAT IVY MD Facility:B Start: 05-06-2023 End: 05-06-2023 ambulatory [facility] Work Phone: Start: 05-06-2023 End: 05-06-2023 Patient encounter procedure [facility]-Laboratory Work Phone: Start: 11-07-2022 End: 11-07-2022 ambulatory STEPHEN REY [facility] Ambulato ry Start: 11-07-2022 End: 11-07-2022 Office outpatient visit 40 minutes Stephen Rey MD Work Phone: [facility] Comment on above: Arthralgia, unspecif ied joint (Primary Dx); Rheumatoid factor positive; Primary osteoarthritis involving multiple joints; Obesity, unspecified classification, unspecified obesity type, unspecified whether serious comorbidity present; Prediabetes Start: 08-06-2022 End: 08-10-2022 ambulatory [facility] Start: 08-06-2022 End: 01-13-2023 Encounter for general adult medical examination without abnormal findings SATINDER CORDOBA MOISES [facility] Start: 08-06-2022 End: 08-06-2022 ambulatory SATINDER BERYL MOISES [facility] Ambul[facility] Start: 08-06-2022 End: 08-06-2022 Encounter for general adult medical examination without abnormal findings STEPHEN REY [facility] Ambulatory Start: 07-04-2022 End: 07-05-2022 ambulatory SATINDER BERYL [facility] Start: 05-08-2022 End: 05-08-2022 ambulatory [facility] Work Phone: Start: 05-08-2022 End: 05-08-2022 Patient encounter procedure [facility]Laboratory Start: 04-20-2022 End: 04-20-2022 Patient encounter procedure [facility]-Laboratory, Specimen Start: 01-01-2022 End: 01-01-[address] Satinder Griggs Work Phone: [facility]-Ultrasound, [facility] Start: 12-15-2021 End: 12-15-[address] Satinder Griggs Work Phone: [facility]-Laboratory, Specimen Start: 11-30-2021 End: 11-30-[address] Satinder Griggs Work Phone: [facility]-Outpatient Breast Imaging Start: 11-17-2021 End: 11-17-[address] Satinder Griggs Work Phone: [facility] Endocrinology Procedures Date Procedure Procedure Detail Performing Clinician Start: 02-18-2025 Screening mammography Ly Corea NP-C Work Phone: Start: 01-18-2025 X-ray of chest posteroanterior view Swapna JOSEC Work Phone: Start: 01-06-2025 Estimated creatinine clearance Swapna Corea NP-C Work Phone: Start: 01-06-2025 Computed tomography of abdomen and pelvis with intravenous contrast Swapna JOSEC Work Phone: Start: 12-01-2024 Plain x-ray of pelvi s and lower extremity Swapna Anmol ARTS ADMINISTRATOR OR MANAGER-C Work Phone: Start: 08-30-2023 X-ray of both [...] Date Care Activity Detail Author Start: 01-06-2025 [facility] Start: 11-12-2023 End: 11-12-2023 Patient encounter procedure 11/12/2023 8:30 AM EDT Office Visit [facility] [address] [place] [address] [place] [id number] Stephen Rey MD [address] [place], [place] [id number] [facility] Start: 03-29-2023 Influenza vaccination Sequential Influenza Vaccine (Season Ended) [facility] Start: 06-27-2017 End: 06-27-2017 Appointment Appointment [facility] Work Phone: Start: 2013 Administration of herpes zoster vaccine Zoster Vaccines (1 of 2) [facility] Start: 2013 Screening for malignant neoplasm of colon Flexible sigmoidoscopy [facility] Start: 2003 Screening for malignant neoplasm of breast Mammogram [facility] Start: 1978 HIV screening HIV Screening [facility] Start: 1975 Depression screening using PHQ-9 (Patient Health Questionnaire 9) score Depression Screening (PHQ-2/9) [facility] Start: 1966 History and physical examination, annual for health maintenance Wellness Visit [facility] Start: 1965 COVID-19 Vaccine (#1) COVID-19 Vaccine (#1) [facility] Start: 1963 Screening for malignant neoplasm of cervix Pap Smear [facility] Start: 1963 Screening for malignant neoplasm of colon [facility] Start: 1963 Tetanus vaccination Tetanus: Every 10yrs [facility] Patient Education Bruises (Contu sions) ED Abd Injury Blunt Benign ED Laceration Superficial No Stitch [facility] Work Phone: Patient referral [facility] Work Phone: XR Ribs GE 3 Views a nd Chest PA [facility] Work Phone: Payers Date Payer Category Payer Unknown [id number] 2025 Unknown [id number] 2024 Self-pay [id number] 2021 Unknown MARIA D MONIQUE/PREF/HMO/PPO [id number] 2021-Present [phone] [address] [place] [address] [id number] 1965 Unknown [id number] [id number] 1965 Unknown [id number] 2.16.840.1.077502.3.579.2.903 1963 Unknown [id number] 2.16.840.1.026388.3.579.2.903 1963 Unknown [id number] 2.16.840.1.680451.3.579.2.903 1963 Unknown [id number] 2.16.840.1.339921.3.579.2.903 1963 Unknown [id number] 2.16.840.1.964806.3.579.2.903 1965 Unknown [id number] 2.16.840.1.248950.3.579.2.903 1965 Unknown [id number] 2.16.840.1.673924.3.579.2.903 1963 Unknown [id number] 2.16.840.1.886531.3.579.2.627 1959 Unknown [id number] Unknown [id number] Unknown [id number] Unknown [id number] 2.16840.1.383894.3.579.2.462 Unknown [id number] 2.16840.1.761615.3.579.2.462 Unknown [id number] 2.16.840.1.491736.3.579.2.462 Unknown [id number] 2.16840.1.416996.3.579.2.462 Unknown [id number] 2.16840.1.748581.3.579.2.462 Unknown [id number] 2.16840.1.958170.3.579.2.462 Unknown [id number] 2.16840.1.834963.3.579.2.462 Unknown [id number] 2.16.840.1.449314.3.579.2.462 Unknown [id number] 2.16.840.1.484194.3.579.2.462 Unknown [id number] 2.16840.1.692637.3.579.2.462 Unknown [id number] 2.16840.1.446203.3.579.2.462 Unknown [id number] 2.16.840.1.880354.3.579.2.462 Social History Date Type Detail Facility Start: 11-17-2021 End: 11-17-2021 Tobacco smoking status NHIS Unknown if ever smoked [facility] Start: 1965 Sex Assigned At Female [facility] Start: 08-06-2022 End: 01-11-2025 Tobacco smoking status NHIS Never smoked tobacco [facility] Start: 08-06-2022 Tobacco use and exposure Smokeless tobacco non-user [facility] Start: 08-06-2022 History of Social function [facility] Start: 08-06-2022 Tobacco use panel [facility] Start: 1965 Sex Assigned At Not on file [facility] Start: 10-21-2022 End: 10-31-2022 Exposure to SARS-CoV-2 (event) Not sure [facility] Mental Status Date Assessment Result Facility 01-06-2025 Cognitive function Level Of Cons ciousness Awake;Alert;Appropriate [facility] Work Phone: Clinical Notes 11-07-2022 to 04-22-2025 Note Date & Type Note Facility 04-22-2025 Progress note [facility] 01-26-2025 Progress note [facility] 01-26-2025 Progress note Note Date/Time January 26, 2025 6:18am [facility] [address], [address] [place], [place] [address] OFFICE VISIT Date of Service: 01/26/25 MR#: [id number] Acct: [id number] Name: ALINE BOLAÑOS Rep #: [id number] : 1965 Provider: MYRON Hurtado Age/Sex: 59/F Location: [facility] Status: Signed Intake Vital Signs 01/11/25 06:43 01/26/25 06:07 Height 5 ft 2 in BP 110/66 104/60 Position Sitting Sitting Respiration 16 16 Pulse 71 85 Temp 98.4 F 98.2 F Temp Source Oral Oral Pulse Oximetry (%) 98 99 Oxygen Delivery Method room air room air Intake Visit Reasons: FU / DAWSON BRUSH Accompanied by: Self Allergies shellfish derived Allergy (Verified 01/26/25 06:07) Anaphylaxis sulfamethoxazole (From Bactrim) Adverse Reaction (Verified 01/26/25 06:07) Rash trimethoprim (From Bactrim) Adverse Reaction (Verified 01/26/25 06:07) Rash Medications ?Medication ?Instructions ?Recorded ?Confirmed ?Type cholecalciferol (vitamin D3) 125 125 mcg PO DAILY 09/2801/26/25 History mcg (5,000 unit) tablet omeprazole 40 mg capsule,delayed 40 mg PO DAILY 01/26/25 History release spironolactone 50 mg tablet 50 mg PO DAILY 10/26/20 History vitamin E (dl, acetate) 180 mg 450 mg PO DAILY 01/26/25 History (400 unit) capsule allergy shots IM 11/17/21 01/26/25 History amlodipine 5 mg tablet 5 mg PO 11/17/21 01/26/25 Hi story ascorbic acid (vitamin C) 500 mg mg PO 11/17/21 History capsule biotin 2,500 mcg capsule 2,000 mcg PO DAILY 11/17/21 01/26/25 History levothyroxine 88 mcg tablet 88 mcg PO DAILY #90 tabs 0 11/21/21 01/26/25 Rx oxycodone-acetaminophen 5 mg-325 1 tab PO Q6H PRN PRN pain 5 days 01/06/25 01/26/25 Rx mg tablet #20 TABLETS doxycycline monohydrate 100 mg 100 mg PO BID #14 caps 01/11/25 01/26/25 Rx capsule multivitamin (Daily Multi-Vitamin 1 tab PO QAM 5 01/26/25 History tablet) Nurse's Note: Patient here for a [facility] f/u. Patient states that she feels like that she can go back to work. Patient states she was able to life yesterday at work. Patient state her right side she can't lay on but she is ok with lifting and her left arm looks better. [facility] Medical History (Updated 01/14/25 @ 00:00 by Background Daemon) Laceration of left forearm Fatigue Hypothyroidism due [...] cancer Diabetes H/O transfusion of whole blood [place] disease Hypertension Myocardial infarction Ovarian cancer Respiratory disease Skin cancer Social History Smoking Status: Never smoker alcohol intake: current alcohol intake frequency: a few times a week Alcohol type: beer substance use type: does not use what type of physical activity do you participate in: none HPI HPI Details: ALINE BOLAÑOS, is a 59 F who [facility]related [facility] suffered on 01/06/2025 patient so states. 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 She reported to [facility] ED where treated for released the same day with blunt trauma to the chest wall and abdomen as well as contusion right forearm and skin tear to left forearm. On f/u today, patient notes only trace aching improved discomfort to chest wall,no abdomen or R FA complaints, no complaints of chest pain or shortness of breath or dyspnea on exertion, and digesting and moving bowels/urinating withoutcomplaints. She notes her left forearm laceration/skin tear has resolved/ fullyhealed and wished to be released w/o restrictions at this time. No other associated symptoms and no other alleviating/aggravating factors. ROS Const Constitutional: No other (As above) Exam Const General: cooperative, healthy appearing and no acute distress Orientation: alert and awake [facility] Head: normal to inspection Ears: external ears normal Nose: external nose normal Eyes General: appearance normal, both eyes and all related structures Neck Neck: normal visual inspection, no meningeal signs and supple Chest Chest palpation & inspection: normal inspection of the chest, without right lower anterior chest wall palpable tender; swath applied with 6 inch bibi which helps Resp Effort & Inspection: normal respiratory effort and able to speak in complete sentences Cardio Rate: regular rate Pulses: radial pulses present GI Inspection: normal to inspection Skin General: no rashes or lesions noted Neuro General: patient alert and patient awake Cognition: normal cognition Speech: speech normal Extrem General: normal to inspection Other: Approximately 1 cm contusion to right forearm well healed Left forearm skin tear well healed without sequelae Psych Appearance: grossly normal Mental Status: mental status grossly normal Mood: congruent mood Affect: normal affect Speech and Movement: speech and movement normal Attitude: cooperative Diagnoses Blunt abdominal trauma S39.91XA Blunt chest trauma S29.8XXA Contusion of multiple sites of right upper extremity S40.021A Laceration of left forearm S51.812A Assessment and Plan Assessment and Plan (1) Blunt abdominal trauma: Status: Acute (2) Blunt chest trauma: Status: Acute (3) Contusion of multiple sites of right upper extremity: Status: Acute (4) Laceration of left forearm: Status: Acute Plan: Released without work restrictions as noted on today's [employer]. Follow-up with the now clinic on an as-needed basis only. Patient states acknowledging understanding all the above. Coding Level of Care Code Off vis,est,level 2 01/26/25 0618 <Electronically signed by Jalen SANCHES> Date _ Jalen SANCHES Cosigner Signature: Date (if applicable) CC: ~ [facility] Work Phone: 1(567) 839-268006-23-2025 Radiology Diagnostic study note [facility] Imaging Services [address] [place] [address] Ribs Uni Min 3V w/PA Chest MR#: [id number] Acct: [id number] Name: ALINE BOLAÑOS Rep #: [id number] : 1965 F 59 From: Caio Gordon MD PCP: MICHAEL [facility] Status: REG CLI Study:Ribs Uni Min 3V w/PA Chest Date of Exam : 01/18/25 Exam# [id number] Ordering Dr: St ct Mcdaniel PA PROCEDURE: RIBS UNI MIN 3V W/PA CHEST 01/18/2025 REASON FOR EXAM: CHEST TRAUMA TECHNIQUE: RIBS UNI MIN 3V W/PA CHEST COMPARISON: June 18, 2024 FINDINGS: Heart size and mediastinal configuration are within normal limits. There is minimal atelectasis or scar at the left lung base. There is no focal infiltrate or consolidation. There is no pneumothorax or effusion. There is no visible rib fracture or acute bony abnormality. Surgical clips are noted in the left upper abdomen. Aortic calcifications are visible. RAD/Ribs Uni Min 3V w/PA Chest IMPRESSION: There is no visible rib fracture. There is minimal atelectasis or scar at the left lung base. Reading Location: [facility] CC: MICHAEL Corea; MYRON Hurtado ~ Arts Administrator Or Manager: Signed [facility]06-16-2025 Evaluation note* Diagnosis Onset Date Resolution Status Admit Date Laceration of left forearm acute January 11, 2025 6:15am Blunt abdominal trauma inactive [facility] 2024 6:15am Blunt chest trauma inactive December 272024 6:15am Contusion of multiple sites of right upper extremity inactive January 11, 2025 6:15am [facility] Work Phone: [phone]) [phone] Evaluation note* Diagnosis Onset Date Resolution Status Admit Date Laceration of left forearm acute January 11, 2025 6:15am Blunt abdominal trauma inactive [facility] 2024 6:15am Blunt chest trauma inactive December 272024 6:15am Contusion of multiple sites of right upper extremity inactive January 112024 6:15am Cystocele and rectocele with incomplete uterovaginal prolapse acute April 22, 2025 8:45am [facility] Work Phone: 1(151) 528-772106-11-2025 Discharge summary [facility] Medical Records Department [address] [place] [address] Emergency Department Summary 01/06/25 MR#: [id number] Acct: [id number] Name: ALINE BOLAÑOS Rep #:[id number] : [...] similar symptoms: No Recent Illness/Hospitalization: No PFSH PFS Medical History Fatigue Hypothyroidism due to Corie's [...] cancer Diabetes H/O transfusion of whole blood [place] disease Hypertension Myocardial infarction Ovarian cancer Respiratory [...] motor deficits and no sensory deficits noted [place] Coma Scale: document GCS findings Spontaneous Obeys [...] abnormality. OVERALL FINAL ASSESSMENT: . Reading Location: [facility] CT of the abdomen and pelvis reveals [...] 7 days if not longer Print Language: [place] Ver[place]an Disposition Disposition: Home, Self Care What to do if you have Problems For any increased pain, shortness of breath, bleeding, nausea or vomiting, chestpain, or any unexpected problems, contact your Primary Care Provider. Call [facility] ([phone]) or report tothe closest Emergency Room. Call 911 if necessary. 01/06/252049 Cosigner Signature (if applicable): CC: ARTS ADMINISTRATOR OR MANAGER-C Swapna Corea ~ Signed [facility]06-11-2025 Radiology Diagnostic study note [facility] Imaging Services [address] [place], [place] [address] Abdomen/Pelvis W IV Cont ONLY MR#: [id number] Acct: [id number] Name: ALINE BOLAÑOS Rep #: [id number] : 1965 F 59 From: Chandan Sherman MD PCP: MICHAEL [facility] Status: REG ER Study:Abdomen/Pelvis W IV Cont ONLY Date of E xam: 01/06/25 Exam# [id number] Ordering Dr: Sharif Koenig MD PROCEDURE: ABDOMEN/PELVIS [...] abnormality. OVERALL FINAL ASSESSMENT: . Reading Location[facility] CC: ARTS ADMINISTRATOR OR MANAGER-C Swapna Corea; Dr. Lazaro Koenig MD ~ Arts Administrator Or Manager: Signed [facility]06-11-2025 Discharge summary Author Lazaro Koenig [facility] Note Date/Time January 06, 2025 8:50 pm [facility] Medical Records Department [address] [place] [address] Emergency Department Summary 01/06/25 MR#: [id number] Acct: [id number] Name: ALINE BOLAÑOS Rep #:[id number] : [...] Prior similar symptoms: No Recent [facility] Medical History Fatigue Hypothyroidism due to Corie's [...] cancer Diabetes H/O transfusion of whole blood [place] disease Hypertension Myocardial infarction Ovarian cancer Respiratory [...] motor deficits and no sensory deficits noted Nina Coma Scale: document GCS findings Spontaneous Obeys [...] abnormality. OVERALL FINAL ASSESSMENT: . Reading Location: [facility] CT of the abdomen and pelvis reveals [...] 7 days if not longer Print Language: Cape Verdean Disposition Disposition: Home, Self Care What to do if you have Problems For any increased pain, shortness of breath, bleeding, nausea or vomiting, chestpain, or any unexpected problems, contact your Primary Care Provider. Call [facility] ([phone]) or report to the closest Emergency Room. Call 911 if necessary. 01/06/252049 <Electronically signed by Lazaro Koenig MD> Cosigner Signature (if applicable): CC: MICHAEL Corea ~ Signed [facility] Work Phone: [phone] Hospital Discharge instructions Additional Instructions 1. Apply ice to areas of discomfort 6-8 times a day. 2. Take pain medicine as prescribed for your pain. 3. You will hurt in more places and you presently do 4. You will feel worse than you presently do over the next 24 to 48 hours 5. You may hurt for 3 to 7 days if not [facility] Work Phone: [phone] 551-189905-06-2025 Radiology Diagnostic study note [facility] Imaging Services [address] [place], [place] [id number] HIP, UNI W/ Pelvis 2-3 Views MR#: [id number] Acct: [id number] Name: ALINE BOLAÑOS Rep #: [id number] : 1965 F 59 From: Leeann Diego MD PCP: MICHAEL [place] Status: REG CLI Study:HIP, UNI W/ Pelvis 2-3 Views Date of Ex am: 12/01/24 Exam# [id number] Ordering Dr: Ra kameron Corea PROCEDURE: HIP, [...] Reading Location: [facility] CC: MICHAEL Corea ~ Arts Administrator Or Manager: Signed [facility]04-23-2024 Discharge summary Author Carrillo Carroll [facility] November 19, 2023 3:27pm Note Date/Time November 19, 2023 3:2 4pm [facility] Physical Therapy [address] [place] [id number] / REHABILITATION SERVICES DISCHARGE SUMMARY MR#: [id number] Acct: [id number] Name: ALINE BOLAOÑS Rep #: [id number] : 1965 58 From: Cert. LATONYA Herrera, OCS Referring Dr.: SOPHIE Oconnor Status: REG RCR Insurance: [employer]Y INSURANCE Patient Information Patient Information: [...] physician. Thank you! Carrillo Carroll, PT, Cert T, OCS Balance/Gait/Functional tests Balance/Special Test Scores Lower Extremity Functional Score: 71 <Electronically signed by Carrillo Carroll PT Cert. 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 She was put on methotrexate which did [...] month(s) Telehealth appointments ok. 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 Somegrammatical or spelling errors may occur using the system. 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 [facility] Work Phone: [email or web address] noteNo assessment information available [facility] Work Phone: evaluation note* Diagnosis Arthralgia, unspecified joint- Primary Rheumatoid [...] left forearm acute January 11, 2025 6:15am [facility] Work Phone: Progress note Author Michelle Quinn [facility] Note Date/Time April 22, 2025 9:17am [facility] [address], [address] [place] [address] OFFICE VISIT Date of Service: 04/22/25 MR#: [id number] Acct: [id number] Name: ALINE BOLAÑOS Rep #: [id number] : 1965 Provider: MICHAEL Quinn Age/Sex: 60/F Location: [facility] Status: Signed Intake Vital Signs 01/11/25 06:43 04/22/25 08:56 Height 5 ft 2 in 5 ft 2 in Weight: 155 lb 3 oz BMI 28.3 BP 125/82 H Intake Visit Reasons: Vaginal Discharge ([place]) 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 Required: No Is patient in pain?: No Allergies shellfish derived Allergy (Verified 04/22/25 09:00) Anaphylaxis sulfamethoxazole (From Bactrim) Adverse Reaction (Verified 04/22/25 09:00) Rash trimethoprim (From Bactrim) Adverse Reaction (Verified 04/22/25 09:00) Rash Medications ?Medication ?Instructions ?Recorded ?Confirmed ?Type cholecalciferol (vitamin D3) 125 125 mcg PO DAILY 09/2804/22/25 History mcg (5,000 unit) tablet omeprazole 40 mg capsule,delayed 40 mg PO DAILY 04/22/25 History release spironolactone 50 mg tablet 50 mg PO DAILY 10/26/20 History vitamin E (dl, acetate) 180 mg 450 mg PO DAILY 1 04/22/25 History (400 unit) capsule allergy shots IM 11/17/21 04/22/25 History amlodipine 5 mg tablet 5 mg PO 11/17/21 04/22/25 Hi story ascorbic acid (vitamin C) 500 mg mg PO 11/17/21 History capsule biotin 2,500 mcg capsule 2,000 mcg PO DAILY 11/17/21 04/22/25 History levothyroxine 88 mcg tablet 88 mcg PO DAILY #90 tabs 0 11/21/21 04/22/25 Rx estradiol 0.01% (0.1 mg/gram) See Rx Instructions vagi nal 04/22/25 04/22/25 Rx vaginal cream .COMPLEX #42.5 grams Is last menstrual period known: No Post menopausal: Yes Patient : No : No PFSH Medical History Laceration of left forearm Fatigue 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 Bunion, right foot Endometriosis determined by laparoscopy Diverticular disease Vision problems Rheumatoid arthritis GERD (gastroesophageal reflux disease) Kidney stone Gastrointestinal problem Chronic bronchiolitis Carpal tunnel syndrome Breast lump H/O transfusion of whole blood Back problem Arthritis Allergies Disorder of thyroid Shoulder pain Hypertension Surgical History H/O arthroscopy of shoulder H/O microdiscectomy H/O release of tendon History of cryosurgery History of nephrectomy Family History Grandmother Diabetes Grandfather Maryellen disease Father Angina at rest Arthritis Myocardial infarction, Onset Age: 78 Respiratory disease Alcohol abuse Mother Alcohol abuse Cancer Hypertension Brother Bleeding disorder Cancer Diabetes Hypertension Respiratory disease Skin cancer Aunt Breast cancer Social History Smoking Status: Never smoker alcohol intake: current alcohol intake frequency: a few times a week Alcohol type: beer substance use type: does not use what type of physical activity do you participate in: none HPI Vaginal Discharge ([place]) Details: ALINE BOLAÑOS is a 60 year old who presents for new patient referral from [facility] for vaginal pressure. feels like I'm sitting on something. States somedays worse then others and has days doesn't notice at all. Denies bleeding or discharge. Not sexually active 6 years. Follows pap and mammogram with PCP History 0 Elective abortions Hx Para Spontaneous abortions Hx # Term Pregnancies Ectopic pregnancies Hx # Pregnancies Multiple births # of living children ROS Const Constitutional: Reports system reviewed and no additional complaints, except as documented Eyes Eyes: Reports system reviewed and no additional complaints, except as documented GI GI: Denies abdominal pain or change in bowel habits : Reports as per HPI Exam Const General: cooperative and no acute distress Orientation: oriented x3 General: bladder normal to palpation External Female Exam: normal external appearance and normal appearance of the urethra Urethra: normal appearance of the urethra Speculum Exam - Vagina: normal vaginal discharge, vagina atrophic, no lesions and nontender Speculum Exam - Cervix: normal appearance of the cervix Bimanual Exam- Vagina & Uterus: normal bimanual exam, uterine size normal, bladder normal to palpation, uterine shape normal, uterine mobility normal and non- tender Bimanual Exam- Adnexa, other: normal adnexae, no masses, non-tender, rectocele, cystocele and vaginal apex descent Pelvic Support: cystocele, rectocele and vaginal apex descent Coding Level of Care Code Off vis,est,level 3 Diagnoses Cystocele and rectocele with incomplete uterovaginal prolapse N81.2 Assessment and Plan Assessment and Plan (1) Cystocele and rectocele with incomplete uterovaginal prolapse: Status: Acute Medications: New estradiol 0.01%(0.1mg/gram) small amount(.25mg) as directed vaginal every other day X 4 weeks then twice a week; 42.5 grams 2RF Plan Discussed management of prolapse with pessary vs surgical intervention. She willconsider Rx estradiol cream, discussed risks and benefits Reviewed kegel exercises RTO 4 weeks 04/22/25 6183 <Electronically signed by Michelle laguna ARTS ADMINISTRATOR OR MANAGER ARTS ADMINISTRATOR OR MANAGER-C> Date _ Michelle Jimenez Signature: Date (if applicable) CC: MICHAEL Corea ~ [facility] Work Phone: Reason for referral (narrative)No reason for referral information availableWUniversity Hospitals [facility] Work Phone: Chief Complaint and Reason for Visit Chief Complaint ARTS ADMINISTRATOR OR MANAGER, THYROID, APPROVE D BY AUBREE Reason for Visit Fatigue 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 Chief Complaint ARTS ADMINISTRATOR OR MANAGER, THYROID, APPROVE D BY AUBREE SCREENING Reason for Visit Fatigue 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 Chief Complaint ARTS ADMINISTRATOR OR MANAGER, THYROID, APPROVE D BY AUBREE SCREENING RIGHT [...] upp er extremity January 11, 2025 6:15am Chief Complaint Admit Date PAIN IN LEFT HIP, ARTHRITIS December 01 3:12pm other January 06, 2025 1:16 pm ER FU/ DAWSON BRUSH January 11, 2025 6:1 5am fu/ dawson brush January 18, 2025 6:01 am E ORDER January 18, 2025 6:51 am Chief Complaint Admit Date PAIN IN LEFT HIP, ARTHRITIS December 01 3:12pm other January 06, 2025 1:16 pm ER FU/ DAWSON BRUSH January 11, 2025 6:1 5am fu/ dawson brush January 18, 2025 6:01 am E ORDER January 18, 2025 6:51 am FU / DAWSON BRUSH January 26, 2025 6:03a m Chief Complaint Admit Date PAIN IN LEFT HIP, ARTHRITIS December 01 3:12pm other January 06, 2025 1:16 pm ER FU/ DAWSON BRUSH January 11, 2025 6:1 5am fu/ dawson brush January 18, 2025 6:01 am E ORDER January 18, 2025 6:51 am FU / DAWSON BRUSH January 26, 2025 6:03a m SCREENING February 18, 2025 3:44 pm Chief Complaint Admit Date other January 06, 2025 1:16 pm ER FU/ DAWSON BRUSH January 11, 2025 6:1 5am fu/ dawson brush January 18, 2025 6:01 am E ORDER January 18, 2025 6:51 am FU / DAWSON BRUSH January 26, 2025 6:03a m SCREENING February 18, 2025 3:44 pm Vaginal Discharge ([place]) April 222024 8:45am Reason for Visit Admit Date Laceration of left forearm January 11 6:15am Blunt abdominal trauma January 11, 2025 6 :15am Blunt chest trauma January 11, 2025 6:15 am Contusion of multiple sites of right upp er extremity January 11, 2025 6:15am Cystocele and rectocele with incomplete uterovaginal prolapse April 22, 2025 8:45am Family History No Family History Records Found Relationship Condition Age at Onset Recorded Date/T blanche Not Specified History of transfusion of whole blood Un known Malignant neoplasm of skin Unknown Malignant neoplasm of cervix Unknown Malignant neoplasm of ovary Unknown Diabetes mellitus Unknown Alcohol abuse Unknown Angina at rest Unknown Arthritis Unknown Autoimmune disorder Unknown Maryellen's disease Unknown Myocardial infarction Unknown Malignant neoplasm of breast Unknown Disorder of respiratory system Unknown Malignant neoplasm Unknown Hypertension Unknown Cerebrovascular accident (CVA) Unknown Relationship Condition Age at Onset Recorded Date/T blanche grandmother Diabetes mellitus Unknown grandfather Maryellen's disease Unknown father Angina at rest Unknown Arthritis Unknown Myocardial infarction 78 Disorder of respiratory system Unknown Alcohol abuse Unknown mother Alcohol abuse Unknown Malignant neoplasm Unknown Hypertension Unknown brother Hemorrhagic disorder Unknown Diabetes mellitus Unknown Malignant neoplasm of skin Unknown aunt Malignant neoplasm of breast Unknown Advance Directives No Advanced Directives Records Found Advance Directive Response Recorded Date/ Time Living Will No December 30, 2020 9 :14am Power of Layer Up No December 30, 2020 9:14am Advance Directive Response Recorded Date/ Time Living Will No December 30, 2020 8 :14am Power of Layer Up No December 30, 2020 8:14am Advance Directive Response Recorded Date/ Time Do you have a Healthcare Power of Layer Up? No January 06, 2025 6:07pm Summary Purpose [...] section and content) DATE CREATED AUTHOR 07/05/2022 [facility] DATE CREATED AUTHOR AUTHOR'S ORGANIZ ATION 08/11/2022 [facility] DATE CREATED AUTHOR AUTHOR'S ORGANIZ ATION 11/09/2022 [facility] DATE CREATED AUTHOR AUTHOR'S ORGANIZ ATION 06/02/2023 [facility] ([place] DATE CREATED AUTHOR AUTHOR'S ORGANIZ ATION 05/07/2025 [facility] Care Teams (unrecognized sec tion and content) Academic Support Center Director Relationship Specialty Start Date End Date Satinder Griggs MD [address] [place] [address] PCP - General Family Medicine 08/06/22 Team Status: Active Member Role Status Dates Dr. Satinder Griggs MD Family Provider Active Swapna Corea , ARTS ADMINISTRATOR OR MANAGER-C Primary Care Provider Active Team Status: Inactive Member Role Status Dates Swapna Corea ARTS ADMINISTRATOR OR MANAGER-C Primary Care Provider Active Dr. Alanna Avila MD Attending Provider, Referring Pr ovider Active Team Status: Inactive Member Role Status Dates Swapna Corea ARTS ADMINISTRATOR OR MANAGER-C Primary Care Provide r, Attending Provider, Referring Provider Active Team Status: Active Member Role Status Dates Swapna Corea ARTS ADMINISTRATOR OR MANAGER-C Primary Care Provider Active Dr. Kit Oconnor DPM Attending Provider, Referring Provider Active Team Status: Inactive Member Role Status Dates Swapna Corea ARTS ADMINISTRATOR OR MANAGER-C Primary Care Provider Active Dr. Kit Oconnor DPM Attending Provider, Referring Provider Active Team Status: Inactive Member Role Status Dates Swapna Corea ARTS ADMINISTRATOR OR MANAGER-C Primary Care Provider Active Start: November 12, 2024 End: November 12, 2024 Dr. Alanna Avila MD Attending Provider Active Start: November 12, 2024 End: November 12, 2024 Dr. Alanna Avila MD Referring Provider Active Start: November 12, 2024 End: November 12, 2024 Team Status: Inactive Member Role Status Dates Swapna Corea ARTS ADMINISTRATOR OR MANAGER-C Primary Care Provider Active Start: December 01, 2024 End: December 01, 2024 Swapna Corea ARTS ADMINISTRATOR OR MANAGER-C Attending Provider Active St art: December 01, 2024 End: December 01, 2024 Swapna Corea NP-Jaspreet Referring Provider Active St art: December 01, 2024 End: December 01, 2024 Team Status: Active Member Role Status Dates Swapna Corea , ARTS ADMINISTRATOR OR MANAGER-C Primary Care Provider Active Team Status: Inactive Member Role Status Dates Swapna Corea ARTS ADMINISTRATOR OR MANAGER-C Primary Care Provider Active Start: January 06, 2025 End: January 06, 2025 Dr. Lazaro Koenig MD Referring Provider Active Sta rt: January 06, 2025 End: January 06, 2025 Dr. Lazaro Koenig MD Emergency Provider Active Sta rt: January 06, 2025 End: January 06, 2025 Team Status: Inactive Member Role Status Dates Sawpna Corea , ARTS ADMINISTRATOR OR MANAGER-C Primary Care Provider Active Start: January 11, 2025 End: January 11, 2025 Swapna Corea , ARTS ADMINISTRATOR OR MANAGER-C Referring Provider Active St art: January 11, 2025 End: January 11, 2025 Jalen SANCHES PA Attending Provider Active Start: January 11, 2025 End: January 11, 2025 Team Status: Inactive Member Role Status Dates Swapna Corea , ARTS ADMINISTRATOR OR MANAGER-C Primary Care Provider Active Start: January 06, [...] Member Role Status Dates Swapna Corea , ARTS ADMINISTRATOR OR MANAGER-C Primary Care Provider Active Start: January 18, 2025 End: January 18, 2025 wSapna Corea , ARTS ADMINISTRATOR OR MANAGER-C Referring Provider Active St art: January 18, 2025 End: January 18, 2025 Jalen SANCHES PA Attending Provider Active Start: January 18, 2025 End: January 18, 2025 Team Status: Active Member Role/Relationship Status Dates Swapna Corea , ARTS ADMINISTRATOR OR MANAGER-C Primary Care Provider Active Team Status: Inactive Member Role/Relationship Status Dates Swapnayohana Corea , ARTS ADMINISTRATOR OR MANAGER-C Primary Care Provider Active Start: November 12, 2024 End: November 12, 2024 Dr. Alanna Avila MD Attending Provider Active Start: November 12, 2024 End: November 12, 2024 Dr. Alanna Avila MD Referring Provider Active Start: November 12, 2024 End: November 12, 2024 Team Status: Inactive Member Role/Relationship Status Dates Swapna Corea , ARTS ADMINISTRATOR OR MANAGER-C Primary Care Provider Active Start: December 01, 2024 End: December 01, 2024 Swapna Corea ARTS ADMINISTRATOR OR MANAGER-C Attending Provider Active St art: December 01, 2024 End: December 01, 2024 Swapna Corea ARTS ADMINISTRATOR OR MANAGER-C Referring Provider Active St art: December 01, 2024 End: December 01, 2024 Team Status: Inactive Member Role/Relationship Status Dates Swapna Corea , ARTS ADMINISTRATOR OR MANAGER-C Primary Care Provider Active Start: January 06, [...] January 06, 2025 Team Status: Inactive Member Role/Relationship Status Dates Swapna Corea , ARTS ADMINISTRATOR OR MANAGER-C Primary Care Provider Active Start: January 11, 2025 End: January 11, 2025 Swapna Corea ARTS ADMINISTRATOR OR MANAGER-C Referring Provider Active St art: January 11, 2025 End: January 11, 2025 MYRON Disla Attending Provider Active Start: January 11, 2025 End: January 11, 2025 Team Status: Inactive Member Role/Relationship Status Dates Swapna Corea ARTS ADMINISTRATOR OR MANAGER-C Primary Care Provider Active Start: January 18, 2025 End: January 18, 2025 Swapna Corea , ARTS ADMINISTRATOR OR MANAGER-C Referring Provider Active St art: January 18, 2025 End: January 18, 2025 MYRON Disla Attending Provider Active Start: January 18, 2025 End: January 18, 2025 Team Status: Inactive Member Role/Relationship Status Dates Swapna Corea , ARTS ADMINISTRATOR OR MANAGER-C Primary Care Provider Active Start: January 18, 2025 End: January 18, 2025 MYRON Disla Attending Provider Active Start: January 18, 2025 End: January 18, 2025 Jalen SANCHES PA Referring Provider Active Start: January 18, 2025 End: January 18, 2025 Team Status: Inactive Member Role/Relationship Status Dates Swapna Corea , ARTS ADMINISTRATOR OR MANAGER-C Primary Care Provider Active Start: January 26, 2025 End: January 26, 2025 Swapna Corea , ARTS ADMINISTRATOR OR MANAGER-C Referring Provider Active St art: January 26, 2025 End: January 26, 2025 MYRON Disla Attending Provider Active Start: January 26, 2025 End: January 26, 2025 Team Status: Inactive Member Role/Relationship Status Dates Swapna Corea , ARTS ADMINISTRATOR OR MANAGER-C Primary Care Provider Active Start: February 18, 2025 End: February 18, 2025 Swapna Corea ARTS ADMINISTRATOR OR MANAGER-C Attending Provider Active St art: February 18, 2025 End: February 18, 2025 Swapna Corea , ARTS ADMINISTRATOR OR MANAGER-C Referring Provider Active St art: February 18, 2025 End: February 18, 2025 Team Status: Active Member Role/Relationship Status Dates Swapna Corea , ARTS ADMINISTRATOR OR MANAGER-C Primary care physician Active Team Status: Inactive Member Role/Relationship Status Dates Swapna Corea ARTS ADMINISTRATOR OR MANAGER-C Primary care physician Active Start: January 06, 2025 End: January 06, 2025 Dr. Lazaro Koenig MD Attending physician Active St art: January 06, 2025 End: January 06, 2025 Dr. Lazaro Koenig MD Referring Provider Active Sta rt: January 06, 2025 End: January 06, 2025 Dr. Lazaro Koenig MD Emergency Department Physician Acti ve Start: January 06, 2025 End: January 06, 2025 Team Status: Inactive Member Role/Relationship Status Dates Swapna Corea , ARTS ADMINISTRATOR OR MANAGER-C Primary care physician Active Start: January 11, 2025 End: January 11, 2025 Swapna Corea ARTS ADMINISTRATOR OR MANAGER-C Referring Provider Active St art: January 11, 2025 End: January 11, 2025 YMRON Disla Attending physician Active Start: January 11, 2025 End: January 11, 2025 Team Status: Inactive Member Role/Relationship Status Dates Swapna Corea , ARTS ADMINISTRATOR OR MANAGER-C Primary care physician Active Start: January 18, 2025 End: January 18, 2025 Swapna Corea , ARTS ADMINISTRATOR OR MANAGER-C Referring Provider Active St art: January 18, 2025 End: January 18, 2025 MYRON Disla Attending physician Active Start: January 18, 2025 End: January 18, 2025 Team Status: Inactive Member Role/Relationship Status Dates Swapna Corea , ARTS ADMINISTRATOR OR MANAGER-C Primary care physician Active Start: January 18, 2025 End: January 18, 2025 MYRON Disla Attending physician Active Start: January 18, 2025 End: January 18, 2025 MYRON Disla Referring Provider Active Start: January 18, 2025 End: January 18, 2025 Team Status: Inactive Member Role/Relationship Status Dates Swapna Corea NP-C Primary care physician Active Start: January 26, 2025 End: January 26, 2025 Swapna Corea NP-Jaspreet Referring Provider Active St art: January 26, 2025 End: January 26, 2025 MYRON Disla Attending physician Active Start: January 26, 2025 End: January 26, 2025 Team Status: Inactive Member Role/Relationship Status Dates Swapna Corea NP-Jaspreet Primary care physician Active Start: February 18, 2025 End: February 18, 2025 Swapna Corea NP-C Attending physician Active S tart: February 18, 2025 End: February 18, 2025 Swapna Corea NP-Jaspreet Referring Provider Active St art: February 18, 2025 End: February 18, 2025 Team Status: Inactive Member Role/Relationship Status Dates Swapna Corea NP-C Primary care physician Active Start: April 22, 2025 End: April 22, 2025 Swapna Corea NP-Jaspreet Referring Provider Active St art: April 22, 2025 End: April 22, 2025 Michelle Quinn NP ARTS ADMINISTRATOR OR MANAGER-C Attending physician Active Start: April 22, 2025 End: April 22, 2025 FOR RECORDS PERTAINING TO PATIENTS WHO [...] BE BASED ON THE PRIMARY CLINICAL RECORDS. [employer] [facility]. provides no warranty or guarantee of the accuracy or completeness of information in this document.
--- OUTSIDE RECORDS SUMMARY | 2025-05-13 16:16 | XMS RPT_ITS | CCD ---
Author Organization [facility] Care Team Providers Care Whirley Operator Name Role Phone Steve Cotter Unavailable Jalen Chavez Unavailable [phone] Satinder Griggs Primary Care Provider Dr. Satinder Griggs Referring Provider [phone] Abdulaziz Paul Attending Provider SATINDER GRIGGS Primary Care Unavailable JACQUELIN SANCHEZ [...] Unavailable Anmol TORRES-C, Swapna Primary Care Provider [phone] Margarita LOPEZ, Dr. Mondragon Attending Provider [phone] Margarita LOPEZ, Dr. Mondragon Referring Provider Anmol SCORE CALLER-C, Swapna Attending Provider Anmol SCORE CALLER-C, Swapna Referring Provider Arya LOPEZ, Dr. Willis Referring Provider Arya LOPEZ, Dr. Willis Emergency Provider Jalen Chavez Attending Provider Arya LOPEZ, Dr. Willis Attending Provider Jalen Chavez Referring Provider Anmol SCORE CALLER-C, Swapna Primary Care Physician Arya LOPEZ, Dr. Willis Attending Physician Arya LOPEZ, Dr. Willis Emergency Department Physician Anmol SCORE CALLER-C, Swapna Referring Provider [phone] Jalen Chavez Attending Physician [phone] Anmol SCORE CALLER-C, Swapna Attending Physician [phone] Kai SCORE CALLER-CMichelle Attending Physician [phone] Anmol, Swapna Primary Care Unavailable Anmol, Swapna [...] Referring Unavailable Anmol, Swapna Primary Care Unavailable [facility] Primary Care Unavailable Lisette Richardson Attending Unavailable Lisette Richardson Referring Unavailable Anmol, Swapna Primary Care Unavailable Alanna Avila Attending Unavailable Alanna Avila Referring Unavailable Allergies Allergy Classification Reported Allergen(s) Allergy Type Date of Onset Reaction(s) Facility (20 sources) Shellfish; Translations: [SHELLFISH DERIVED] Allergy to substance 04-11-20 Other (See Comments) [facility] Repository (18 sources) Sulfamethoxazole Drug Allergy 04-11-20 [facility] (18 sources) Trimethoprim Drug Allergy 04-11-20 [facility] (3 sources) Sulfamethoxazole / Trimethoprim; Translations: [SULFAMETHOXAZOLE-TR IMETHOPRIM] Drug Allergy 08-02-19 [facility] Repository (1 source) Sulfamethoxazole Drug Allergy 04-22-20 [facility] Repository (1 source) Trimethoprim Drug Allergy 04-22-20 [facility] Repository Medications Current Medications Medication Drug Class(es) [...] 5 MG TABS as directed AMLODIPINE BESYLATE [id number] Jalen SANCHES Start: 10-19-2013 End: 01-11-2025 take [...] LECALCIFEROL) 400 UNIT CAPS as directed CHOLECALCIFEROL [id number] Jalen SANCHES estradiol 0.1 mg/ml vaginal cream [...] SPIRONOLACTONE 100 MG TABS as directed SPIRONOLACTONE [id number] Jalen SANCHES topiramate 50 mg oral tablet [...] 12:00am Start: 06-27-2017 take 1 capsule by [facility] once daily Vitamin E (Dl, Acetate) 400 unit capsule Active 450 mg PO DAILY October 26, 2020 12:00am Complies with drug therapy Start: 06-27-2017 VITAMIN E 100 UNIT TABS as directed VITAMIN E [id number] Jalen SANCHES Completed/Discontinued Medications Medication Drug Class(es) [...] 1 capsule twice daily NITROFURANTOIN MONOHYD MACRO [id number] Jalen SANCHES levothyroxine sodium 0.075 mg oral tablet (20 sources) l-Thyroxine Start: 11-21-2021 take 1 tablet by mouth once daily Levothyroxine 88 mcg tablet Active 88 ug PO DAILY 90 3 November 21, 2021 12:00am Complies with drug therapy Start: 06-27-2017 LEVOTHYROXINE SODIUM 100 MCG TABS as directed LEVOTHYROXINE SODIUM [id number] Jalen SANCHES Start: 07-15-2015 End: 11-21-2021 Levothyroxine [...] 05-05-2025 Albumin [Mass/Vol] 4.5 g/dL Normal 3.4-4.8 [facility] Comment on above: Performed By: #### L 500.4100, L500.4050 #### [facility] [address] [place], [address] Albumin/Globulin [Mass ratio] 1.4 {ratio} Normal 0.9-2.4 [facility] Comment on above: Performed By: #### L 500.4100, L500.4050 #### [facility] [address] [place], [address] ALK PHOS 107 U/L High 35-104 [facility] Comment on above: Performed By: #### L 500.4100, L500.4050 #### [facility] [address] [place], [address] ALT [Catalytic activity/Vol] 12 U/L Normal <=34 [facility] Comment on above: Performed By: #### L 500.4100, L500.4050 #### [facility] [address] [place], [address] AST [Catalytic activity/Vol] 14 U/L Normal <=31 [facility] Comment on above: Performed By: #### L 500.4100, L500.4050 #### [facility] [address] [place], [address] Bilirubin [Mass/Vol] 0.42 mg/dL Normal 0.00-1.30 [facility] Comment on above: Performed By: #### L 500.4100, L500.4050 #### [facility] [address] [place] [facility] [place], [address] BUN/CRE 24.7 RATIO High 10-20 [facility] Comment on above: Performed By: #### L 500.4100, L500.4050 #### [facility] [address] [place], [address] Calcium [Mass/Vol] 9.9 mg/dL Normal 7.6-11.0 [facility] Comment on above: Performed By: #### L 500.4100, L500.4050 #### [facility] [address] [place], [address] Chloride [Moles/Vol] 104 mmol/L Normal 98-108 [facility] Comment on above: Performed By: #### L 500.4100, L500.4050 #### [facility] [address] [place], [address] CO2 [Moles/Vol] 24.3 mmol/L Normal 21.0-32.0 [facility] Comment on above: Performed By: #### L 500.4100, L500.4050 #### [facility] [address] [place], [address] Creatinine [Mass/Vol] 0.73 mg/dL Normal 0.70-1.20 [facility] Comment on above: Performed By: #### L 500.4100, L500.4050 #### [facility] [address] [place], [address] GAP 12 Normal 5-15 [facility] Comment on above: Performed By: #### L 500.4100, L500.4050 #### [facility] [address] [place], [address] GFR/1.73 sq M.predicted among non-blacks MDRD (S/P/Bld) [Vol rate/Area] 94 mL/min/{1.73_m2} Normal >60 [facility] Comment on above: Result Comment: mL/m in/1.73m2 CKD-EPI Creatinine Equation (2020) Performed By: #### L 500.4100, L500.4050 #### [facility] [address] [place], [address] Globulin (S) [Mass/Vol] 3.1 g/dL Normal 2.2-4.2 [facility] Comment on above: Performed By: #### L 500.4100, L500.4050 #### [facility] [address] [place], [address] Glucose [Mass/Vol] 100 mg/dL High 70-99 [facility] Comment on above: Performed By: #### L 500.4100, L500.4050 #### [facility] [address] [place], [address] Potassium [Moles/Vol] 4.9 mmol/L Normal 3.3-5.1 [facility] Comment on above: Performed By: #### L 500.4100, L500.4050 #### [facility] [address] [place], [address] Sodium [Moles/Vol] 140 mmol/L Normal 133-145 [facility] Comment on above: Performed By: #### L 500.4100, L500.4050 #### [facility] [address] [place], [address] T PROT 7.6 g/dL Normal 5.9-8.4 [facility] Comment on above: Performed By: #### L 500.4100, L500.4050 #### [facility] [address] [place], [address] Urea nitrogen [Mass/Vol] 18 mg/dL Normal 4-19 [facility] Comment on above: Performed By: #### L 500.4100, L500.4050 #### [facility] [address] [place], [address] Lipid Profileon 05-05-2025 CHOL:HDL 3.12 Normal [facility] Comment on above: Performed By: #### L 500.4100, L500.4050 #### [facility] [address] [place], [address] Cholesterol [Mass/Vol] 183 mg/dL Normal <=200 [facility] Comment on above: Result Comment: Chol esterol level, Desirable <200 mg/dL Borderline high cholesterol 200-239 mg/dL High cholesterol >=240 mg/dL Recommendations of the NCEP Adult Treatment Panel for the following risk-cutoff thresholds for the [place] population. Performed By: #### L 500.4100, L500.4050 #### [facility] [address] [place], [address] Cholesterol in HDL [Mass/Vol] 59 mg/dL Normal [facility] Comment on above: Result Comment: Romina onal Cholesterol Education Program (NCEP) guidelines: <40 mg/dL: Low HDL-cholesterol (major risk factor for CHD) >= 60 mg/dL: High HDL-cholesterol (negative risk factor for CHD) HDL-cholesterol is affected by a number of factors, e.g. smoking, exercise, hormones, sex and age. Performed By: #### L 500.4100, L500.4050 #### [facility] [address] [place], [address] Cholesterol in LDL [Mass/Vol] 101 mg/dL Normal [facility] Comment on above: Result Comment: Bord xipqfl=062-094 mg/dL Higher Qvqu=090 mg/dL or greater Friedwald Equation for LDL-C Performed By: #### L 500.4100, L500.4050 #### [facility] [address] [place], [address] Cholesterol in VLDL [Mass/Vol] 23 mg/dL Normal 5-40 [facility] Comment on above: Performed By: #### L 500.4100, L500.4050 #### [facility] [address] [place], [address] Triglyceride [Mass/Vol] 116 mg/dL Normal [facility] Comment on above: Result Comment: The drugs N-Acetylcysteine and Metamizole may falsely depress this assay. Normal range: <150 mg/dL Borderline High: 150-199 mg/dL High: 200-499 mg/dL Very High: >500 mg/dL Performed By: #### L 500.4100, L500.4050 #### [facility] [address] [place], [address] Welding Foreman Office Visit Reporton 04-22-2025 Welding Foreman Office Visit Report [facility] [address], [address] [place] [address] OFFICE VISIT Date of Service: 04/22/25 MR#: [id number] Acct: [id number] Name: ALINE BOLAÑOS Rep #: [id number] : 1965 Provider: MICHAEL hernandez Age/Sex: 60/F Location: [facility] Status: Signed Intake Vital Signs 01/11/25 06:43 04/22/25 08:56 Height 5 ft 2 in 5 ft 2 in Weight: 155 lb 3 oz BMI 28.3 BP 125/82 H Intake Visit Reasons: Vaginal Discharge ([place]) Medical Leader Required: No Is patient in pain?: No [...] you participate in: none HPI Vaginal Discharge ([place]) Details: ALINE BOLAÑOS is a 60 year old who presents for new patient referral from [facility] for vaginal pressure. feels like I'm sitting [...] Support: cys (more content not included)... Normal [facility] Breast imaging reportOrdered By: Sofya Mckeon on 02-18-[address] [facility] Imaging Services [address] [place] [address] SCRN MAMM (CAD)W/ELISA BILAT MR#: [id number] Acct: [id number] Name: ALINE BOLAÑOS Rep #: [id number] : 1965 F 59 From: Lisandro Zeng MD PCP: MICHAEL Beach Status: REG CLI Study:SCRN MAMM (CAD)W/ELISA BILAT Date of Exa m: 02/18/25 Exam# [id number] Ordering Dr: Ra kameron Corea SCORE CALLER-C EXAM: SCRN MAMM (CAD)W/ELISA BILAT DATE: 02/18/2025 [...] be mailed to the patient. Reading Location: [id number] CC: MICHAEL Corea ~ Postbed Stitcher: Signed [facility] SCRN MAMM (CAD)W/ELISA BILATo n 02-18-2025 SCRN MAMM (CAD)W/ELISA BILAT [facility] Imaging Services [address] [place], [place] [address] SCRN MAMM (CAD)W/ELISA BILAT MR#: [id number] Acct: [id number] Name: ALINE BOLAÑOS Rep #: [id number] : 1965 F 59 From: Sofya Urias i, MD PCP: MICHAEL Beach Status: [facility] CLI Study: SCRN MAMM (CAD)W/ELISA BILAT Date of Exam: 01/27 11/20 Exam# [id number] Ordering Dr: Swapna Corea EXAM: SCRN MAMM [...] be mailed to the patient. Reading Location: [id number] CC: MICHAEL Corea Postbed Stitcher: Signed Normal [facility] Urgent Care Visit Reporton 0 01-26-2025 Urgent Care Visit Report [facility] [address], [address] [place] [address] OFFICE VISIT Date of Service: 01/26/25 MR#: [id number] Acct: [id number] Name: ALINE BOLAÑOS Rep #: [id number] : 1965 Provider: MYRON Hurtado Age/Sex: 59/F Location: [facility] Status: Signed Intake Vital Signs 01/11/25 06:43 [...] tablet) Nurse's Note: Patient here for a [facility] f/u. Patient states that she feels like that she can go back to work. Patient states she was able to life yesterday at work. Patient state her right side she can't lay on but she is ok with lifting and her left arm looks better. [facility] Medical History (Updated 01/14/25 @ 00:00 by [...] cancer Diabetes H/O transfusion of whole blood [place] disease Hypertension Myocardial infarction Ovarian cancer Respiratory [...] the office today for f/u at the [facility] for f/u status post work-related injury suffered on 01/06/2025 patient so states. 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 She reported to [facility] ED where treated for released the same [...] distress Orien (more content not included)... Normal [facility] Ribs Uni Min 3V w/PA Cheston 01-18-2025 Ribs Uni Min 3V w/PA Chest [facility] Imaging Services [address] [place], [place] [address] Ribs Uni Min 3V w/PA Chest MR#: [id number] Acct: [id number] Name: ALINE BOLAÑOS Rep #: [id number] : 1965 F 59 From: John Gordon MD PCP: MICHAEL Beach Status: REG CLI Study: Ribs Uni Min 3V w/PA Chest Date of Exam: 01/18 Exam# [id number] Ordering Dr: Jalen Mcdaniel PA PROCEDURE: RIBS [...] Location: [facility] CC: MICHAEL Corea; MYRON Hurtado Postbed Stitcher: Signed Normal [facility] Urgent Care Visit Reporton 0 01-18-2025 Urgent Care Visit Report [facility] [address], [address] [place] [address] OFFICE VISIT Date of Service: 01/18/25 MR#: [id number] Acct: [id number] Name: ALINE BOLAÑOS Rep #: [id number] : 1965 Provider: MYRON Hurtado Age/Sex: 59/F Location: [facility] Status: Signed Intake Vital Signs 01/11/25 06:27 01/11/25 06:43 Height 5 ft 2 in 5 ft 2 in Weight: 151 lb BMI 27.6 BP 102/62 110/66 Position Sitting Sitting Respiration 14 16 Pulse 58 L 71 Temp 98.4 F 98.4 F Temp Source Oral Oral Pulse Oximetry (%) 98 98 Oxygen Delivery Method room air room air Intake Visit Reasons: / staples brush Accompanied by: Self Allergies shellfish derived [...] story tablet) Nurse's Note: Patient here for [facility] f/u. Patient states that she is little better. [facility] Medical History (Updated 01/14/25 @ 00:00 by [...] BUE and anterior chest/abdomen. She reported to [facility] ED where treated for released the same [...] care and doxycycline as previously prescribed. No xpbn-soo-okfgffx medications have been taken to assist. No other as (more content not included)... Normal [facility] Urgent Care Visit Reporton 0 01-11-2025 Urgent Care Visit Report [facility] [address], [address] [place] [address] OFFICE VISIT Date of Service: 01/11/25 MR#: [id number] Acct: [id number] Name: ALINE BOLAÑOS Rep #: [id number] : 1965 Provider: MYRON Hurtado Age/Sex: 59/F Location: [facility] Status: Signed Intake Vital Signs 01/06/25 13:16 01/11/25 06:27 Height 5 ft 2 in 5 ft 2 in Weight: 151 lb BMI 27.6 BP 102/62 Position Sitting Respiration 14 Pulse 58 L Temp 98.4 F Temp Source Oral Pulse Oximetry (%) 98 Oxygen Delivery Method room air Intake Visit Reasons: ER FU/ [place] [facility] Accompanied by: Self Is patient in [...] tablet) Nurse's Note: Patient here for a [facility] ER f/u. Patient thinks her left arm is infected. Patient states her ribs are better but still not good. [facility] Medical History (Updated 01/11/25 @ 06:29 [...] cancer Diabetes H/O transfusion of whole blood [place] disease Hypertension Myocardial infarction Ovarian cancer Respiratory [...] BUE and anterior chest/abdomen. She reported to [facility] ED where treated for released the same [...] to work since date of injury. No tksb-vnw-iwqlndu medications have been taken to assist. No other associated symptoms and no other alleviating/aggravatin g factors. ROS C (more content not included)... Normal [facility] Abdomen/Pelvis W IV Cont ONL Yon 01-06-2025 Abdomen/Pelvis W IV Cont ONLY [facility] Imaging Services [address] [place], [place] [address] Abdomen/Pelvis W IV Cont ONLY MR#: [id number] Acct: [id number] Name: ALINE BOLAÑOS Rep #: [id number] : 1965 F 59 From: Андрей Sherman MD PCP: Swapna Corea NP-C Status: REG ER Study: Abdomen/Pelvis W IV Cont ONLY Date of Exam: Exam# [id number] Ordering Dr: Lazaro Koenig MD PROCEDURE: ABDOMEN/PELVIS [...] abnormality. OVERALL FINAL ASSESSMENT: . Reading Location: [facility] CC: SCORE CALLER-C Swapna Corea; Dr. Lazaro Koenig MD Postbed Stitcher: Signed Normal [facility] Anion gap in Serum or Plasma Ordered By: Lazaro Koenig on 01-06-2025 Anion gap [Moles/Vol] 13 mmol/L 12-10 [facility] BUN/creatinine ratioOrdered By: Lazaro Koenig on 01-06-2025 Urea nitrogen/Creatinine [Mass ratio] 16.2 mg/mg - [facility] Basic Metabolic Profile (BMP )on 01-06-2025 BUN/CRE 16.2 RATIO Normal 05-17 [facility] Comment on above: Performed By: #### L 500.2500 #### [facility] [address] [place], [address] Calcium [Mass/Vol] 9.4 mg/dL Normal 7.6-11.0 [facility] Comment on above: Performed By: #### L 500.2500 #### [facility] [address] [place], [address] Chloride [Moles/Vol] 107 mmol/L Normal 98-108 [facility] Comment on above: Performed By: #### L 500.2500 #### [facility] [address] [place], [address] CO2 [Moles/Vol] 19.7 mmol/L Low 21.0-32.0 [facility] Comment on above: Performed By: #### L 500.2500 #### [facility] [address] [place], [address] Creatinine [Mass/Vol] 0.66 mg/dL Low 0.70-1.20 [facility] Comment on above: Performed By: #### L 500.2500 #### [facility] [address] [place], [address] ECRCL 81.24 ml/min Normal 50-250 [facility] Comment on above: Performed By: #### L 500.2500 #### [facility] [address] [place], [address] GAP 13 Normal 5-15 [facility] Comment on above: Performed By: #### L 500.2500 #### [facility] [address] [place], [address] GFR/1.73 sq M.predicted among non-blacks MDRD (S/P/Bld) [Vol rate/Area] 100 mL/min/{1.73_m2} Normal >60 [facility] Comment on above: Result Comment: mL/m in/1.73m2 CKD-EPI Creatinine Equation (2020) Performed By: #### L 500.2500 #### [facility] [address] [place], [address] Glucose [Mass/Vol] 98 mg/dL Normal 70-99 [facility] Comment on above: Performed By: #### L 500.2500 #### [facility] [address] [place], [address] Potassium [Moles/Vol] 3.8 mmol/L Normal 3.3-5.1 [facility] Comment on above: Performed By: #### L 500.2500 #### [facility] [address] [place], [address] Sodium [Moles/Vol] 140 mmol/L Normal 133-145 [facility] Comment on above: Performed By: #### L 500.2500 #### [facility] [address], [address] Urea nitrogen [Mass/Vol] 11 mg/dL Normal 4-19 [facility] Comment on above: Performed By: #### L 500.2500 #### [facility] [address] [place], [address] Carbon dioxide, total [Moles /volume] in Central venous bloodOrdered By: Lazaro Koenig on 01-06-2025 CO2 [Moles/Vol] 19.7 mmol/L Low 21.0-32.0 [facility] Chloride assayOrdered By: Sharif Koenig on 01-06-2025 Chloride [Moles/Vol] 107 mmol/L 98-108 [facility] Emergency Department Summary on 01-06-2025 Emergency Department Summary 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 Normal [facility] Glomerular filtration rate ( GFR) estimation/1.73 sq m using serum, plasma, or whole bOrdered By: [facility] on 01-06-2025 GFR/1.73 sq M.predicted among non-blacks MDRD (S/P/Bld) [Vol rate/Area] 100 mL/min/{1.73_m2} >60 [facility] Comment on above: mL/min/1.73m2 CKD-EP I Creatinine Equation (2020) Potassium measurement (mass/ volume)Ordered By: [facility] on 01-06-2025 Potassium (Unsp spec) [Mass/Vol] 3.8 mmol/L 3.3-5.1 [facility] Serum creatinine measurement (mass/volume)Ordered By: [facility] on 01-06-2025 Creatinine [Mass/Vol] 0.66 mg/dL Low 0.70-1.20 [facility] Serum glucose measurement (m ass/volume)Ordered By: [facility] on 01-06-2025 Glucose [Mass/Vol] 98 mg/dL 70-99 [facility] Serum or plasma calcium bria urement (mass/volume)Ordered By: [facility] on 01-06-2025 Calcium [Mass/Vol] 9.4 mg/dL 7.6-11.0 [facility] Serum or plasma urea nitroge n measurement (mass/volume)Ordered By: [facility] on 01-06-2025 Urea nitrogen [Mass/Vol] 11 mg/dL 4-19 [facility] Sodium levelOrdered By: [facility] on 01-06-2025 Sodium [Moles/Vol] 140 mmol/L 133-145 [facility] HIP, UNI W/ Pelvis 2-3 Views on 12-01-2024 HIP, UNI W/ Pelvis 2-[address] [facility] Imaging Services [address] [place] [address] HIP, UNI W/ Pelvis 2-3 Views MR#: [id number] Acct: [id number] Name: ALINE BOLAÑOS Rep #: [id number] : 1965 F 59 From: Kade hou MD PCP: MICHAEL Beach Status: REG CLI Study: HIP, UNI W/ Pelvis 2-3 Views Date of Exam: 01/20 Exam# [id number] Ordering Dr: Swapna Corea PROCEDURE: HIP, UNI [...] No acute findings. Mild-moderate osteoarthritis. Reading Location[facility] CC: SCORE CALLER-Jaspreet Corea Postbed Stitcher: Signed Normal [facility] Thyroid Peroxidase ABon 04- THYR PEROX AB > 600 High 0-34 [facility] Comment on above: Order Comment: CANCE L THYROID AB, ADD TPO Result Comment: Perf ormed at: - [facility] [place] [id number] [employer]: Juan Anderson PhD, Phone: [phone] Performed By: #### L 500.2500, L506.0400, L3300.6900, L501.9520 ####[facility] [address] [place], [address] Anion gap in Serum or Plasma Ordered By: Alanna Avila on 11-12-2024 Anion gap [Moles/Vol] 11 mmol/L 12-10 [facility] [facility] BUN/creatinine ratioOrdered By: Alanna Avila on 11-12-2024 Urea nitrogen/Creatinine [Mass ratio] 19.7 mg/mg 05-17 [facility] Basic Metabolic Profile (BMP )on 11-12-2024 BUN/CRE 19.7 RATIO Normal 05-17 [facility] Comment on above: Performed By: #### L 500.2500, L506.0400, L3300.6900, L501.9520 ####[facility] [address] [place], [address] Calcium [Mass/Vol] 9.6 mg/dL Normal 7.6-11.0 [facility] Comment on above: Performed By: #### L 500.2500, L506.0400, L3300.6900, L501.9520 ####[facility] [address] [place], [address] Chloride [Moles/Vol] 103 mmol/L Normal 98-108 [facility] Comment on above: Performed By: #### L 500.2500, L506.0400, L3300.6900, L501.9520 ####[facility] [address] [place], [address] CO2 [Moles/Vol] 25.5 mmol/L Normal 21.0-32.0 [facility] Comment on above: Performed By: #### L 500.2500, L506.0400, L3300.6900, L501.9520 ####[facility] [address] [place], [address] Creatinine [Mass/Vol] 0.80 mg/dL Normal 0.70-1.20 [facility] Comment on above: Performed By: #### L 500.2500, L506.0400, L3300.6900, L501.9520 ####[facility] [address] [place], [address] GAP 11 Normal 5-15 [facility] Comment on above: Performed By: #### L 500.2500, L506.0400, L3300.6900, L501.9520 ####[facility] [address] [place], [address] GFR/1.73 sq M.predicted among non-blacks MDRD (S/P/Bld) [Vol rate/Area] 84 mL/min/{1.73_m2} Normal >60 [facility] Comment on above: Result Comment: mL/m in/1.73m2 CKD-EPI Creatinine Equation (2020) Performed By: #### L 500.2500, L506.0400, L3300.6900, L501.9520 ####[facility] [address] [place], [address] Glucose [Mass/Vol] 75 mg/dL Normal 70-99 [facility] Comment on above: Performed By: #### L 500.2500, L506.0400, L3300.6900, L501.9520 ####[facility] [address] [place], [address] Potassium [Moles/Vol] 4.5 mmol/L Normal 3.3-5.1 [facility] Comment on above: Performed By: #### L 500.2500, L506.0400, L3300.6900, L501.9520 ####[facility] [address] [place], [address] Sodium [Moles/Vol] 139 mmol/L Normal 133-145 [facility] Comment on above: Performed By: #### L 500.2500, L506.0400, L3300.6900, L501.9520 ####[facility] [address] [place], [address] Urea nitrogen [Mass/Vol] 16 mg/dL Normal 4-19 [facility] Comment on above: Performed By: #### L 500.2500, L506.0400, L3300.6900, L501.9520 ####[facility] [address] [place], [address] Carbon dioxide, total [Moles /volume] in Central venous bloodOrdered By: Alanna Avila on 11-12-2024 CO2 [Moles/Vol] 25.5 mmol/L 21.0-32.0 [facility] Chloride assayOrdered By: Rizwana Avila on 11-12-2024 Chloride [Moles/Vol] 103 mmol/L 98-108 [facility] Glomerular filtration rate ( GFR) estimation/1.73 sq m using serum, plasma, or whole bOrdered By: Alanna Avila on 11-12-2024 GFR/1.73 sq M.predicted among non-blacks MDRD (S/P/Bld) [Vol rate/Area] 84 mL/min/{1.73_m2} >60 [facility] Comment on above: mL/min/1.73m2 CKD-EP I Creatinine Equation (2020) Potassium measurement (mass/ volume)Ordered By: Alnana Avila on 11-12-2024 Potassium (Unsp spec) [Mass/Vol] 4.5 mmol/L 3.3-5.1 [facility] Serum creatinine measurement (mass/volume)Ordered By: Alanna Avila on 11-12-2024 Creatinine [Mass/Vol] 0.80 mg/dL 0.70-1.20 [facility] Serum glucose measurement (m ass/volume)Ordered By: Alanna Avila on 11-12-2024 Glucose [Mass/Vol] 75 mg/dL 70-99 [facility] Serum or plasma calcium bria urement (mass/volume)Ordered By: Alanna Avila on 11-12-2024 Calcium [Mass/Vol] 9.6 mg/dL 7.6-11.0 [facility] Serum or plasma thyroperoxid ase antibody assay (units/volume)Ordered By: Alanna Avila on 11-12-2024 TPO Ab Qn [IU]/mL High 0-34 [facility] Comment on above: Performed at: [address] [id number] Director: Juan Anderson PhD, Phone: [phone] Serum or plasma urea nitroge n measurement (mass/volume)Ordered By: Alanna Avila on 11-12-2024 Urea nitrogen [Mass/Vol] 16 mg/dL 4-19 [facility] Sodium levelOrdered By: Steffen Avila on 11-12-2024 Sodium [Moles/Vol] 139 mmol/L 133-145 [facility] T4 Free Directon 11-12-2024 T4 FREE DIRECT 1.70 ng/dL High 0.76-1.46 [facility] Comment on above: Performed By: #### L 500.2500, L506.0400, L3300.6900, L501.9520 ####[facility] [address] [place], [address] T4 freeOrdered By: Alanna sweeney on 11-12-2024 Free T4 [Mass/Vol] 1.70 ng/dL High 0.76-1.46 [facility] TSH DL <= 0.005 mIU/L QnOrde red By: Alanna Kumarer on 11-12-2024 TSH Qn 2.090 uIU/mL 0.300-4.200 [facility] Thyroid Stim Hormone (TSH)on 11-12-2024 TSH 2.090 uIU/mL Normal 0.300-4.200 [facility] Comment on above: Performed By: #### L 500.2500, L506.0400, L3300.6900, L501.9520 ####[facility] [address] [place], [address] Abdomen Single Viewon 2023 Abdomen Single View [facility] Imaging Services [address] [place] [address] Abdomen Single View MR#: [id number] Acct: [id number] Name: ALINE BOLAÑOS Rep #: [id number] : 1965 F 59 From: Luc Mccarty MD PCP: Swapna Corea NP-Jaspreet Status: REG CLI Study: Abdomen Single View Date of Exam: 06/18/24 Exam# [id number] Ordering Dr: Lisette Richardson DO [id number] EXAM: XR ABDOMEN, 1 VIEW CLINICAL INDICATION: [...] CC: MICHAEL Corea; Dr. Lisette Richardson DO Postbed Stitcher: Signed Normal [facility] CBC W/Diff, Automatedon 05-30 Absolute Lymph 2.06 X10 3/uL Normal 0.83-4.51 [facility] Comment on above: Performed By: #### L 500.4050, L100.0100, L501.2450 #### [facility] [address] [place], [address] Absolute Neut 7.3 X10 3/uL Normal 2.0-7.7 [facility] Comment on above: Performed By: #### L 500.4050, L100.0100, L501.2450 #### [facility] [address] [place], [address] Basophils/100 WBC (Bld) 0.3 % Normal 0-1 [facility] Comment on above: Performed By: #### L 500.4050, L100.0100, L501.2450 #### [facility] [address] [place], [address] Eosinophils/100 WBC (Bld) 1.8 % Normal 0-5 [facility] Comment on above: Performed By: #### L 500.4050, L100.0100, L501.2450 #### [facility] [address] [place], [address] Erythrocyte distribution width (RBC) [Ratio] 12.6 % Normal 11.6-14.6 [facility] Comment on above: Performed By: #### L 500.4050, L100.0100, L501.2450 #### [facility] [address] [place] [place], [address] Hematocrit (Bld) [Volume fraction] 43.9 % Normal 37-47 [facility] Comment on above: Performed By: #### L 500.4050, L100.0100, L501.2450 #### [facility] [address] [place], [address] Hemoglobin (Bld) [Mass/Vol] 14.2 g/dL Normal 12.0-15.0 [facility] Comment on above: Performed By: #### L 500.4050, L100.0100, L501.2450 #### [facility] [address] [place], [address] IG% 0.400 Normal 0.0-0.9 [facility] Comment on above: Result Comment: IG% - Immature Granulocytes (promyelocytes, myelocytes and metamyelocytes) > 1% indicates that a LEFT SHIFT is Present. Performed By: #### L 500.4050, L100.0100, L501.2450 #### [facility] [address] [place], [address] Lymphocytes/100 WBC (Bld) 19.9 % Normal 19-41 [facility] Comment on above: Performed By: #### L 500.4050, L100.0100, L501.2450 #### [facility] [address] [place], [address] MCH (RBC) [Entitic mass] 28.4 pg Normal 27.0-32.0 [facility] Comment on above: Performed By: #### L 500.4050, L100.0100, L501.2450 #### [facility] [address] [place], [address] MCHC (RBC) [Mass/Vol] 32.3 g/dL Normal 32-36 [facility] Comment on above: Performed By: #### L 500.4050, L100.0100, L501.2450 #### [facility] [address] [place], [address] MCV (RBC) [Entitic vol] 87.8 fL Normal 81-99 [facility] Comment on above: Performed By: #### L 500.4050, L100.0100, L501.2450 #### [facility] [address] [place], [address] Monocytes/100 WBC (Bld) 7.4 % Normal 0-10 [facility] Comment on above: Performed By: #### L 500.4050, L100.0100, L501.2450 #### [facility] [address] [place], [address] Neutrophils/100 WBC (Bld) 70.2 % High 47-70 [facility] Comment on above: Performed By: #### L 500.4050, L100.0100, L501.2450 #### [facility] [address] [place], [address] Nucleated RBC (Bld) [#/Vol] 0 10*3/uL Normal 0-5 [facility] Comment on above: Performed By: #### L 500.4050, L100.0100, L501.2450 #### [facility] [address] [place], [address] Platelet mean volume (Bld) [Entitic vol] 9.2 fL Normal 6.2-12.0 [facility] Comment on above: Performed By: #### L 500.4050, L100.0100, L501.2450 #### [facility] [address] [place], [address] Platelets (Bld) [#/Vol] 275 10*3/uL Normal 150-450 [facility] Comment on above: Performed By: #### L 500.4050, L100.0100, L501.2450 #### [facility] [address] [place], [address] RBC (Bld) [#/Vol] 5.00 10*6/uL Normal 4.2-5.[address] [facility] Comment on above: Performed By: #### L 500.4050, L100.0100, L501.2450 #### [facility] [address] [place], [address] RDW SD 40.1 fl Normal 35.1-43.9 [facility] Comment on above: Performed By: #### L 500.4050, L100.0100, L501.2450 #### [facility] [address] [place], [address] WBC (Bld) [#/Vol] 10.3 10*3/uL Normal 4.4-11.[address] [facility] Comment on above: Performed By: #### L 500.4050, L100.0100, L501.2450 #### [facility] [address] [place], [address] Chest PA and Lateralon 06-18 Chest PA and Lateral [facility] Imaging Services [address] [place] [address] Chest PA and Lateral MR#: [id number] Acct: [id number] Name: ALINE BOLAÑOS Rep #: [id number] : 1965 F 59 From: Theresa Aguiar MD PCP: MICHAEL Beach Status: REG CLI Study: Chest PA and Lateral Date of Exam: 06/18/24 Exam# [id number] Ordering Dr: Lisette Richardson DO [id number] INDICATION: Abdominal pain/right SIDE PAIN EXAMINATION/TECHNIQUE: X-RAY [...] CC: MICHAEL Corea; Dr. Lisette Richardson DO Postbed Stitcher: Signed Normal [facility] Comprehensive Metabolic Prof hion 06-18-2024 Albumin [Mass/Vol] 4.3 g/dL Normal 3.2-5.0 [facility] Comment on above: Performed By: #### L 500.4050, L100.0100, L501.2450 #### [facility] [address] [place], [address] Albumin/Globulin [Mass ratio] 1.1 {ratio} Normal 0.9-2.4 [facility] Comment on above: Performed By: #### L 500.4050, L100.0100, L501.2450 #### [facility] [address] [place], [address] ALK P 129 U/L High 45-117 [facility] Comment on above: Performed By: #### L 500.4050, L100.0100, L501.2450 #### [facility] [address] [place], [address] ALT [Catalytic activity/Vol] 21 U/L Normal 13-56 [facility] Comment on above: Performed By: #### L 500.4050, L100.0100, L501.2450 #### [facility] [address] [place], [address] AST [Catalytic activity/Vol] 13 U/L Low 15-37 [facility] Comment on above: Performed By: #### L 500.4050, L100.0100, L501.2450 #### [facility] [address] [place], [address] Bilirubin [Mass/Vol] 0.70 mg/dL Normal 0.20-1.00 [facility] Comment on above: Result Comment: For patients on eltrombopag therapy, use of Dimension [place] TBIL is not recommended. Performed By: #### L 500.4050, L100.0100, L501.2450 #### [facility] [address] [place], [address] BUN/CRE 18.9 RATIO Normal 10-20 [facility] Comment on above: Performed By: #### L 500.4050, L100.0100, L501.2450 #### [facility] [address] [place], [address] CA,Total 9.8 mg/dL Normal 8.5-10.1 [facility] Comment on above: Performed By: #### L 500.4050, L100.0100, L501.2450 #### [facility] [address] [place], [address] Chloride [Moles/Vol] 102 mmol/L Normal 98-107 [facility] Comment on above: Performed By: #### L 500.4050, L100.0100, L501.2450 #### [facility] [address] [place], [address] CO2 [Moles/Vol] 26.0 mmol/L Normal 21.0-32.0 [facility] Comment on above: Performed By: #### L 500.4050, L100.0100, L501.2450 #### [facility] [address] [place], [address] Creatinine [Mass/Vol] 0.80 mg/dL Normal 0.55-1.02 [facility] Comment on above: Result Comment: The validity of the calculated GFR GFRAA in patients over 70 years has not been determined. Clinical correlation is essential. Performed By: #### L 500.4050, L100.0100, L501.2450 #### [facility] [address] [place], [address] EST GFR - AA 94 mL/min Normal >60 [facility] Comment on above: Result Comment: Afri can [place]ar[place] GFR Calc Performed By: #### L 500.4050, L100.0100, L501.2450 #### [facility] [address] [place], [address] GAP 8 Normal 5-15 [facility] Comment on above: Performed By: #### L 500.4050, L100.0100, L501.2450 #### [facility] [address] [place], [address] GFR/1.73 sq M.predicted among non-blacks MDRD (S/P/Bld) [Vol rate/Area] 78 mL/min/{1.73_m2} Normal >60 [facility] Comment on above: Result Comment: Non- GFR Calc Performed By: #### L 500.4050, L100.0100, L501.2450 #### [facility] [address] [place], [address] Globulin (S) [Mass/Vol] 3.9 g/dL Normal 2.2-4.2 [facility] Comment on above: Performed By: #### L 500.4050, L100.0100, L501.2450 #### [facility] [address] [place], [address] Glucose [Mass/Vol] 89 mg/dL Normal 74-106 [facility] Comment on above: Performed By: #### L 500.4050, L100.0100, L501.2450 #### [facility] [address] [place], [address] Potassium [Moles/Vol] 3.7 mmol/L Normal 3.5-5.1 [facility] Comment on above: Performed By: #### L 500.4050, L100.0100, L501.2450 #### [facility] [address] [place], [address] Sodium [Moles/Vol] 136 mmol/L Normal 136-145 [facility] Comment on above: Performed By: #### L 500.4050, L100.0100, L501.2450 #### [facility] [address] [place], [address] T PROT 8.2 g/dL Normal 6.4-8.2 [facility] Comment on above: Performed By: #### L 500.4050, L100.0100, L501.2450 #### [facility] [address] [place], [address] Urea nitrogen [Mass/Vol] 15 mg/dL Normal 7-18 [facility] Comment on above: Performed By: #### L 500.4050, L100.0100, L501.2450 #### [facility] [address] [place], [address] Lipaseon 06-18-2024 Lipase [Catalytic activity/Vol] 33 U/L Normal 13-75 [facility] Comment on above: Result Comment: Nai caldera note: LIPASE revised reference range effective 22. New Lipase methodology. Expected to produce lower values than the previous assay method. NEW Reference Range: 13 - 75 U/L Performed By: #### L 500.4050, L100.0100, L501.2450 #### [facility] [address] [place], [address] Thoracic Spine 3 Viewson Thoracic Spine [address] [facility] Imaging Services [address] [place] [address] Thoracic Spine 3 Views MR#: [id number] Acct: [id number] Name: ALINE BOLAÑOS Rep #: [id number] : 1965 F 59 From: Luc Mccarty MD PCP: MICHAEL Beach Status: REG CLI Study: Thoracic Spine 3 Views Date of Exam: 06/18/24 Exam# [id number] Ordering Dr: Lisette Richardson DO [id number] EXAM: XR THORACIC SPINE, 3 VIEWS CLINICAL [...] CC: MICHAEL Corea; Dr. Lisette Richardson DO Postbed Stitcher: Signed Normal [facility] Basic Metabolic Profile (BMP )on 05-11-2024 BUN/CRE 18.9 RATIO Normal 05-17 [facility] Comment on above: Performed By: #### L 501.9520, L506.0400, L500.2500 ####[facility] [address] [place], [address] CA,Total 9.8 mg/dL Normal 8.5-10.1 [facility] Comment on above: Performed By: #### L 501.9520, L506.0400, L500.2500 ####[facility] [address] [place], [address] Chloride [Moles/Vol] 106 mmol/L Normal 98-107 [facility] Comment on above: Performed By: #### L 501.9520, L506.0400, L500.2500 ####[facility] [address] [place], [address] CO2 [Moles/Vol] 25.0 mmol/L Normal 21.0-32.0 [facility] Comment on above: Performed By: #### L 501.9520, L506.0400, L500.2500 ####[facility] [address] [place], [address] Creatinine [Mass/Vol] 0.74 mg/dL Normal 0.55-1.02 [facility] Comment on above: Result Comment: The validity of the calculated GFR GFRAA in patients over 70 years has not been determined. Clinical correlation is essential. Performed By: #### L 501.9520, L506.0400, L500.2500 ####[facility] [address] [place], [address] EST GFR - AA 103 mL/min Normal >60 [facility] Comment on above: Result Comment: Afri can [place] GFR Calc Performed By: #### L 501.9520, L506.0400, L500.2500 ####[facility] [address] [place], [address] GAP 7 Normal 5-15 [facility] Comment on above: Performed By: #### L 501.9520, L506.0400, L500.2500 ####[facility] [address] [place], [address] GFR/1.73 sq M.predicted among non-blacks MDRD (S/P/Bld) [Vol rate/Area] 85 mL/min/{1.73_m2} Normal >60 [facility] Comment on above: Result Comment: Non- GFR Calc Performed By: #### L 501.9520, L506.0400, L500.2500 ####[facility] [address] [place], [address] Glucose [Mass/Vol] 98 mg/dL Normal 74-106 [facility] Comment on above: Performed By: #### L 501.9520, L506.0400, L500.2500 ####[facility] [address] [place], [address] Potassium [Moles/Vol] 3.8 mmol/L Normal 3.5-5.1 [facility] Comment on above: Performed By: #### L 501.9520, L506.0400, L500.2500 ####[facility] [address] [place], [address] Sodium [Moles/Vol] 138 mmol/L Normal 136-145 [facility] Comment on above: Performed By: #### L 501.9520, L506.0400, L500.2500 ####[facility] [address] [place], [address] Urea nitrogen [Mass/Vol] 14 mg/dL Normal 7-18 [facility] Comment on above: Performed By: #### L 501.9520, L506.0400, L500.2500 ####[facility] [address] [place], [address] T4 Free Directon 05-11-2024 T4 FREE DIRECT 1.43 ng/dL Normal 0.76-1.46 [facility] Comment on above: Performed By: #### L 501.9520, L506.0400, L500.2500 ####[facility] [address] [place], [address] Thyroid Stim Hormone (TSH)on 05-11-2024 TSH 0.553 uIU/mL Normal 0.358-3.740 [facility] Comment on above: Performed By: #### L 501.9520, L506.0400, L500.2500 ####[facility] [address], [address] Basophil percentageOrdered B y: Alanna Avila on 11-06-2023 Chloride [Moles/Vol] 108 mmol/L 98-107 [facility] Glucose [Mass/Vol] 89 mg/dL 74-106 [facility] Potassium [Moles/Vol] 3.9 mmol/L 3.5-5.1 [facility] Sodium [Moles/Vol] 138 mmol/L 136-145 [facility] Laboratory - Chemistry and C hemistry - challengeOrdered By: Alanna Avila on 11-06-2023 CO2 [Moles/Vol] 26.0 mmol/L 21.0-32.0 [facility] Urea nitrogen/Creatinine [Mass ratio] 20.3 mg/mg 05-17 [facility] No Panel InformationOrdered By: Alanna Avila on 11-06-2023 Estimated GFR (MDRD) Amer 103 mL/min >60 [facility] Comment on above: GFR Calc Estimated GFR (MDRD) Non-Af Amer 85 mL/min >60 [facility] Comment on above: Non- GFR Calc Vitamin D 25-Hydroxy 65.3 ng/mL [facility] Comment on above: Vitamin D 25(OH) Sta tus Range Deficiency <20 ng/mL (50nmol/L) Insufficiency 20 - 30 ng/mL (50 - 75 nmol/L) Sufficiency 30 - 100 ng/mL (75 - 250 nmol/L) Toxicity >100 ng/mL (>250 nmol/L) Serum or plasma calcium bria urement (mass/volume)Ordered By: Alanna Avila on 11-06-2023 Calcium [Mass/Vol] 9.4 mg/dL 8.5-10.1 [facility] Serum or plasma creatinine m easurement (mass/volume)Ordered By: Alanna Avila on 11-06-2023 Creatinine [Mass/Vol] 0.74 mg/dL 0.55-1.02 [facility] Comment on above: The validity of the calculated GFR & GFRAA in patients over 70 years has not been determined. Clinical correlation is essential. Serum or plasma thyroid stim ulating hormone (TSH) measurement (units/volume)Ordered By: Alanna Avila on 11-06-2023 TSH Qn 1.33 uIU/mL 0.358-3.74 [facility] Serum or plasma urea nitroge n measurement (mass/volume)Ordered By: Alanna Avila on 11-06-2023 Urea nitrogen [Mass/Vol] 15 mg/dL 7-18 [facility] Thin prep Papanicolaou smear with manual screeningOrdered By: Alanna Avila on 11-06-2023 Thin prep Papanicolaou smear with manual screening 4 5-15 [facility] Thin prep Papanicolaou smear with manual screening 1.60 ng/dL 0.76-1.46 [facility] Basophil percentageOrdered B y: Swapna Corea on 08-30-2023 Bilirubin [Mass/Vol] 0.50 mg/dL 0.20-1.00 [facility] Comment on above: For patients on eltr ombopag therapy, use of Dimension [place] TBIL is not recommended. Cholesterol [Mass/Vol] 163 mg/dL <200 [facility] Comment on above: <200 mg/dL Desirable 200-240 mg/dL Borderline >240 mg/dL High Risk Protein [Mass/Vol] 7.5 g/dL 6.4-8.2 [facility] Triglyceride [Mass/Vol] 101 mg/dL <199 [facility] Comment on above: The drugs N-Acetylcy steine and Metamizole may falsely depress this assay.Serum Triglycerides Reference Interval Normal <150 mg/dL Borderline high 150 - 199 mg/dL High 200 - 499 mg/dL Very High > or = 500 mg/dL Direct bilirubinOrdered By: Swapna Corea on 08-30-2023 Bilirubin.direct [Mass/Vol] 0.15 mg/dL 0.00-0.30 [facility] - Chemistry and C hemistry - challengeOrdered By: Swapna Corea on 08-30-2023 ALP [Catalytic activity/Vol] 116 U/L 45-117 [facility] ALT [Catalytic activity/Vol] 23 U/L 13-56 [facility] Cholesterol in HDL (Body fld) [Mass/Vol] 50 mg/dL >40 [facility] Comment on above: The drugs N-Acetylcy steine and Metamizole may falsely depress this assay. Reference Range HDL <40 mg/dL Low HDL Cholesterol HDL >or= 60 mg/dL High HDL Cholesterol Cholesterol in LDL (Body fld) [Moles/Vol] 93 mg/dL 0-130 [facility] Cholesterol in VLDL Calc [Moles/Vol] 20 mg/dL 5-40 [facility] Globulin (S) [Mass/Vol] 3.7 g/dL 2.2-4.2 [facility] Thin prep Papanicolaou smear with manual screeningOrdered By: Swapna Corea on 08-30-2023 Thin prep Papanicolaou smear with manual screening 3.8 g/dL 3.2-5.0 [facility] Thin prep Papanicolaou smear with manual screening 12 U/L 15-37 [facility] .Auto Diffon 05-27-2023 Basophil, Absolute 0.0 10 3/mcL Normal 0.0-0.2 [facility] ([place]) Comment on above: Performed By: #### L IP, GFRJB ANEU, MDW, CBC, TROPHS, CMP #### [address] [address] Basophils/100 WBC (Bld) 0.1 % Normal 0.0-2.5 [facility] ([place]) Comment on above: Performed By: #### L IP, GFRJB ANEU, MDW, CBC, TROPHS, CMP #### [address] [address] Eosinophil, Absolute 0.0 10 3/mcL Normal 0.0-0.4 [facility] ([place]) Comment on above: Performed By: #### L IP, GFR, ADIFF, ANEU, MDW, CBC, TROPHS, CMP #### [address] [address] Eosinophils/100 WBC (Bld) 0.1 % Normal 0.0-7.0 [facility] ([place]) Comment on above: Performed By: #### L IP, GFR, ADIFF, ANEU, MDW, CBC, TROPHS, CMP #### [address] [address] Lymphocyte, Absolute 0.7 10 3/mcL Low 0.8-3.9 [facility] ([place]) Comment on above: Performed By: #### L IP, GFR, ADIFF, ANEU, MDW, CBC, TROPHS, CMP #### [address] [address] Lymphocytes/100 WBC (Bld) 4.5 % Low 10.0-50.0 [facility] ([place]) Comment on above: Performed By: #### L IP, GFR, ADIFF, ANEU, MDW, CBC, TROPHS, CMP #### [address] [address] Monocyte, Absolute 0.5 10 3/mcL Normal 0.2-1.0 [facility] ([place]) Comment on above: Performed By: #### L IP, GFR, ADIFF, ANEU, MDW, CBC, TROPHS, CMP #### [address] [address] Monocytes/100 WBC (Bld) 3.2 % Normal 1.7-13.0 [facility] ([place]) Comment on above: Performed By: #### L IP, GFR, ADIFF, ANEU, MDW, CBC, TROPHS, CMP #### [address] [address] Neutrophils/100 WBC (Bld) 92.1 % High 37.0-80.0 [facility] ([place]) Comment on above: Performed By: #### L IP, GFR, ADIFF, ANEU, MDW, CBC, TROPHS, CMP #### [address] [address] .GFRon 05-27-2023 GFR 79 ml/min/1.73sqm Normal [facility] ([place]) Comment on above: Result Comment: GFR Population [...] ADIFF, ANEU, MDW, CBC, TROPHS, CMP #### [address] [address] GFR Non- 66 ml/min/1.73sqm Normal [facility] ([place]) Comment on above: Result Comment: GFR Population [...] ADIFF, ANEU, MDW, CBC, TROPHS, CMP #### [address] [address] .MDWon 05-27-2023 Monocyte Distribution Width 16.33 Normal 0.00-20.00 [facility] ([place]) Comment on above: Result Comment: For ED adult patients suspected of sepsis, MDW<=20.0 does not rule out sepsis or risk of sepsis Performed By: #### L IP, GFR, ADIFF, ANEU, MDW, CBC, TROPHS, CMP #### [place] [address] .NEUABSon 05-27-2023 Neutrophil, Absolute 14.0 10 3/mcL High 2.9-6.2 A [facility] ([place]) Comment on above: Performed By: #### L IP, GFR, ADIFF, ANEU, MDW, CBC, TROPHS, CMP #### [place] [address] CBCon 05-27-2023 Erythrocyte distribution width (RBC) [Ratio] 13.1 % Normal 11.5-14.5 [facility] ([place]) Comment on above: Performed By: #### L IP, GFR, ADIFF, ANEU, MDW, CBC, TROPHS, CMP #### [place] [address] Hematocrit (Bld) [Volume fraction] 43.3 % Normal 37.0-47.0 [facility] ([place]) Comment on above: Performed By: #### L IP, GFR, ADIFF, ANEU, MDW, CBC, TROPHS, CMP #### [place] [address] Hgb 14.6 G/dL Normal 12.0-16.0 [facility] ([place]) Comment on above: Performed By: #### L IP, GFR, ADIFF, ANEU, MDW, CBC, TROPHS, CMP #### [place] [address] MCH (RBC) [Entitic mass] 29.3 pg Normal 27.0-31.2 [facility] ([place]) Comment on above: Performed By: #### L IP, GFR, ADIFF, ANEU, MDW, CBC, TROPHS, CMP #### [place] [address] MCHC 33.8 G/dL Normal 33.0-37.0 [facility] ([place]) Comment on above: Performed By: #### L IP, GFR, ADIFF, ANEU, MDW, CBC, TROPHS, CMP #### [address] [address] MCV (RBC) [Entitic vol] 86.5 fL Normal 80.0-94.0 [facility] ([place]) Comment on above: Performed By: #### L IP, GFR, ADIFF, ANEU, MDW, CBC, TROPHS, CMP #### [address] [address] Platelet 209 10 3/mcL Normal 130-400 [facility] ([place]) Comment on above: Performed By: #### L IP, GFR, ADIFF, ANEU, MDW, CBC, TROPHS, CMP #### [address] [address] Platelet mean volume (Bld) [Entitic vol] 7.1 fL Low 7.4-10.4 [facility] ([place]) Comment on above: Performed By: #### L IP, GFR, ADIFF, ANEU, MDW, CBC, TROPHS, CMP #### [address] [address] RBC 5.00 10 6/mcL Normal 4.20-5.40 [facility] ([place]) Comment on above: Performed By: #### L IP, GFR, ADIFF, ANEU, MDW, CBC, TROPHS, CMP #### [address] [address] WBC 15.2 10 3/mcL High 4.6-10.8 [facility] ([place]) Comment on above: Performed By: #### L IP, GFR, ADIFF, ANEU, MDW, CBC, TROPHS, CMP #### [address] [address] CMPon 05-27-2023 Albumin Level 4.5 G/dL Normal 3.4-4.8 [facility] ([place]) Comment on above: Performed By: #### L IP, GFR, ADIFF, ANEU, MDW, CBC, TROPHS, CMP #### [address] [address] Albumin/Globulin [Mass ratio] 1.4 {ratio} Normal 1.1-2.5 [facility] ([place]) Comment on above: Performed By: #### L IP, GFR, ADIFF, ANEU, MDW, CBC, TROPHS, CMP #### [address] [address] ALP [Catalytic activity/Vol] 146 U/L High 40-135 [facility] ([place]) Comment on above: Performed By: #### L IP, GFR, ADIFF, ANEU, MDW, CBC, TROPHS, CMP #### [place] [id number] ALT [Catalytic activity/Vol] 21 U/L Normal 14-59 [facility] ([place]) Comment on above: Performed By: #### L IP, GFR, ADIFF, ANEU, MDW, CBC, TROPHS, CMP #### [place] [phone] AST [Catalytic activity/Vol] 17 U/L Normal 10-40 [facility] ([place]) Comment on above: Performed By: #### L IP, GFR, ADIFF, ANEU, MDW, CBC, TROPHS, CMP #### [address] [address] Bili Total 1.0 mg/dL Normal 0.2-1.0 [facility] ([place]) Comment on above: Result Comment: Use of this assay is not recommended for patients undergoing treatment with eltrombopag due to the potential for falsely elevated results. Performed By: #### L IP, GFR, ADIFF, ANEU, MDW, CBC, TROPHS, CMP #### [address] [address] BUN/Creatinine Ratio 20 ratio Normal 7-27 [facility] ([place]) Comment on above: Performed By: #### L IP, GFR, ADIFF, ANEU, MDW, CBC, TROPHS, CMP #### [place] [phone] Calcium [Mass/Vol] 9.1 mg/dL Normal 8.4-10.2 [facility] ([place]) Comment on above: Performed By: #### L IP, GFR, ADIFF, ANEU, MDW, CBC, TROPHS, CMP #### [address] [address] Chloride [Moles/Vol] 96 mmol/L Low 98-107 [facility] ([place]) Comment on above: Performed By: #### L IP, GFR, ADIFF, ANEU, MDW, CBC, TROPHS, CMP #### [address] [address] CO2 [Moles/Vol] 24 mmol/L Normal 23-31 [facility] ([place]) Comment on above: Performed By: #### L IP, GFR, ADIFF, ANEU, MDW, CBC, TROPHS, CMP #### [address] [address] Creatinine [Mass/Vol] 0.88 mg/dL Normal 0.55-1.02 [facility] ([place] Comment on above: Performed By: #### L IP, GFR, ADIFF, ANEU, MDW, CBC, TROPHS, CMP #### [address] [address] Electrolyte Balance 14.0 mEq/L Normal 4.0-15.0 [facility] ([place]) Comment on above: Performed By: #### L IP, GFR, ADIFF, ANEU, MDW, CBC, TROPHS, CMP #### [address] [address] Globulin 3.3 G/dL Normal [facility] ([place]) Comment on above: Performed By: #### L IP, GFR, ADIFF, ANEU, MDW, CBC, TROPHS, CMP #### [address] [address] Glucose [Mass/Vol] 149 mg/dL High 80-115 [facility] ([place]) Comment on above: Performed By: #### L IP, GFR, ADIFF, ANEU, MDW, CBC, TROPHS, CMP #### [address] [address] Potassium [Moles/Vol] 4.3 mmol/L Normal 3.5-5.1 [facility] [place] Comment on above: Performed By: #### L IP, GFR, ADIFF, ANEU, MDW, CBC, TROPHS, CMP #### [place] [id number] [place], [place] [address] Sodium [Moles/Vol] 134 mmol/L Low 136-145 [facility] ([place]) Comment on above: Performed By: #### L IP, GFR, ADIFF, ANEU, MDW, CBC, TROPHS, CMP #### [address] [address] Total Protein 7.8 G/dL Normal 6.4-8.2 [facility] ([place]) Comment on above: Performed By: #### L IP, GFR, ADIFF, ANEU, MDW, CBC, TROPHS, CMP #### [address] [address] Urea nitrogen [Mass/Vol] 18 mg/dL Normal 7-18 [facility] ([place]) Comment on above: Performed By: #### L IP, GFR, ADIFF, ANEU, MDW, CBC, TROPHS, CMP #### [address] [address] [address] ABD/PELVIS W/ IV CONTRAST ONLYon 05-27-2023 [...] 9:43:32 PM Ordering Provider: DAT IVY Normal [facility] ([place]) LIPon 05-27-2023 Lipase Level 25 U/L Normal 16-77 [facility] ([place]) Comment on above: Performed By: #### L IP, GFR, FRIDA MUHAMMAD MDW, CBC, TROPHS, CMP #### [address] [address] TROPHSon 05-27-2023 Troponin I High Sensitivity 4.4 ng/L Normal 0.0-51.4 [facility] ([place]) Comment on above: Performed By: #### L IP, GFR, FRIDA MUHAMMAD MDW, CBC, TROPHS, CMP #### [place] [id number] [place], [place] [address] UAon 05-27-2023 Color (U) Yellow Normal [facility] ([place]) Comment on above: Performed By: #### U A #### [address] [address] Glucose (U) [Mass/Vol] Negative Normal Negative [facility] ([place]) Comment on above: Performed By: #### U A #### [address] [address] Ketones Ql (U) >=160 Abnormal Negative [facility] ([place]) Comment on above: Performed By: #### U A #### Analilia [address] [address] UA Appear Clear Normal Clear [facility] ([place]) Comment on above: Performed By: #### U A #### [address] [address] UA Blood Negative Normal Negative [facility] ([place]) Comment on above: Performed By: #### U A #### [address] [address] UA Leuk Est Negative Normal Negative [facility] ([place]) Comment on above: Performed By: #### U A #### [place] [address] UA Nitrite Negative Normal Negative [facility] ([place]) Comment on above: Performed By: #### U A #### [address] [address] UA pH 5.5 Normal 5.0 - 8.0 [facility] ([place]) Comment on above: Performed By: #### U A #### [address] [address] UA Protein Negative Normal Negative [facility] ([place]) Comment on above: Performed By: #### U A #### [address] [address] UA Spec Grav 1.025 Normal 1.015-1.025 [facility] ([place]) Comment on above: Performed By: #### U A #### [place] [address] UA Specimen Type Void Normal [facility] ([place]) Comment on above: Performed By: #### U A #### [address] [address] UA Urobilinogen 0.2 E.U./dL Normal 0.2-1.0 [facility] ([place]) Comment on above: Performed By: #### U A #### [place] [id number] [place], [place] [address] Urobilinogen (U) [Mass/Vol] Negative Normal Negative [facility] ([place]) Comment on above: Performed By: #### U A #### [place] [address] [place], [place] [address] Basophil percentageOrdered B y: Alanna Avila on 05-06-2023 Chloride [Moles/Vol] 105 mmol/L 98-107 [facility] Glucose [Mass/Vol] 95 mg/dL 74-106 [facility] Potassium [Moles/Vol] 3.7 mmol/L 3.5-5.1 [facility] Sodium [Moles/Vol] 138 mmol/L 136-145 [facility] Laboratory - Chemistry and C hemistry - challengeOrdered By: Alanna Avila on 05-06-2023 CO2 [Moles/Vol] 26.0 mmol/L 21.0-32.0 [facility] Free T4 [Mass/Vol] 1.45 ng/dL 0.76-1.46 [facility] Urea nitrogen/Creatinine [Mass ratio] 21.8 mg/mg 10-20 [facility] No Panel InformationOrdered By: Alanna Avila on 05-06-2023 Estimated GFR (MDRD) Amer 91 mL/min >60 [facility] Comment on above: GFR Calc Estimated GFR (MDRD) Non-Af Amer 75 mL/min >60 [facility] Comment on above: Non- GFR Calc Thyroid Stimulating Hormone (TSH) 0.96 uIU/mL 0.358-3.74 [facility] Serum or plasma calcium bria urement (mass/volume)Ordered By: Alanna Avila on 05-06-2023 Calcium [Mass/Vol] 9.4 mg/dL 8.5-10.1 [facility] Serum or plasma creatinine m easurement (mass/volume)Ordered By: Alanna Avila on 05-06-2023 Creatinine [Mass/Vol] 0.82 mg/dL 0.55-1.02 [facility] Comment on above: The validity of the calculated GFR & GFRAA in patients over 70 years has not been determined. Clinical correlation is essential. Serum or plasma urea nitroge n measurement (mass/volume)Ordered By: Alanna Avila on 05-06-2023 Urea nitrogen [Mass/Vol] 18 mg/dL 7-18 [facility] Thin prep Papanicolaou smear with manual screeningOrdered By: lAanna Avila on 05-06-2023 Thin prep Papanicolaou smear with manual screening 7 5-15 [facility] XR FOOT LEFT 3+ VIEWS (STAND MARY)on [...] unspecified site, unspecified whether rheumatoid factor present ([facility]) COMPARISON: None. FINDINGS: Three views of the left foot. No fractures. Hallux valgus deformity with mild osteoarthrosis of the 1st metatarsophalangeal joint. No periarticular osteopenia or erosions. Plantar calcaneal and Achilles insertional enthesophytes. Normal soft tissues. IMPRESSION: No evidence of erosive arthropathy. 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 Plantar calcaneal and Achilles insertional enthesophytes. [facility] Workstation ID: [id number] Dictated by: JOLYNN THIBODEAUX on SatAug 08, 2022 6:25:44 AM EST Transcribed by: DIMAS BURRELL on SatAug 08, 2022 6:27:37 AM EST Finalized by: JOLYNN THIBODEAUX on SatAug 08, 2022 6:48:08 AM EST Normal [facility] Comment on above: Order Comment: Injur [...] unspecified site, unspecified whether rheumatoid factor present ([facility]) COMPARISON: None. FINDINGS: Three views of the right foot. No fractures. Evidence of prior osteotomy of the 1st metatarsal head. Moderate degenerative changes of the 1st metatarsophalangeal joint. No periarticular osteopenia or erosions. Plantar calcaneal and Achilles insertional enthesophytes. Normal soft tissues. IMPRESSION: No evidence of erosive arthropathy. 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 Plantar calcaneal and Achilles insertional enthesophytes. [employer] Workstation ID: [id number] Dictated by: JOLYNN THIBODEAUX on SatAug 08, 2022 6:24:45 AM EST Transcribed by: CHACORTA CHATMAN on SatAug 08, 2022 6:27:10 AM EST Finalized by: JOLYNN THIBODEAUX on SatAug 08, 2022 6:48:14 AM EST Normal [facility] Comment on above: Order Comment: Injur [...] mild degenerative changes throughout the interphalangeal joints. [facility]/[employer] Workstation ID: [id number] Dictated by: JOLYNN THIBODEAUX on SatAug 08, 2022 6:26:49 AM EST Transcribed by: CHACORTA CHATMAN on SatAug 08, 2022 6:27:59 AM EST Finalized by: JOLYNN THIBODEAUX on SatAug 08, 2022 6:48:03 AM EST [facility] Comment on above: Order Comment: Injur y/Trauma [...] on SatAug 06, 2022 6:22:06 PM EST [facility] Comment on above: Order Comment: AP/LA T [...] JARVIS MD, Date: 07/05/2022 10:37 [facility] Comment on above: Order Comment: CONTR AST PER RADIOLOGIST DISCRETION No Oral or IV contrast Absolute lymphocyte counton 05-08-2022 Lymphocytes Auto (Unsp spec) [#/Vol] 2.11 10*3/uL 0.83-4.51 [facility] Work Phone: Basophil percentageon 2021 Basophils/100 WBC (Bld) 0.2 % 0-1 [facility] Work Phone: [phone] Bilirubin [Mass/Vol] 0.40 mg/dL 0.20-1.00 [facility] Work Phone: Comment on above: For patients on eltr ombopag therapy, use of Dimension [place] TBIL is not recommended. Chloride [Moles/Vol] 108 mmol/L 98-107 [facility] Work Phone: [phone] Eosinophils/100 WBC (Bld) 2.3 % 0-5 [facility] Work Phone: [phone] Glucose [Mass/Vol] 98 mg/dL 74-106 [facility] Work Phone: [phone] Neutrophils (Bld) [#/Vol] 5.1 10*3/uL 2.0-7.7 [facility] Work Phone: Neutrophils/100 WBC (Bld) 63.3 % 47-70 [facility] Work Phone: Potassium [Moles/Vol] 3.7 mmol/L 3.5-5.1 [facility] Work Phone: Protein [Mass/Vol] 7.8 g/dL 6.4-8.2 [facility] Work Phone: Sodium [Moles/Vol] 140 mmol/L 136-145 [facility] Work Phone: WBC (Bld) [#/Vol] 8.1 10*3/uL 4.4-11.0 [facility] Work Phone: Blood erythrocytes count (nu mber/volume)on 05-08-2022 RBC (Bld) [#/Vol] 4.46 10*6/uL 4.2-5.4 [facility] Work Phone: Blood hemoglobin measurement (mass/volume)on 05-08-2022 Hemoglobin (Bld) [Mass/Vol] 13.0 g/dL 12.0-15.0 [facility] Work Phone: Blood lymphocytes/100 leukoc yteson 05-08-2022 Lymphocytes/100 WBC (Bld) 25.9 % 19-41 [facility] Work Phone: Blood monocytes/100 leukocyt eson 05-08-2022 Monocytes/100 WBC (Bld) 8.1 % 0-10 [facility] Work Phone: Blood platelet mean volumeon 05-08-2022 Platelet mean volume (Bld) [Entitic vol] 9.0 fL 6.2-12.0 [facility] Work Phone: Determination of erythrocyte mean corpuscular volume (MCV)on 05-08-2022 MCV (RBC) [Entitic vol] 87.2 fL 81-99 [facility] Work Phone: Hematocrit Auto (Bld) [Volum e fraction]on 05-08-2022 Hematocrit (Bld) [Volume fraction] 38.9 % 37-47 [facility] Work Phone: Laboratory - Chemistry and C hemistry - challengeon 05-08-2022 ALP [Catalytic activity/Vol] 133 U/L 45-117 [facility] Work Phone: [phone] ALT [Catalytic activity/Vol] 20 U/L 13-56 [facility] Work Phone: [phone] CO2 [Moles/Vol] 26.0 mmol/L 21.0-32.0 [facility] Work Phone: [phone] Cobalamin (Vitamin B12) [Mass/Vol] 347 pg/mL 211-911 [facility] Work Phone: [phone] Free T4 [Mass/Vol] 1.50 ng/dL 0.76-1.46 [facility] Work Phone: Globulin (S) [Mass/Vol] 3.9 g/dL 2.2-4.2 [facility] Work Phone: Urea nitrogen/Creatinine [Mass ratio] 14.9 mg/mg 10-20 [facility] Work Phone: Laboratory - Hematology and Cell countson 05-08-2022 Erythrocyte distribution width (RBC) [Entitic vol] 41.2 fL 35.1-43.9 [facility] Work Phone: Erythrocyte distribution width (RBC) [Ratio] 12.9 % 11.6-14.6 [facility] Work Phone: Immature granulocytes/100 WBC (Bld) 0.200 % 0.0-0.9 [facility] Work Phone: Comment on above: IG% - Immature Granu locytes (promyelocytes, myelocytes and metamyelocytes) > 1% indicates that a LEFT SHIFT is Present. MCH (RBC) [Entitic mass] 29.1 pg 27.0-32.0 [facility] Work Phone: Nucleated RBC/100 WBC (Bld) [Ratio] 0 % 0-5 [facility] Work Phone: MCHC Auto (RBC) [Mass/Vol]on 05-08-2022 MCHC (RBC) [Mass/Vol] 33.4 g/dL 32-36 [facility] Work Phone: No Panel Informationon 05-08 Estimated GFR (MDRD) Amer 93 mL/min >60 [facility] Work Phone: Comment on above: GFR Calc Estimated GFR (MDRD) Non-Af Amer 77 mL/min >60 [facility] Work Phone: Comment on above: Non- GFR Calc Thyroid Stimulating Hormone (TSH) 0.86 uIU/mL 0.358-3.74 [facility] Work Phone: Platelets bldon 05-08-2022 Platelets (Bld) [#/Vol] 263 10*3/uL 150-450 [facility] Work Phone: Serum or plasma albumin bria urement (mass/volume)on 05-08-2022 Albumin [Mass/Vol] 3.9 g/dL 3.2-5.0 [facility] Work Phone: Serum or plasma albumin/glob ulin mass ratioon 05-08-2022 Albumin/Globulin [Mass ratio] 1.0 {ratio} 0.9-2.4 [facility] Work Phone: Serum or plasma calcium bria urement (mass/volume)on 05-08-2022 Calcium [Mass/Vol] 9.1 mg/dL 8.5-10.1 [facility] Work Phone: Serum or plasma creatinine m easurement (mass/volume)on 05-08-2022 Creatinine [Mass/Vol] 0.81 mg/dL 0.55-1.02 [facility] Work Phone: Comment on above: The validity of the calculated GFR & GFRAA in patients over 70 years has not been determined. Clinical correlation is essential. Serum or plasma urea nitroge n measurement (mass/volume)on 05-08-2022 Urea nitrogen [Mass/Vol] 12 mg/dL 7-18 [facility] Work Phone: Thin prep Papanicolaou smear with manual screeningon 05-08-2022 Thin prep Papanicolaou smear with manual screening 12 U/L 15-37 [facility] Work Phone: Thin prep Papanicolaou smear with manual screening 6 5-15 [facility] Work Phone: Culture, urineon 12-15-2021 Bacteria identified Cx Nom (U) Positive [facility] Work Phone: Laboratory - Chemistry and C hemistry - challengeon 11-17-2021 Cobalamin (Vitamin B12) [Mass/Vol] 349 pg/mL 211-911 [facility] Work Phone: Free T4 [Mass/Vol] 1.44 ng/dL 0.76-1.46 [facility] Work Phone: No Panel Informationon 11-17 Thyroid Stimulating Hormone (TSH) 0.51 uIU/mL 0.358-3.74 [facility] Work Phone: Vitamin D 25-Hydroxy 64.2 ng/mL [facility] Work Phone: Comment on above: Vitamin D 25(OH) Sta tus Range Deficiency <20 ng/mL (50nmol/L) Insufficiency 20 - 30 ng/mL (50 - 75 nmol/L) Sufficiency 30 - 100 ng/mL (75 - 250 nmol/L) Toxicity >100 ng/mL (>250 nmol/L) Serum or plasma ferritin shirley surement (mass/volume)on 11-17-2021 Ferritin [Mass/Vol] 87 ng/mL 8-[address] [facility] Work Phone: Office Visit: UC: pyelonephr itison 06-27-2017 Documentation of current medications (procedure) Done Invalid Interpretation Code [facility] Work Phone: Fall risk assessment No Invalid Interpretation Code [facility] Work Phone: Tobacco smoking status NHIS Never Invalid Interpretation Code [facility] Work Phone: Tobacco smoking status NHIS Tobacco smoking status NHIS Invalid Interpretation Code [facility] Work Phone: Tobacco use [facility] Never smoker Invalid Interpretation Code [facility] Work Phone: Culture, urine Bacteria identified Cx Nom (U) Positive [facility] Work Phone: Vital Signs Date Time Vital Sign Value Performing Clinician Facility 04-22-2025 08:56-0400 Body height 157.48 cm Swapna Anmol SCORE CALLER-C Work Phone: [facility] 04-22-2025 08:56-0400 Body mass index (BMI) [Ratio] 28.3 kg/m2 Swapna Anmol SCORE CALLER-C Work Phone: [facility] 04-22-2025 08:56-0400 Body weight 70.39 kg Swapna Anmol SCORE CALLER-C Work Phone: [facility] 04-22-2025 08:56-0400 Diastolic blood pressure 82 mm[Hg] Swapna Anmol SCORE CALLER-C Work Phone: [facility] 04-22-2025 08:56-0400 Systolic blood pressure 125 mm[Hg] Swapna Anmol SCORE CALLER-C Work Phone: [facility] 01-26-2025 06:07-0400 Body temperature 98.2 [degF] Swapna Anmol SCORE CALLER-C Work Phone: [facility] 01-26-2025 06:07-0400 Diastolic blood pressure 60 mm[Hg] Swapna Anmol SCORE CALLER-C Work Phone: [facility] 01-26-2025 06:07-0400 Heart rate 85 /min Swapna Anmol SCORE CALLER-C Work Phone: [facility] 01-26-2025 06:07-0400 Respiratory rate 16 /min Swapna Anmol SCORE CALLER-C Work Phone: [facility] 01-26-2025 06:07-0400 SaO2% (BldA) [Mass fraction] 99 % Swapna Anmol SCORE CALLER-C Work Phone: [facility] 01-26-2025 06:07-0400 Systolic blood pressure 104 mm[Hg] Swapna Anmol SCORE CALLER-C Work Phone: [facility] 01-11-2025 06:43-0400 Body height 157.48 cm Swapna Anmol SCORE CALLER-C Work Phone: [facility] 01-11-2025 06:43-0400 Body temperature 98.4 [degF] Swapna Anmol SCORE CALLER-C Work Phone: [facility] 01-11-2025 06:43-0400 Diastolic blood pressure 66 mm[Hg] Swapna Anmol SCORE CALLER-C Work Phone: [facility] 01-11-2025 06:43-0400 Heart rate 71 /min Swapna Anmol SCORE CALLER-C Work Phone: [facility] 01-11-2025 06:43-0400 Respiratory rate 16 /min Swapna Anmol SCORE CALLER-C Work Phone: [facility] 01-11-2025 06:43-0400 SaO2% (BldA) [Mass fraction] 98 % Swapna Anmol SCORE CALLER-C Work Phone: [facility] 01-11-2025 06:43-0400 Systolic blood pressure 110 mm[Hg] Swapna Anmol SCORE CALLER-C Work Phone: [facility] 01-11-2025 06:27-0400 Body mass index (BMI) [Ratio] 27.6 kg/m2 Swapna Anmol SCORE CALLER-C Work Phone: [facility] 01-11-2025 06:27-0400 Body temperature 98.4 [degF] Swapna Anmol SCORE CALLER-C Work Phone: [facility] 01-11-2025 06:27-0400 Body weight 68.49 kg Swapna Anmol SCORE CALLER-C Work Phone: [facility] 01-11-2025 06:27-0400 Diastolic blood pressure 62 mm[Hg] Swapna Anmol SCORE CALLER-C Work Phone: [facility] 01-11-2025 06:27-0400 Heart rate 58 /min Swapna Anmol SCORE CALLER-C Work Phone: [facility] 01-11-2025 06:27-0400 Respiratory rate 14 /min Swapna Anmol SCORE CALLER-C Work Phone: [facility] 01-11-2025 06:27-0400 SaO2% (BldA) [Mass fraction] 98 % Swapna Anmol SCORE CALLER-C Work Phone: [facility] 01-11-2025 06:27-0400 Systolic blood pressure 102 mm[Hg] Swapna Anmol SCORE CALLER-C Work Phone: [facility] 01-06-2025 21:00-0400 Body temperature 98.2 [degF] Swapna Anmol SCORE CALLER-C Work Phone: [facility] 01-06-2025 21:00-0400 Diastolic blood pressure 81 mm[Hg] Swapna Anmol SCORE CALLER-C Work Phone: [facility] 01-06-2025 21:00-0400 Heart rate 70 /min Swapna Anmol SCORE CALLER-C Work Phone: [facility] 01-06-2025 21:00-0400 Respiratory rate 18 /min Swapna Anmol SCORE CALLER-C Work Phone: [facility] 01-06-2025 21:00-0400 SaO2% (BldA) [Mass fraction] 98 % Swapna Anmol SCORE CALLER-C Work Phone: [facility] 01-06-2025 21:00-0400 Systolic blood pressure 150 mm[Hg] Swapna Anmol SCORE CALLER-C Work Phone: [facility] 01-06-2025 13:16-0400 Body height 157.48 cm Swapna Corea SCORE CALLER-C Work Phone: [facility] 01-06-2025 13:16-0400 Body mass index (BMI) [Ratio] 27.6 kg/m2 Swapna Corea SCORE CALLER-C Work Phone: [facility] 01-06-2025 13:16-0400 Body weight 68.58 kg Swapna Corea SCORE CALLER-C Work Phone: [facility] 11-07-2022 08:24-0400 Body mass index (BMI) [Ratio] 29.29 kg/m2 Stephen Rey MD Work Phone: [facility] 11-07-2022 08:24-0400 Body weight 70.31 kg Stephen Rey MD Work Phone: [facility] 11-07-2022 08:24-0400 Diastolic blood pressure 79 mm[Hg] Stephen Rey MD Work Phone: [facility] 11-07-2022 08:24-0400 Heart rate 67 /min Stephen Rey MD Work Phone: [facility] 11-07-2022 08:24-0400 Systolic blood pressure 127 mm[Hg] Stephen Rey MD Work Phone: [facility] 11-17-2021 15:22-0400 Body height 157.[address] Satinder Griggs Work Phone: [facility] Work Phone: 11-17-2021 15:22-0400 Body mass index (BMI) [Ratio] 30.4 kg/m2 Dr. Satinder Griggs Work Phone: [facility] Work Phone: 11-17-2021 15:22-0400 Body temperature 97.2 [degF] Dr. Satinder Griggs Work Phone: [facility] Work Phone: 11-17-2021 15:22-0400 Body weight 75.[address] Satinder Griggs Work Phone: [facility] Work Phone: 11-17-2021 15:22-0400 Diastolic blood pressure 78 mm[Hg] Dr. Satinder Griggs Work Phone: [facility] Work Phone: 11-17-2021 15:22-0400 Heart rate 75 /min Dr. Satinder Griggs Work Phone: [facility] Work Phone: 11-17-2021 15:22-0400 Respiratory rate 18 /min Dr. Satinder Griggs Work Phone: [facility] Work Phone: 11-17-2021 15:22-0400 SaO2% (BldA) [Mass fraction] 98 % Dr. Satinder Griggs Work Phone: [facility] Work Phone: 11-17-2021 15:22-0400 Systolic blood pressure 120 mm[Hg] Dr. Satinder Griggs Work Phone: [facility] Work Phone: 06-27-2017 16:22-0500 BMI (Body Mass Index) 26.77 kg/m2 Jalen SANCHES [facility] Now [facility] Work Phone: 06-27-2017 16:22-0500 Body Temperature 97.5 [degF] Jalen SANCHES [facility] Work Phone: 06-27-2017 16:22-0500 BP Diastolic 78 mm[Hg] Jalen SANCHES [facility] Work Phone: 06-27-2017 16:22-0500 BP Systolic 128 mm[Hg] Jalen SANCHES [facility] Work Phone: 06-27-2017 16:22-0500 Height 162.56 cm Jalen SANCHES [facility] Work Phone: 06-27-2017 16:22-0500 Pulse (Heart Rate) 82 /min Jalen SANCHES [facility] Work Phone: 06-27-2017 16:22-0500 Respiratory Rate 14 /min Jalen SANCHES [facility] Work Phone: 06-27-2017 16:22-0500 Weight 70.76 kg Jalen SANCHES [facility] Work Phone: Encounters Encounter Date Encounter Type Care Provider Facility Start: 05-05-2025 ambulatory Yong SULLIVAN Facility:[facility] Start: 04-22-2025 End: 04-22-2025 ambulatory Swapna Anmol SCORE CALLER-C Work Phone: -[facility] Start: 04-22-2025 End: 04-22-2025 Patient encounter procedure Michelle Quinn SCORE CALLER-C -[facility] Work Phone: Start: 02-18-2025 End: 02-18-2025 ambulatory Swapna Anmol SCORE CALLER-C Work Phone: -[facility] Start: 02-18-2025 End: 02-18-2025 Patient encounter procedure Swapna Anmol SCORE CALLER-C -Outpatient [facility] Work Phone: Start: 02-18-2025 End: 02-18-2025 ambulatory Swapna Anmol Facility:[facility] Start: 01-26-2025 End: 01-26-2025 Patient encounter procedure Jalen SANCHES [facility] Work Phone: Start: 01-26-2025 End: 01-26-2025 ambulatory Swapna Anmol SCORE CALLER-C Work Phone: [facility] Start: 01-18-2025 End: 01-18-2025 Patient encounter procedure Jalen SANCHES [facility] Work Phone: Start: 01-18-2025 End: 01-18-2025 ambulatory Swapna Anmol SCORE CALLER-C Work Phone: [facility] Work Phone: Start: 01-18-2025 End: 01-18-2025 ambulatory Jalen SANCHES Facility:[facility] Start: 01-11-2025 End: 01-11-2025 Patient encounter procedure Jalen SANCHES [facility] Work Phone: Start: 01-11-2025 End: 01-11-2025 ambulatory Swapna Corea SCORE CALLER-C Work Phone: [facility] Work Phone: Start: 01-06-2025 End: 01-06-2025 Emergency department patient visit Swapna Corea SCORE CALLER-C Work Phone: -Emergency Department Work Phone: Start: 12-01-2024 End: 12-01-2024 ambulatory Swapna Corea SCORE CALLER-C Work Phone: [facility] Work Phone: Start: 12-01-2024 End: 12-01-2024 Patient encounter procedure Swapna Corea SCORE CALLER-C -Radiology, [place] Work Phone: Start: 12-01-2024 End: 12-01-2024 ambulatory Swapna Taholah Facility:[facility] Start: 11-12-2024 End: 11-12-[address] Alanna Avila MD -Laboratory Work Phone: Start: 11-12-2024 End: 11-12-2024 ambulatory [facility] Facility:[facility] Start: 06-18-2024 End: 06-18-2024 ambulatory [facility] Facility:[facility] Start: 05-11-2024 End: 05-11-2024 ambulatory [facility] Facility:[facility] Start: 11-06-2023 End: 11-06-2023 ambulatory [facility] Work Phone: Start: 11-06-2023 End: 11-06-2023 Patient encounter procedure [facility]-Laboratory Work Phone: Start: 10-11-2023 End: 10-11-2023 ambulatory [facility] Work Phone: Start: 10-11-2023 End: 10-11-2023 Discharged Recurring [facility]-Physical Therapy Work Phone: Start: 10-11-2023 Registered Recurring [facility]-Physical Therapy Work Phone: Start: 08-30-2023 End: 08-30-2023 ambulatory [facility] Work Phone: Start: 08-30-2023 End: 08-30-2023 Patient encounter procedure [facility]-Laboratory Work Phone: Start: 06-11-2023 End: 06-11-2023 ambulatory [facility] Work Phone: Start: 06-11-2023 End: 06-11-2023 Patient encounter procedure [facility]-Radiology, [facility] Work Phone: Start: 05-27-2023 End: 05-28-2023 Emergency department patient visit DR DAT IVY MD Facility:B Start: 05-06-2023 End: 05-06-2023 ambulatory [facility] Work Phone: Start: 05-06-2023 End: 05-06-2023 Patient encounter procedure [facility]-Laboratory Work Phone: Start: 11-07-2022 End: 11-07-2022 ambulatory STEPHEN REY [facility] Start: 11-07-2022 End: 11-07-2022 Office outpatient visit 40 minutes Stephen Rey MD Work Phone: [facility] Comment on above: Arthralgia, unspecif ied joint (Primary Dx); Rheumatoid factor positive; Primary osteoarthritis involving multiple joints; Obesity, unspecified classification, unspecified obesity type, unspecified whether serious comorbidity present; Prediabetes Start: 08-06-2022 End: 08-10-2022 ambulatory [facility] Start: 08-06-2022 End: 01-13-2023 Encounter for general adult medical examination without abnormal findings SATINDER CORDOBA MOISES [facility] Start: 08-06-2022 End: 08-06-2022 ambulatory SATINDER BERYL MOISES [facility] Start: 08-06-2022 End: 08-06-2022 Encounter for general adult medical examination without abnormal findings STEPHEN REY [facility] Ambulatory Start: 07-04-2022 End: 07-05-2022 ambulatory SATINDER BERYL [facility] Start: 05-08-2022 End: 05-08-2022 ambulatory [facility] Work Phone: Start: 05-08-2022 End: 05-08-2022 Patient encounter procedure [facility]-Laboratory Start: 04-20-2022 End: 04-20-2022 Patient encounter procedure [facility]-Laboratory, Specimen Start: 01-01-2022 End: 01-01-[address] Satinder Griggs Work Phone: [facility]-Ultrasound, [facility] Start: 12-15-2021 End: 12-15-[address] Satinder Griggs Work Phone: [facility]-Laboratory, Specimen Start: 11-30-2021 End: 11-30-[address] Satinder Griggs Work Phone: [facility]-Outpatient Breast Imaging Start: 11-17-2021 End: 11-17-[address] Satinder Griggs Work Phone: [facility] Endocrinology Procedures Date Procedure Procedure Detail Performing [...] pelvi s and lower extremity Swapna Anmol SCORE CALLER-C Work Phone: Start: 08-30-2023 X-ray of both [...] Date Care Activity Detail Author Start: 01-06-2025 [facility] Start: 11-12-2023 End: 11-12-2023 Patient encounter procedure 11/12/2023 8:30 AM EDT Office Visit [facility] [address] [place] [address] [place] [id number] Stephen Rey MD [address] [place], [place] [id number] [facility] Start: 03-29-2023 Influenza vaccination Sequential Influenza Vaccine (Season Ended) [facility] Start: 06-27-2017 End: 06-27-2017 Appointment Appointment [facility] Work Phone: Start: 2013 Administration of herpes zoster vaccine Zoster Vaccines (1 of 2) [facility] Start: 2013 Screening for malignant neoplasm of colon Flexible sigmoidoscopy [facility] Start: 2003 Screening for malignant neoplasm of breast Mammogram [facility] Start: 1978 HIV screening HIV Screening [facility] Start: 1975 Depression screening using PHQ-9 (Patient Health Questionnaire 9) score Depression Screening (PHQ-2/9) [facility] Start: 1966 History and physical examination, annual for health maintenance Wellness Visit [facility] Start: 1965 COVID-19 Vaccine (#1) COVID-19 Vaccine (#1) [facility] Start: 1963 Screening for malignant neoplasm of cervix Pap Smear [facility] Start: 1963 Screening for malignant neoplasm of colon [facility] Start: 1963 Tetanus vaccination Tetanus: Every 10yrs [facility] Patient Education Bruises (Contu sions) ED Abd Injury Blunt Benign ED Laceration Superficial No Stitch [facility] Work Phone: Patient referral [facility] Work Phone: XR Ribs GE 3 Views a nd Chest PA [facility] Work Phone: Payers Date Payer Category Payer Unknown [id number] 2025 Unknown [id number] 2024 Self-pay [id number] 2021 Unknown MARIA D MONIQUE/PREF/HMO/PPO [id number] 2021-Present [phone] [address] [place] [address] [id number] 1963 Unknown [id number] [id number] 1963 Unknown [id number] 2.16.840.1.440306.3.579.2.903 1963 Unknown [id number] 2.16.840.1.169503.3.579.2.903 1963 Unknown [id number] 2.16.840.1.942413.3.579.2.903 1963 Unknown [id number] 2.16.840.1.861216.3.579.2.903 1963 Unknown [id number] 2.16.840.1.567994.3.579.2.903 1965 Unknown [id number] 2.16.840.1.164547.3.579.2.903 1963 Unknown [id number] 2.16.840.1.371127.3.579.2.903 1963 Unknown [id number] 2.16.840.1.735622.3.579.2.627 1959 Unknown [id number] Unknown [id number] Unknown [id number] Unknown [id number] 2.16840.1.719505.3.579.2.462 Unknown [id number] 2.16840.1.186749.3.579.2.462 Unknown [id number] 2.16.840.1.814738.3.579.2.462 Unknown [id number] 2.16840.1.154219.3.579.2.462 Unknown [id number] 2.16840.1.839367.3.579.2.462 Unknown [id number] 2.16840.1.274889.3.579.2.462 Unknown [id number] 2.16840.1.097223.3.579.2.462 Unknown [id number] 2.16.840.1.325534.3.579.2.462 Unknown [id number] 2.16.840.1.111971.3.579.2.462 Unknown [id number] 2.16840.1.415896.3.579.2.462 Unknown [id number] 2.16840.1.539999.3.579.2.462 Unknown [id number] 2.16.840.1.718002.3.579.2.462 Social History Date Type Detail Facility Start: 11-17-2021 End: 11-17-2021 Tobacco smoking status NHIS Unknown if ever smoked [facility] Start: 1965 Sex Assigned At Female W [facility] Start: 08-06-2022 End: 01-11-2025 Tobacco smoking status NHIS Never smoked tobacco [facility] Start: 08-06-2022 Tobacco use and exposure Smokeless tobacco non-user [facility] Start: 08-06-2022 History of Social function [facility] Start: 08-06-2022 Tobacco use panel [facility] Start: 1965 Sex Assigned At Not on file [facility] Start: 10-21-2022 End: 10-31-2022 Exposure to SARS-CoV-2 (event) Not sure [facility] Mental Status Date Assessment Result Facility 01-06-2025 Cognitive function Level Of Cons ciousness Awake;Alert;Appropriate [facility] Work Phone: Clinical Notes 11-07-2022 to 04-22-2025 Note Date & Type Note Facility 04-22-2025 Progress note [facility] 01-26-2025 Progress note [facility] 01-26-2025 Progress note Note Date/Time January 26, 2025 6:18am [facility] [address], [address] [place], [place] [address] OFFICE VISIT Date of Service: 01/26/25 MR#: [id number] Acct: [id number] Name: ALINE BOLAÑOS Rep #: [id number] : 1965 Provider: MYRON Hurtado Age/Sex: 59/F Location: [facility] Status: Signed Intake Vital Signs 01/11/25 06:43 [...] tablet) Nurse's Note: Patient here for a [facility] f/u. Patient states that she feels like that she can go back to work. Patient states she was able to life yesterday at work. Patient state her right side she can't lay on but she is ok with lifting and her left arm looks better. [facility] Medical History (Updated 01/14/25 @ 00:00 by [...] cancer Diabetes H/O transfusion of whole blood Goshen disease Hypertension Myocardial infarction Ovarian cancer Respiratory [...] [facility] work-related injury suffered on 01/06/2025 patient so states. 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 She reported to [facility] ED where treated for released the same [...] no acute distress Orientation: alert and awake [facility] Head: normal to inspection Ears: external [...] without work restrictions as noted on today's [employer] 14. Follow-up with the now clinic on an as-needed basis only. Patient states acknowledging understanding all the above. Coding Level of Care Code Off vis,est,level 2 01/26/25 0618 <Electronically signed by Jalen SANCHES> Date _ Jalen SANCHES Cosigner Signature: Date (if applicable) CC: ~ [facility] Work Phone: 1(399) 762-170906-23-2025 Radiology Diagnostic study note [facility] Imaging Services [address] [place] [address] Ribs Uni Min 3V w/PA Chest MR#: [id number] Acct: [id number] Name: ALINE BOLAÑOS Rep #: [id number] : 1965 F 59 From: Caio Gordon MD PCP: MICHAEL Beach Status: REG CLI Study:Ribs Uni Min 3V w/PA Chest Date of Exam : 01/18/25 Exam# [id number] Ordering Dr: St ct Mcdaniel PA PROCEDURE: [...] JUANITO CC: MICHAEL Corea; MYRON Hurtado ~ Postbed Stitcher: Signed [facility]06-16-2025 Evaluation note* Diagnosis Onset Date Resolution Status Admit Date Laceration of left forearm acute January 11, 2025 6:15am Blunt abdominal trauma inactive [facility] 2024 6:15am Blunt chest trauma inactive December 272024 6:15am Contusion of multiple sites of right upper extremity inactive January 11, 2025 6:15am [facility] Work Phone: [phone] Evaluation note* Diagnosis Onset Date Resolution Status Admit Date Laceration of left forearm acute January 11, 2025 6:15am Blunt abdominal trauma inactive [facility] 2024 6:15am Blunt chest trauma inactive December 272024 6:15am Contusion of multiple sites of right upper extremity inactive January 112024 6:15am Cystocele and rectocele with incomplete uterovaginal prolapse acute April 22, 2025 8:45am [facility] Work Phone: 1(848) 407-559406-11-2025 Discharge summary [facility] Medical Records Department [address] [place] [address] Emergency Department Summary 01/06/25 MR#: [id number] Acct: [id number] Name: ALINE BOLAÑOS Rep #:[id number] : [...] cancer Diabetes H/O transfusion of whole blood Goshen disease Hypertension Myocardial infarction Ovarian cancer Respiratory [...] motor deficits and no sensory deficits noted Edward Coma Scale: document GCS findings Spontaneous Obeys [...] abnormality. OVERALL FINAL ASSESSMENT: . Reading Location: [facility] CT of the abdomen and pelvis reveals [...] 7 days if not longer Print Language: Tunisian Disposition Disposition: Home, Self Care What to do if you have Problems For any increased pain, shortness of breath, bleeding, nausea or vomiting, chestpain, or any unexpected problems, contact your Primary Care Provider. Call [facility] ([phone]) or report tothe closest Emergency Room. Call 911 if necessary. 01/06/252049 Cosigner Signature (if applicable): CC: SCORE CALLER-C Swapna Corea ~ Signed [facility]06-11-2025 Radiology Diagnostic study note [facility] Imaging Services [address] [place], [place] [address] Abdomen/Pelvis W IV Cont ONLY MR#: [id number] Acct: [id number] Name: ALINE BOLAÑOS Rep #: [id number] : 1965 F 59 From: Chandan Sherman MD PCP: MICHAEL Beach Status: REG ER Study:Abdomen/Pelvis W IV Cont ONLY Date of E xam: 01/06/25 Exam# [id number] Ordering Dr: Sharif Koenig MD PROCEDURE: ABDOMEN/PELVIS [...] abnormality. OVERALL FINAL ASSESSMENT: . Reading Location[facility] CC: SCORE CALLER-C Swapna Corea; Dr. Lazaro Koenig MD ~ Postbed Stitcher: Signed [facility]06-11-2025 Discharge summary Author Lazaro Koenig [facility] Note Date/Time January 06, 2025 8:[address] [facility] Medical Records Department [address] [place] [address] Emergency Department Summary 01/06/25 MR#: [id number] Acct: [id number] Name: ALINE BOLAÑOS Rep #:[id number] : [...] Prior similar symptoms: No Recent [facility] Medical History Fatigue Hypothyroidism due to Corie's [...] cancer Diabetes H/O transfusion of whole blood Goshen disease Hypertension Myocardial infarction Ovarian cancer Respiratory [...] abnormality. OVERALL FINAL ASSESSMENT: . Reading Location: [facility] CT of the abdomen and pelvis reveals [...] 7 days if not longer Print Language: Tunisian Disposition Disposition: Home, Self Care What to do if you have Problems For any increased pain, shortness of breath, bleeding, nausea or vomiting, chestpain, or any unexpected problems, contact your Primary Care Provider. Call [facility] ([phone]) or report to the closest Emergency Room. Call 911 if necessary. 01/06/252049 <Electronically signed by Lazaro Koenig MD> Cosigner Signature (if applicable): CC: MICHAEL Corea ~ Signed [facility] Work Phone: 1(740) 158-288806-11-2025 Hospital Discharge instructions Additional Instructions 1. Apply ice to areas of discomfort 6-8 times a day. 2. Take pain medicine as prescribed for your pain. 3. You will hurt in more places and you presently do 4. You will feel worse than you presently do over the next 24 to 48 hours 5. You may [facility] 3 [facility] Phone: 1(231) 593-734305-06-2025 Radiology Diagnostic study note [facility] Imaging Services [address] [place], [place] [address] HIP, UNI W/ Pelvis 2-3 Views MR#: [id number] Acct: [id number] Name: ALINE BOLAÑOS Rep #: [id number] : 1965 F 59 From: Leeann Diego MD PCP: MICHAEL Beach Status: REG CLI Study:HIP, UNI W/ Pelvis 2-3 Views Date of Ex am: 12/01/24 Exam# [id number] Ordering Dr: Ra kameron Corea PROCEDURE: HIP, [...] Reading Location: [facility] CC: MICHAEL Corea ~ Postbed Stitcher: Signed [facility]04-23-2024 Discharge summary Author Carrillo Carroll [facility] November 19, 2023 3:27pm Note Date/Time November 19, 2023 3:2 4pm [facility] Physical Therapy [facility] [place] [id number] / REHABILITATION SERVICES DISCHARGE SUMMARY MR#: [id number] Acct: [id number] Name: ALINE BOLAÑOS Rep #: [id number] [...] LATONYA, NILES> 11/19/23 1527 CC: SOPHIE Oconnor; SCORE CALLER-C Swapna Corea ~ ERUM Signed [facility] Work Phone: 1(885) 360-603004-12-2023 History of Present illness Narrative* Stephen Rey [...] diagnosed 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 She was put on methotrexate which did [...] clinic in 12 month(s) Telehealth appointments ok. Stephne Rey MD Stonecutter Apprentice Hand Brothel Keeper Note: To expedite correspondence this note was generated by [employer] voice recognition software. Somegrammatical or spelling errors may occur using the system. 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 [facility] Work Phone: evaluhlkwy noteNo assessment information available [facility] Work Phone: evaluation note* Diagnosis Arthralgia, unspecified [...] left forearm acute January 11, 2025 6:15am [facility] Work Phone: Progress note Author Michelle Quinn [facility] Note Date/Time April 22, 2025 9:17am [facility] [address], [address] [place] [address] OFFICE VISIT Date of Service: 04/22/25 MR#: [id number] Acct: [id number] Name: ALINE BOLAÑOS Rep #: [id number] : 1965 Provider: MICHAEL Quinn Age/Sex: 60/F Location: [facility] Status: Signed Intake Vital Signs 01/11/25 06:43 04/22/25 08:56 Height 5 ft 2 in 5 ft 2 in Weight: 155 lb 3 oz BMI 28.3 BP 125/82 H Intake Visit Reasons: Vaginal Discharge ([place]) Medical Leader Required: No Is patient in pain?: No [...] you participate in: none HPI Vaginal Discharge ([place]) Details: ALINE BOLAÑOS is a 60 year old who presents for new patient referral from [facility] for vaginal pressure. 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 Chief Complaint SCORE CALLER, THYROID, APPROVE D BY AUBREE SCREENING Reason for Visit Fatigue 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 No January 06, 2025 6:07pm Summary Purpose [...] section and content) DATE CREATED AUTHOR 07/05/2022 [facility] DATE CREATED AUTHOR AUTHOR'S ORGANIZ ATION 08/11/2022 [facility] DATE CREATED AUTHOR AUTHOR'S ORGANIZ ATION 11/09/2022 [facility] DATE CREATED AUTHOR AUTHOR'S ORGANIZ ATION 06/02/2023 [facility] ([place] DATE CREATED AUTHOR AUTHOR'S ORGANIZ ATION 05/07/2025 [facility] Care Teams (unrecognized sec tion and content) Whirley Operator Relationship Specialty Start Date End Date Satinder Griggs MD [address] [place] [address] PCP - General Family Medicine 08/06/22 Team Status: Active Member Role Status Dates Dr. Satinder Griggs MD Family Provider Active Swapna Corea , SCORE CALLER-C Primary Care Provider Active Team Status: Inactive Member Role Status Dates Swapna Corea SCORE CALLER-C Primary Care Provider Active Dr. Alanna Avila MD Attending Provider, Referring Pr ovider Active Team Status: Inactive Member Role Status Dates Swapna Corea SCORE CALLER-C Primary Care Provide r, Attending Provider, Referring Provider Active Team Status: Active Member Role Status Dates Swapna Corea SCORE CALLER-C Primary Care Provider Active Dr. Kit Oconnor DPM Attending Provider, Referring Provider Active Team Status: Inactive Member Role Status Dates Swapna Corea SCORE CALLER-C Primary Care Provider Active Dr. Kit Oconnor DPM Attending Provider, Referring Provider Active Team Status: Inactive Member Role Status Dates Swapna Corea SCORE CALLER-C Primary Care Provider Active Start: November 12, 2024 End: November 12, 2024 Dr. Alanna Avila MD Attending Provider Active Start: November 12, 2024 End: November 12, 2024 Dr. Alanna Avila MD Referring Provider Active Start: November 12, 2024 End: November 12, 2024 Team Status: Inactive Member Role Status Dates Swapna Corea SCORE CALLER-C Primary Care Provider Active Start: December 01, 2024 End: December 01, 2024 Swapna Corea SCORE CALLER-C Attending Provider Active St art: December 01, 2024 End: December 01, 2024 Swapna Corea NP-Jaspreet Referring Provider Active St art: December 01, 2024 End: December 01, 2024 Team Status: Active Member Role Status Dates Swapna Corea , SCORE CALLER-C Primary Care Provider Active Team Status: Inactive Member Role Status Dates Swapna Corea SCORE CALLER-C Primary Care Provider Active Start: January 06, 2025 End: January 06, 2025 Dr. Lazaro Koenig MD Referring Provider Active Sta rt: January 06, 2025 End: January 06, 2025 Dr. Lazaro Koenig MD Emergency Provider Active Sta rt: January 06, 2025 End: January 06, 2025 Team Status: Inactive Member Role Status Dates Swapna Corea , SCORE CALLER-C Primary Care Provider Active Start: January 11, 2025 End: January 11, 2025 Swapna Corea , SCORE CALLER-C Referring Provider Active St art: January 11, 2025 End: January 11, 2025 Jalen SANCHES PA Attending Provider Active Start: January 11, 2025 End: January 11, 2025 Team Status: Inactive Member Role Status Dates Swapna Corea , SCORE CALLER-C Primary Care Provider Active Start: January 06, [...] Member Role Status Dates Swapna Corea , SCORE CALLER-C Primary Care Provider Active Start: January 18, 2025 End: January 18, 2025 Swapna Corea , SCORE CALLER-C Referring Provider Active St art: January 18, 2025 End: January 18, 2025 Jalen SANCHES PA Attending Provider Active Start: January 18, 2025 End: January 18, 2025 Team Status: Active Member Role/Relationship Status Dates Swapna Corea , SCORE CALLER-C Primary Care Provider Active Team Status: Inactive Member Role/Relationship Status Dates Swapnayohana Corea , SCORE CALLER-C Primary Care Provider Active Start: November 12, 2024 End: November 12, 2024 Dr. Alanna Avila MD Attending Provider Active Start: November 12, 2024 End: November 12, 2024 Dr. Alanna Avila MD Referring Provider Active Start: November 12, 2024 End: November 12, 2024 Team Status: Inactive Member Role/Relationship Status Dates Swapna Corea , SCORE CALLER-C Primary Care Provider Active Start: December 01, 2024 End: December 01, 2024 Swapna Corea SCORE CALLER-C Attending Provider Active St art: December 01, 2024 End: December 01, 2024 Swapna Corea SCORE CALLER-C Referring Provider Active St art: December 01, 2024 End: December 01, 2024 Team Status: Inactive Member Role/Relationship Status Dates Swapna Corea , SCORE CALLER-C Primary Care Provider Active Start: January 06, [...] Member Role/Relationship Status Dates Swapna Corea , SCORE CALLER-C Primary Care Provider Active Start: January 11, 2025 End: January 11, 2025 Swapna Corea SCORE CALLER-C Referring Provider Active St art: January 11, 2025 End: January 11, 2025 MYRON Disla Attending Provider Active Start: January 11, 2025 End: January 11, 2025 Team Status: Inactive Member Role/Relationship Status Dates Swapna Corea SCORE CALLER-C Primary Care Provider Active Start: January 18, 2025 End: January 18, 2025 Swapna Corea , SCORE CALLER-C Referring Provider Active St art: January 18, 2025 End: January 18, 2025 MYRON Disla Attending Provider Active Start: January 18, 2025 End: January 18, 2025 Team Status: Inactive Member Role/Relationship Status Dates Swapna Corea , SCORE CALLER-C Primary Care Provider Active Start: January 18, 2025 End: January 18, 2025 MYRON Disla Attending Provider Active Start: January 18, 2025 End: January 18, 2025 Jlaen SANCHES PA Referring Provider Active Start: January 18, 2025 End: January 18, 2025 Team Status: Inactive Member Role/Relationship Status Dates Swapna Corea , SCORE CALLER-C Primary Care Provider Active Start: January 26, 2025 End: January 26, 2025 Swapna Corea , SCORE CALLER-C Referring Provider Active St art: January 26, 2025 End: January 26, 2025 MYRON Disla Attending Provider Active Start: January 26, 2025 End: January 26, 2025 Team Status: Inactive Member Role/Relationship Status Dates Swapna Corea , SCORE CALLER-C Primary Care Provider Active Start: February 18, 2025 End: February 18, 2025 Swapna Corea SCORE CALLER-C Attending Provider Active St art: February 18, 2025 End: February 18, 2025 Swapna Corea , SCORE CALLER-C Referring Provider Active St art: February 18, 2025 End: February 18, 2025 Team Status: Active Member Role/Relationship Status Dates Swapna Corea , SCORE CALLER-C Primary care physician Active Team Status: Inactive Member Role/Relationship Status Dates Swapna Corea SCORE CALLER-C Primary care physician Active Start: January 06, [...] Member Role/Relationship Status Dates Swapna Corea , SCORE CALLER-C Primary care physician Active Start: January 11, 2025 End: January 11, 2025 Swapna Corea SCORE CALLER-C Referring Provider Active St art: January 11, 2025 End: January 11, 2025 MYRON Disla Attending physician Active Start: January 11, 2025 End: January 11, 2025 Team Status: Inactive Member Role/Relationship Status Dates Swapna Corea , SCORE CALLER-C Primary care physician Active Start: January 18, 2025 End: January 18, 2025 Swapna Corea , SCORE CALLER-C Referring Provider Active St art: January 18, 2025 End: January 18, 2025 MYRON Disla Attending physician Active Start: January 18, 2025 End: January 18, 2025 Team Status: Inactive Member Role/Relationship Status Dates Swapna Corea , SCORE CALLER-C Primary care physician Active Start: January 18, [...] End: April 22, 2025 Michelle Quinn NP SCORE CALLER-C Attending physician Active Start: April 22, 2025 [...] BE BASED ON THE PRIMARY CLINICAL RECORDS. [facility] [employer]. provides no warranty or guarantee of the accuracy or completeness of information in this document.
[2025-05-13 17:15] LABS: Anion Gap 14 (5-15); BUN 18 mg/dL (4-19); BUN/Creat Ratio 20.6 RATIO (10-20); Calcium,Total 9.5 mg/dL (7.6-11.0); Carbon Dioxide 21.6 mmol/L (21.0-32.0); Chloride 101 mmol/L (98-108); Glucose 95 mg/dL (70-99); Potassium 3.8 mmol/L (3.3-5.1)
== END | disposition home or self-care (01) ==
LOC: LAB 15:59
PROVIDERS: PCP Family Medicine; Referring Provider Internal Medicine Endocrinology, Diabetes & Metabolism; Visit Provider Internal Medicine Endocrinology, Diabetes & Metabolism
DX: E03.8 Other specified hypothyroidism (principal)
CPT/HCPCS: 36415; 80048; 84439; 84443

== ENCOUNTER → 2025-06-25 | Outpatient (CLI) | payer BC, SELFPAY ==
--- NOTE | 2025-06-25 12:22 | MRI_ITS ---
PROCEDURE: SPINE CERVICAL (ROUTINE) 06/25/2025 REASON FOR EXAM: LEFT ARM RADICULOPATHY,WORSENING DEXTERITY/BALANCE TECHNIQUE: Procedure Code: MRISPC Modality: MR Procedure: SPINE CERVICAL (ROUTINE) Multiplanar and multisequence images were obtained without IV contrast administration. COMPARISON: None available. FINDINGS: Prominent arachnoid granulations in the visualized posterior fossa. The visualized posterior fossa contents appear otherwise unremarkable. Straightening of the cervical spine and mild reversal of the usual cervical lordosis. The atlantooccipital and atlantoaxial joints appear normally aligned. The cervical vertebral bodies are normal in height. The cervical vertebral bodies are normal in alignment. The cervical bone marrow signal is within normal limits. Multilevel disc desiccation and intervertebral disc space height loss. There is no evidence of cervical spinal cord signal abnormality. C2-C3: No significant spinal canal stenosis or neural foraminal narrowing. C3-C4: No significant spinal canal stenosis or neural foraminal narrowing. C4-C5: No significant spinal canal stenosis or neural foraminal narrowing. C5-C6: Central disc protrusion, bilateral facet arthrosis, and uncovertebral spurring. Mild spinal canal stenosis with flattening of the ventral cord. Moderate right and severe left neural foraminal narrowing. C6-C7: No significant spinal canal stenosis. Bilateral facet arthrosis and uncovertebral spurring contribute to mild bilateral neural foraminal narrowing. Disc bulge. C7-T1: Disc bulge. No significant spinal canal stenosis or neural foraminal narrowing. MRI/Spine Cervical (Routine) IMPRESSION: Cervical spondylosis most prominent at C5-C6 where there is moderate right and severe left neural foraminal stenosis. Reading Location: [id number]
--- OUTSIDE RECORDS SUMMARY | 2025-06-25 12:32 | XMS RPT_ITS | CCD ---
Author Organization [facility] Care Team Providers Care Hospital Clerk Name Role Phone Steve Cotter Unavailable Jalen Chavez Unavailable [phone] Satinder Griggs Primary Care Provider [phone] Dr. Satinder Griggs Referring Provider [phone] Abdulaziz Paul Attending Provider [phone] SATINDER GRIGGS Primary Care Unavailable JACQUELIN [...] Satinder Griggs MD Primary Care Provider [phone] IGOE, STEPHEN FRY Attending Unavailable SATINDER GRIGGS Primary Care Unavailable SATINDER GRIGGS Primary Care Unavailable SATINDER GRIGGS Referring Unavailable IGHILDA, STEPHEN FRY Attending Unavailable SATINDER GRIGGS Admitting Unavailable BIJU LOPEZ, DR DAT Olivarez Attending Tricia PINTO MD, DR CASTRO Primary Care Unavailable Anmol TORRES-C, Swapna Primary Care Provider Margarita LOPEZ, Dr. Mondragon Attending Provider Margarita LOPEZ, Dr. Mondragon Referring Provider Anmol ROLLER B[facility]LET MILL-C, Swapna Attending Provider [phone] Anmol [facility] [facility]-C, Swapna Referring Provider Arya LOPEZ, Dr. Willis Referring Provider Arya LOPEZ, Dr. Willis Emergency Provider Jalen Chavez Attending Provider Arya LOPEZ, Dr. Willis Attending Provider Jalen Chavez Referring Provider Anmol [facility]-C, Swapna Primary Care Physician Arya LOPEZ, Dr. Willis Attending Physician Arya LOPEZ, Dr. Willis Emergency Department Physician Anmol [employer] [facility]-C, Swapna Referring Provider Jalen Chavez Attending Physician Anmol [facility] [facility]-C, Swapna Attending Physician [phone] Kai [facility]-C, Michelle Attending Physician [phone] Anmol, Swapna Primary Care Unavailable Koenig, Lazaro Referring Unavailable Sharif Koenigo Attending Unavailable Anmol, Swapna Primary Care Unavailable Jalen Chavez Attending Unavailable Jalen Chavez Referring Unavailable Ranney [facility]LS[facility] Unavaila ble Assessment, Health Risk Attending Unavaila Alanna Shell Referring Unavailable Alanna Avila Attending Unavailable Ranney OLS, Christopher Primary Care Unavaila ble Anmol, Swapna Primary Care Unavailable Anmol, Swapna Referring Unavailable Jalen Chavez Attending Unavailable Anmol, Swapna Primary Care Unavailable Anmol, Swapna Referring Unavailable Kai ROLLER BILLET MILLMichelle Attending Unavailable Anmol, Swapna Referring Unavailable Ranney OLS, Christopher Primary Care Unavaila ble Kai ROLLER BILLET MILLMichelle Attending Unavailable Anmol, Swapna Referring Unavailable Ranney OLS, Christopher Primary Care Unavaila ble Breanna Santiago Attending Unavailable Anmol, Swapna Primary Care Unavailable Anmol, Swapna Referring Unavailable Jalen Chavez Attending Unavailable Anmol, Swapna Primary Care Unavailable Anmol, Swapna Referring Unavailable Jalen Chavez Attending Unavailable Anmol, Swapna Primary Care Unavailable Malys, Lisette Referring Unavailable Malys, Lisette Attending Unavailable Anmol, Swapna Primary Care Unavailable Alanna Avila Referring Unavailable RunAlanna irene Attending Unavailable Anmol, Swapna Attending Unavailable Anmol, Swapna Primary Care Unavailable Anmol, Swapna Referring Unavailable Anmol, Swapna Attending Unavailable Anmol, Swapna Primary Care Unavailable Anmol, Swapna Referring Unavailable Allergies Allergy Classification Reported Allergen(s) Allergy Type Date of Onset Reaction(s) Facility (20 sources) Shellfish; Translations: [SHELLFISH DERIVED] Allergy to substance 04-11-20 Other (See Comments) [facility] Repository (18 sources) Sulfamethoxazole Drug Allergy 04-11-20 [facility] (18 sources) Trimethoprim Drug Allergy 04-11-20 [facility] (3 sources) Sulfamethoxazole / Trimethoprim; Translations: [SULFAMETHOXAZOLE-TR IMETHOPRIM] Drug Allergy 08-02-19 [facility] Repository (1 source) Sulfamethoxazole Drug Allergy 05-20-20 [facility] Repository (1 source) Trimethoprim Drug Allergy 05-20-20 [facility] Repository Medications Current Medications Medication Drug Class(es) [...] 5 MG TABS as directed AMLODIPINE BESYLATE [id number] Jalen SANCHES Start: 10-19-2013 End: 01-11-2025 take [...] LECALCIFEROL) 400 UNIT CAPS as directed CHOLECALCIFEROL [id number] Jalen SANCHES estradiol 0.1 mg/ml vaginal cream [...] SPIRONOLACTONE 100 MG TABS as directed SPIRONOLACTONE [id number] Jalen SANCHES topiramate 50 mg oral tablet [...] 100 UNIT TABS as directed VITAMIN E [id number] Jalen SANCHES Completed/Discontinued Medications Medication Drug Class(es) [...] 1 capsule twice daily NITROFURANTOIN MONOHYD MACRO [id number] Jalen SANCHES levothyroxine sodium 0.075 mg oral tablet (20 sources) l-Thyroxine Start: 11-21-2021 take 1 tablet by mouth once daily Levothyroxine 88 mcg tablet Active 88 ug PO DAILY 90 November 21, 2021 12:00am Complies with drug therapy Start: 06-27-2017 LEVOTHYROXINE SODIUM 100 MCG TABS as directed LEVOTHYROXINE SODIUM [id number] Jalen SANCHES Start: 07-15-2015 End: 11-21-2021 Levothyroxine [...] Translations: [Obesity, unspecified] Onset: 11-07-2022 Chronic Other upper respiratory infections (18 sources) Acute [...] unspecified; Translations: [SPONDYLOSIS UNSPECIFIED] Onset: 07-05-2022 Chronic Spondylosis; intervertebral disc disorders; other back problems (1 source) Cervicalgia; Translations: [Cervicalgia] Onset: 06-08-2025 Episodic Thyroid disorders (20 sources) 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; Translations: [Other specified hypothyroidism] Onset: 05-21-2025 Chronic Urinary tract infections (20 sources) Pyelonephritis; [...] in left hip] Onset: 12-07-2024 Episodic Other screening for suspected conditions (not mental disorders or infectious disease) (1 source) Encounter for screening mammogram for malignant neoplasm of breast; Translations: [Encounter for screening mammogram for malignant neoplasm of breast] Onset: 02-23-2025 Episodic Superficial injury; contusion (20 sources) Contusion of rib; Translations: [Contusion of left front wall of thorax, initial encounter] Onset: 01-20-2025 10-26-2020 Episodic Results Test Name Value Interpretation Reference Range Facility Clinical Science Consultant Office Visit Reporton 05-20-2025 Clinical Science Consultant Office Visit Report [facility]'s [address], [address] [place] [address] OFFICE VISIT Date of Service: 05/20/25 MR#: [id number] Acct: [id number] Name: BOLAÑOSALINE CASEY Rep #: [id number] : 1965 Provider: MICHAEL hernandez Age/Sex: 60/F Location: [facility] Status: Signed Intake Vital Signs 04/22/25 08:56 05/20/25 08:30 05/20/25 08:33 Height 5 ft 2 in 5 ft 2 in 5 ft 2 in Weight: 155 lb 3 oz 154 lb 1 oz BMI 28.3 28.1 BP 125/82 H 137/79 H Intake Visit Reasons: 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 [employer] Professional Required: No Is patient in pain?: No Allergies shellfish derived Allergy (Verified 05/20/25 08:29) Anaphylaxis sulfamethoxazole (From Bactrim) Adverse Reaction (Verified 05/20/25 08:29) Rash trimethoprim (From Bactrim) Adverse Reaction (Verified 05/20/25 08:29) Rash Medications ???Medication ???Instructions ???Recorded ???Confirmed ???Type cholecalciferol (vitamin D3) 125 125 mcg PO DAILY 10/26/20 05/20/25 History mcg (5,000 unit) tablet omeprazole 40 mg capsule,delayed 40 mg PO DAILY 03/31/21 10/23/25 H istory release spironolactone 50 mg tablet 50 mg PO DAILY 10/26/20 05/20/25 H istory vitamin E (dl, acetate) 180 mg 450 mg PO DAILY 10/26/20 05/20/25 History (400 unit) capsule allergy shots IM 11/17/21 05/20/25 History amlodipine 5 mg tablet 5 mg PO 11/17/21 05/20/25 History ascorbic acid (vitamin C) 500 mg mg PO 11/17/21 05/20/25 History capsule biotin 2,500 mcg capsule 2,000 mcg PO DAILY 11/17/21 History levothyroxine 88 mcg tablet 88 mcg PO DAILY #90 tabs 11/21/21 05/20/25 Rx estradiol 0.01% (0.1 mg/gram) See Rx Instructions vaginal 05/20/25 Rx vaginal cream .COMPLEX #42.5 grams Is last menstrual period known: No Post menopausal: Yes Patient : No : No PFSH Medical History (Updated 05/20/25 @ 08:47 by Michelle Quinn ROLLER BILLET MILL, ROLLER BILLET MILL-C) Laceration of left forearm Fatigue Hypothyroidism due [...] activity do you participate in: none HPI 4 wk med ck Details: ALINE BOLAÑOS is a 60 year old who presents for follow up start of estradiol cream and doing consistent kegel exercises. States her symptoms of dryness and pressure have resolved. She does not wish to do pessary or surgical intervention at this time. History 0 Elective abortions Hx Para Spontaneous abortions Hx # Term Pregnancies Ectopic pregnancies Hx # Pregnancies Multiple births # of living children ROS Const Constitutional: Reports system reviewed and no additional complaints, except as documented Eyes Eyes: Reports system reviewed and no additional complaints, except as documented GI GI: Denies abdominal pain, nausea or vomiting : Reports as per HPI Exam Const General: cooperative and no acute distress Orientation: oriented x3 General: bladder normal to palpation External Female Exam: normal external appearance and normal appearance of the urethra Urethra: normal appearance of the urethra Speculum Exam - Vagina: normal vaginal discharge, vagina atrophic (minimal and improved), no lesions and nontender Speculum Exam - Cervix: normal appearance of the cervix Bimanual Exam- Vagina Uterus: normal bimanual exam, uterine size normal, bladder normal to palpation, uterine shape normal, uterine mobility normal and non-tender Bimanual Exam- Adnexa, other: normal adnexae, no masses, non-tender, rectocele, cystocele (stable) and vaginal apex descent (stable, cervix 3 cm from introit (more content not included)... Normal [facility] Basic Metabolic Profile (BMP )on 05-13-2025 BUN/CRE 20.6 RATIO High 05-17 [facility] Comment on above: Performed By: #### L 501.9520, L506.0400, L500.2500 #### [facility] [address] [place], [address] Calcium [Mass/Vol] 9.5 mg/dL Normal 7.6-11.0 [facility] Comment on above: Performed By: #### L 501.9520, L506.0400, L500.2500 #### [facility] [address] [place], [address] Chloride [Moles/Vol] 101 mmol/L Normal 98-108 [facility] Comment on above: Performed By: #### L 501.9520, L506.0400, L500.2500 #### [facility] [address] [place], [address] CO2 [Moles/Vol] 21.6 mmol/L Normal 21.0-32.0 [facility] Comment on above: Performed By: #### L 501.9520, L506.0400, L500.2500 #### [facility] [address] [place], [address] Creatinine [Mass/Vol] 0.87 mg/dL Normal 0.70-1.20 [facility] Comment on above: Performed By: #### L 501.9520, L506.0400, L500.2500 #### [facility] [address] [place], [address] GAP 14 Normal 5-15 [facility] Comment on above: Performed By: #### L 501.9520, L506.0400, L500.2500 #### [facility] [address] [place], [address] GFR/1.73 sq M.predicted among non-blacks MDRD (S/P/Bld) [Vol rate/Area] 76 mL/min/{1.73_m2} Normal >60 [facility] Comment on above: Result Comment: mL/m in/1.73m2 CKD-EPI Creatinine Equation (2020) Performed By: #### L 501.9520, L506.0400, L500.2500 #### [facility] [address] [place], [address] Glucose [Mass/Vol] 95 mg/dL Normal 70-99 [facility] Comment on above: Performed By: #### L 501.9520, L506.0400, L500.2500 #### [facility] [address] [place], [address] Potassium [Moles/Vol] 3.8 mmol/L Normal 3.3-5.1 [facility] Comment on above: Performed By: #### L 501.9520, L506.0400, L500.2500 #### [facility] [address] [place], [address] Sodium [Moles/Vol] 136 mmol/L Normal 133-145 [facility] Comment on above: Performed By: #### L 501.9520, L506.0400, L500.2500 #### [facility] [address] [place], [address] Urea nitrogen [Mass/Vol] 18 mg/dL Normal 4-19 [facility] Comment on above: Performed By: #### L 501.9520, L506.0400, L500.2500 #### [facility] [address] [place], [address] T4 Free Directon 05-13-2025 T4 FREE DIRECT 1.90 ng/dL High 0.76-1.46 [facility] Comment on above: Performed By: #### L 501.9520, L506.0400, L500.2500 #### [facility] [address] [place], [address] Thyroid Stim Hormone (TSH)on 05-13-2025 TSH 0.879 uIU/mL Normal 0.300-4.200 [facility] Comment on above: Performed By: #### L 501.9520, L506.0400, L500.2500 #### [facility] [address] [place], [address] Comprehensive Metabolic Prof ilon 05-05-2025 Albumin [Mass/Vol] 4.5 g/dL Normal 3.4-4.8 [facility] Comment on above: Performed By: #### L 500.4100, L500.4050 ####[facility] [address] [place], [address] Albumin/Globulin [Mass ratio] 1.4 {ratio} Normal 0.9-2.4 [facility] Comment on above: Performed By: #### L 500.4100, L500.4050 ####[facility] [address] [place], [address] ALK PHOS 107 U/L High 35-104 [facility] Comment on above: Performed By: #### L 500.4100, L500.4050 ####[facility] [address] [place], [address] ALT [Catalytic activity/Vol] 12 U/L Normal <=34 [facility] Comment on above: Performed By: #### L 500.4100, L500.4050 ####[facility] [address] [place], [address] AST [Catalytic activity/Vol] 14 U/L Normal <=31 [facility] Comment on above: Performed By: #### L 500.4100, L500.4050 ####[facility] [address] [place], [address] Bilirubin [Mass/Vol] 0.42 mg/dL Normal 0.00-1.30 [facility] Comment on above: Performed By: #### L 500.4100, L500.4050 ####[facility] [address] [place], [address] BUN/CRE 24.7 RATIO High 10-20 [facility] Comment on above: Performed By: #### L 500.4100, L500.4050 ####[facility] [address] [place], [address] Calcium [Mass/Vol] 9.9 mg/dL Normal 7.6-11.0 [facility] Comment on above: Performed By: #### L 500.4100, L500.4050 ####[facility] [address] [place], [address] Chloride [Moles/Vol] 104 mmol/L Normal 98-108 [facility] Comment on above: Performed By: #### L 500.4100, L500.4050 ####[facility] [address] [place], [address] CO2 [Moles/Vol] 24.3 mmol/L Normal 21.0-32.0 [facility] Comment on above: Performed By: #### L 500.4100, L500.4050 ####[facility] [address] [place], [address] Creatinine [Mass/Vol] 0.73 mg/dL Normal 0.70-1.20 [facility] Comment on above: Performed By: #### L 500.4100, L500.4050 ####[facility] [address] [place], [address] GAP 12 Normal 5-15 [facility] Comment on above: Performed By: #### L 500.4100, L500.4050 ####[facility] [address] [place], [address] GFR/1.73 sq M.predicted among non-blacks MDRD (S/P/Bld) [Vol rate/Area] 94 mL/min/{1.73_m2} Normal >60 [facility] Comment on above: Result Comment: mL/m in/1.73m2 CKD-EPI Creatinine Equation (2020) Performed By: #### L 500.4100, L500.4050 ####[facility] [address] [place], [address] Globulin (S) [Mass/Vol] 3.1 g/dL Normal 2.2-4.2 [facility] Comment on above: Performed By: #### L 500.4100, L500.4050 ####[facility] [address] [place], [address] Glucose [Mass/Vol] 100 mg/dL High 70-99 [facility] Comment on above: Performed By: #### L 500.4100, L500.4050 ####[facility] [address] [place], [address] Potassium [Moles/Vol] 4.9 mmol/L Normal 3.3-5.1 [facility] Comment on above: Performed By: #### L 500.4100, L500.4050 ####[facility] [address] [place], [address] Sodium [Moles/Vol] 140 mmol/L Normal 133-145 [facility] Comment on above: Performed By: #### L 500.4100, L500.4050 ####[facility] [address] [place], [address] T PROT 7.6 g/dL Normal 5.9-8.4 [facility] Comment on above: Performed By: #### L 500.4100, L500.4050 ####[facility] [address] [place], [address] Urea nitrogen [Mass/Vol] 18 mg/dL Normal 4-19 [facility] Comment on above: Performed By: #### L 500.4100, L500.4050 ####[facility] [address] [place], [address] Lipid Profileon 05-05-2025 CHOL:HDL 3.12 Normal [facility] Comment on above: Performed By: #### L 500.4100, L500.4050 ####[facility] [address] [place], [address] Cholesterol [Mass/Vol] 183 mg/dL Normal <=200 [facility] Comment on above: Result Comment: Chol esterol level, Desirable <200 mg/dL Borderline high cholesterol 200-239 mg/dL High cholesterol >=240 mg/dL Recommendations of the NCEP Adult Treatment Panel for the following risk-cutoff thresholds for the [place] population. Performed By: #### L 500.4100, L500.4050 ####[facility] [address] [place], [address] Cholesterol in HDL [Mass/Vol] 59 mg/dL Normal [facility] Comment on above: Result Comment: Romina onal Cholesterol Education Program (NCEP) guidelines: <40 mg/dL: Low HDL-cholesterol (major risk factor for CHD) >= 60 mg/dL: High HDL-cholesterol (negative risk factor for CHD) HDL-cholesterol is affected by a number of factors, e.g. smoking, exercise, hormones, sex and age. Performed By: #### L 500.4100, L500.4050 ####[facility] [address] [place], [address] Cholesterol in LDL [Mass/Vol] 101 mg/dL Normal [facility] Comment on above: Result Comment: Bord mlwvya=324-799 mg/dL Higher Jaac=995 mg/dL or greater Friedwald Equation for LDL-C Performed By: #### L 500.4100, L500.4050 ####[facility] [address] [place], [address] Cholesterol in VLDL [Mass/Vol] 23 mg/dL Normal 5-40 [facility] Comment on above: Performed By: #### L 500.4100, L500.4050 ####[facility] [address] [place], [address] Triglyceride [Mass/Vol] 116 mg/dL Normal [facility] Comment on above: Result Comment: The drugs N-Acetylcysteine and Metamizole may falsely depress this assay. Normal range: <150 mg/dL Borderline High: 150-199 mg/dL High: 200-499 mg/dL Very High: >500 mg/dL Performed By: #### L 500.4100, L500.4050 ####[facility] [address] [place], [address] Clinical Science Consultant Office Visit Reporton 04-22-2025 Clinical Science Consultant Office Visit Report [facility]'s [address], [address] [place] [address] OFFICE VISIT Date of Service: 04/22/25 MR#: [id number] Acct: [id number] Name: ALINE BOLAÑOS Rep #: [id number] : 1965 Provider: MICHAEL hernandez Age/Sex: 60/F Location: [facility] Status: Signed Intake Vital Signs 01/11/25 06:43 04/22/25 08:56 Height 5 ft 2 in 5 ft 2 in Weight: 155 lb 3 oz BMI 28.3 BP 125/82 H Intake Visit Reasons: Vaginal Discharge (Romeo) Energy Professional Required: No Is patient in pain?: No [...] of nephrectomy Family History Grandmother Diabetes Grandfather Nicasio disease Father Angina at rest Arthritis Myocardial [...] you participate in: none HPI Vaginal Discharge (Romeo) Details: ALINE BOLAÑOS is a 60 year old who presents for new patient referral from [facility] for vaginal pressure. feels like I'm sitting [...] Support: cys (more content not included)... Normal [facility] Breast imaging reportOrdered By: Sofya Mckeon on 02-18-2025 Study report [facility] Imaging Services [address] [place] [address] SCRN MAMM (CAD)W/ELISA BILAT MR#: [id number] Acct: [id number] Name: ALINE BOLAÑOS Rep #: [id number] : 1965 F 59 From: Lisandro Zeng MD PCP: MICHAEL Beach Status: REG CLI Study:SCRN MAMM (CAD)W/ELISA BILAT Date of Exa m: 02/18/25 Exam# [id number] Ordering Dr: Ra kameron Corea EXAM: SCRN MAMM (CAD)W/ELISA BILAT DATE: [...] be mailed to the patient. 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 Patient states that she feels like that she can go back to work. Patient states she was able to life yesterday at work. Patient state her right side she can't lay on but she is ok with lifting and her left arm looks better. [facility] Medical History (Updated 01/14/25 @ 00:00 by [...] cancer Diabetes H/O transfusion of whole blood Nicasio disease Hypertension Myocardial infarction Ovarian cancer Respiratory [...] the office today for f/u at the [facility] for f/u status post work-related injury suffered on 01/06/2025 patient so states. 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 She reported to [facility] ED where treated for released the same [...] distress Orien (more content not included)... Normal [facility] Ribs Uni Min 3V w/PA Cheston 01-18-2025 Ribs Uni Min 3V w/PA Chest [facility] [address] [place], [place] [id number] Ribs Uni Min 3V w/PA Chest MR#: [id number] Acct: [id number] Name: ALINE BOLAÑOS Rep #: [id number] : 1965 F 59 From: John Gordon MD PCP: MICHAEL Beach Status: REG CLI Study: Ribs Uni Min 3V w/PA Chest Date of Exam: 01/18 Exam# [id number] Ordering Dr: Jalen Mcdaniel PROCEDURE: RIBS UNI MIN 3V W/PA CHEST [...] Location: [facility] CC: MICHAEL Corea; MYRON Hurtado [employer] Operator: Signed Normal [facility] Urgent Care Visit Reporton 0 01-18-2025 Urgent Care Visit Report [facility] [address], [address] [place], [place] [address] OFFICE VISIT Date of Service: 01/18/25 MR#: [id number] Acct: [id number] Name: ALINE BOLAÑOS Rep #: [id number] : 1965 Provider: MYRON Hurtado Age/Sex: 59/F Location: [facility] Status: Signed Intake Vital Signs 01/11/25 06:27 01/11/25 06:43 Height 5 ft 2 in 5 ft 2 in Weight: 151 lb BMI 27.6 BP 102/62 110/66 Position Sitting Sitting Respiration 14 16 Pulse 58 L 71 Temp 98.4 F 98.4 F Temp Source Oral Oral Pulse Oximetry (%) 98 98 Oxygen Delivery Method room air room air Intake Visit Reasons: fu/ dawson brush Accompanied by: Self Allergies shellfish derived [...] story tablet) Nurse's Note: Patient here for [facility] f/u. Patient states that she is little better. [facility] Medical History (Updated 01/14/25 @ 00:00 by Background Daleann) Laceration of left forearm Fatigue Hypothyroidism due [...] cancer Diabetes H/O transfusion of whole blood Nicasio disease Hypertension Myocardial infarction Ovarian cancer Respiratory [...] to the office today for at the [facility] for f/u status post work-related injury suffered on 01/06/2025 patient so states. 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 She reported to [facility] ED where treated for released the same [...] care and doxycycline as previously prescribed. No oito-wqx-piumixa medications have been taken to assist. No other as (more content not included)... Normal [facility] Urgent Care Visit Reporton 0 01-11-2025 Urgent Care Visit Report [facility] [address] , [address] [place] [address] OFFICE VISIT Date of Service: 01/11/25 MR#: [id number] Acct: [id number] Name: ALINE BOLAÑOS Rep #: [id number] : 1965 Provider: MYRON Hurtado Age/Sex: 59/F Location: [facility] Status: Signed Intake Vital Signs 01/06/25 13:16 01/11/25 06:27 Height 5 ft 2 in 5 ft 2 in Weight: 151 lb BMI 27.6 BP 102/62 Position Sitting Respiration 14 Pulse 58 L Temp 98.4 F Temp Source Oral Pulse Oximetry (%) 98 Oxygen Delivery Method room air Intake Visit Reasons: ER FU/ PINGREE BRUSH Accompanied by: Self Is patient in [...] tablet) Nurse's Note: Patient here for a [facility] ER f/u. Patient thinks her left arm is infected. Patient states her ribs are better but still not good. [facility] Medical History (Updated 01/11/25 @ 06:29 by [...] BUE and anterior chest/abdomen. She reported to [facility] ED where treated for released the same [...] to work since date of injury. No qxft-twg-uhzbgbd medications have been taken to assist. No other associated symptoms and no other alleviating/aggravatin g factors. ROS C (more content not included)... Normal [facility] Abdomen/Pelvis W IV Cont ONL Yon 01-06-2025 Abdomen/Pelvis W IV Cont ONLY [facility] [address] [place], [place] [address] Abdomen/Pelvis W IV Cont ONLY MR#: [id number] Acct: [id number] Name: ALINE BOLAÑOS Rep #: [id number] : 1965 F 59 From: Андрей Sherman MD PCP: Swapna Corea NP-C Status: REG ER Study: Abdomen/Pelvis W IV Cont ONLY Date of Exam: Exam# [id number] Ordering Dr: Lazaro Koenig MD PROCEDURE: ABDOMEN/PELVIS [...] abnormality. OVERALL FINAL ASSESSMENT: . Reading [facility] CC: MICHAEL Corea; Dr. Lazaro Koenig MD [employer] Operator: Signed Normal [facility] Anion gap in Serum or Plasma Ordered By: Lazaro Koenig on 01-06-2025 Anion gap [Moles/Vol] 13 mmol/L - [facility] BUN/creatinine ratioOrdered By: Lazaro Koenig on 01-06-2025 Urea nitrogen/Creatinine [Mass ratio] 16.2 mg/mg - [facility] Basic Metabolic Profile (BMP )on 01-06-2025 BUN/CRE 16.2 RATIO Normal - [facility] Comment on above: Performed By: #### L 500.2500 #### [facility] [address] [place], [address] Calcium [Mass/Vol] 9.4 mg/dL Normal 7.6-11.0 [facility] Comment on above: Performed By: #### L 500.2500 #### [facility] [address] [place], [address] Chloride [Moles/Vol] 107 mmol/L Normal 98-108 [facility] Comment on above: Performed By: #### L 500.2500 #### [facility] [address] [place], [address] CO2 [Moles/Vol] 19.7 mmol/L Low 21.0-32.0 [facility] Comment on above: Performed By: #### L 500.2500 #### [facility] [address] [place], [address] Creatinine [Mass/Vol] 0.66 mg/dL Low 0.70-1.20 [facility] Comment on above: Performed By: #### L 500.2500 #### [facility] [address] [place], [address] ECRCL 81.24 ml/min Normal 50-250 [facility] Comment on above: Performed By: #### L 500.2500 #### [facility] [address] [place], [address] GAP 13 Normal 5-15 [facility] Comment on above: Performed By: #### L 500.2500 #### [facility] [address] [place], [address] GFR/1.73 sq M.predicted among non-blacks MDRD (S/P/Bld) [Vol rate/Area] 100 mL/min/{1.73_m2} Normal >60 [facility] Comment on above: Result Comment: mL/m in/1.73m2 CKD-EPI Creatinine Equation (2020) Performed By: #### L 500.2500 #### [facility] [address] [place], [address] Glucose [Mass/Vol] 98 mg/dL Normal 70-99 [facility] Comment on above: Performed By: #### L 500.2500 #### [facility] [address] [place], [address] Potassium [Moles/Vol] 3.8 mmol/L Normal 3.3-5.1 [facility] Comment on above: Performed By: #### L 500.2500 #### [facility] [address] [place] [place], [address] Sodium [Moles/Vol] 140 mmol/L Normal 133-145 [facility] Comment on above: Performed By: #### L 500.2500 #### [facility] [address] [place], [place], [address] Urea nitrogen [Mass/Vol] 11 mg/dL Normal 4-19 [facility] Comment on above: Performed By: #### L 500.2500 #### [facility] [address] [place], [place], [address] Carbon dioxide, total [Moles /volume] in Central venous bloodOrdered By: Lazaro Koenig on 01-06-2025 CO2 [Moles/Vol] 19.7 mmol/L Low 21.0-32.0 [facility] Chloride assayOrdered By: Sharif Koenig on 01-06-2025 Chloride [Moles/Vol] 107 mmol/L 98-108 [facility] Emergency Department Summary on 01-06-2025 Emergency Department Summary [facility] Department [address] [place] [address] Emergency Department Summary 01/06/25 MR#: [id number] Acct: [id number] Name: ALINE BOLAÑOS Rep #: [id number] : 1965 59 From: Lazaro Koenig MD [...] symptoms: No Recent Illness/Hospitalizatio n: No PFSH PFS Medical History Fatigue Hypothyroidism [...] cancer Diabetes H/O transfusion of whole blood Nicasio disease Hypertension Myocardial infarction Ovarian cancer Respiratory [...] Reports chest (more content not included)... Normal [facility] Glomerular filtration rate ( GFR) estimation/1.73 sq m using serum, plasma, or whole bOrdered By: Lazaro Koenig on 01-06-2025 GFR/1.73 sq M.predicted among non-blacks MDRD (S/P/Bld) [Vol rate/Area] 100 mL/min/{1.73_m2} >60 [facility] Comment on above: mL/min/1.73m2 CKD-EP I Creatinine Equation (2020) Potassium measurement (mass/ volume)Ordered By: Lazaro Koenig on 01-06-2025 Potassium (Unsp spec) [Mass/Vol] 3.8 mmol/L 3.3-5.1 [facility] Serum creatinine measurement (mass/volume)Ordered By: Lazaro Koenig on 06-11-2025 Creatinine [Mass/Vol] 0.66 mg/dL Low 0.70-1.20 [facility] Serum glucose measurement (m ass/volume)Ordered By: [facility] on 01-06-2025 Glucose [Mass/Vol] 98 mg/dL 70-99 [facility] Serum or plasma calcium bria urement (mass/volume)Ordered By: [facility] on 01-06-2025 Calcium [Mass/Vol] 9.4 mg/dL 7.6-11.0 [facility] Serum or plasma urea nitroge n measurement (mass/volume)Ordered By: [facility] on 01-06-2025 Urea nitrogen [Mass/Vol] 11 mg/dL 4-19 [facility] Sodium levelOrdered By: [facility] on 01-06-2025 Sodium [Moles/Vol] 140 mmol/L 133-145 [facility] HIP, UNI W/ Pelvis 2-3 Views on 12-01-2024 HIP, UNI W/ Pelvis 2-3 Views [facility] Imaging Services [address] [place] [id number] HIP, UNI W/ Pelvis 2-3 Views MR#: [id number] Acct: [id number] Name: ALINE BOLAÑOS Rep #: [id number] : 1965 F 59 From: Kade hou MD PCP: MICHAEL Beach Status: REG CLI Study: HIP, UNI W/ Pelvis 2-3 Views Date of Exam: 01/20 Exam# [id number] Ordering Dr: Swapna Corea PROCEDURE: HIP, UNI [...] osteoarthritis. Reading Location: [facility] CC: MICHAEL Corea [employer] Operator: Signed Normal [facility] Thyroid Peroxidase ABon 10-27 THYR PEROX AB > 600 High 0-34 [facility] Comment on above: Order Comment: CANCE L THYROID AB, ADD TPO Result Comment: Perf ormed at: [facility] [address] [id number] Reconciliation Specialist: Juan Anderson PhD, Phone: [phone] Performed By: #### L 501.9520, L500.2500, L506.0400, L3300.6900 ####[facility] [address] [place] [place], [address] Anion gap in Serum or Plasma Ordered By: Alanna Avila on 11-12-2024 Anion gap [Moles/Vol] 11 mmol/L 5-15 [facility] BUN/creatinine ratioOrdered By: Alanna Avila on 11-12-2024 Urea nitrogen/Creatinine [Mass ratio] 19.7 mg/mg 10- [facility] Basic Metabolic Profile (BMP )on 11-12-2024 BUN/CRE 19.7 RATIO Normal - [facility] Comment on above: Performed By: #### L 501.9520, L500.2500, L506.0400, L3300.6900 ####[facility] [address] [place], [address] Calcium [Mass/Vol] 9.6 mg/dL Normal 7.6-11.0 [facility] Comment on above: Performed By: #### L 501.9520, L500.2500, L506.0400, L3300.6900 ####[facility] [address] [place], [address] Chloride [Moles/Vol] 103 mmol/L Normal 98-108 [facility] Comment on above: Performed By: #### L 501.9520, L500.2500, L506.0400, L3300.6900 ####[facility] [address] [place], [address] CO2 [Moles/Vol] 25.5 mmol/L Normal 21.0-32.0 [facility] Comment on above: Performed By: #### L 501.9520, L500.2500, L506.0400, L3300.6900 ####[facility] [address] [place], [address] Creatinine [Mass/Vol] 0.80 mg/dL Normal 0.70-1.20 [facility] Comment on above: Performed By: #### L 501.9520, L500.2500, L506.0400, L3300.6900 ####[facility] [address] [place], [address] GAP 11 Normal 5-15 [facility] Comment on above: Performed By: #### L 501.9520, L500.2500, L506.0400, L3300.6900 ####[facility] [address] [place], [address] GFR/1.73 sq M.predicted among non-blacks MDRD (S/P/Bld) [Vol rate/Area] 84 mL/min/{1.73_m2} Normal >60 [facility] Comment on above: Result Comment: mL/m in/1.73m2 CKD-EPI Creatinine Equation (2020) Performed By: #### L 501.9520, L500.2500, L506.0400, L3300.6900 ####[facility] [address] [place], [address] Glucose [Mass/Vol] 75 mg/dL Normal 70-99 [facility] Comment on above: Performed By: #### L 501.9520, L500.2500, L506.0400, L3300.6900 ####[facility] [address] [place], [address] Potassium [Moles/Vol] 4.5 mmol/L Normal 3.3-5.1 [facility] Comment on above: Performed By: #### L 501.9520, L500.2500, L506.0400, L3300.6900 ####[facility] [address] [place], [address] Sodium [Moles/Vol] 139 mmol/L Normal 133-145 [facility] Comment on above: Performed By: #### L 501.9520, L500.2500, L506.0400, L3300.6900 ####[facility] [address] [place], [address] Urea nitrogen [Mass/Vol] 16 mg/dL Normal 4-19 [facility] Comment on above: Performed By: #### L 501.9520, L500.2500, L506.0400, L3300.6900 ####[facility] [address] [place], [address] Carbon dioxide, total [Moles /volume] in Central venous bloodOrdered By: Alanna Avila on 11-12-2024 CO2 [Moles/Vol] 25.5 mmol/L 21.0-32.0 [facility] Chloride assayOrdered By: Rizwana Avila on 11-12-2024 Chloride [Moles/Vol] 103 mmol/L 98-108 [facility] Glomerular filtration rate ( GFR) estimation/1.73 sq m using serum, plasma, or whole bOrdered By: Alanna Avila on 11-12-2024 GFR/1.73 sq M.predicted among non-blacks MDRD (S/P/Bld) [Vol rate/Area] 84 mL/min/{1.73_m2} >60 [facility] Comment on above: mL/min/1.73m2 CKD-EP I Creatinine Equation (2020) Potassium measurement (mass/ volume)Ordered By: Alanna Avila on 11-12-2024 Potassium (Unsp spec) [Mass/Vol] 4.5 mmol/L 3.3-5.1 [facility] Serum creatinine measurement (mass/volume)Ordered By: Alanna Avila on 11-12-2024 Creatinine [Mass/Vol] 0.80 mg/dL 0.70-1.20 [facility] Serum glucose measurement (m ass/volume)Ordered By: Alanna Avila on 11-12-2024 Glucose [Mass/Vol] 75 mg/dL 70-99 [facility] Serum or plasma calcium bria urement (mass/volume)Ordered By: Alanna Avila on 11-12-2024 Calcium [Mass/Vol] 9.6 mg/dL 7.6-11.0 [facility] Serum or plasma thyroperoxid ase antibody assay (units/volume)Ordered By: Alanna Avila on 11-12-2024 TPO Ab Qn [IU]/mL High 0-34 [facility] Comment on above: Performed at: [place] [id number] Director: Juan Anderson PhD, Phone: [phone] Serum or plasma urea nitroge n measurement (mass/volume)Ordered By: Alanna Avila on 11-12-2024 Urea nitrogen [Mass/Vol] 16 mg/dL 4-19 [facility] Sodium levelOrdered By: Steffen Avila on 11-12-2024 Sodium [Moles/Vol] 139 mmol/L 133-145 [facility] T4 Free Directon 11-12-2024 T4 FREE DIRECT 1.70 ng/dL High 0.76-1.46 [facility] Comment on above: Performed By: #### L 501.95, L500.2500, L506.0400, L3300.6900 ####[facility] [address] [place], [address] T4 freeOrdered By: Alanna sweeney on 11-12-2024 Free T4 [Mass/Vol] 1.70 ng/dL High 0.76-1.46 [facility] TSH DL <= 0.005 mIU/L QnOrde red By: Alanna Avila on 11-12-2024 TSH Qn 2.090 uIU/mL 0.300-4.200 [facility] Thyroid Stim Hormone (TSH)on 11-12-2024 TSH 2.090 uIU/mL Normal 0.300-4.200 [facility] Comment on above: Performed By: #### L 501.9520, L500.2500, L506.0400, L3300.6900 ####[facility] [address] [place] [place], [address] Abdomen Single Viewon 2023 Abdomen Single View [facility] Services [address] [place] [address] Abdomen Single View MR#: [id number] Acct: [id number] Name: ALINE BOLAÑOS Rep #: [id number] : 1965 F 59 From: Luc Mccarty MD PCP: MICHAEL Beach Status: REG CLI Study: Abdomen Single View Date of Exam: 06/18/24 Exam# [id number] Ordering Dr: Lisette Richardson DO [id number] EXAM: XR ABDOMEN, 1 VIEW CLINICAL INDICATION: [...] CC: MICHAEL Corea; Dr. Lisette Richardson DO [employer] Operator: Signed Normal [facility] CBC W/Diff, Automatedon 11-2 Absolute Lymph 2.06 X10 3/uL Normal 0.83-4.51 [facility] Comment on above: Performed By: #### L 500.4050, L100.0100, L501.2450 #### [facility] [address] [place], [address] Absolute Neut 7.3 X10 3/uL Normal 2.0-7.7 [facility] Comment on above: Performed By: #### L 500.4050, L100.0100, L501.2450 #### [facility] [address] [place], [address] Basophils/100 WBC (Bld) 0.3 % Normal 0-1 [facility] Comment on above: Performed By: #### L 500.4050, L100.0100, L501.2450 #### [facility] [address] [place], [address] Eosinophils/100 WBC (Bld) 1.8 % Normal 0-5 [facility] Comment on above: Performed By: #### L 500.4050, L100.0100, L501.2450 #### [facility] [address] [place], [address] Erythrocyte distribution width (RBC) [Ratio] 12.6 % Normal 11.6-14.6 [facility] Comment on above: Performed By: #### L 500.4050, L100.0100, L501.2450 #### [facility] [address] [place], [address] Hematocrit (Bld) [Volume fraction] 43.9 % Normal 37-47 [facility] Comment on above: Performed By: #### L 500.4050, L100.0100, L501.2450 #### [facility] [address] [place], [address] Hemoglobin (Bld) [Mass/Vol] 14.2 g/dL Normal 12.0-15.0 [facility] Comment on above: Performed By: #### L 500.4050, L100.0100, L501.2450 #### [facility] [address] [place], [address] IG% 0.400 Normal 0.0-0.9 [facility] Comment on above: Result Comment: IG% - Immature Granulocytes (promyelocytes, myelocytes and metamyelocytes) > 1% indicates that a LEFT SHIFT is Present. Performed By: #### L 500.4050, L100.0100, L501.2450 #### [facility] [address] [place], [address] Lymphocytes/100 WBC (Bld) 19.9 % Normal 19-41 [facility] Comment on above: Performed By: #### L 500.4050, L100.0100, L501.2450 #### [facility] [address] [place], [address] MCH (RBC) [Entitic mass] 28.4 pg Normal 27.0-32.0 [facility] Comment on above: Performed By: #### L 500.4050, L100.0100, L501.2450 #### [facility] [address] [place], [address] MCHC (RBC) [Mass/Vol] 32.3 g/dL Normal 32-36 [facility] Comment on above: Performed By: #### L 500.4050, L100.0100, L501.2450 #### [facility] [address] [place], [address] MCV (RBC) [Entitic vol] 87.8 fL Normal 81-99 [facility] Comment on above: Performed By: #### L 500.4050, L100.0100, L501.2450 #### [facility] [address] [place], [address] Monocytes/100 WBC (Bld) 7.4 % Normal 0-10 [facility] Comment on above: Performed By: #### L 500.4050, L100.0100, L501.2450 #### [facility] [address] [place], [address] Neutrophils/100 WBC (Bld) 70.2 % High 47-70 [facility] Comment on above: Performed By: #### L 500.4050, L100.0100, L501.2450 #### [facility] [address] [place], [address] Nucleated RBC (Bld) [#/Vol] 0 10*3/uL Normal 0-5 [facility] Comment on above: Performed By: #### L 500.4050, L100.0100, L501.2450 #### [facility] [address] [place], [address] Platelet mean volume (Bld) [Entitic vol] 9.2 fL Normal 6.2-12.0 [facility] Comment on above: Performed By: #### L 500.4050, L100.0100, L501.2450 #### [facility] [address] [place], [address] Platelets (Bld) [#/Vol] 275 10*3/uL Normal 150-450 [facility] Comment on above: Performed By: #### L 500.4050, L100.0100, L501.2450 #### [facility] [address] [place], [address] RBC (Bld) [#/Vol] 5.00 10*6/uL Normal 4.2-5.4 [facility] Comment on above: Performed By: #### L 500.4050, L100.0100, L501.2450 #### [facility] [address] [place], [address] RDW SD 40.1 fl Normal 35.1-43.9 [facility] Comment on above: Performed By: #### L 500.4050, L100.0100, L501.2450 #### [facility] [address] [place], [address] WBC (Bld) [#/Vol] 10.3 10*3/uL Normal 4.4-11.0 [facility] Comment on above: Performed By: #### L 500.4050, L100.0100, L501.2450 #### [facility] [address] [place], [address] Chest PA and Lateralon 06-18 Chest PA and Lateral [facility] Services [address] [place] [address] Chest PA and Lateral MR#: [id number] Acct: [id number] Name: ALINE BOLAÑOS Rep #: [id number] : 1965 F 59 From: Theresa Aguiar MD PCP: MICHAEL Beach Status: REG CLI Study: Chest PA and Lateral Date of Exam: 06/18/24 Exam# [id number] Ordering Dr: Lisette Richardson DO [id number] INDICATION: Abdominal pain/right SIDE PAIN EXAMINATION/TECHNIQUE: X-RAY [...] CC: MICHAEL Corea; Dr. Lisette Richardson DO [employer] Operator: Signed Normal [facility] Comprehensive Metabolic Prof omar 06-18-2024 Albumin [Mass/Vol] 4.3 g/dL Normal 3.2-5.0 [facility] Comment on above: Performed By: #### L 500.4050, L100.0100, L501.2450 #### [facility] [address] [place], [address] Albumin/Globulin [Mass ratio] 1.1 {ratio} Normal 0.9-2.4 [facility] Comment on above: Performed By: #### L 500.4050, L100.0100, L501.2450 #### [facility] [address] [place], [address] ALK P 129 U/L High 45-117 [facility] Comment on above: Performed By: #### L 500.4050, L100.0100, L501.2450 #### [facility] [address] [place], [address] ALT [Catalytic activity/Vol] 21 U/L Normal 13-56 [facility] Comment on above: Performed By: #### L 500.4050, L100.0100, L501.2450 #### [facility] [address] [place], [address] AST [Catalytic activity/Vol] 13 U/L Low 15-37 [facility] Comment on above: Performed By: #### L 500.4050, L100.0100, L501.2450 #### [facility] [address] [place], [address] Bilirubin [Mass/Vol] 0.70 mg/dL Normal 0.20-1.00 [facility] Comment on above: Result Comment: For patients on eltrombopag therapy, use of Dimension [place] TBIL is not recommended. Performed By: #### L 500.4050, L100.0100, L501.2450 #### [facility] [address] [place], [address] BUN/CRE 18.9 RATIO Normal 10-20 [facility] Comment on above: Performed By: #### L 500.4050, L100.0100, L501.2450 #### [facility] [address] [place], [address] CA,Total 9.8 mg/dL Normal 8.5-10.1 [facility] Comment on above: Performed By: #### L 500.4050, L100.0100, L501.2450 #### [facility] [address] [place], [address] Chloride [Moles/Vol] 102 mmol/L Normal 98-107 [facility] Comment on above: Performed By: #### L 500.4050, L100.0100, L501.2450 #### [facility] [address] [place], [address] CO2 [Moles/Vol] 26.0 mmol/L Normal 21.0-32.0 [facility] Comment on above: Performed By: #### L 500.4050, L100.0100, L501.2450 #### [facility] [address] [place], [address] Creatinine [Mass/Vol] 0.80 mg/dL Normal 0.55-1.02 [facility] Comment on above: Result Comment: The validity of the calculated GFR GFRAA in patients over 70 years has not been determined. Clinical correlation is essential. Performed By: #### L 500.4050, L100.0100, L501.2450 #### [facility] [address] [place] [place], [address] EST GFR - AA 94 mL/min Normal >60 [facility] Comment on above: Result Comment: Afri can Citizen [place] GFR Calc Performed By: #### L 500.4050, L100.0100, L501.2450 #### [facility] [address] [place], [address] GAP 8 Normal 5-15 [facility] Comment on above: Performed By: #### L 500.4050, L100.0100, L501.2450 #### [facility] [address] [place], [address] GFR/1.73 sq M.predicted among non-blacks MDRD (S/P/Bld) [Vol rate/Area] 78 mL/min/{1.73_m2} Normal >60 [facility] Comment on above: Result Comment: Non- GFR Calc Performed By: #### L 500.4050, L100.0100, L501.2450 #### [facility] [address] [place], [address] Globulin (S) [Mass/Vol] 3.9 g/dL Normal 2.2-4.2 [facility] Comment on above: Performed By: #### L 500.4050, L100.0100, L501.2450 #### [facility] [address] [place], [address] Glucose [Mass/Vol] 89 mg/dL Normal 74-106 [facility] Comment on above: Performed By: #### L 500.4050, L100.0100, L501.2450 #### [facility] [address] [place], [address] Potassium [Moles/Vol] 3.7 mmol/L Normal 3.5-5.1 [facility] Comment on above: Performed By: #### L 500.4050, L100.0100, L501.2450 #### [facility] [address] [place], [address] Sodium [Moles/Vol] 136 mmol/L Normal 136-145 [facility] Comment on above: Performed By: #### L 500.4050, L100.0100, L501.2450 #### [facility] [address] [place], [address] T PROT 8.2 g/dL Normal 6.4-8.2 [facility] Comment on above: Performed By: #### L 500.4050, L100.0100, L501.2450 #### [facility] [address] [place], [address] Urea nitrogen [Mass/Vol] 15 mg/dL Normal 7-18 [facility] Comment on above: Performed By: #### L 500.4050, L100.0100, L501.2450 #### [facility] [address] [place] [place], [address] Lipaseon 06-18-2024 Lipase [Catalytic activity/Vol] 33 U/L Normal 13-75 [facility] Comment on above: Result Comment: Nai caldera note: LIPASE revised reference range effective 22. New Lipase methodology. Expected to produce lower values than the previous assay method. NEW Reference Range: 13 - 75 U/L Performed By: #### L 500.4050, L100.0100, L501.2450 #### [facility] [address] [place], [address] Thoracic Spine 3 Viewson Thoracic Spine 3 Views [facility] [address] [place] [address] Thoracic Spine 3 Views MR#: [id number] Acct: [id number] Name: ALINE BOLAÑOS Rep #: [id number] : 1965 F 59 From: Luc Mccarty MD PCP: MICHAEL [facility] Status: REG CLI Study: Thoracic Spine 3 Views Date of Exam: 06/18/24 Exam# [id number] Ordering Dr: Lisette Richardson DO [id number] EXAM: XR THORACIC SPINE, 3 VIEWS CLINICAL [...] CC: MICHAEL Corea; Dr. Lisette Richardson DO [employer] Operator: Signed Normal [facility] Basophil percentageOrdered B y: Alanna Avila on 11-06-2023 Chloride [Moles/Vol] 108 mmol/L 98-107 [facility] Glucose [Mass/Vol] 89 mg/dL 74-106 [facility] Potassium [Moles/Vol] 3.9 mmol/L 3.5-5.1 [facility] Sodium [Moles/Vol] 138 mmol/L 136-145 [facility] Laboratory - Chemistry and C hemistry - challengeOrdered By: Alanna Avila on 11-06-2023 CO2 [Moles/Vol] 26.0 mmol/L 21.0-32.0 [facility] Urea nitrogen/Creatinine [Mass ratio] 20.3 mg/mg - [facility] No Panel InformationOrdered By: Alanna Avila on 11-06-2023 Estimated GFR (MDRD) Amer 103 mL/min >60 [facility] Comment on above: GFR Calc Estimated GFR (MDRD) Non-Af Amer 85 mL/min >60 [facility] Comment on above: Non- GFR Calc Vitamin D 25-Hydroxy 65.3 ng/mL [facility] Comment on above: Vitamin D 25(OH) Sta tus Range Deficiency <20 ng/mL (50nmol/L) Insufficiency 20 - 30 ng/mL (50 - 75 nmol/L) Sufficiency 30 - 100 ng/mL (75 - 250 nmol/L) Toxicity >100 ng/mL (>250 nmol/L) Serum or plasma calcium bria urement (mass/volume)Ordered By: Alanna Avila on 11-06-2023 Calcium [Mass/Vol] 9.4 mg/dL 8.5-10.1 [facility] Serum or plasma creatinine m easurement (mass/volume)Ordered By: Alanna Avila on 11-06-2023 Creatinine [Mass/Vol] 0.74 mg/dL 0.55-1.02 [facility] Comment on above: The validity of the calculated GFR & GFRAA in patients over 70 years has not been determined. Clinical correlation is essential. Serum or plasma thyroid stim ulating hormone (TSH) measurement (units/volume)Ordered By: Alannahilary Avila on 11-06-2023 TSH Qn 1.33 uIU/mL 0.358-3.74 [facility] Serum or plasma urea nitroge n measurement (mass/volume)Ordered By: Alannahilary Avila on 11-06-2023 Urea nitrogen [Mass/Vol] 15 mg/dL 7-18 [facility] Thin prep Papanicolaou smear with manual screeningOrdered By: [facility] Margarita on 11-06-2023 Thin prep Papanicolaou smear with manual screening 4 5-15 [facility] Thin prep Papanicolaou smear with manual screening 1.60 ng/dL 0.76-1.46 [facility] Basophil percentageOrdered B y: Swapna Corea on 08-30-2023 Bilirubin [Mass/Vol] 0.50 mg/dL 0.20-1.00 [facility] Comment on above: For patients on eltr ombopag therapy, use of Dimension [place] TBIL is not recommended. Cholesterol [Mass/Vol] 163 mg/dL <200 [facility] Comment on above: <200 mg/dL Desirable 200-240 mg/dL Borderline >240 mg/dL High Risk Protein [Mass/Vol] 7.5 g/dL 6.4-8.2 [facility] Triglyceride [Mass/Vol] 101 mg/dL <199 [facility] Comment on above: The drugs N-Acetylcy steine and Metamizole may falsely depress this assay.Serum Triglycerides Reference Interval Normal <150 mg/dL Borderline high 150 - 199 mg/dL High 200 - 499 mg/dL Very High > or = 500 mg/dL Direct bilirubinOrdered By: Swapna Corea on 08-30-2023 Bilirubin.direct [Mass/Vol] 0.15 mg/dL 0.00-0.30 [facility] - Chemistry and C hemistry - challengeOrdered By: Swapna Corea on 08-30-2023 ALP [Catalytic activity/Vol] 116 U/L 45-117 [facility] ALT [Catalytic activity/Vol] 23 U/L 13-56 [facility] Cholesterol in HDL (Body fld) [Mass/Vol] 50 mg/dL >40 [facility] Comment on above: The drugs N-Acetylcy steine and Metamizole may falsely depress this assay. Reference Range HDL <40 mg/dL Low HDL Cholesterol HDL >or= 60 mg/dL High HDL Cholesterol Cholesterol in LDL (Body fld) [Moles/Vol] 93 mg/dL 0-130 [facility] Cholesterol in VLDL Calc [Moles/Vol] 20 mg/dL 5-40 [facility] Globulin (S) [Mass/Vol] 3.7 g/dL 2.2-4.2 [facility] Thin prep Papanicolaou smear with manual screeningOrdered By: Swapna Corea on 08-30-2023 Thin prep Papanicolaou smear with manual screening 3.8 g/dL 3.2-5.0 [facility] Thin prep Papanicolaou smear with manual screening 12 U/L 15-37 [facility] .Auto Diffon 05-27-2023 Basophil, Absolute 0.0 10 3/mcL Normal 0.0-0.2 [facility] ([place]) Comment on above: Performed By: #### L IP, GFR, ADIFF, ANEU, MDW, CBC, TROPHS, CMP #### [facility] [address] [address] Basophils/100 WBC (Bld) 0.1 % Normal 0.0-2.5 [facility] ([place] Comment on above: Performed By: #### L IP, GFR, ADIFF, ANEU, MDW, CBC, TROPHS, CMP #### [address] [address] Eosinophil, Absolute 0.0 10 3/mcL Normal 0.0-0.4 [facility] ([place]) Comment on above: Performed By: #### L IP, GFR, ADIFF, ANEU, MDW, CBC, TROPHS, CMP #### [address] [address] Eosinophils/100 WBC (Bld) 0.1 % Normal 0.0-7.0 [facility] ([place] Comment on above: Performed By: #### L IP, GFR, ADIFF, ANEU, MDW, CBC, TROPHS, CMP #### [address] [address] Lymphocyte, Absolute 0.7 10 3/mcL Low 0.8-3.9 [facility] ([place]) Comment on above: Performed By: #### L IP, GFR, ADIFF, ANEU, MDW, CBC, TROPHS, CMP #### [address] [address] Lymphocytes/100 WBC (Bld) 4.5 % Low 10.0-50.0 [facility] ([place] Comment on above: Performed By: #### L IP, GFR, ADIFF, ANEU, MDW, CBC, TROPHS, CMP #### [address] [address] Monocyte, Absolute 0.5 10 3/mcL Normal 0.2-1.0 [facility] ([place]) Comment on above: Performed By: #### L IP, GFR, ADIFF, ANEU, MDW, CBC, TROPHS, CMP #### [address] [address] Monocytes/100 WBC (Bld) 3.2 % Normal 1.7-13.0 [facility] ([place]) Comment on above: Performed By: #### L IP, GFR, ADIFF, FRIDA, KIRSTY, CBC, TROPHS, CMP #### [address] [address] Neutrophils/100 WBC (Bld) 92.1 % High 37.0-80.0 [facility] ([place] Comment on above: Performed By: #### L IP, GFR, ADIFF, FRIDA, W, CBC, TROPHS, CMP #### [address] [address] .GFRon 05-27-2023 GFR 79 ml/min/1.73sqm Normal [facility] ([place]) Comment on above: Result Comment: GFR Population [...] Performed By: #### L IP, GFR, ADIFF, FRIDA, W, CBC, TROPHS, CMP #### [address] [address] GFR Non- 66 ml/min/1.73sqm Normal [facility] ([place]) Comment on above: Result Comment: GFR Population [...] ADIFF, ANEU, MDW, CBC, TROPHS, CMP #### [place] [id number] .MDWon 05-27-2023 Monocyte Distribution Width 16.33 Normal 0.00-20.00 [facility] ([place]) Comment on above: Result Comment: For ED adult patients suspected of sepsis, MDW<=20.0 does not rule out sepsis or risk of sepsis Performed By: #### L IP, GFR, ADIFF, ANEU, MDW, CBC, TROPHS, CMP #### [place] [address] .NEUABSon 05-27-2023 Neutrophil, Absolute 14.0 10 3/mcL High 2.9-6.2 A [facility] ([place]) Comment on above: Performed By: #### L IP, GFR, ADIFF, ANEU, MDW, CBC, TROPHS, CMP #### [place] [address] CBCon 05-27-2023 Erythrocyte distribution width (RBC) [Ratio] 13.1 % Normal 11.5-14.5 [facility] ([place] Comment on above: Performed By: #### L IP, GFR, ADIFF, ANEU, MDW, CBC, TROPHS, CMP #### [place] [address] Hematocrit (Bld) [Volume fraction] 43.3 % Normal 37.0-47.0 [facility] ([place] Comment on above: Performed By: #### L IP, GFR, ADIFF, ANEU, MDW, CBC, TROPHS, CMP #### [place] [address] Hgb 14.6 G/dL Normal 12.0-16.0 [facility] ([place] Comment on above: Performed By: #### L IP, GFR, ADIFF, ANEU, MDW, CBC, TROPHS, CMP #### [address] [address] MCH (RBC) [Entitic mass] 29.3 pg Normal 27.0-31.2 [facility] ([place] Comment on above: Performed By: #### L IP, GFR, ADIFF, ANEU, MDW, CBC, TROPHS, CMP #### [address] [address] MCHC 33.8 G/dL Normal 33.0-37.0 [facility] ([place] Comment on above: Performed By: #### L IP, GFR, ADIFF, ANEU, MDW, CBC, TROPHS, CMP #### [address] [address] MCV (RBC) [Entitic vol] 86.5 fL Normal 80.0-94.0 [facility] ([place] Comment on above: Performed By: #### L IP, GFR, ADIFF, ANEU, MDW, CBC, TROPHS, CMP #### [address] [address] Platelet 209 10 3/mcL Normal 130-400 [facility] ([place]) Comment on above: Performed By: #### L IP, GFR, ADIFF, ANEU, MDW, CBC, TROPHS, CMP #### [address] [address] Platelet mean volume (Bld) [Entitic vol] 7.1 fL Low 7.4-10.4 [facility] ([place] Comment on above: Performed By: #### L IP, GFR, ADIFF, ANEU, MDW, CBC, TROPHS, CMP #### [address] [address] RBC 5.00 10 6/mcL Normal 4.20-5.40 [facility] ([place]) Comment on above: Performed By: #### L IP, GFR, ADIFF, ANEU, MDW, CBC, TROPHS, CMP #### [address] [address] WBC 15.2 10 3/mcL High 4.6-10.8 [facility] ([place] Comment on above: Performed By: #### L IP, GFR, ADIFF, FRIDA, MDW, CBC, TROPHS, CMP #### [address] [address] CMPon 05-27-2023 Albumin Level 4.5 G/dL Normal 3.4-4.8 [facility] ([place] Comment on above: Performed By: #### L IP, GFR, ADIFF, ANEU, MDW, CBC, TROPHS, CMP #### [address] [address] Albumin/Globulin [Mass ratio] 1.4 {ratio} Normal 1.1-2.5 [facility] ([place] Comment on above: Performed By: #### L IP, GFR, ADIFF, ANEU, MDW, CBC, TROPHS, CMP #### [address] [address] ALP [Catalytic activity/Vol] 146 U/L High 40-135 [facility] ([place] Comment on above: Performed By: #### L IP, GFR, ADIFF, ANEU, MDW, CBC, TROPHS, CMP #### [address] [address] ALT [Catalytic activity/Vol] 21 U/L Normal 14-59 [facility] ([place] Comment on above: Performed By: #### L IP, GFR, ADIFF, ANEU, MDW, CBC, TROPHS, CMP #### [address] [address] AST [Catalytic activity/Vol] 17 U/L Normal 10-40 [facility] ([place] Comment on above: Performed By: #### L IP, GFR, ADIFF, ANEU, MDW, CBC, TROPHS, CMP #### [address] [address] Bili Total 1.0 mg/dL Normal 0.2-1.0 [facility] ([place]) Comment on above: Result Comment: Use of this assay is not recommended for patients undergoing treatment with eltrombopag due to the potential for falsely elevated results. Performed By: #### L IP, GFR, ADIFF, ANEU, MDW, CBC, TROPHS, CMP #### [address] [address] BUN/Creatinine Ratio 20 ratio Normal 7-27 [facility] ([place]) Comment on above: Performed By: #### L IP, GFR, ADIFF, ANEU, MDW, CBC, TROPHS, CMP #### [address] [address] Calcium [Mass/Vol] 9.1 mg/dL Normal 8.4-10.2 [facility] ([place]) Comment on above: Performed By: #### L IP, GFR, ADIFF, ANEU, MDW, CBC, TROPHS, CMP #### [address] [address] Chloride [Moles/Vol] 96 mmol/L Low 98-107 [facility] ([place]) Comment on above: Performed By: #### L IP, GFR, ADIFF, ANEU, MDW, CBC, TROPHS, CMP #### [address] [address] CO2 [Moles/Vol] 24 mmol/L Normal 23-31 [facility] ([place] Comment on above: Performed By: #### L IP, GFR, ADIFF, ANEU, MDW, CBC, TROPHS, CMP #### [address] [address] Creatinine [Mass/Vol] 0.88 mg/dL Normal 0.55-1.02 [facility] ([place]) Comment on above: Performed By: #### L IP, GFR, ADIFF, ANEU, MDW, CBC, TROPHS, CMP #### [address] [address] Electrolyte Balance 14.0 mEq/L Normal 4.0-15.0 [facility] ([place]) Comment on above: Performed By: #### L IP, GFR, ADIFF, ANEU, MDW, CBC, TROPHS, CMP #### [address] [address] Globulin 3.3 G/dL Normal [facility] ([place] Comment on above: Performed By: #### L IP, GFR, ADIFF, ANEU, MDW, CBC, TROPHS, CMP #### [address] [address] Glucose [Mass/Vol] 149 mg/dL High 80-115 [facility] ([place]) Comment on above: Performed By: #### L IP, GFR, ADIFF, ANEU, MDW, CBC, TROPHS, CMP #### [address] [address] Potassium [Moles/Vol] 4.3 mmol/L Normal 3.5-5.1 [facility] ([place]) Comment on above: Performed By: #### L IP, GFR, ADIFF, ANEU, MDW, CBC, TROPHS, CMP #### [address] [address] Sodium [Moles/Vol] 134 mmol/L Low 136-145 [facility] ([place]) Comment on above: Performed By: #### L IP, GFR, ADIFF, ANEU, MDW, CBC, TROPHS, CMP #### [address] [address] Total Protein 7.8 G/dL Normal 6.4-8.2 [facility] ([place]) Comment on above: Performed By: #### L IP, GFR, ADIFF, ANEU, MDW, CBC, TROPHS, CMP #### [address] [address] Urea nitrogen [Mass/Vol] 18 mg/dL Normal 7-18 [facility] ([place] Comment on above: Performed By: #### L IP, GFR, ADIFF, ANEU, MDW, CBC, TROPHS, CMP #### [address] [address] [address] ABD/PELVIS W/ IV CONTRAST ONLYon 05-27-2023 [...] 9:43:32 PM Ordering Provider: DAT IVY Normal [facility] ([place]) LIPon 05-27-2023 Lipase Level 25 U/L Normal 16-77 [facility]) Comment on above: Performed By: #### L IP, GFR, ADIFF, ANEU, MDW, CBC, TROPHS, CMP #### [address] [address] TROPHSon 05-27-2023 Troponin I High Sensitivity 4.4 ng/L Normal 0.0-51.4 [facility]) Comment on above: Performed By: #### L IP, GFR, ADIFF, ANEU, MDW, CBC, TROPHS, CMP #### [address] [address] UAon 05-27-2023 Color (U) Yellow Normal [facility] ([place] Comment on above: Performed By: #### U A #### [address] [address] Glucose (U) [Mass/Vol] Negative Normal Negative [facility] ([place] Comment on above: Performed By: #### U A #### [address] [address] Ketones Ql (U) >=160 Abnormal Negative [facility] ([place] Comment on above: Performed By: #### U A #### [address] [address] UA Appear Clear Normal Clear [facility] ([place] Comment on above: Performed By: #### U A #### [address] [address] UA Blood Negative Normal Negative [facility] ([place] Comment on above: Performed By: #### U A #### [address] [address] UA Leuk Est Negative Normal Negative [facility] ([place] Comment on above: Performed By: #### U A #### [address] [address] UA Nitrite Negative Normal Negative [facility] ([place] Comment on above: Performed By: #### U A #### [address] [address] UA pH 5.5 Normal 5.0 - 8.0 [facility] ([place] Comment on above: Performed By: #### U A #### [address] [address] UA Protein Negative Normal Negative [facility] ([place] Comment on above: Performed By: #### U A #### [address] [address] UA Spec Grav 1.025 Normal 1.015-1.025 [facility] ([place] Comment on above: Performed By: #### U A #### [address] [address] UA Specimen Type Void Normal [facility] ([place] Comment on above: Performed By: #### U A #### [place] [id number] UA Urobilinogen 0.2 E.U./dL Normal 0.2-1.0 [facility] ([place] Comment on above: Performed By: #### U A #### [place] [address] Urobilinogen (U) [Mass/Vol] Negative Normal Negative [facility] ([place] Comment on above: Performed By: #### U A #### [place] [address] Basophil percentageOrdered B y: Alanna Avila on 05-06-2023 Chloride [Moles/Vol] 105 mmol/L 98-107 [facility] Glucose [Mass/Vol] 95 mg/dL 74-106 [facility] Potassium [Moles/Vol] 3.7 mmol/L 3.5-5.1 [facility] Sodium [Moles/Vol] 138 mmol/L 136-145 [facility] Laboratory - Chemistry and C hemistry - challengeOrdered By: Alanna Avila on 05-06-2023 CO2 [Moles/Vol] 26.0 mmol/L 21.0-32.0 [facility] Free T4 [Mass/Vol] 1.45 ng/dL 0.76-1.46 [facility] Urea nitrogen/Creatinine [Mass ratio] 21.8 mg/mg - [facility] No Panel InformationOrdered By: Alanna Avila on 05-06-2023 Estimated GFR (MDRD) Amer 91 mL/min >60 [facility] Comment on above: GFR Calc Estimated GFR (MDRD) Non-Af Amer 75 mL/min >60 [facility] Comment on above: Non- GFR Calc Thyroid Stimulating Hormone (TSH) 0.96 uIU/mL 0.358-3.74 [facility] Serum or plasma calcium bria urement (mass/volume)Ordered By: Alanna Avila on 05-06-2023 Calcium [Mass/Vol] 9.4 mg/dL 8.5-10.1 [facility] Serum or plasma creatinine m easurement (mass/volume)Ordered By: Alanna Avila on 05-06-2023 Creatinine [Mass/Vol] 0.82 mg/dL 0.55-1.02 [facility] Comment on above: The validity of the calculated GFR & GFRAA in patients over 70 years has not been determined. Clinical correlation is essential. Serum or plasma urea nitroge n measurement (mass/volume)Ordered By: Alanna Avila on 05-06-2023 Urea nitrogen [Mass/Vol] 18 mg/dL 7-18 [facility] Thin prep Papanicolaou smear with manual screeningOrdered By: Alanan Avila on 05-06-2023 Thin prep Papanicolaou smear with manual screening 7 5-15 [facility] XR FOOT LEFT 3+ VIEWS (STAND MARY)on [...] unspecified site, unspecified whether rheumatoid factor present ([facility]) COMPARISON: None. FINDINGS: Three views of the left foot. No fractures. Hallux valgus deformity with mild osteoarthrosis of the 1st metatarsophalangeal joint. No periarticular osteopenia or erosions. Plantar calcaneal and Achilles insertional enthesophytes. Normal soft tissues. IMPRESSION: No evidence of erosive arthropathy. 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 Plantar calcaneal and Achilles insertional enthesophytes. [facility] Workstation ID: [id number] Dictated by: JOLYNN THIBODEAUX on SatAug 08, 2022 6:25:44 AM EST Transcribed by: DIMAS BURRELL on SatAug 08, 2022 6:27:37 AM EST Finalized by: JOLYNN THIBODEAUX on SatAug 08, 2022 6:48:08 AM EST [facility] Comment on above: Order Comment: Injur y/Trauma [...] unspecified site, unspecified whether rheumatoid factor present ([facility]) COMPARISON: None. FINDINGS: Three views of the right foot. No fractures. Evidence of prior osteotomy of the 1st metatarsal head. Moderate degenerative changes of the 1st metatarsophalangeal joint. No periarticular osteopenia or erosions. Plantar calcaneal and Achilles insertional enthesophytes. Normal soft tissues. IMPRESSION: No evidence of erosive arthropathy. 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 Plantar calcaneal and Achilles insertional enthesophytes. [employer] Workstation ID: [id number] Dictated by: JOLYNN THIBODEAUX on SatAug 08, 2022 6:24:45 AM EST Transcribed by: CHACORTA CHATMAN on SatAug 08, 2022 6:27:10 AM EST Finalized by: JOLYNN THIBODEAUX on SatAug 08, 2022 6:48:14 AM EST [facility] Comment on above: Order Comment: Injur y/Trauma [...] mild degenerative changes throughout the interphalangeal joints. [employer] Workstation ID: [id number] Dictated by: JOLYNN THIBODEAUX on SatAug 08, 2022 6:26:49 AM EST Transcribed by: CHACORTA CHATMAN on SatAug 08, 2022 6:27:59 AM EST Finalized by: JOLYNN THIBODEAUX on SatAug 08, 2022 6:48:03 AM EST Normal [facility] Comment on above: Order Comment: Injur y/Trauma [...] on SatAug 06, 2022 6:22:06 PM EST [facility] Comment on above: Order Comment: AP/LA T [...] by: JASON JARVIS MD, Date: 07/05/2022 10:37 [facility] Comment on above: Order Comment: CONTR AST PER RADIOLOGIST DISCRETION No Oral or IV contrast Absolute lymphocyte counton 05-08-2022 Lymphocytes Auto (Unsp spec) [#/Vol] 2.11 10*3/uL 0.83-4.51 [facility] Work Phone: Basophil percentageon 2021 Basophils/100 WBC (Bld) 0.2 % 0-1 [facility] Work Phone: Bilirubin [Mass/Vol] 0.40 mg/dL 0.20-1.00 [facility] Work Phone: Comment on above: For patients on eltr ombopag therapy, use of Dimension [place] TBIL is not recommended. Chloride [Moles/Vol] 108 mmol/L 98-107 [facility] Work Phone: Eosinophils/100 WBC (Bld) 2.3 % 0-5 [facility] Work Phone: Glucose [Mass/Vol] 98 mg/dL 74-106 [facility] Work Phone: Neutrophils (Bld) [#/Vol] 5.1 10*3/uL 2.0-7.7 [facility] Work Phone: Neutrophils/100 WBC (Bld) 63.3 % 47-70 [facility] Work Phone: Potassium [Moles/Vol] 3.7 mmol/L 3.5-5.1 [facility] Work Phone: Protein [Mass/Vol] 7.8 g/dL 6.4-8.2 [facility] Work Phone: Sodium [Moles/Vol] 140 mmol/L 136-145 [facility] Work Phone: WBC (Bld) [#/Vol] 8.1 10*3/uL 4.4-11.0 [facility] Work Phone: Blood erythrocytes count (nu mber/volume)on 05-08-2022 RBC (Bld) [#/Vol] 4.46 10*6/uL 4.2-5.4 [facility] Work Phone: Blood hemoglobin measurement (mass/volume)on 05-08-2022 Hemoglobin (Bld) [Mass/Vol] 13.0 g/dL 12.0-15.0 [facility] Work Phone: Blood lymphocytes/100 leukoc yteson 05-08-2022 Lymphocytes/100 WBC (Bld) 25.9 % 19-41 [facility] Work Phone: Blood monocytes/100 leukocyt eson 05-08-2022 Monocytes/100 WBC (Bld) 8.1 % 0-10 [facility] Work Phone: Blood platelet mean volumeon 05-08-2022 Platelet mean volume (Bld) [Entitic vol] 9.0 fL 6.2-12.0 [facility] Work Phone: Determination of erythrocyte mean corpuscular volume (MCV)on 05-08-2022 MCV (RBC) [Entitic vol] 87.2 fL 81-99 [facility] Work Phone: Hematocrit Auto (Bld) [Volum e fraction]on 05-08-2022 Hematocrit (Bld) [Volume fraction] 38.9 % 37-47 [facility] Work Phone: Laboratory - Chemistry and C hemistry - challengeon 05-08-2022 ALP [Catalytic activity/Vol] 133 U/L 45-117 [facility] Work Phone: ALT [Catalytic activity/Vol] 20 U/L 13-56 [facility] Work Phone: CO2 [Moles/Vol] 26.0 mmol/L 21.0-32.0 [facility] Work Phone: Cobalamin (Vitamin B12) [Mass/Vol] 347 pg/mL 211-911 [facility] Work Phone: Free T4 [Mass/Vol] 1.50 ng/dL 0.76-1.46 [facility] Work Phone: Globulin (S) [Mass/Vol] 3.9 g/dL 2.2-4.2 [facility] Work Phone: Urea nitrogen/Creatinine [Mass ratio] 14.9 mg/mg 10- [facility] Work Phone: Laboratory - Hematology and Cell countson 05-08-2022 Erythrocyte distribution width (RBC) [Entitic vol] 41.2 fL 35.1-43.9 [facility] Work Phone: Erythrocyte distribution width (RBC) [Ratio] 12.9 % 11.6-14.6 [facility] Work Phone: Immature granulocytes/100 WBC (Bld) 0.200 % 0.0-0.9 [facility] Work Phone: Comment on above: IG% - Immature Granu locytes (promyelocytes, myelocytes and metamyelocytes) > 1% indicates that a LEFT SHIFT is Present. MCH (RBC) [Entitic mass] 29.1 pg 27.0-32.0 [facility] Work Phone: Nucleated RBC/100 WBC (Bld) [Ratio] 0 % 0-5 [facility] Work Phone: MCHC Auto (RBC) [Mass/Vol]on 05-08-2022 MCHC (RBC) [Mass/Vol] 33.4 g/dL 32-36 [facility] Work Phone: No Panel Informationon 05-08 Estimated GFR (MDRD) Amer 93 mL/min >60 [facility] Work Phone: Comment on above: GFR Calc Estimated GFR (MDRD) Non-Af Amer 77 mL/min >60 [facility] Work Phone: Comment on above: Non- GFR Calc Thyroid Stimulating Hormone (TSH) 0.86 uIU/mL 0.358-3.74 [facility] Work Phone: Platelets bldon 05-08-2022 Platelets (Bld) [#/Vol] 263 10*3/uL 150-450 [facility] Work Phone: Serum or plasma albumin bria urement (mass/volume)on 05-08-2022 Albumin [Mass/Vol] 3.9 g/dL 3.2-5.0 [facility] Work Phone: Serum or plasma albumin/glob ulin mass ratioon 05-08-2022 Albumin/Globulin [Mass ratio] 1.0 {ratio} 0.9-2.4 [facility] Work Phone: Serum or plasma calcium bria urement (mass/volume)on 05-08-2022 Calcium [Mass/Vol] 9.1 mg/dL 8.5-10.1 [facility] Work Phone: Serum or plasma creatinine m easurement (mass/volume)on 05-08-2022 Creatinine [Mass/Vol] 0.81 mg/dL 0.55-1.02 [facility] Work Phone: Comment on above: The validity of the calculated GFR & GFRAA in patients over 70 years has not been determined. Clinical correlation is essential. Serum or plasma urea nitroge n measurement (mass/volume)on 05-08-2022 Urea nitrogen [Mass/Vol] 12 mg/dL 7-18 [facility] Work Phone: Thin prep Papanicolaou smear with manual screeningon 05-08-2022 Thin prep Papanicolaou smear with manual screening 12 U/L 15-37 [facility] Work Phone: Thin prep Papanicolaou smear with manual screening 6 5-15 [facility] Work Phone: Culture, urineon 12-15-2021 Bacteria identified Cx Nom (U) Positive [facility] Work Phone: Laboratory - Chemistry and C hemistry - challengeon 11-17-2021 Cobalamin (Vitamin B12) [Mass/Vol] 349 pg/mL 211-911 [facility] Work Phone: Free T4 [Mass/Vol] 1.44 ng/dL 0.76-1.46 [facility] Work Phone: No Panel Informationon 11-17 Thyroid Stimulating Hormone (TSH) 0.51 uIU/mL 0.358-3.74 [facility] Work Phone: Vitamin D 25-Hydroxy 64.2 ng/mL [facility] Work Phone: Comment on above: Vitamin D 25(OH) Sta tus Range Deficiency <20 ng/mL (50nmol/L) Insufficiency 20 - 30 ng/mL (50 - 75 nmol/L) Sufficiency 30 - 100 ng/mL (75 - 250 nmol/L) Toxicity >100 ng/mL (>250 nmol/L) Serum or plasma ferritin shirley surement (mass/volume)on 11-17-2021 Ferritin [Mass/Vol] 87 ng/mL 8-252 [facility] Work Phone: Office Visit: UC: pyelonephr itison 06-27-2017 Documentation of current medications (procedure) Done Invalid Interpretation Code [facility] Work Phone: Fall risk assessment No Invalid Interpretation Code [facility] Work Phone: Tobacco smoking status NHIS Never Invalid Interpretation Code [facility] Work Phone: Tobacco smoking status HIIS Tobacco smoking status HIIS Invalid Interpretation Code [facility] Work Phone: Tobacco use [facility] Never smoker Invalid Interpretation Code [facility] Work Phone: Culture, urine Bacteria identified Cx Nom (U) Positive [facility] Work Phone: Vital Signs Date Time Vital Sign Value Performing Clinician Facility 04-22-2025 08:56-0400 Body height 157.48 cm Swapna Corea [facility] Work Phone: [facility] 04-22-2025 08:56-0400 Body mass index (BMI) [Ratio] 28.3 kg/m2 Swapna Corea [facility] Work Phone: [facility] 04-22-2025 08:56-0400 Body weight 70.39 kg Swapna Corea [facility] Work Phone: [facility] 04-22-2025 08:56-0400 Diastolic blood pressure 82 mm[Hg] Swapna Corea [facility] Work Phone: [facility] 04-22-2025 08:56-0400 Systolic blood pressure 125 mm[Hg] Swapna Corea [facility] Work Phone: [facility] 01-26-2025 06:07-0400 Body temperature 98.2 [degF] Swapna Anmol [facility] Work Phone: [facility] 01-26-2025 06:07-0400 Diastolic blood pressure 60 mm[Hg] Swapna Anmol [facility] Work Phone: [facility] 01-26-2025 06:07-0400 Heart rate 85 /min Swapna Anmol [facility] Work Phone: [facility] 01-26-2025 06:07-0400 Respiratory rate 16 /min Swapna Anmol [facility] Work Phone: [facility] 01-26-2025 06:07-0400 SaO2% (BldA) [Mass fraction] 99 % Swapna Anmol [facility] Work Phone: [facility] 01-26-2025 06:07-0400 Systolic blood pressure 104 mm[Hg] Swapna Anmol [facility] Work Phone: [facility] 01-11-2025 06:43-0400 Body height 157.48 cm Swapna Anmol [facility] Work Phone: [facility] 01-11-2025 06:43-0400 Body temperature 98.4 [degF] Swapna Anmol [facility] Work Phone: [facility] 01-11-2025 06:43-0400 Diastolic blood pressure 66 mm[Hg] Swapna Anmol [facility] Work Phone: [facility] 01-11-2025 06:43-0400 Heart rate 71 /min Swapna Anmol [facility] Work Phone: [facility] 01-11-2025 06:43-0400 Respiratory rate 16 /min Swapna Anmol [facility] Work Phone: [facility] 01-11-2025 06:43-0400 SaO2% (BldA) [Mass fraction] 98 % Swapna Anmol [facility] Work Phone: [facility] 01-11-2025 06:43-0400 Systolic blood pressure 110 mm[Hg] Swapna Anmol [facility] Work Phone: [facility] 01-11-2025 06:27-0400 Body mass index (BMI) [Ratio] 27.6 kg/m2 Swapna Anmol [facility] Work Phone: [facility] 01-11-2025 06:27-0400 Body temperature 98.4 [degF] Swapna Anmol [facility] Work Phone: [facility] 01-11-2025 06:27-0400 Body weight 68.49 kg Swapna Anmol [facility] Work Phone: [facility] 01-11-2025 06:27-0400 Diastolic blood pressure 62 mm[Hg] Swapna Anmol [facility] Work Phone: [facility] 01-11-2025 06:27-0400 Heart rate 58 /min Swapna Anmol [facility] Work Phone: [facility] 01-11-2025 06:27-0400 Respiratory rate 14 /min Swapna Anmol [facility] Work Phone: [facility] 01-11-2025 06:27-0400 SaO2% (BldA) [Mass fraction] 98 % Swapna Anmol [facility] Work Phone: [facility] 01-11-2025 06:27-0400 Systolic blood pressure 102 mm[Hg] Swapna Anmol [facility] Work Phone: [facility] 01-06-2025 21:00-0400 Body temperature 98.2 [degF] Swapna Anmol [facility] Work Phone: [facility] 01-06-2025 21:00-0400 Diastolic blood pressure 81 mm[Hg] Swapna Anmol [facility] Work Phone: [facility] 01-06-2025 21:00-0400 Heart rate 70 /min Swapna Anmol [facility] Work Phone: [facility] 01-06-2025 21:00-0400 Respiratory rate 18 /min Swapna Corea [facility] Work Phone: [facility] 01-06-2025 21:00-0400 SaO2% (BldA) [Mass fraction] 98 % Swapna Corea [facility] Work Phone: [facility] 01-06-2025 21:00-0400 Systolic blood pressure 150 mm[Hg] Swapna Corea [facility] Work Phone: [facility] 01-06-2025 13:16-0400 Body height 157.48 cm Swapna Corea [facility] Work Phone: [facility] 01-06-2025 13:16-0400 Body mass index (BMI) [Ratio] 27.6 kg/m2 Swapna Corea [facility] Work Phone: [facility] 01-06-2025 13:16-0400 Body weight 68.58 kg Swapna Corea [facility] Work Phone: [facility] 11-07-2022 08:24-0400 Body mass index (BMI) [Ratio] [...] 157.[address] Satinder Griggs Work Phone: [facility] Work Phone: 11-17-2021 15:22-0400 Body mass index (BMI) [Ratio] 30.4 kg/m2 Dr. Satinder Griggs Work Phone: [facility] Work Phone: 11-17-2021 15:22-0400 Body temperature 97.2 [degF] Dr. Satinder Griggs Work Phone: [facility] Work Phone: 11-17-2021 15:22-0400 Body weight 75.[address] Satinder Griggs Work Phone: [facility] Work Phone: 11-17-2021 15:22-0400 Diastolic blood pressure 78 mm[Hg] Dr. Satinder Griggs Work Phone: [facility] Work Phone: 11-17-2021 15:22-0400 Heart rate 75 /min Dr. Satinder Griggs Work Phone: [facility] Work Phone: 11-17-2021 15:22-0400 Respiratory rate 18 /min Dr. Satinder Griggs Work Phone: [facility] Work Phone: 11-17-2021 15:22-0400 SaO2% (BldA) [Mass fraction] 98 % Dr. Satinder Griggs Work Phone: [facility] Work Phone: 11-17-2021 15:22-0400 Systolic blood pressure 120 mm[Hg] Dr. Satinder Griggs Work Phone: [facility] Work Phone: 06-27-2017 16:22-0500 BMI (Body Mass Index) 26.77 kg/m2 Jalen Mcdaniel [facility] Work Phone: 06-27-2017 16:22-0500 Body Temperature 97.5 [degF] Jalen SANCHES [facility] Work Phone: 06-27-2017 16:22-0500 BP Diastolic 78 mm[Hg] Jalen SANCHES [facility] Work Phone: 06-27-2017 16:22-0500 BP Systolic 128 mm[Hg] Jalen SANCHES [facility] Work Phone: 06-27-2017 16:22-0500 Height 162.56 cm Jalen Violeta SANCHES [facility] Work Phone: 06-27-2017 16:22-0500 Pulse (Heart Rate) 82 /min Jalen SANCHES [facility] Work Phone: 06-27-2017 16:22-0500 Respiratory Rate 14 /min Jalenez SANCHES [facility] Work Phone: 06-27-2017 16:22-0500 Weight 70.76 kg Jalen SANCHES [facility] Work Phone: Encounters Encounter Date Encounter Type Care Provider Facility Start: 06-11-2025 ambulatory Swapna Corea Facility:[facility] Start: 05-20-2025 End: 05-20-2025 ambulatory Swapna Corea Facility:[facility] Start: 05-13-2025 End: 05-13-2025 ambulatory Alanna Avila Facility:[facility] Start: 05-05-2025 ambulatory Yong SULLIVAN Facility:[facility] Start: 04-22-2025 End: 04-22-2025 ambulatory Swapna Corea [facility] Work Phone: -[facility] Start: 04-22-2025 End: 04-22-2025 Patient encounter procedure Michelle Quinn [facility] -[facility] Work Phone: Start: 02-18-2025 End: 02-18-2025 ambulatory Swapna Corea [facility] Work Phone: -Outpatient Breast Imaging Start: 02-18-2025 End: 02-18-2025 Patient encounter procedure Swapna Corea [facility] -Outpatient Breast Imaging Work Phone: Start: 02-18-2025 End: 02-18-2025 ambulatory Swapna [place] Facility:[facility] Start: 01-26-2025 End: 01-26-2025 Patient encounter procedure Jalen Mcdaniel [facility] Work Phone: Start: 01-26-2025 End: 01-26-2025 ambulatory Swapna Corea [facility] Work Phone: -[facility] Start: 01-18-2025 End: 01-18-2025 Patient encounter procedure Jalen Mcdaniel PA [facility] Work Phone: Start: 01-18-2025 End: 01-18-2025 ambulatory Swapna Corea [facility] Work Phone: [facility] Work Phone: Start: 01-18-2025 End: 01-18-2025 ambulatory Swapnayohana Corea Facility:[facility] Start: 01-11-2025 End: 01-11-2025 Patient encounter procedure Jalen Mcdaniel [facility] Work Phone: Start: 01-11-2025 End: 01-11-2025 ambulatory Swapna Corea [facility] Work Phone: Mcdaniel [employer] [facility] Work Phone: Start: 01-06-2025 End: 01-06-2025 Emergency department patient visit Swapna Corea [facility] Work Phone: -Emergency Department Work Phone: Start: 12-01-2024 End: 12-01-2024 ambulatory Swapna Corea [facility] Work Phone: [facility] Work Phone: Start: 12-01-2024 End: 12-01-2024 Patient encounter procedure Swapnayohana Corea [facility] -Radiology, [place] Work Phone: Start: 12-01-2024 End: 12-01-2024 ambulatory [facility] Facility:[facility] Start: 11-12-2024 End: 11-12-[address] Alanna Avila MD -Laboratory Work Phone: Start: 11-12-2024 End: 11-12-2024 ambulatory [facility] Facility:[facility] Start: 06-18-2024 End: 06-18-2024 ambulatory [facility] Facility:[facility] Start: 11-06-2023 End: 11-06-2023 ambulatory [facility] Work Phone: Start: 11-06-2023 End: 11-06-2023 Patient encounter procedure [facility]-Laboratory Work Phone: Start: 10-11-2023 End: 10-11-2023 ambulatory [facility] Work Phone: Start: 10-11-2023 End: 10-11-2023 Discharged Recurring [facility]-Physical Therapy Work Phone: Start: 10-11-2023 Registered Recurring [facility]-Physical Therapy Work Phone: Start: 08-30-2023 End: 08-30-2023 ambulatory [facility] Work Phone: Start: 08-30-2023 End: 08-30-2023 Patient encounter procedure [facility]-Laboratory Work Phone: Start: 06-11-2023 End: 06-11-2023 ambulatory [facility] Work Phone: Start: 06-11-2023 End: 06-11-2023 Patient encounter procedure [facility]-Radiology, [facility] Work Phone: Start: 05-27-2023 End: 05-28-2023 Emergency department patient visit DR DAT IVY MD Facility:B Start: 05-06-2023 End: 05-06-2023 ambulatory [facility] Work Phone: Start: 05-06-2023 End: 05-06-2023 Patient encounter procedure [facility]-Laboratory Work Phone: Start: 11-07-2022 End: 11-07-2022 ambulatory STEPH[facility] Start: 11-07-2022 End: 11-07-2022 Office outpatient visit 40 minutes Stephen Rey MD Work Phone: [facility] Comment on above: Arthralgia, unspecif ied joint (Primary Dx); Rheumatoid factor positive; Primary osteoarthritis involving multiple joints; Obesity, unspecified classification, unspecified obesity type, unspecified whether serious comorbidity present; Prediabetes Start: 08-06-2022 End: 08-10-2022 ambulatory [facility] Start: 08-06-2022 End: 08-10-2022 Encounter for general adult medical examination without abnormal findings [facility] Start: 08-06-2022 End: 08-06-2022 ambulatory [facility] Start: 08-06-2022 End: 08-06-2022 Encounter for general adult medical examination without abnormal findings [facility] Amb[facility] Start: 07-04-2022 End: 07-05-2022 ambulatory [facility] Start: 05-08-2022 End: 05-08-2022 ambulatory [facility] Work Phone: Start: 05-08-2022 End: 05-08-2022 Patient encounter procedure [facility]Laboratory Start: 04-20-2022 End: 04-20-2022 Patient encounter procedure [facility]-Laboratory, Specimen Start: 01-01-2022 End: 01-01-[address] Satinder Griggs Work Phone: [facility]-Ultrasound, [facility] Start: 12-15-2021 End: 12-15-[address] Satinder Griggs Work Phone: [facility]-Laboratory, Specimen Start: 11-30-2021 End: 11-30-[address] Satinder Griggs Work Phone: [facility]-Outpatient Breast Imaging Start: 11-17-2021 End: 11-17-[address] Satinder Griggs Work Phone: [facility] Endocrinology Procedures Date Procedure Procedure Detail Performing Clinician Start: 02-18-2025 Screening mammography R juli Anmol [facility] Work Phone: Start: 01-18-2025 X-ray of chest posteroanterior view Swapna Anmol [facility] Work Phone: Start: 01-06-2025 Estimated creatinine clearance Swapna Suttongar [facility] Work Phone: Start: 01-06-2025 Computed tomography of abdomen and pelvis with intravenous contrast Swapna Suttongar [facility] Work Phone: Start: 12-01-2024 Plain x-ray of pelvi s and lower extremity Swapna Corea [facility] Work Phone: Start: 08-30-2023 X-ray of both [...] Date Care Activity Detail Author Start: 01-06-2025 [facility] Start: 11-12-2023 End: 11-12-2023 Patient encounter procedure 11/12/2023 8:30 AM EDT Office Visit [facility] [address] [place] [address] [place] [address] Stephen Rey MD [facility] [place] [address] [facility] Start: 03-29-2023 Influenza vaccination Sequential Influenza Vaccine (Season Ended) [facility] Start: 06-27-2017 End: 06-27-2017 Appointment Appointment [facility] Work Phone: Start: 2013 Administration [...] Blunt Benign ED Laceration Superficial No Stitch [facility] Work Phone: Patient referral [facility] Work Phone: XR Ribs GE 3 Views a nd Chest PA [facility] Work Phone: Payers Date Payer Category Payer Unknown [id number] 2025 Unknown [id number] 2024 Self-pay [id number] 2021 Unknown MARIA D MONIQUE/PREF/HMO/PPO [id number] 2021-Present [phone] [address] [place] [address] [id number] 1965 Unknown [id number] 2.16.840.1.983518.3.579.2.598 1965 Unknown [id number] 2.16.840.1.258097.3.579.2.903 1965 Unknown [id number] 2.16.840.1.535615.3.579.2.903 1965 Unknown [id number] 2.16.840.1.718409.3.579.2.903 1965 Unknown [id number] 2.16.840.1.221955.3.579.2.903 1963 Unknown [id number] 2.16.840.1.788547.3.579.2.903 1963 Unknown [id number] 2.16.840.1.845758.3.579.2.903 1965 Unknown [id number] 2.16.840.1.636358.3.579.2.903 1965 Unknown [id number] 2.16.840.1.586402.3.579.2.627 1959 Unknown [id number] Unknown [id number] Unknown [id number] Unknown [id number] 2.16.840.1.284125.3.579.2.462 Unknown [id number] 2.16.840.1.403873.3.579.2.462 Unknown [id number] 2.16.840.1.261192.3.579.2.462 Unknown [id number] 2.16.840.1.787005.3.579.2.462 Unknown [id number] 2.16.840.1.743145.3.579.2.462 Unknown [id number] 2.16.840.1.702000.3.579.2.462 Unknown [id number] 2.16.840.1.449639.3.579.2.462 Unknown [id number] 2.16.840.1.162889.3.579.2.462 Unknown [id number] 2.16.840.1.388782.3.579.2.462 Unknown [id number] 2.16.840.1.639379.3.579.2.462 Unknown [id number] 2.16.840.1.249646.3.579.2.462 Unknown [id number] 2.16.840.1.580666.3.579.2.462 Unknown [id number] 2.16.840.1.360873.3.579.2.462 Unknown [id number] 2.16.840.1.812916.3.579.2.462 Social History Date Type Detail Facility Start: 11-17-2021 End: 11-17-2021 Tobacco smoking status NHIS Unknown if ever smoked [facility] Start: 1965 Sex Assigned At Female [facility] Start: 08-06-2022 End: 01-11-2025 Tobacco smoking status NHIS Never smoked tobacco [facility] Start: 08-06-2022 Tobacco use and exposure Smokeless tobacco non-user [facility] Start: 08-06-2022 History of Social function [facility] Start: 08-06-2022 Tobacco use panel [facility] Start: 1965 [facility] Start: 10-21-2022 End: 10-31-2022 Exposure to SARS-CoV-2 (event) Not sure [facility] Mental Status Date Assessment Result Facility 01-06-2025 Cognitive function Level Of Cons ciousness Awake;Alert;Appropriate [facility] Work Phone: Clinical Notes 11-07-2022 to 04-22-2025 Note Date & Type Note Facility 04-22-2025 Progress note [facility] 01-26-2025 Progress note [facility] 01-26-2025 Progress note Note Date/Time January 26, 2025 6:18am [facility] [address], [address] [place] [address] OFFICE VISIT Date of Service: 01/26/25 MR#: [id number] Acct: [id number] Name: ALINE BOLAÑOS Rep #: [id number] : 1965 Provider: MYRON Hurtado Age/Sex: 59/F Location: [facility] Status: Signed Intake Vital Signs 01/11/25 06:43 [...] tablet) Nurse's Note: Patient here for a [employer] f/u. Patient states that she feels like that she can go back to work. Patient states she was able to life yesterday at work. Patient state her right side she can't lay on but she is ok with lifting and her left arm looks better. [facility] Medical History (Updated 01/14/25 @ 00:00 by [...] cancer Diabetes H/O transfusion of whole blood Nicasio disease Hypertension Myocardial infarction Ovarian cancer Respiratory [...] [facility] work-related injury suffered on 01/06/2025 patient so states. 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 She reported to [facility] ED where treated for released the same [...] no acute distress Orientation: alert and awake HENMT Head: normal to inspection Ears: external ears [...] without work restrictions as noted on today's [employer] 14. Follow-up with the now clinic on an as-needed basis only. Patient states acknowledging understanding all the above. Coding Level of Care Code Off vis,est,level 2 01/26/25 0618 <Electronically signed by Jalen SANCHES> Date _ Jalen SANCHES Cosigner Signature: Date (if applicable) CC: ~ [facility] Work Phone: 1(363) 829-852106-23-2025 Radiology Diagnostic study note [facility] Imaging Services [address] [place], [place] [address] Ribs Uni Min 3V w/PA Chest MR#: [id number] Acct: [id number] Name: ALINE BOLAÑOS Rep #: [id number] : 1965 F 59 From: Caio Gordon MD PCP: MICHAEL Beach Status: REG CLI Study:Ribs Uni Min 3V w/PA Chest Date of Exam : 01/18/25 Exam# [id number] Ordering Dr: St ct Mcdaniel PROCEDURE: RIBS UNI MIN 3V W/PA CHEST [...] left lung base. 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: Signed [facility]06-16-2025 Evaluation note* Diagnosis Onset Date Resolution Status Admit Date Laceration of left forearm acute January 11, 2025 6:15am Blunt abdominal trauma inactive [facility] 2024 6:15am Blunt chest trauma inactive December 272024 6:15am Contusion of multiple sites of right upper extremity inactive January 11, 2025 6:15am [facility] Work Phone: 1(605) 537-290206-16-2025 Evaluation note* Diagnosis Onset Date Resolution Status Admit Date Laceration of left forearm acute January 11, 2025 6:15am Blunt abdominal trauma inactive [facility] 2024 6:15am Blunt chest trauma inactive December 272024 6:15am Contusion of multiple sites of right upper extremity inactive January 112024 6:15am Cystocele and rectocele with incomplete uterovaginal prolapse acute April 22, 2025 8:45am [facility] [employer] [facility] Work Phone: 1(877) 388-185706-11-2025 Discharge summary [facility] Medical Records Department [address] [place] [address] Emergency Department Summary 01/06/25 MR#: [id number] Acct: [id number] Name: ALINE BOLAÑOS Rep #:[id number] : 1965 59 From: Lazaro Koenig MD PCP: REBECA BeachC Status:REG ER Location: ED HPI History of [...] Prior similar symptoms: No Recent [facility] Medical History Fatigue 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 OVERALL FINAL ASSESSMENT: . Reading Location: [facility] CT of the abdomen and pelvis reveals [...] 7 days if not longer Print Language: Sinhala Disposition Disposition: Home, Self Care What to do if you have Problems For any increased pain, shortness of breath, bleeding, nausea or vomiting, chestpain, or any unexpected problems, contact your Primary Care Provider. Call [facility] ([phone]) or report tothe closest Emergency Room. Call 911 if necessary. 01/06/252049 Cosigner Signature (if applicable): CC: MICHAEL Corea ~ Signed [facility]06-11-2025 Radiology Diagnostic study note [facility] Imaging Services [address] [place] [address] Abdomen/Pelvis W IV Cont ONLY MR#: [id number] Acct: [id number] Name: ALINE BOLAÑOS Rep #: [id number] : 1965 F 59 From: Chandan Sherman MD PCP: MICHAEL Beach Status: REG ER Study:Abdomen/Pelvis W IV Cont ONLY Date of E xam: 01/06/25 Exam# [id number] Ordering Dr: Sharif Koenig MD PROCEDURE: ABDOMEN/PELVIS [...] abnormality. OVERALL FINAL ASSESSMENT: . Reading [facility] CC: [employer] Swapna Corea; Dr. 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: Signed [facility]06-11-2025 Discharge summary Author Lazaro Koenig [facility] Note Date/Time January 06, 2025 8:50 pm [facility] Medical Records Department [address] [place] [address] Emergency Department Summary 01/06/25 MR#: [id number] Acct: [id number] Name: ALINE BOLAÑOS Rep #:[id number] : 1965 59 From: Lazaro Koenig MD PCP: REBECA BeachC Status:REG ER Location: ED HPI History of [...] Prior similar symptoms: No Recent Illness[facility]ization: [facility] Medical History Fatigue Hypothyroidism due to Corie's [...] motor deficits and no sensory deficits noted [place] Coma Scale: document GCS findings Spontaneous Obeys [...] abnormality. OVERALL FINAL ASSESSMENT: . Reading Location: [facility] of the abdomen and pelvis reveals [...] Care Provider: Swapna Corea Referrals: Swapna Corea, [employer] [employer] [facility] [Primary Care Provider] - 3-5 Days if [...] 7 days if not longer Print Language: Sinhala Disposition Disposition: Home, Self Care What to do if you have Problems For any increased pain, shortness of breath, bleeding, nausea or vomiting, chestpain, or any unexpected problems, contact your Primary Care Provider. Call [facility] ([phone]) or report to the closest Emergency Room. Call 911 if necessary. 01/06/252049 <Electronically signed by Lazaro Koenig MD> Cosigner Signature (if applicable): CC: [employer] Swapna Corea ~ Signed [facility] Work Phone: 1(964) 173-135106-11-2025 Hospital Discharge instructions Additional Instructions 1. Apply ice to areas of discomfort 6-8 times a day. 2. Take pain medicine as prescribed for your pain. 3. You will hurt in more places and you presently do 4. You will feel worse than you presently do over the next 24 to 48 hours 5. You may hurt for 3 to 7 [facility] Work Phone: 1(804) 511-244905-06-2025 Radiology Diagnostic study note [facility] Imaging Services [address] [place], [place] [address] HIP, UNI W/ Pelvis 2-3 Views MR#: [id number] Acct: [id number] Name: ALINE BOLAÑOS Rep #: [id number] : 1965 F 59 From: Leeann Diego MD PCP: MICHAEL Beach Status: REG CLI Study:HIP, UNI W/ Pelvis 2-3 Views Date of Ex am: 12/01/24 Exam# [id number] Ordering Dr: Ra kameron Corea NP-Jaspreet PROCEDURE: HIP, UNI W/ PELVIS 2-3 VIEWS [...] Reading Location: [facility] CC: MICHAEL Corea ~ [employer] Machine Operator: Signed [facility]04-23-2024 Discharge summary Author Carrillo Carroll [facility] November 19, 2023 3:27pm Note Date/Time November 19, 2023 3:2 4pm [facility] Physical Therapy [facility] [facility] [place] [address] / REHABILITATION SERVICES DISCHARGE SUMMARY MR#: [id number] Acct: [id number] Name: ALINE BOLAÑOS Rep #: [id number] [...] signed by Carrillo Carroll PT Cert. LATONYA, OCS> 11/19/23 1346 CC: DPM Dr. 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 She was put on methotrexate which did [...] 1 (one) tablet (5,000 Units total) by mouthSaturday, Saturday, Saturday . hydrOXYchloroQUINE (PLAQUENIL) 200 mg [...] to clinic in 12 month(s) Telehealth appointments okSmith Rey MD Resident Medical Officer Ink Grinder Note: To expedite correspondence this note was generated by Sunbeam voice recognition software. Somegrammatical or spelling errors may occur using the system. 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 [facility] Work Phone: Evaluation noteNo assessment information available [facility] Work Phone: Evaluation note* Diagnosis Arthralgia, unspecified joint- Primary Rheumatoid factor positive Other and unspecified nonspecific immunological findings Primary osteoarthritis involving multiple joints Obesity, unspecified classification, unspecified obesity type, unspecified whether serious comorbidity present Prediabetes Other abnormal glucose [facility] this encounter [facility]* Diagnosis Onset Date Resolution Status Admit Date Blunt abdominal trauma acute 2024 6:15am Blunt chest trauma acute December 272024 6:15am Contusion of multiple sites of right upper extremity acute January 11, 2025 6:15am Laceration of left forearm acute January 11, 2025 6:15am [facility] Work Phone: Progress note Author Michelle Quinn [facility] Note Date/Time April 22, 2025 9:17am [facility] [address], [address] [place] [address] OFFICE VISIT Date of Service: 04/22/25 MR#: [id number] Acct: [id number] Name: ALINE BOLAÑOS Rep #: [id number] : 1965 Provider: MICHAEL Quinn Age/Sex: 60/F Location: [facility] Status: Signed Intake Vital Signs 01/11/25 06:43 04/22/25 08:56 Height 5 ft 2 in 5 ft 2 in Weight: 155 lb 3 oz BMI 28.3 BP 125/82 H Intake Visit Reasons: Vaginal Discharge (Romeo) Energy Professional Required: No Is patient in pain?: No [...] acetate) 180 mg 450 mg PO DAILY 04/22/25 History (400 unit) capsule allergy shots [...] of nephrectomy Family History Grandmother Diabetes Grandfather Nicasio disease Father Angina at rest Arthritis Myocardial [...] you participate in: none HPI Vaginal Discharge (Romeo) Details: ALINE BOLAÑOS is a 60 year old who presents for new patient referral from [facility] for vaginal pressure. 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 Chief Complaint [employer] THYROID, APPROVE D BY SCREENING Reason for Visit Fatigue 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 Chief Complaint BRIAN THYROID, APPROVALE Lomas BY SCREENING RIGHT FLANK PAIN Reason for Visit [...] January 18, 2025 6:51 am FU / DWASON BRUSH January 26, 2025 6:03a m SCREENING February 18, 2025 3:44 pm Chief Complaint Admit Date other January 06, 2025 1:16 pm ER FU/ DAWSON BRUSH January 11, 2025 6:1 5am fu/ dawson brush January 18, 2025 6:01 am E ORDER January 18, 2025 6:51 am FU / DAWSON BRUSH January 26, 2025 6:03a m SCREENING February 18, 2025 3:44 pm Vaginal Discharge (Romeo) April 222024 8:45am Reason for Visit Admit [...] December 30, 2020 9 :14am Power of Pipe [employer] No December 30, 2020 9:14am Advance Directive Response Recorded Date/ Time Living Will No December 30, 2020 8 :14am Power of Pipe [employer] No December 30, 2020 8:14am Advance Directive Response Recorded Date/ Time Do you have a Healthcare Power of Pipe [employer]? No January 06, 2025 6:07pm Summary Purpose [...] section and content) DATE CREATED AUTHOR 07/05/2022 [facility] DATE CREATED AUTHOR AUTHOR'S ORGANIZ ATION 08/11/2022 [facility] DATE CREATED AUTHOR AUTHOR'S ORGANIZ ATION 11/09/2022 [facility] DATE CREATED AUTHOR AUTHOR'S ORGANIZ ATION 06/02/2023 [facility] ([place] DATE CREATED AUTHOR AUTHOR'S ORGANIZ ATION 06/09/2025 [facility] Care Teams (unrecognized sec tion and content) Hospital Clerk Relationship Specialty Start Date End Date Satinder Griggs MD [address] [place] [address] PCP - General Family Medicine 08/06/22 Team Status: Active Member Role Status Dates Dr. Satinder Griggs MD Family Provider Active Swapna Corea NP-C Primary Care Provider Active Team Status: Inactive Member Role Status Dates Swapna Corea NP-C Primary Care Provider Active Dr. Alanna Avila MD Attending Provider, Referring Pr ovider Active Team Status: Inactive Member Role Status Dates Swapna Corea NP-C Primary Care Provide r, Attending Provider, Referring Provider Active Team Status: Active Member Role Status Dates Swapna Corea NP-Jaspreet Primary Care Provider Active Dr. Kit Oconnor DPM Attending Provider, Referring Provider Active Team Status: Inactive Member Role Status Dates Swapna Corea NP-C Primary Care Provider Active Dr. Kit Oconnor DPM Attending Provider, Referring Provider Active Team Status: Inactive Member Role Status Dates Swapna Anmol , [employer] Primary Care Provider Active Start: November 12, 2024 End: November 12, 2024 Dr. Alanna Avila MD Attending Provider Active Start: November 12, 2024 End: November 12, 2024 Dr. Alanna Avila MD Referring Provider Active Start: November 12, 2024 End: November 12, 2024 Team Status: Inactive Member Role Status Dates Swapna Corea , [employer] Primary Care Provider Active Start: December 01, 2024 End: December 01, 2024 Swapna Corea , [employer] Attending Provider Active St art: December 01, 2024 End: December 01, 2024 Swapnayohana Corea , [employer] Referring Provider Active St art: December 01, 2024 End: December 01, 2024 Team Status: Active Member Role Status Dates Swapnayohana Corea , [employer] Primary Care Provider Active Team Status: Inactive Member Role Status Dates Swapnayohana Corea , [employer] Primary Care Provider Active Start: January 06, 2025 End: January 06, 2025 Dr. Lazaro Koenig MD Referring Provider Active Sta rt: January 06, 2025 End: January 06, 2025 Dr. Lazaro Koenig MD Emergency Provider Active Sta rt: January 06, 2025 End: January 06, 2025 Team Status: Inactive Member Role Status Dates Swapna Corea , [employer] Primary Care Provider Active Start: January 11, 2025 End: January 11, 2025 Swapna Corea , [employer] Referring Provider Active St art: January 11, 2025 End: January 11, 2025 Jalen Mcdaniel PA, PA Attending Provider Active Start: January 11, 2025 End: January 11, 2025 Team Status: Inactive Member Role Status Dates Swapna Corea , [employer] Primary Care Provider Active Start: January 06, [...] Member Role Status Dates Swapna Corea , [employer] Primary Care Provider Active Start: January 18, 2025 End: January 18, 2025 Swapna Anmol , [employer] Referring Provider Active St art: January 18, 2025 End: January 18, 2025 Jalen SANCHES PA Attending Provider Active Start: January 18, 2025 End: January 18, 2025 Team Status: Active Member Role/Relationship Status Dates Swapna Corea , [employer] Primary Care Provider Active Team Status: Inactive Member Role/Relationship Status Dates Swapnayohana Corea , [employer] Primary Care Provider Active Start: November 12, 2024 End: November 12, 2024 Dr. Alanna Avila MD Attending Provider Active Start: November 12, 2024 End: November 12, 2024 Dr. Alanna Avila MD Referring Provider Active Start: November 12, 2024 End: November 12, 2024 Team Status: Inactive Member Role/Relationship Status Dates Swapnayohana Corea , [employer] Primary Care Provider Active Start: December 01, 2024 End: December 01, 2024 Swapna Corea , [employer] Attending Provider Active St art: December 01, 2024 End: December 01, 2024 Swapna Corea , [employer] Referring Provider Active St art: December 01, 2024 End: December 01, 2024 Team Status: Inactive Member Role/Relationship Status Dates Swapna Corea , [employer] Primary Care Provider Active Start: January 06, [...] Status: Inactive Member Role/Relationship Status Dates Swapna Anmol , [employer] Primary Care Provider Active Start: January 11, 2025 End: January 11, 2025 Swapna Anmol , [employer] Referring Provider Active St art: January 11, 2025 End: January 11, 2025 Jalen SANCHES PA Attending Provider Active Start: January 11, 2025 End: January 11, 2025 Team Status: Inactive Member Role/Relationship Status Dates Swapna Corea , [employer] Primary Care Provider Active Start: January 18, 2025 End: January 18, 2025 Swapna Corea , [employer] Referring Provider Active St art: January 18, 2025 End: January 18, 2025 MYRON Disla Attending Provider Active Start: January 18, 2025 End: January 18, 2025 Team Status: Inactive Member Role/Relationship Status Dates Swapna Corea , [employer] Primary Care Provider Active Start: January 18, 2025 End: January 18, 2025 MYRON Disla Attending Provider Active Start: January 18, 2025 End: January 18, 2025 MYRON Disla Referring Provider Active Start: January 18, 2025 End: January 18, 2025 Team Status: Inactive Member Role/Relationship Status Dates Swapna Corea , [employer] Primary Care Provider Active Start: January 26, 2025 End: January 26, 2025 Swapna Corea , [employer] Referring Provider Active St art: January 26, 2025 End: January 26, 2025 MYRON Disla Attending Provider Active Start: January 26, 2025 End: January 26, 2025 Team Status: Inactive Member Role/Relationship Status Dates Swapna Corea , [employer] Primary Care Provider Active Start: February 18, 2025 End: February 18, 2025 Swapna Corea , [employer] Attending Provider Active St art: February 18, 2025 End: February 18, 2025 Swapna Corea , [employer] Referring Provider Active St art: February 18, 2025 End: February 18, 2025 Team Status: Active Member Role/Relationship Status Dates Swapna Corea , [employer] Primary care physician Active Team Status: Inactive Member Role/Relationship Status Dates Swapna Corea , [employer] Primary care physician Active Start: January 06, [...] Member Role/Relationship Status Dates Swapna Corea , [employer] Primary care physician Active Start: January 11, 2025 End: January 11, 2025 Swapna Corea , [employer] Referring Provider Active St art: January 11, 2025 End: January 11, 2025 Jalen SANCHES PA Attending physician Active Start: January 11, 2025 End: January 11, 2025 Team Status: Inactive Member Role/Relationship Status Dates Swapna Corea , [employer] Primary care physician Active Start: January 18, 2025 End: January 18, 2025 Swapna Corea , [employer] Referring Provider Active St art: January 18, 2025 End: January 18, 2025 Jalen SANCHES PA Attending physician Active Start: January 18, 2025 End: January 18, 2025 Team Status: Inactive Member Role/Relationship Status Dates Swapna Corea , [employer] Primary care physician Active Start: January 18, 2025 End: January 18, 2025 Jalen SANCHES PA Attending physician Active Start: January 18, 2025 End: January 18, 2025 Jalen SANCHES PA Referring Provider Active Start: January 18, 2025 End: January 18, 2025 Team Status: Inactive Member Role/Relationship Status Dates Swapna Corea , [employer] Primary care physician Active Start: January 26, 2025 End: January 26, 2025 Swapna Corea , [employer] Referring Provider Active St art: January 26, 2025 End: January 26, 2025 Jalen SACNHES PA Attending physician Active Start: January 26, 2025 End: January 26, 2025 Team Status: Inactive Member Role/Relationship Status Dates Swapna Corea , [employer] Primary care physician Active Start: February 18, 2025 End: February 18, 2025 Swapna Corea , [employer] Attending physician Active S tart: February 18, 2025 End: February 18, 2025 Swapna Corea , [employer] Referring Provider Active St art: February 18, 2025 End: February 18, 2025 Team Status: Inactive Member Role/Relationship Status Dates Swapnayohana Corea , [employer] Primary care physician Active Start: April 22, 2025 End: April 22, 2025 Swapna Corea NP-Jaspreet Referring Provider Active St art: April 22, 2025 End: April 22, 2025 Michelle Quinn NP, [employer] Attending physician Active Start: April 22, 2025 [...] BE BASED ON THE PRIMARY CLINICAL RECORDS. [employer] provides no warranty or guarantee of the accuracy or completeness of information in this document.
== END | disposition home or self-care (01) ==
LOC: MRI 12:19
PROVIDERS: PCP Nurse Practitioner Family; Referring Provider Student in an Organized Health Care Education/Training Program; Visit Provider Student in an Organized Health Care Education/Training Program
DX: M54.12 Radiculopathy, cervical region (principal); G95.9 Disease of spinal cord, unspecified; M50.30 Other cervical disc degeneration, unspecified cervical region
CPT/HCPCS: 72141

== ENCOUNTER → 2025-07-02 | Outpatient (CLI) | payer BC, SELFPAY ==
--- OUTSIDE RECORDS SUMMARY | 2025-07-02 16:01 | XMS RPT_ITS | CCD ---
Author Organization [facility] Care Team Providers Care Collar Feller Name Role Phone Steve Cotter Unavailable Jalen Chavez Unavailable Dr. Satinder Griggs Primary Care Provider [phone] Dr. Satinder Griggs Referring Provider [phone] Abdulaziz Paul Attending Provider SATINDER GRIGGS [...] Satinder Griggs MD Primary Care Provider [phone] IGOE, STEPHEN FRY Attending Unavailable SATINDER GRIGGS Primary Care Unavailable SATINDER GRIGGS Primary Care Unavailable SATINDER GRIGGS Referring Unavailable IGHILDA, STEPHEN FRY Attending Unavailable SATINDER GRIGGS Admitting Unavailable BIJU LOPEZ, DR DAT Olivarez Attending Tricia PINTO MD, DR CASTRO Primary Care Unavailable Anmol TORRES-C, Swapna Primary Care Provider [phone] Margarita LOPEZ, Dr. Mondragon Attending Provider Margarita LOPEZ, Dr. Mondragon Referring Provider Anmol PROTECTIVE CLOTHING ISSUER-C, Swapna Attending Provider Anmol PROTECTIVE CLOTHING ISSUER-C, Swapna Referring Provider Arya LOPEZ, Dr. Willis Referring Provider Arya LOPEZ, Dr. Willis Emergency Provider Jalen Chavez Attending Provider Arya LOPEZ, Dr. Willis Attending Provider Jalen Chavez Referring Provider [phone] Anmol PROTECTIVE CLOTHING ISSUER-C, Swapna Primary Care Physician Arya LOPEZ, Dr. Willis Attending Physician Arya LOPEZ, Dr. Willis Emergency Department Physician Anmol PROTECTIVE CLOTHING ISSUER-C, Swapna Referring Provider Jalen Chavez Attending Physician Anmol PROTECTIVE CLOTHING ISSUER-C, Swapna Attending Physician Kai PROTECTIVE CLOTHING ISSUER-C, Michelle Attending Physician [phone] Anmol, Swapna Primary Care Unavailable Koenig, Lazaro Referring Unavailable Sharif Koenigo Attending Unavailable Anmol, Swapna Primary Care Unavailable Jalen Chavez Attending Unavailable Jalen Chavez Referring Unavailable [facility] Unavaila ble Assessment, Health Risk Attending Unavaila Alanna Shell Referring Unavailable Alanna Avila Attending Unavailable Ranney OLS, Christopher Primary Care Unavaila ble Anmol, Swapna Primary Care Unavailable Anmol, Swapna Referring Unavailable Jalen Chavez Attending Unavailable Anmol, Swapna Primary Care Unavailable Anmol, Swapna Referring Unavailable Kai PROTECTIVE CLOTHING ISSUERMichelle Attending Unavailable Anmol, Swapna Referring Unavailable Ranney OLS, Christopher Primary Care Unavaila ble [place] PROTECTIVE CLOTHING ISSUERMichelle Attending Unavailable Anmol, Swapna Referring Unavailable Ranney [...] Allergy to substance 04-11-20 Other (See Comments) [facility] Repository (18 sources) Sulfamethoxazole Drug Allergy 04-11-20 [facility] (18 sources) Trimethoprim Drug Allergy 04-11-20 [facility] (3 sources) Sulfamethoxazole / Trimethoprim; Translations: [SULFAMETHOXAZOLE-TR IMETHOPRIM] Drug Allergy 08-02-19 [facility] Repository (1 source) Sulfamethoxazole Drug Allergy 05-20-20 [facility] Repository (1 source) Trimethoprim Drug Allergy 05-20-20 [facility] Repository Medications Current Medications Medication Drug [...] 5 MG TABS as directed AMLODIPINE BESYLATE [id number] Jalen SANCHES Start: 10-19-2013 End: 01-11-2025 take [...] LECALCIFEROL) 400 UNIT CAPS as directed CHOLECALCIFEROL [id number] Jalen SANCHES estradiol 0.1 mg/ml vaginal cream [...] SPIRONOLACTONE 100 MG TABS as directed SPIRONOLACTONE [id number] Jalen SANCHES topiramate 50 mg oral tablet [...] 12:00am Start: 06-27-2017 take 1 capsule by [facility] once daily Vitamin E (Dl, Acetate) 400 unit capsule Active 450 mg PO DAILY October 26, 2020 12:00am Complies with drug therapy Start: 06-27-2017 VITAMIN E 100 UNIT TABS as directed VITAMIN E [id number] Jalen SANCHES Completed/Discontinued Medications Medication Drug Class(es) [...] 1 capsule twice daily NITROFURANTOIN MONOHYD MACRO [id number] Jalen SANCHES levothyroxine sodium 0.075 mg oral tablet (20 sources) l-Thyroxine Start: 11-21-2021 take 1 tablet by mouth once daily Levothyroxine 88 mcg tablet Active 88 ug PO DAILY 90 November 21, 2021 12:00am Complies with drug therapy Start: 06-27-2017 LEVOTHYROXINE SODIUM 100 MCG TABS as directed LEVOTHYROXINE SODIUM [id number] Jalen SANCHES Start: 07-15-2015 End: 11-21-2021 Levothyroxine [...] Test Name Value Interpretation Reference Range Facility Business Office Technology Instructor Office Visit Reporton 05-20-2025 Business Office Technology Instructor Office Visit Report [facility]'s [address], [address] [place] [address] OFFICE VISIT Date of Service: 05/20/25 MR#: [id number] Acct: [id number] Name: BOLAÑOSALINE CASEY Rep #: [id number] : 1965 Provider: MICHAEL hernandez Age/Sex: 60/F Location: [facility] [facility] Status: Signed Intake Vital Signs 04/22/25 08:56 05/20/25 08:30 05/20/25 08:33 Height 5 ft 2 in 5 ft 2 in 5 ft 2 in Weight: 155 lb 3 oz 154 lb 1 oz BMI 28.3 28.1 BP 125/82 H 137/79 H Intake Visit 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 Normal [facility] Basic Metabolic Profile (BMP )on 05-13-2025 BUN/CRE 20.6 RATIO High 05-17 [facility] Comment on above: Performed By: #### L 501.9520, L506.0400, L500.2500 #### [facility] Laboratory [address] [place], [address] Calcium [Mass/Vol] 9.5 mg/dL Normal 7.6-11.0 [facility] Comment on above: Performed By: #### L 501.9520, L506.0400, L500.2500 #### [facility] [address] [place], [address] Chloride [Moles/Vol] 101 mmol/L Normal 98-108 [facility] Comment on above: Performed By: #### L 501.9520, L506.0400, L500.2500 #### [facility] [address] [place], [address] CO2 [Moles/Vol] 21.6 mmol/L Normal 21.0-32.0 [facility] Comment on above: Performed By: #### L 501.9520, L506.0400, L500.2500 #### [facility] [address] [place], [address] Creatinine [Mass/Vol] 0.87 mg/dL Normal 0.70-1.20 [facility] Comment on above: Performed By: #### L 501.9520, L506.0400, L500.2500 #### [facility] [address] [place], [address] GAP 14 Normal 5-15 [facility] Comment on above: Performed By: #### L 501.9520, L506.0400, L500.2500 #### [facility] [address] [place], [address] GFR/1.73 sq M.predicted among non-blacks MDRD (S/P/Bld) [Vol rate/Area] 76 mL/min/{1.73_m2} Normal >60 [facility] Comment on above: Result Comment: mL/m in/1.73m2 CKD-EPI Creatinine Equation (2020) Performed By: #### L 501.9520, L506.0400, L500.2500 #### [facility] [address] [place], [address] Glucose [Mass/Vol] 95 mg/dL Normal 70-99 [facility] Comment on above: Performed By: #### L 501.9520, L506.0400, L500.2500 #### [facility] [address] [place], [address] Potassium [Moles/Vol] 3.8 mmol/L Normal 3.3-5.1 [facility] Comment on above: Performed By: #### L 501.9520, L506.0400, L500.2500 #### [facility] [address] [place], [address] Sodium [Moles/Vol] 136 mmol/L Normal 133-145 [facility] Comment on above: Performed By: #### L 501.9520, L506.0400, L500.2500 #### [facility] [address] [place], [address] Urea nitrogen [Mass/Vol] 18 mg/dL Normal 4-19 [facility] Comment on above: Performed By: #### L 501.9520, L506.0400, L500.2500 #### [facility] [address] [place], [address] T4 Free Directon 05-13-2025 T4 FREE DIRECT 1.90 ng/dL High 0.76-1.46 [facility] Comment on above: Performed By: #### L 501.9520, L506.0400, L500.2500 #### [facility] [address] [place], [address] Thyroid Stim Hormone (TSH)on 05-13-2025 TSH 0.879 uIU/mL Normal 0.300-4.200 [facility] Comment on above: Performed By: #### L 501.9520, L506.0400, L500.2500 #### [facility] [address] [place], [address] Comprehensive Metabolic Prof ilon 05-05-2025 Albumin [Mass/Vol] 4.5 g/dL Normal 3.4-4.8 [facility] Comment on above: Performed By: #### L 500.4100, L500.4050 ####[facility] [address] [place], [address] Albumin/Globulin [Mass ratio] 1.4 {ratio} Normal 0.9-2.4 [facility] Comment on above: Performed By: #### L 500.4100, L500.4050 ####[facility] [address] [place], [address] ALK PHOS 107 U/L High 35-104 [facility] Comment on above: Performed By: #### L 500.4100, L500.4050 ####[facility] [address] [place], [address] ALT [Catalytic activity/Vol] 12 U/L Normal <=34 [facility] Comment on above: Performed By: #### L 500.4100, L500.4050 ####[facility] [address] [place], [address] AST [Catalytic activity/Vol] 14 U/L Normal <=31 [facility] Comment on above: Performed By: #### L 500.4100, L500.4050 ####[facility] [address] [place], [address] Bilirubin [Mass/Vol] 0.42 mg/dL Normal 0.00-1.30 [facility] Comment on above: Performed By: #### L 500.4100, L500.4050 ####[facility] [address] [place], [address] BUN/CRE 24.7 RATIO High 10-20 [facility] Comment on above: Performed By: #### L 500.4100, L500.4050 ####[facility] [address] [place], [address] Calcium [Mass/Vol] 9.9 mg/dL Normal 7.6-11.0 [facility] Comment on above: Performed By: #### L 500.4100, L500.4050 ####[facility] [address] [place], [address] Chloride [Moles/Vol] 104 mmol/L Normal 98-108 [facility] Comment on above: Performed By: #### L 500.4100, L500.4050 ####[facility] [address] [place], [address] CO2 [Moles/Vol] 24.3 mmol/L Normal 21.0-32.0 [facility] Comment on above: Performed By: #### L 500.4100, L500.4050 ####[facility] [address] [place], [address] Creatinine [Mass/Vol] 0.73 mg/dL Normal 0.70-1.20 [facility] Comment on above: Performed By: #### L 500.4100, L500.4050 ####[facility] [address] [place], [address] GAP 12 Normal 5-15 [facility] Comment on above: Performed By: #### L 500.4100, L500.4050 ####[facility] [address] [place], [address] GFR/1.73 sq M.predicted among non-blacks MDRD (S/P/Bld) [Vol rate/Area] 94 mL/min/{1.73_m2} Normal >60 [facility] Comment on above: Result Comment: mL/m in/1.73m2 CKD-EPI Creatinine Equation (2020) Performed By: #### L 500.4100, L500.4050 ####[facility] [address] [place], [address] Globulin (S) [Mass/Vol] 3.1 g/dL Normal 2.2-4.2 [facility] Comment on above: Performed By: #### L 500.4100, L500.4050 ####[facility] [address] [place], [address] Glucose [Mass/Vol] 100 mg/dL High 70-99 [facility] Comment on above: Performed By: #### L 500.4100, L500.4050 ####[facility] [address] [place], [address] Potassium [Moles/Vol] 4.9 mmol/L Normal 3.3-5.1 [facility] Comment on above: Performed By: #### L 500.4100, L500.4050 ####[facility] [address] [place], [address] Sodium [Moles/Vol] 140 mmol/L Normal 133-145 [facility] Comment on above: Performed By: #### L 500.4100, L500.4050 ####[facility] [address] [place], [address] T PROT 7.6 g/dL Normal 5.9-8.4 [facility] Comment on above: Performed By: #### L 500.4100, L500.4050 ####[facility] [address] [place], [address] Urea nitrogen [Mass/Vol] 18 mg/dL Normal 4-19 [facility] Comment on above: Performed By: #### L 500.4100, L500.4050 ####[facility] [address] [place], [address] Lipid Profileon 05-05-2025 CHOL:HDL 3.12 Normal [facility] Comment on above: Performed By: #### L 500.4100, L500.4050 ####[facility] [address] [place], [address] Cholesterol [Mass/Vol] 183 mg/dL Normal <=200 [facility] Comment on above: Result Comment: Chol esterol level, Desirable <200 mg/dL Borderline high cholesterol 200-239 mg/dL High cholesterol >=240 mg/dL Recommendations of the NCEP Adult Treatment Panel for the following risk-cutoff thresholds for the [place] population. Performed By: #### L 500.4100, L500.4050 ####[facility] [address] [place], [address] Cholesterol in HDL [Mass/Vol] 59 mg/dL Normal [facility] Comment on above: Result Comment: Romina onal Cholesterol Education Program (NCEP) guidelines: <40 mg/dL: Low HDL-cholesterol (major risk factor for CHD) >= 60 mg/dL: High HDL-cholesterol (negative risk factor for CHD) HDL-cholesterol is affected by a number of factors, e.g. smoking, exercise, hormones, sex and age. Performed By: #### L 500.4100, L500.4050 ####[facility] [address] [place], [address] Cholesterol in LDL [Mass/Vol] 101 mg/dL Normal [facility] Comment on above: Result Comment: Bord zqzdyy=265-007 mg/dL Higher Lvud=592 mg/dL or greater Friedwald Equation for LDL-C Performed By: #### L 500.4100, L500.4050 ####[facility] [address] [place], [address] Cholesterol in VLDL [Mass/Vol] 23 mg/dL Normal 5-40 [facility] Comment on above: Performed By: #### L 500.4100, L500.4050 ####[facility] [address] [place], [address] Triglyceride [Mass/Vol] 116 mg/dL Normal [facility] Comment on above: Result Comment: The drugs N-Acetylcysteine and Metamizole may falsely depress this assay. Normal range: <150 mg/dL Borderline High: 150-199 mg/dL High: 200-499 mg/dL Very High: >500 mg/dL Performed By: #### L 500.4100, L500.4050 ####[facility] [address] [place], [address] Business Office Technology Instructor Office Visit Reporton 04-22-2025 Business Office Technology Instructor Office Visit Report [facility]'s [address], [address] [place] [address] OFFICE VISIT Date of Service: 04/22/25 MR#: [id number] Acct: [id number] Name: ALINE BOLAÑOS Rep #: [id number] : 1965 Provider: MICHAEL hernandez Age/Sex: 60/F Location: [facility] [place] Status: Signed Intake Vital Signs 01/11/25 06:43 04/22/25 08:56 Height 5 ft 2 in 5 ft 2 in Weight: 155 lb 3 oz BMI 28.3 BP 125/82 H Intake Visit Reasons: Vaginal Discharge ([place]) Plastic Design Applier Required: No Is patient in pain?: No [...] of nephrectomy Family History Grandmother Diabetes Grandfather Gurabo disease Father Angina at rest Arthritis Myocardial [...] you participate in: none HPI Vaginal Discharge ([place]) Details: ALINE BOLAÑOS is a 60 year old who presents for new patient referral from [facility] for vaginal pressure. feels like I'm sitting [...] Support: cys (more content not included)... Normal [facility] Breast imaging reportOrdered By: Sofya Mckeon on 02-18-2025 Study report [facility] Imaging Services [address] [place] [address] SCRN MAMM (CAD)W/ELISA BILAT MR#: [id number] Acct: [id number] Name: ALINE BOLAÑOS Rep #: [id number] : 1965 F 59 From: Lisandro Zeng MD PCP: MICHAEL Beach Status: REG CLI Study:SCRN MAMM (CAD)W/ELISA BILAT Date of Exa m: 02/18/25 Exam# [id number] Ordering Dr: Ra kameron Corea EXAM: SCRN [...] be mailed to the patient. Reading Location: [id number] CC: MICHAEL Corea ~ Instructor Physical Education: Signed [facility] SCRN MAMM (CAD)W/ELISA BILATo n 02-18-2025 SCRN MAMM (CAD)W/ELISA BILAT [facility] Imaging Services [address] [place] [address] SCRN MAMM (CAD)W/ELISA BILAT MR#: [id number] Acct: [id number] Name: ALINE BOLAÑOS Rep #: [id number] : 1965 F 59 From: Sofya Urias i, MD PCP: MICHAEL Beach Status: [facility] CLI Study: SCRN MAMM (CAD)W/ELISA BILAT Date of Exam: 01/27 11/20 Exam# [id number] Ordering Dr: Swapna Corea EXAM: SCRN MAMM [...] be mailed to the patient. Reading Location: [id number] CC: MICHAEL Corea Instructor Physical Education: Signed Normal [facility] Urgent Care Visit Reporton 0 01-26-2025 Urgent Care Visit Report [facility] [address], [address] [place], [place] [address] OFFICE VISIT Date of Service: 01/26/25 MR#: [id number] Acct: [id number] Name: ALINE BOLAÑOS Rep #: [id number] : 1965 Provider: MYRON Hurtado Age/Sex: 59/F Location: [facility] Status: Signed Intake Vital Signs 01/11/25 06:43 [...] tablet) Nurse's Note: Patient here for a [facility] f/u. Patient states that she feels like that she can go back to work. Patient states she was able to life yesterday at work. Patient state her right side she can't lay on but she is ok with lifting and her left arm looks better. [facility] Medical History (Updated 01/14/25 @ 00:00 by [...] the office today for f/u at the [facility] for f/u status post work-related injury suffered on 01/06/2025 patient so states. 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 She reported to [facility] ED where treated for released the [...] distress Orien (more content not included)... Normal [facility] Ribs Uni Min 3V w/PA Cheston 01-18-2025 Ribs Uni Min 3V w/PA Chest [facility] Imaging Services [address] [place], [place] [id number] Ribs Uni Min 3V w/PA Chest MR#: [id number] Acct: [id number] Name: ALINE BOLAÑOS Rep #: [id number] : 1965 F 59 From: John Gordon MD PCP: MICHAEL Beach Status: REG CLI Study: Ribs Uni Min 3V w/PA Chest Date of Exam: 01/18 Exam# [id number] Ordering Dr: Jalen Mcdainel PROCEDURE: RIBS UNI MIN 3V W/PA CHEST [...] Location: [place] CC: MICHAEL Corea; MYRON Hurtado Instructor Physical Education: Signed Normal [facility] Urgent Care Visit Reporton 0 01-18-2025 Urgent Care Visit Report [facility] [address], [address] [place], [place] [address] OFFICE VISIT Date of Service: 01/18/25 MR#: [id number] Acct: [id number] Name: ALINE BOLAÑOS Rep #: [id number] : 1965 Provider: MYRON Hurtado Age/Sex: 59/F Location: [facility] Status: Signed Intake Vital Signs 01/11/25 06:27 [...] story tablet) Nurse's Note: Patient here for [facility] f/u. Patient states that she is little better. [facility] Medical History (Updated 01/14/25 @ 00:00 by [...] cancer Diabetes H/O transfusion of whole blood [place] disease Hypertension Myocardial infarction Ovarian cancer Respiratory [...] to the office today for at the [facility] for f/u status post work-related injury suffered on 01/06/2025 patient so states. 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 She reported to [facility] ED where treated for released the [...] care and doxycycline as previously prescribed. No curs-oem-txezvax medications have been taken to assist. No other as (more content not included)... Normal [facility] Urgent Care Visit Reporton 0 01-11-2025 Urgent Care Visit Report [facility] [address] , [address] [place] [address] OFFICE VISIT Date of Service: 01/11/25 MR#: [id number] Acct: [id number] Name: LAINE BOLAÑOS Rep #: [id number] : 1965 Provider: MYRON Hurtado Age/Sex: 59/F Location: [facility] Status: Signed Intake Vital Signs 01/06/25 13:16 01/11/25 06:27 Height 5 ft 2 in 5 ft 2 in Weight: 151 lb BMI 27.6 BP 102/62 Position Sitting Respiration 14 Pulse 58 L Temp 98.4 F Temp Source Oral Pulse Oximetry (%) 98 Oxygen Delivery Method room air Intake Visit Reasons: ER FU/ [facility] Accompanied by: Self Is patient in [...] tablet) Nurse's Note: Patient here for a [facility] ER f/u. Patient thinks her left arm is infected. Patient states her ribs are better but still not good. [facility] Medical History (Updated 01/11/25 @ 06:29 by [...] cancer Diabetes H/O transfusion of whole blood [place] disease Hypertension Myocardial infarction Ovarian cancer Respiratory [...] BUE and anterior chest/abdomen. She reported to [facility] ED where treated for released the [...] to work since date of injury. No nfdf-lwv-stcfjgt medications have been taken to assist. No other associated symptoms and no other alleviating/aggravatin g factors. ROS C (more content not included)... Normal [facility] Abdomen/Pelvis W IV Cont ONL Yon 01-06-2025 Abdomen/Pelvis W IV Cont ONLY [facility] [facility] Imaging Services [address] [place], [place] [address] Abdomen/Pelvis W IV Cont ONLY MR#: [id number] Acct: [id number] Name: ALINE BOLAÑOS Rep #: [id number] : 1965 F 59 From: Андрей Sherman MD PCP: Swapna Corea NP-C Status: REG ER Study: Abdomen/Pelvis W IV Cont ONLY Date of Exam: Exam# [id number] Ordering Dr: Lazaro Koenig MD PROCEDURE: ABDOMEN/PELVIS [...] abnormality. OVERALL FINAL ASSESSMENT: . Reading [facility] CC: MICHAEL Corea; Dr. Lazaro Koenig MD Instructor Physical Education: Signed Normal [facility] Anion gap in Serum or Plasma Ordered By: Lazaro Koenig on 01-06-2025 Anion gap [Moles/Vol] 13 mmol/L - [facility] BUN/creatinine ratioOrdered By: Lazaro Koenig on 01-06-2025 Urea nitrogen/Creatinine [Mass ratio] 16.2 mg/mg - [facility] Basic Metabolic Profile (BMP )on 01-06-2025 BUN/CRE 16.2 RATIO Normal - [facility] Comment on above: Performed By: #### L 500.2500 #### [facility] Laboratory [address] [place], [address] Calcium [Mass/Vol] 9.4 mg/dL Normal 7.6-11.0 [facility] Comment on above: Performed By: #### L 500.2500 #### [facility] Laboratory [address] [facility] [place], [address] Chloride [Moles/Vol] 107 mmol/L Normal 98-108 [facility] Comment on above: Performed By: #### L 500.2500 #### [facility] Laboratory [address] [facility] [place], [address] CO2 [Moles/Vol] 19.7 mmol/L Low 21.0-32.0 [facility] Comment on above: Performed By: #### L 500.2500 #### [facility] Laboratory [address] [place], [address] Creatinine [Mass/Vol] 0.66 mg/dL Low 0.70-1.20 [facility] Comment on above: Performed By: #### L 500.2500 #### [facility] Laboratory [address] [place], [address] ECRCL 81.24 ml/min Normal 50-250 [facility] Comment on above: Performed By: #### L 500.2500 #### [facility] Laboratory [address] [place], [address] GAP 13 Normal 5-15 [facility] Comment on above: Performed By: #### L 500.2500 #### [facility] Laboratory [address] [place], [address] GFR/1.73 sq M.predicted among non-blacks MDRD (S/P/Bld) [Vol rate/Area] 100 mL/min/{1.73_m2} Normal >60 [facility] Comment on above: Result Comment: mL/m in/1.73m2 CKD-EPI Creatinine Equation (2020) Performed By: #### L 500.2500 #### [facility] Laboratory [address] [place], [address] Glucose [Mass/Vol] 98 mg/dL Normal 70-99 [facility] Comment on above: Performed By: #### L 500.2500 #### [facility] Laboratory [address] [place], [address] Potassium [Moles/Vol] 3.8 mmol/L Normal 3.3-5.1 [facility] Comment on above: Performed By: #### L 500.2500 #### [facility] Laboratory [address] [place], [address] Sodium [Moles/Vol] 140 mmol/L Normal 133-145 [facility] Comment on above: Performed By: #### L 500.2500 #### [facility] Laboratory [address] [place], [place], [address] Urea nitrogen [Mass/Vol] 11 mg/dL Normal 4-19 [facility] Comment on above: Performed By: #### L 500.2500 #### [facility] Laboratory [address] [place], [place], [address] Carbon dioxide, total [Moles /volume] in Central venous bloodOrdered By: Lazaro Koenig on 01-06-2025 CO2 [Moles/Vol] 19.7 mmol/L Low 21.0-32.0 [facility] Chloride assayOrdered By: Sharif Koenig on 01-06-2025 Chloride [Moles/Vol] 107 mmol/L 98-108 [facility] Emergency Department Summary on 01-06-2025 Emergency Department Summary [facility] Medical Records Department [address] [place] [address] Emergency Department Summary 01/06/25 MR#: [id number] Acct: [id number] Name: ALINE BOLAÑOS Rep #: [id number] : 1965 59 From: Lazaro Koenig MD [...] Reports chest (more content not included)... Normal [facility] Glomerular filtration rate ( GFR) estimation/1.73 sq m using serum, plasma, or whole bOrdered By: Lazaro Koenig on 01-06-2025 GFR/1.73 sq M.predicted among non-blacks MDRD (S/P/Bld) [Vol rate/Area] 100 mL/min/{1.73_m2} >60 [facility] Comment on above: mL/min/1.73m2 CKD-EP I Creatinine Equation (2020) Potassium measurement (mass/ volume)Ordered By: Lazaro Koenig on 01-06-2025 Potassium (Unsp spec) [Mass/Vol] 3.8 mmol/L 3.3-5.1 [facility] Serum creatinine measurement (mass/volume)Ordered By: Lazaro Koenig on 06-11-2025 Creatinine [Mass/Vol] 0.66 mg/dL Low 0.70-1.20 [facility] Serum glucose measurement (m ass/volume)Ordered By: [facility] on 01-06-2025 Glucose [Mass/Vol] 98 mg/dL 70-99 [facility] Serum or plasma calcium bria urement (mass/volume)Ordered By: [facility] on 01-06-2025 Calcium [Mass/Vol] 9.4 mg/dL 7.6-11.0 [facility] Serum or plasma urea nitroge n measurement (mass/volume)Ordered By: [facility] on 01-06-2025 Urea nitrogen [Mass/Vol] 11 mg/dL 4-19 [facility] Sodium levelOrdered By: [facility] on 01-06-2025 Sodium [Moles/Vol] 140 mmol/L 133-145 [facility] HIP, UNI W/ Pelvis 2-3 Views on 12-01-2024 HIP, UNI W/ Pelvis 2-3 Views [facility] Imaging Services [address] [place] [id number] HIP, UNI W/ Pelvis 2-3 Views MR#: [id number] Acct: [id number] Name: ALINE BOLAÑOS Rep #: [id number] : 1965 F 59 From: Kade hou MD PCP: MICHAEL Beach Status: REG CLI Study: HIP, UNI W/ Pelvis 2-3 Views Date of Exam: 01/20 Exam# [id number] Ordering Dr: Swapna Corea PROCEDURE: HIP, UNI [...] osteoarthritis. Reading Location: [facility] CC: MICHAEL Corea Instructor Physical Education: Signed Normal [facility] Thyroid Peroxidase ABon 10-27 THYR PEROX AB > 600 High 0-34 [facility] Comment on above: Order Comment: CANCE L THYROID AB, ADD TPO Result Comment: Perf ormed at: [facility] [address] [id number] [employer] Specialist: Juan Anderson PhD, Phone: [phone] Performed By: #### L 501.9520, L500.2500, L506.0400, L3300.6900 ####[facility] [address] [place] [place], [address] Anion gap in Serum or Plasma Ordered By: Alanna Avila on 11-12-2024 Anion gap [Moles/Vol] 11 mmol/L 5-15 [facility] BUN/creatinine ratioOrdered By: Alanna Avila on 11-12-2024 Urea nitrogen/Creatinine [Mass ratio] 19.7 mg/mg 10- [facility] Basic Metabolic Profile (BMP )on 11-12-2024 BUN/CRE 19.7 RATIO Normal - [facility] Comment on above: Performed By: #### L 501.9520, L500.2500, L506.0400, L3300.6900 ####[facility] [address] [place], [address] Calcium [Mass/Vol] 9.6 mg/dL Normal 7.6-11.0 [facility] Comment on above: Performed By: #### L 501.9520, L500.2500, L506.0400, L3300.6900 ####[facility] [address] [place], [address] Chloride [Moles/Vol] 103 mmol/L Normal 98-108 [facility] Comment on above: Performed By: #### L 501.9520, L500.2500, L506.0400, L3300.6900 ####[facility] [address] [place], [address] CO2 [Moles/Vol] 25.5 mmol/L Normal 21.0-32.0 [facility] Comment on above: Performed By: #### L 501.9520, L500.2500, L506.0400, L3300.6900 ####[facility] [address] [place], [address] Creatinine [Mass/Vol] 0.80 mg/dL Normal 0.70-1.20 [facility] Comment on above: Performed By: #### L 501.9520, L500.2500, L506.0400, L3300.6900 ####[facility] [address] [place], [address] GAP 11 Normal 5-15 [facility] Comment on above: Performed By: #### L 501.9520, L500.2500, L506.0400, L3300.6900 ####[facility] [address] [place], [address] GFR/1.73 sq M.predicted among non-blacks MDRD (S/P/Bld) [Vol rate/Area] 84 mL/min/{1.73_m2} Normal >60 [facility] Comment on above: Result Comment: mL/m in/1.73m2 CKD-EPI Creatinine Equation (2020) Performed By: #### L 501.9520, L500.2500, L506.0400, L3300.6900 ####[facility] [address] [place], [address] Glucose [Mass/Vol] 75 mg/dL Normal 70-99 [facility] Comment on above: Performed By: #### L 501.9520, L500.2500, L506.0400, L3300.6900 ####[facility] [address] [place], [address] Potassium [Moles/Vol] 4.5 mmol/L Normal 3.3-5.1 [facility] Comment on above: Performed By: #### L 501.9520, L500.2500, L506.0400, L3300.6900 ####[facility] [address] [place], [address] Sodium [Moles/Vol] 139 mmol/L Normal 133-145 [facility] Comment on above: Performed By: #### L 501.9520, L500.2500, L506.0400, L3300.6900 ####[facility] [address] [place], [address] Urea nitrogen [Mass/Vol] 16 mg/dL Normal 4-19 [facility] Comment on above: Performed By: #### L 501.9520, L500.2500, L506.0400, L3300.6900 ####[facility] [address] [place], [address] Carbon dioxide, total [Moles /volume] in Central venous bloodOrdered By: Alanna Avila on 11-12-2024 CO2 [Moles/Vol] 25.5 mmol/L 21.0-32.0 [facility] Chloride assayOrdered By: Rizwana Avila on 11-12-2024 Chloride [Moles/Vol] 103 mmol/L 98-108 [facility] Glomerular filtration rate ( GFR) estimation/1.73 sq m using serum, plasma, or whole bOrdered By: Alanna Avila on 11-12-2024 GFR/1.73 sq M.predicted among non-blacks MDRD (S/P/Bld) [Vol rate/Area] 84 mL/min/{1.73_m2} >60 [facility] Comment on above: mL/min/1.73m2 CKD-EP I Creatinine Equation (2020) Potassium measurement (mass/ volume)Ordered By: Alanna Avila on 11-12-2024 Potassium (Unsp spec) [Mass/Vol] 4.5 mmol/L 3.3-5.1 [facility] Serum creatinine measurement (mass/volume)Ordered By: Alanna Avila on 11-12-2024 Creatinine [Mass/Vol] 0.80 mg/dL 0.70-1.20 [facility] Serum glucose measurement (m ass/volume)Ordered By: Alanna Avila on 11-12-2024 Glucose [Mass/Vol] 75 mg/dL 70-99 [facility] Serum or plasma calcium bria urement (mass/volume)Ordered By: Alanna Avila on 11-12-2024 Calcium [Mass/Vol] 9.6 mg/dL 7.6-11.0 [facility] Serum or plasma thyroperoxid ase antibody assay (units/volume)Ordered By: Alanna Avila on 11-12-2024 TPO Ab Qn [IU]/mL High 0-34 [facility] Comment on above: Performed at: [place] [id number] Director: Juan Anderson PhD, Phone: [phone] Serum or plasma urea nitroge n measurement (mass/volume)Ordered By: Alanna Avila on 11-12-2024 Urea nitrogen [Mass/Vol] 16 mg/dL 4-19 [facility] Sodium levelOrdered By: Steffen Avila on 11-12-2024 Sodium [Moles/Vol] 139 mmol/L 133-145 [facility] T4 Free Directon 11-12-2024 T4 FREE DIRECT 1.70 ng/dL High 0.76-1.46 [facility] Comment on above: Performed By: #### L 501.9587, L500.2500, L506.0400, L3300.6900 ####[facility] [address] [place] [place], [address] T4 freeOrdered By: Alanna sweeney on 11-12-2024 Free T4 [Mass/Vol] 1.70 ng/dL High 0.76-1.46 [facility] TSH DL <= 0.005 mIU/L QnOrde red By: Alanna Avila on 11-12-2024 TSH Qn 2.090 uIU/mL 0.300-4.200 [facility] Thyroid Stim Hormone (TSH)on 11-12-2024 TSH 2.090 uIU/mL Normal 0.300-4.200 [facility] Comment on above: Performed By: #### L 501.9520, L500.2500, L506.0400, L3300.6900 ####[facility] [address] [place], [address] Abdomen Single Viewon 2023 Abdomen Single View [facility] Imaging Services [address] [place] [address] Abdomen Single View MR#: [id number] Acct: [id number] Name: ALINE BOLAÑOS Rep #: [id number] : 1965 F 59 From: Luc Mccarty MD PCP: MICHAEL Beach Status: REG CLI Study: Abdomen Single View Date of Exam: 06/18/24 Exam# [id number] Ordering Dr: Lisette Richardson DO [id number] EXAM: XR ABDOMEN, 1 VIEW CLINICAL INDICATION: [...] CC: MICHAEL Corea; Dr. Lisette Richardson DO Instructor Physical Education: Signed Normal [facility] CBC W/Diff, Automatedon 11-2 Absolute Lymph 2.06 X10 3/uL Normal 0.83-4.51 [facility] Comment on above: Performed By: #### L 500.4050, L100.0100, L501.2450 #### [facility] Laboratory [address] [place], [address] Absolute Neut 7.3 X10 3/uL Normal 2.0-7.7 [facility] Comment on above: Performed By: #### L 500.4050, L100.0100, L501.2450 #### [facility] Laboratory [address] [place], [address] Basophils/100 WBC (Bld) 0.3 % Normal 0-1 [facility] Comment on above: Performed By: #### L 500.4050, L100.0100, L501.2450 #### [facility] Laboratory [address] [place], [address] Eosinophils/100 WBC (Bld) 1.8 % Normal 0-5 [facility] Comment on above: Performed By: #### L 500.4050, L100.0100, L501.2450 #### [facility] Laboratory [address] [place], [address] Erythrocyte distribution width (RBC) [Ratio] 12.6 % Normal 11.6-14.6 [facility] Comment on above: Performed By: #### L 500.4050, L100.0100, L501.2450 #### [facility] Laboratory [address] [place], [address] Hematocrit (Bld) [Volume fraction] 43.9 % Normal 37-47 [facility] Comment on above: Performed By: #### L 500.4050, L100.0100, L501.2450 #### [facility] Laboratory [address] [place], [address] Hemoglobin (Bld) [Mass/Vol] 14.2 g/dL Normal 12.0-15.0 [facility] Comment on above: Performed By: #### L 500.4050, L100.0100, L501.2450 #### [facility] Laboratory [address] [place], [address] IG% 0.400 Normal 0.0-0.9 [facility] Comment on above: Result Comment: IG% - Immature Granulocytes (promyelocytes, myelocytes and metamyelocytes) > 1% indicates that a LEFT SHIFT is Present. Performed By: #### L 500.4050, L100.0100, L501.2450 #### [facility] [address] [place], [address] Lymphocytes/100 WBC (Bld) 19.9 % Normal 19-41 [facility] Comment on above: Performed By: #### L 500.4050, L100.0100, L501.2450 #### [facility] Laboratory [address] [place], [address] MCH (RBC) [Entitic mass] 28.4 pg Normal 27.0-32.0 [facility] Comment on above: Performed By: #### L 500.4050, L100.0100, L501.2450 #### [facility] Laboratory [address] [place], [address] MCHC (RBC) [Mass/Vol] 32.3 g/dL Normal 32-36 [facility] Comment on above: Performed By: #### L 500.4050, L100.0100, L501.2450 #### [facility] Laboratory [address] [place], [address] MCV (RBC) [Entitic vol] 87.8 fL Normal 81-99 [facility] Comment on above: Performed By: #### L 500.4050, L100.0100, L501.2450 #### [facility] Laboratory [address] [place], [address] Monocytes/100 WBC (Bld) 7.4 % Normal 0-10 [facility] Comment on above: Performed By: #### L 500.4050, L100.0100, L501.2450 #### [facility] Laboratory [address] [place], [address] Neutrophils/100 WBC (Bld) 70.2 % High 47-70 [facility] Comment on above: Performed By: #### L 500.4050, L100.0100, L501.2450 #### [facility] [address] [place], [address] Nucleated RBC (Bld) [#/Vol] 0 10*3/uL Normal 0-5 [facility] Comment on above: Performed By: #### L 500.4050, L100.0100, L501.2450 #### [facility] [address] [place], [address] Platelet mean volume (Bld) [Entitic vol] 9.2 fL Normal 6.2-12.0 [facility] Comment on above: Performed By: #### L 500.4050, L100.0100, L501.2450 #### [facility] [address] [place], [address] Platelets (Bld) [#/Vol] 275 10*3/uL Normal 150-450 [facility] Comment on above: Performed By: #### L 500.4050, L100.0100, L501.2450 #### [facility] [address] [place], [address] RBC (Bld) [#/Vol] 5.00 10*6/uL Normal 4.2-5.4 [facility] Comment on above: Performed By: #### L 500.4050, L100.0100, L501.2450 #### [facility] [address] [place], [address] RDW SD 40.1 fl Normal 35.1-43.9 [facility] Comment on above: Performed By: #### L 500.4050, L100.0100, L501.2450 #### [facility] [address] [place] [place], [address] WBC (Bld) [#/Vol] 10.3 10*3/uL Normal 4.4-11.0 [facility] Comment on above: Performed By: #### L 500.4050, L100.0100, L501.2450 #### [facility] [address] [place] [place], [address] Chest PA and Lateralon 06-18 Chest PA and Lateral [facility] Imaging Services [address] [place] [address] Chest PA and Lateral MR#: [id number] Acct: [id number] Name: ALINE BOLAÑOS Rep #: [id number] : 1965 F 59 From: Theresa Aguiar MD PCP: MICHAEL Beach Status: REG CLI Study: Chest PA and Lateral Date of Exam: 06/18/24 Exam# [id number] Ordering Dr: Lisette Richardson DO [id number] INDICATION: Abdominal pain/right SIDE PAIN EXAMINATION/TECHNIQUE: X-RAY [...] CC: MICHAEL Corea; Dr. Lisette Richardson DO Instructor Physical Education: Signed Normal [facility] Comprehensive Metabolic Prof omar 06-18-2024 Albumin [Mass/Vol] 4.3 g/dL Normal 3.2-5.0 [facility] Comment on above: Performed By: #### L 500.4050, L100.0100, L501.2450 #### [facility] [address] [place], [address] Albumin/Globulin [Mass ratio] 1.1 {ratio} Normal 0.9-2.4 [facility] Comment on above: Performed By: #### L 500.4050, L100.0100, L501.2450 #### [facility] [address] [place], [address] ALK P 129 U/L High 45-117 [facility] Comment on above: Performed By: #### L 500.4050, L100.0100, L501.2450 #### [facility] [address] [place], [address] ALT [Catalytic activity/Vol] 21 U/L Normal 13-56 [facility] Comment on above: Performed By: #### L 500.4050, L100.0100, L501.2450 #### [facility] [address] [place], [address] AST [Catalytic activity/Vol] 13 U/L Low 15-37 [facility] Comment on above: Performed By: #### L 500.4050, L100.0100, L501.2450 #### [facility] [address] [place], [address] Bilirubin [Mass/Vol] 0.70 mg/dL Normal 0.20-1.00 [facility] Comment on above: Result Comment: For patients on eltrombopag therapy, use of Dimension Norman TBIL is not recommended. Performed By: #### L 500.4050, L100.0100, L501.2450 #### [facility] [address] [place], [address] BUN/CRE 18.9 RATIO Normal 10-20 [facility] Comment on above: Performed By: #### L 500.4050, L100.0100, L501.2450 #### [facility] Laboratory [address] [place], [address] CA,Total 9.8 mg/dL Normal 8.5-10.1 [facility] Comment on above: Performed By: #### L 500.4050, L100.0100, L501.2450 #### [facility] Laboratory [address] [place], [address] Chloride [Moles/Vol] 102 mmol/L Normal 98-107 [facility] Comment on above: Performed By: #### L 500.4050, L100.0100, L501.2450 #### [facility] [address] [place], [address] CO2 [Moles/Vol] 26.0 mmol/L Normal 21.0-32.0 [facility] Comment on above: Performed By: #### L 500.4050, L100.0100, L501.2450 #### [facility] [address] [place], [address] Creatinine [Mass/Vol] 0.80 mg/dL Normal 0.55-1.02 [facility] Comment on above: Result Comment: The validity of the calculated GFR GFRAA in patients over 70 years has not been determined. Clinical correlation is essential. Performed By: #### L 500.4050, L100.0100, L501.2450 #### [facility] [address] [place], [address] EST GFR - AA 94 mL/min Normal >60 [facility] Comment on above: Result Comment: Afri can [place] GFR Calc Performed By: #### L 500.4050, L100.0100, L501.2450 #### [facility] [address] [place], [address] GAP 8 Normal 5-15 [facility] Comment on above: Performed By: #### L 500.4050, L100.0100, L501.2450 #### [facility] [address] [place], [address] GFR/1.73 sq M.predicted among non-blacks MDRD (S/P/Bld) [Vol rate/Area] 78 mL/min/{1.73_m2} Normal >60 [facility] Comment on above: Result Comment: Non- GFR Calc Performed By: #### L 500.4050, L100.0100, L501.2450 #### [facility] [address] [place], [address] Globulin (S) [Mass/Vol] 3.9 g/dL Normal 2.2-4.2 [facility] Comment on above: Performed By: #### L 500.4050, L100.0100, L501.2450 #### [facility] [address] [place], [address] Glucose [Mass/Vol] 89 mg/dL Normal 74-106 [facility] Comment on above: Performed By: #### L 500.4050, L100.0100, L501.2450 #### [facility] [address] [place], [address] Potassium [Moles/Vol] 3.7 mmol/L Normal 3.5-5.1 [facility] Comment on above: Performed By: #### L 500.4050, L100.0100, L501.2450 #### [facility] [address] [place], [address] Sodium [Moles/Vol] 136 mmol/L Normal 136-145 [facility] Comment on above: Performed By: #### L 500.4050, L100.0100, L501.2450 #### [facility] [address] [place], [address] T PROT 8.2 g/dL Normal 6.4-8.2 [facility] Comment on above: Performed By: #### L 500.4050, L100.0100, L501.2450 #### [facility] [address] [place] [place], [address] Urea nitrogen [Mass/Vol] 15 mg/dL Normal 7-18 [facility] Comment on above: Performed By: #### L 500.4050, L100.0100, L501.2450 #### [facility] [address] [place], [address] Lipaseon 06-18-2024 Lipase [Catalytic activity/Vol] 33 U/L Normal 13-75 [facility] Comment on above: Result Comment: Nai caldera note: LIPASE revised reference range effective 22. New Lipase methodology. Expected to produce lower values than the previous assay method. NEW Reference Range: 13 - 75 U/L Performed By: #### L 500.4050, L100.0100, L501.2450 #### [facility] [address] [place], [address] Thoracic Spine 3 Viewson Thoracic Spine 3 Views [facility] Imaging Services [address] [place] [address] Thoracic Spine 3 Views MR#: [id number] Acct: [id number] Name: ALINE BOLAÑOS Rep #: [id number] : 1965 F 59 From: Luc Mccarty MD PCP: MICHAEL Beach Status: REG CLI Study: Thoracic Spine 3 Views Date of Exam: 06/18/24 Exam# [id number] Ordering Dr: Lisette Richardson DO [id number] EXAM: XR THORACIC SPINE, 3 VIEWS CLINICAL [...] CC: MICHAEL Corea; Dr. Lisette Richardson DO Instructor Physical Education: Signed Normal [facility] Basophil percentageOrdered B y: Alanna Avila on 11-06-2023 Chloride [Moles/Vol] 108 mmol/L 98-107 [facility] Glucose [Mass/Vol] 89 mg/dL 74-106 [facility] Potassium [Moles/Vol] 3.9 mmol/L 3.5-5.1 [facility] Sodium [Moles/Vol] 138 mmol/L 136-145 [facility] - Chemistry and C hemistry - challengeOrdered By: Alanna Avila on 11-06-2023 CO2 [Moles/Vol] 26.0 mmol/L 21.0-32.0 [facility] Urea nitrogen/Creatinine [Mass ratio] 20.3 mg/mg - [facility] No Panel InformationOrdered By: Alanna Avila on 11-06-2023 Estimated GFR (MDRD) Amer 103 mL/min >60 [facility] Comment on above: GFR Calc Estimated GFR (MDRD) Non-Af Amer 85 mL/min >60 [facility] Comment on above: Non- GFR Calc Vitamin D 25-Hydroxy 65.3 ng/mL [facility] Comment on above: Vitamin D 25(OH) Sta tus Range Deficiency <20 ng/mL (50nmol/L) Insufficiency 20 - 30 ng/mL (50 - 75 nmol/L) Sufficiency 30 - 100 ng/mL (75 - 250 nmol/L) Toxicity >100 ng/mL (>250 nmol/L) Serum or plasma calcium bria urement (mass/volume)Ordered By: Alanna Avila on 11-06-2023 Calcium [Mass/Vol] 9.4 mg/dL 8.5-10.1 [facility] Serum or plasma creatinine m easurement (mass/volume)Ordered By: Alanna Avila on 11-06-2023 Creatinine [Mass/Vol] 0.74 mg/dL 0.55-1.02 [facility] Comment on above: The validity of the calculated GFR & GFRAA in patients over 70 years has not been determined. Clinical correlation is essential. Serum or plasma thyroid stim ulating hormone (TSH) measurement (units/volume)Ordered By: Alannahilary Avila on 11-06-2023 TSH Qn 1.33 uIU/mL 0.358-3.74 [facility] Serum or plasma urea nitroge n measurement (mass/volume)Ordered By: Alannahilary Avila on 11-06-2023 Urea nitrogen [Mass/Vol] 15 mg/dL 7-18 [facility] Thin prep Papanicolaou smear with manual screeningOrdered By: [facility] Margarita on 11-06-2023 Thin prep Papanicolaou smear with manual screening 4 5-15 [facility] Thin prep Papanicolaou smear with manual screening 1.60 ng/dL 0.76-1.46 [facility] Basophil percentageOrdered B y: Swapna Corea on 08-30-2023 Bilirubin [Mass/Vol] 0.50 mg/dL 0.20-1.00 [facility] Comment on above: For patients on eltr ombopag therapy, use of Dimension Norman TBIL is not recommended. Cholesterol [Mass/Vol] 163 mg/dL <200 [facility] Comment on above: <200 mg/dL Desirable 200-240 mg/dL Borderline >240 mg/dL High Risk Protein [Mass/Vol] 7.5 g/dL 6.4-8.2 [facility] Triglyceride [Mass/Vol] 101 mg/dL <199 [facility] Comment on above: The drugs N-Acetylcy steine and Metamizole may falsely depress this assay.Serum Triglycerides Reference Interval Normal <150 mg/dL Borderline high 150 - 199 mg/dL High 200 - 499 mg/dL Very High > or = 500 mg/dL Direct bilirubinOrdered By: Swapna Corea on 08-30-2023 Bilirubin.direct [Mass/Vol] 0.15 mg/dL 0.00-0.30 [facility] - Chemistry and C hemistry - challengeOrdered By: Swapna Corea on 08-30-2023 ALP [Catalytic activity/Vol] 116 U/L 45-117 [facility] ALT [Catalytic activity/Vol] 23 U/L 13-56 [facility] Cholesterol in HDL (Body fld) [Mass/Vol] 50 mg/dL >40 [facility] Comment on above: The drugs N-Acetylcy steine and Metamizole may falsely depress this assay. Reference Range HDL <40 mg/dL Low HDL Cholesterol HDL >or= 60 mg/dL High HDL Cholesterol Cholesterol in LDL (Body fld) [Moles/Vol] 93 mg/dL 0-130 [facility] Cholesterol in VLDL Calc [Moles/Vol] 20 mg/dL 5-40 [facility] Globulin (S) [Mass/Vol] 3.7 g/dL 2.2-4.2 [facility] Thin prep Papanicolaou smear with manual screeningOrdered By: Swapna Corea on 08-30-2023 Thin prep Papanicolaou smear with manual screening 3.8 g/dL 3.2-5.0 [facility] Thin prep Papanicolaou smear with manual screening 12 U/L 15-37 [facility] .Auto Diffon 05-27-2023 Basophil, Absolute 0.0 10 3/mcL Normal 0.0-0.2 [facility] ([place]) Comment on above: Performed By: #### L IP, GFR, ADIFF, ANEU, MDW, CBC, TROPHS, CMP #### [facility] [address] [address] Basophils/100 WBC (Bld) 0.1 % Normal 0.0-2.5 [facility] ([place]) Comment on above: Performed By: #### L IP, GFR, ADIFF, ANEU, MDW, CBC, TROPHS, CMP #### [address] [address] Eosinophil, Absolute 0.0 10 3/mcL Normal 0.0-0.4 [facility] ([place] Comment on above: Performed By: #### L IP, GFR, ADIFF, ANEU, MDW, CBC, TROPHS, CMP #### [address] [address] Eosinophils/100 WBC (Bld) 0.1 % Normal 0.0-7.0 [facility] ([place]) Comment on above: Performed By: #### L IP, GFR, ADIFF, ANEU, MDW, CBC, TROPHS, CMP #### [address] [address] Lymphocyte, Absolute 0.7 10 3/mcL Low 0.8-3.9 [facility] ([place] Comment on above: Performed By: #### L IP, GFR, ADIFF, ANEU, MDW, CBC, TROPHS, CMP #### [address] [address] Lymphocytes/100 WBC (Bld) 4.5 % Low 10.0-50.0 [facility] ([place]) Comment on above: Performed By: #### L IP, GFR, ADIFF, ANEU, MDW, CBC, TROPHS, CMP #### [address] [address] Monocyte, Absolute 0.5 10 3/mcL Normal 0.2-1.0 [facility] ([place]) Comment on above: Performed By: #### L IP, GFR, ADIFF, ANEU, MDW, CBC, TROPHS, CMP #### [address] [address] Monocytes/100 WBC (Bld) 3.2 % Normal 1.7-13.0 [facility] ([place]) Comment on above: Performed By: #### L IP, GFR, ADIFF, FRIDA, KIRSTY, CBC, TROPHS, CMP #### [address] [address] Neutrophils/100 WBC (Bld) 92.1 % High 37.0-80.0 [facility] ([place]) Comment on above: Performed By: #### L IP, GFR, ADIFF, FRIDA, W, CBC, TROPHS, CMP #### [address] [address] .GFRon 05-27-2023 GFR 79 ml/min/1.73sqm Normal [facility] ([place]) Comment on above: Result Comment: GFR [...] ADIFF, FRIDA, W, CBC, TROPHS, CMP #### [address] [address] GFR Non- 66 ml/min/1.73sqm Normal [facility] ([place]) Comment on above: Result Comment: GFR [...] ADIFF, ANEU, MDW, CBC, TROPHS, CMP #### [place] [id number] .MDWon 05-27-2023 Monocyte Distribution Width 16.33 Normal 0.00-20.00 [facility] ([place]) Comment on above: Result Comment: For ED adult patients suspected of sepsis, MDW<=20.0 does not rule out sepsis or risk of sepsis Performed By: #### L IP, GFR, ADIFF, ANEU, MDW, CBC, TROPHS, CMP #### [place] [address] .NEUABSon 05-27-2023 Neutrophil, Absolute 14.0 10 3/mcL High 2.9-6.2 A [facility] ([place]) Comment on above: Performed By: #### L IP, GFR, ADIFF, ANEU, MDW, CBC, TROPHS, CMP #### [place] [address] CBCon 05-27-2023 Erythrocyte distribution width (RBC) [Ratio] 13.1 % Normal 11.5-14.5 [facility] ([place]) Comment on above: Performed By: #### L IP, GFR, ADIFF, ANEU, MDW, CBC, TROPHS, CMP #### [place] [address] Hematocrit (Bld) [Volume fraction] 43.3 % Normal 37.0-47.0 [facility] ([place]) Comment on above: Performed By: #### L IP, GFR, ADIFF, ANEU, MDW, CBC, TROPHS, CMP #### [place] [address] Hgb 14.6 G/dL Normal 12.0-16.0 [facility] ([place]) Comment on above: Performed By: #### L IP, GFR, ADIFF, ANEU, MDW, CBC, TROPHS, CMP #### [address] [address] MCH (RBC) [Entitic mass] 29.3 pg Normal 27.0-31.2 [facility] ([place]) Comment on above: Performed By: #### L IP, GFR, ADIFF, ANEU, MDW, CBC, TROPHS, CMP #### [address] [address] MCHC 33.8 G/dL Normal 33.0-37.0 [facility] ([place]) Comment on above: Performed By: #### L IP, GFR, ADIFF, ANEU, MDW, CBC, TROPHS, CMP #### [address] [address] MCV (RBC) [Entitic vol] 86.5 fL Normal 80.0-94.0 [facility] ([place]) Comment on above: Performed By: #### L IP, GFR, ADIFF, ANEU, MDW, CBC, TROPHS, CMP #### [address] [address] Platelet 209 10 3/mcL Normal 130-400 [facility] ([place]) Comment on above: Performed By: #### L IP, GFR, ADIFF, ANEU, MDW, CBC, TROPHS, CMP #### [address] [address] Platelet mean volume (Bld) [Entitic vol] 7.1 fL Low 7.4-10.4 [facility] ([place]) Comment on above: Performed By: #### L IP, GFR, ADIFF, ANEU, MDW, CBC, TROPHS, CMP #### [address] [address] RBC 5.00 10 6/mcL Normal 4.20-5.40 [facility] ([place]) Comment on above: Performed By: #### L IP, GFR, ADIFF, ANEU, MDW, CBC, TROPHS, CMP #### [address] [address] WBC 15.2 10 3/mcL High 4.6-10.8 [facility] ([place]) Comment on above: Performed By: #### L IP, GFR, ADIFF, FRIDA, MDW, CBC, TROPHS, CMP #### [address] [address] CMPon 05-27-2023 Albumin Level 4.5 G/dL Normal 3.4-4.8 [facility] ([place]) Comment on above: Performed By: #### L IP, GFR, ADIFF, ANEU, MDW, CBC, TROPHS, CMP #### [address] [address] Albumin/Globulin [Mass ratio] 1.4 {ratio} Normal 1.1-2.5 [facility] ([place]) Comment on above: Performed By: #### L IP, GFR, ADIFF, ANEU, MDW, CBC, TROPHS, CMP #### [address] [address] ALP [Catalytic activity/Vol] 146 U/L High 40-135 [facility] ([place]) Comment on above: Performed By: #### L IP, GFR, ADIFF, ANEU, MDW, CBC, TROPHS, CMP #### [address] [address] ALT [Catalytic activity/Vol] 21 U/L Normal 14-59 [facility] ([place]) Comment on above: Performed By: #### L IP, GFR, ADIFF, ANEU, MDW, CBC, TROPHS, CMP #### [address] [address] AST [Catalytic activity/Vol] 17 U/L Normal 10-40 [facility] ([place]) Comment on above: Performed By: #### L IP, GFR, ADIFF, ANEU, MDW, CBC, TROPHS, CMP #### [address] [address] Bili Total 1.0 mg/dL Normal 0.2-1.0 [facility] ([place]) Comment on above: Result Comment: Use of this assay is not recommended for patients undergoing treatment with eltrombopag due to the potential for falsely elevated results. Performed By: #### L IP, GFR, ADIFF, ANEU, MDW, CBC, TROPHS, CMP #### [address] [address] BUN/Creatinine Ratio 20 ratio Normal 7-27 [facility] ([place]) Comment on above: Performed By: #### L IP, GFR, ADIFF, ANEU, MDW, CBC, TROPHS, CMP #### [address] [address] Calcium [Mass/Vol] 9.1 mg/dL Normal 8.4-10.2 [facility] ([place]) Comment on above: Performed By: #### L IP, GFR, ADIFF, ANEU, MDW, CBC, TROPHS, CMP #### [address] [address] Chloride [Moles/Vol] 96 mmol/L Low 98-107 [facility] ([place]) Comment on above: Performed By: #### L IP, GFR, ADIFF, ANEU, MDW, CBC, TROPHS, CMP #### [address] [address] CO2 [Moles/Vol] 24 mmol/L Normal 23-31 [facility] ([place]) Comment on above: Performed By: #### L IP, GFR, ADIFF, ANEU, MDW, CBC, TROPHS, CMP #### [address] [address] Creatinine [Mass/Vol] 0.88 mg/dL Normal 0.55-1.02 [facility] ([place]) Comment on above: Performed By: #### L IP, GFR, ADIFF, ANEU, MDW, CBC, TROPHS, CMP #### [address] [address] Electrolyte Balance 14.0 mEq/L Normal 4.0-15.0 [facility] ([place]) Comment on above: Performed By: #### L IP, GFR, ADIFF, ANEU, MDW, CBC, TROPHS, CMP #### [address] [address] Globulin 3.3 G/dL Normal [facility] ([place]) Comment on above: Performed By: #### L IP, GFR, ADIFF, ANEU, MDW, CBC, TROPHS, CMP #### [address] [address] Glucose [Mass/Vol] 149 mg/dL High 80-115 [facility] ([place]) Comment on above: Performed By: #### L IP, GFR, ADIFF, ANEU, MDW, CBC, TROPHS, CMP #### [address] [address] Potassium [Moles/Vol] 4.3 mmol/L Normal 3.5-5.1 [facility] ([place]) Comment on above: Performed By: #### L IP, GFR, ADIFF, ANEU, MDW, CBC, TROPHS, CMP #### [address] [address] Sodium [Moles/Vol] 134 mmol/L Low 136-145 [facility] ([place]) Comment on above: Performed By: #### L IP, GFR, ADIFF, ANEU, MDW, CBC, TROPHS, CMP #### [address] [address] Total Protein 7.8 G/dL Normal 6.4-8.2 [facility] ([place]) Comment on above: Performed By: #### L IP, GFR, ADIFF, ANEU, MDW, CBC, TROPHS, CMP #### [address] [address] Urea nitrogen [Mass/Vol] 18 mg/dL Normal 7-18 [facility] ([place]) Comment on above: Performed By: #### L IP, GFR, ADIFF, ANEU, MDW, CBC, TROPHS, CMP #### [address] [address] [address] ABD/PELVIS W/ IV CONTRAST ONLYon 05-27-2023 [...] 9:43:32 PM Ordering Provider: DAT IVY Normal [facility] ([place]) LIPon 05-27-2023 Lipase Level 25 U/L Normal 16-77 [facility]) Comment on above: Performed By: #### L IP, GFR, ADIFF, ANEU, MDW, CBC, TROPHS, CMP #### [address] [address] TROPHSon 05-27-2023 Troponin I High Sensitivity 4.4 ng/L Normal 0.0-51.4 [facility]) Comment on above: Performed By: #### L IP, GFR, ADIFF, ANEU, MDW, CBC, TROPHS, CMP #### [address] [address] UAon 05-27-2023 Color (U) Yellow Normal [facility] ([place]) Comment on above: Performed By: #### U A #### [address] [address] Glucose (U) [Mass/Vol] Negative Normal Negative [facility] ([place]) Comment on above: Performed By: #### U A #### [address] [address] Ketones Ql (U) >=160 Abnormal Negative [facility] ([place]) Comment on above: Performed By: #### U A #### [address] [address] UA Appear Clear Normal Clear [facility] ([place]) Comment on above: Performed By: #### U A #### [address] [address] UA Blood Negative Normal Negative [facility] ([place]) Comment on above: Performed By: #### U A #### [address] [address] UA Leuk Est Negative Normal Negative [facility] ([place]) Comment on above: Performed By: #### U A #### [address] [address] UA Nitrite Negative Normal Negative [facility] ([place]) Comment on above: Performed By: #### U A #### [address] [address] UA pH 5.5 Normal 5.0 - 8.0 [facility] ([place]) Comment on above: Performed By: #### U A #### [address] [address] UA Protein Negative Normal Negative [facility] ([place]) Comment on above: Performed By: #### U A #### [address] [address] UA Spec Grav 1.025 Normal 1.015-1.025 [facility] ([place]) Comment on above: Performed By: #### U A #### [address] [address] UA Specimen Type Void Normal [facility] ([place]) Comment on above: Performed By: #### U A #### [place] [address] UA Urobilinogen 0.2 E.U./dL Normal 0.2-1.0 [facility] ([place]) Comment on above: Performed By: #### U A #### [place] [address] Urobilinogen (U) [Mass/Vol] Negative Normal Negative [facility] ([place]) Comment on above: Performed By: #### U A #### [place] [address] Basophil percentageOrdered B y: Alanna Avila on 05-06-2023 Chloride [Moles/Vol] 105 mmol/L 98-107 [facility] Glucose [Mass/Vol] 95 mg/dL 74-106 [facility] Potassium [Moles/Vol] 3.7 mmol/L 3.5-5.1 [facility] Sodium [Moles/Vol] 138 mmol/L 136-145 [facility] - Chemistry and C hemistry - challengeOrdered By: Alanna Avila on 05-06-2023 CO2 [Moles/Vol] 26.0 mmol/L 21.0-32.0 [facility] Free T4 [Mass/Vol] 1.45 ng/dL 0.76-1.46 [facility] Urea nitrogen/Creatinine [Mass ratio] 21.8 mg/mg - [facility] No Panel InformationOrdered By: Alanna Avila on 05-06-2023 Estimated GFR (MDRD) Amer 91 mL/min >60 [facility] Comment on above: GFR Calc Estimated GFR (MDRD) Non-Af Amer 75 mL/min >60 [facility] Comment on above: Non- GFR Calc Thyroid Stimulating Hormone (TSH) 0.96 uIU/mL 0.358-3.74 [facility] Serum or plasma calcium bria urement (mass/volume)Ordered By: Alanna Avila on 05-06-2023 Calcium [Mass/Vol] 9.4 mg/dL 8.5-10.1 [facility] Serum or plasma creatinine m easurement (mass/volume)Ordered By: Alanna Avila on 05-06-2023 Creatinine [Mass/Vol] 0.82 mg/dL 0.55-1.02 [facility] Comment on above: The validity of the calculated GFR & GFRAA in patients over 70 years has not been determined. Clinical correlation is essential. Serum or plasma urea nitroge n measurement (mass/volume)Ordered By: Alanna Avila on 05-06-2023 Urea nitrogen [Mass/Vol] 18 mg/dL 7-18 [facility] Thin prep Papanicolaou smear with manual screeningOrdered By: Alanna Avila on 05-06-2023 Thin prep Papanicolaou smear with manual screening 7 5-15 [facility] XR FOOT LEFT 3+ VIEWS (STAND [...] unspecified whether rheumatoid factor present ([facility]) COMPARISON: None. FINDINGS: Three views of the left foot. No fractures. Hallux valgus deformity with mild osteoarthrosis of the 1st metatarsophalangeal joint. No periarticular osteopenia or erosions. Plantar calcaneal and Achilles insertional enthesophytes. Normal soft tissues. IMPRESSION: No evidence of erosive arthropathy. 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 Plantar calcaneal and Achilles insertional enthesophytes. [facility] Workstation ID: [id number] Dictated by: JOLYNN THIBODEAUX on SatAug 08, 2022 6:25:44 AM EST Transcribed by: DIMAS BURRELL on SatAug 08, 2022 6:27:37 AM EST Finalized by: JOLYNN THIBODEAUX on SatAug 08, 2022 6:48:08 AM EST [facility] Comment on above: Order Comment: Injur [...] unspecified whether rheumatoid factor present ([facility]) COMPARISON: None. FINDINGS: Three views of the right foot. No fractures. Evidence of prior osteotomy of the 1st metatarsal head. Moderate degenerative changes of the 1st metatarsophalangeal joint. No periarticular osteopenia or erosions. Plantar calcaneal and Achilles insertional enthesophytes. Normal soft tissues. IMPRESSION: No evidence of erosive arthropathy. 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 Plantar calcaneal and Achilles insertional enthesophytes. [employer] Workstation ID: [id number] Dictated by: JOLYNN THIBODEAUX on SatAug 08, 2022 6:24:45 AM EST Transcribed by: CHACORTA CHATMAN on SatAug 08, 2022 6:27:10 AM EST Finalized by: JOLYNN THIBODEAUX on SatAug 08, 2022 6:48:14 AM EST [facility] Comment on above: Order Comment: Injur [...] mild degenerative changes throughout the interphalangeal joints. [employer] Workstation ID: [id number] Dictated by: JOLYNN THIBODEAUX on SatAug 08, 2022 6:26:49 AM EST Transcribed by: CHACORTA CHATMAN on SatAug 08, 2022 6:27:59 AM EST Finalized by: JOLYNN THIBODEAUX on SatAug 08, 2022 6:48:03 AM EST Normal [facility] [...] on SatAug 06, 2022 6:22:06 PM EST [facility] Comment on above: Order Comment: AP/LA [...] by: JASON JARVIS MD, Date: 07/05/2022 10:37 [facility] Comment on above: Order Comment: CONTR AST PER RADIOLOGIST DISCRETION No Oral or IV contrast Absolute lymphocyte counton 05-08-2022 Lymphocytes Auto (Unsp spec) [#/Vol] 2.11 10*3/uL 0.83-4.51 [facility] Work Phone: Basophil percentageon 2021 Basophils/100 WBC (Bld) 0.2 % 0-1 [facility] Work Phone: Bilirubin [Mass/Vol] 0.40 mg/dL 0.20-1.00 [facility] Work Phone: Comment on above: For patients on eltr ombopag therapy, use of Dimension Norman TBIL is not recommended. Chloride [Moles/Vol] 108 mmol/L 98-107 [facility] Work Phone: Eosinophils/100 WBC (Bld) 2.3 % 0-5 [facility] Work Phone: Glucose [Mass/Vol] 98 mg/dL 74-106 [facility] Work Phone: Neutrophils (Bld) [#/Vol] 5.1 10*3/uL 2.0-7.7 [facility] Work Phone: Neutrophils/100 WBC (Bld) 63.3 % 47-70 [facility] Work Phone: Potassium [Moles/Vol] 3.7 mmol/L 3.5-5.1 [facility] Work Phone: Protein [Mass/Vol] 7.8 g/dL 6.4-8.2 [facility] Work Phone: Sodium [Moles/Vol] 140 mmol/L 136-145 [facility] Work Phone: WBC (Bld) [#/Vol] 8.1 10*3/uL 4.4-11.0 [facility] Work Phone: Blood erythrocytes count (nu mber/volume)on 05-08-2022 RBC (Bld) [#/Vol] 4.46 10*6/uL 4.2-5.4 [facility] Work Phone: Blood hemoglobin measurement (mass/volume)on 05-08-2022 Hemoglobin (Bld) [Mass/Vol] 13.0 g/dL 12.0-15.0 [facility] Work Phone: Blood lymphocytes/100 leukoc yteson 05-08-2022 Lymphocytes/100 WBC (Bld) 25.9 % 19-41 [facility] Work Phone: Blood monocytes/100 leukocyt eson 05-08-2022 Monocytes/100 WBC (Bld) 8.1 % 0-10 [facility] Work Phone: Blood platelet mean volumeon 05-08-2022 Platelet mean volume (Bld) [Entitic vol] 9.0 fL 6.2-12.0 [facility] Work Phone: Determination of erythrocyte mean corpuscular volume (MCV)on 05-08-2022 MCV (RBC) [Entitic vol] 87.2 fL 81-99 [facility] Work Phone: Hematocrit Auto (Bld) [Volum e fraction]on 05-08-2022 Hematocrit (Bld) [Volume fraction] 38.9 % 37-47 [facility] Work Phone: Laboratory - Chemistry and C hemistry - challengeon 05-08-2022 ALP [Catalytic activity/Vol] 133 U/L 45-117 [facility] Work Phone: [phone] ALT [Catalytic activity/Vol] 20 U/L 13-56 [facility] Work Phone: CO2 [Moles/Vol] 26.0 mmol/L 21.0-32.0 [facility] Work Phone: Cobalamin (Vitamin B12) [Mass/Vol] 347 pg/mL 211-911 [facility] Work Phone: Free T4 [Mass/Vol] 1.50 ng/dL 0.76-1.46 [facility] Work Phone: Globulin (S) [Mass/Vol] 3.9 g/dL 2.2-4.2 [facility] Work Phone: Urea nitrogen/Creatinine [Mass ratio] 14.9 mg/mg 10- [facility] Work Phone: Laboratory - Hematology and Cell countson 05-08-2022 Erythrocyte distribution width (RBC) [Entitic vol] 41.2 fL 35.1-43.9 [facility] Work Phone: Erythrocyte distribution width (RBC) [Ratio] 12.9 % 11.6-14.6 [facility] Work Phone: Immature granulocytes/100 WBC (Bld) 0.200 % 0.0-0.9 [facility] Work Phone: Comment on above: IG% - Immature Granu locytes (promyelocytes, myelocytes and metamyelocytes) > 1% indicates that a LEFT SHIFT is Present. MCH (RBC) [Entitic mass] 29.1 pg 27.0-32.0 [facility] Work Phone: Nucleated RBC/100 WBC (Bld) [Ratio] 0 % 0-5 [facility] Work Phone: MCHC Auto (RBC) [Mass/Vol]on 05-08-2022 MCHC (RBC) [Mass/Vol] 33.4 g/dL 32-36 [facility] Work Phone: No Panel Informationon 05-08 Estimated GFR (MDRD) Amer 93 mL/min >60 [facility] Work Phone: Comment on above: GFR Calc Estimated GFR (MDRD) Non-Af Amer 77 mL/min >60 [facility] Work Phone: Comment on above: Non- GFR Calc Thyroid Stimulating Hormone (TSH) 0.86 uIU/mL 0.358-3.74 [facility] Work Phone: Platelets bldon 05-08-2022 Platelets (Bld) [#/Vol] 263 10*3/uL 150-450 [facility] Work Phone: Serum or plasma albumin bria urement (mass/volume)on 05-08-2022 Albumin [Mass/Vol] 3.9 g/dL 3.2-5.0 [facility] Work Phone: Serum or plasma albumin/glob ulin mass ratioon 05-08-2022 Albumin/Globulin [Mass ratio] 1.0 {ratio} 0.9-2.4 [facility] Work Phone: Serum or plasma calcium bria urement (mass/volume)on 05-08-2022 Calcium [Mass/Vol] 9.1 mg/dL 8.5-10.1 [facility] Work Phone: Serum or plasma creatinine m easurement (mass/volume)on 05-08-2022 Creatinine [Mass/Vol] 0.81 mg/dL 0.55-1.02 [facility] Work Phone: Comment on above: The validity of the calculated GFR & GFRAA in patients over 70 years has not been determined. Clinical correlation is essential. Serum or plasma urea nitroge n measurement (mass/volume)on 05-08-2022 Urea nitrogen [Mass/Vol] 12 mg/dL 7-18 [facility] Work Phone: Thin prep Papanicolaou smear with manual screeningon 05-08-2022 Thin prep Papanicolaou smear with manual screening 12 U/L 15-37 [facility] Work Phone: Thin prep Papanicolaou smear with manual screening 6 5-15 [facility] Work Phone: Culture, urineon 12-15-2021 Bacteria identified Cx Nom (U) Positive [facility] Work Phone: Laboratory - Chemistry and C hemistry - challengeon 11-17-2021 Cobalamin (Vitamin B12) [Mass/Vol] 349 pg/mL 211-911 [facility] Work Phone: Free T4 [Mass/Vol] 1.44 ng/dL 0.76-1.46 [facility] Work Phone: No Panel Informationon 11-17 Thyroid Stimulating Hormone (TSH) 0.51 uIU/mL 0.358-3.74 [facility] Work Phone: Vitamin D 25-Hydroxy 64.2 ng/mL [facility] Work Phone: Comment on above: Vitamin D 25(OH) Sta tus Range Deficiency <20 ng/mL (50nmol/L) Insufficiency 20 - 30 ng/mL (50 - 75 nmol/L) Sufficiency 30 - 100 ng/mL (75 - 250 nmol/L) Toxicity >100 ng/mL (>250 nmol/L) Serum or plasma ferritin shirley surement (mass/volume)on 11-17-2021 Ferritin [Mass/Vol] 87 ng/mL 8-252 [facility] Work Phone: Office Visit: UC: pyelonephr itison 06-27-2017 Documentation of current medications (procedure) Done Invalid Interpretation Code [facility] Work Phone: Fall risk assessment No Invalid Interpretation Code [facility] Work Phone: Tobacco smoking status NHIS Never Invalid Interpretation Code [facility] Work Phone: Tobacco smoking status ILIS Tobacco smoking status ILIS Invalid Interpretation Code [facility] Work Phone: Tobacco use [facility] Never smoker Invalid Interpretation Code [facility] Work Phone: Culture, urine Bacteria identified Cx Nom (U) Positive [facility] Work Phone: Vital Signs Date Time Vital Sign Value Performing Clinician Facility 04-22-2025 08:56-0400 Body height 157.48 cm Swapna Corea [employer] Work Phone: [facility] 04-22-2025 08:56-0400 Body mass index (BMI) [Ratio] 28.3 kg/m2 Swapna Corea [employer] Work Phone: [facility] 04-22-2025 08:56-0400 Body weight 70.39 kg Swapna Corea [employer] Work Phone: [facility] 04-22-2025 08:56-0400 Diastolic blood pressure 82 mm[Hg] Swapna Corea [employer] Work Phone: [facility] 04-22-2025 08:56-0400 Systolic blood pressure 125 mm[Hg] Swapna Corea [employer] Work Phone: [facility] 01-26-2025 06:07-0400 Body temperature 98.2 [degF] Swapna Anmol [employer] Work Phone: [facility] 01-26-2025 06:07-0400 Diastolic blood pressure 60 mm[Hg] Swapna Anmol [employer] Work Phone: [facility] 01-26-2025 06:07-0400 Heart rate 85 /min Swapna Anmol [employer] Work Phone: [facility] 01-26-2025 06:07-0400 Respiratory rate 16 /min Swapna Anmol [employer] Work Phone: [facility] 01-26-2025 06:07-0400 SaO2% (BldA) [Mass fraction] 99 % Swapna Anmol [employer] Work Phone: [facility] 01-26-2025 06:07-0400 Systolic blood pressure 104 mm[Hg] Swapna Anmol [employer] Work Phone: [facility] 01-11-2025 06:43-0400 Body height 157.48 cm Swapna Anmol [employer] Work Phone: [facility] 01-11-2025 06:43-0400 Body temperature 98.4 [degF] Swapna Anmol [employer] Work Phone: [facility] 01-11-2025 06:43-0400 Diastolic blood pressure 66 mm[Hg] Swapna Anmol [employer] Work Phone: [facility] 01-11-2025 06:43-0400 Heart rate 71 /min Swapna Anmol [employer] Work Phone: [facility] 01-11-2025 06:43-0400 Respiratory rate 16 /min Swapna Anmol [employer] Work Phone: [facility] 01-11-2025 06:43-0400 SaO2% (BldA) [Mass fraction] 98 % Swapna Anmol [employer] Work Phone: [facility] 01-11-2025 06:43-0400 Systolic blood pressure 110 mm[Hg] Swapna Anmol [employer] Work Phone: [facility] 01-11-2025 06:27-0400 Body mass index (BMI) [Ratio] 27.6 kg/m2 Swapna Anmol [employer] Work Phone: [facility] 01-11-2025 06:27-0400 Body temperature 98.4 [degF] Swapna Anmol [employer] Work Phone: [facility] 01-11-2025 06:27-0400 Body weight 68.49 kg Swapna Anmol [employer] Work Phone: [facility] 01-11-2025 06:27-0400 Diastolic blood pressure 62 mm[Hg] Swapna Anmol [employer] Work Phone: [facility] 01-11-2025 06:27-0400 Heart rate 58 /min Swapna Anmol [employer] Work Phone: [facility] 01-11-2025 06:27-0400 Respiratory rate 14 /min Swapna Anmol [employer] Work Phone: [facility] 01-11-2025 06:27-0400 SaO2% (BldA) [Mass fraction] 98 % Swapna Anmol [employer] Work Phone: [facility] 01-11-2025 06:27-0400 Systolic blood pressure 102 mm[Hg] Swapna Anmol [employer] Work Phone: [facility] 01-06-2025 21:00-0400 Body temperature 98.2 [degF] Swapna Anmol [employer] Work Phone: [facility] 01-06-2025 21:00-0400 Diastolic blood pressure 81 mm[Hg] Swapna Anmol [employer] Work Phone: [facility] 01-06-2025 21:00-0400 Heart rate 70 /min Swapna Anmol [employer] Work Phone: [facility] 01-06-2025 21:00-0400 Respiratory rate 18 /min Swapna Corea [employer] Work Phone: [facility] 01-06-2025 21:00-0400 SaO2% (BldA) [Mass fraction] 98 % Swapna Corea [employer] Work Phone: [facility] 01-06-2025 21:00-0400 Systolic blood pressure 150 mm[Hg] Swapna Corea [employer] Work Phone: [facility] 01-06-2025 13:16-0400 Body height 157.48 cm Swapna Corea [employer] Work Phone: [facility] 01-06-2025 13:16-0400 Body mass index (BMI) [Ratio] 27.6 kg/m2 Swapna Corea [employer] Work Phone: [facility] 01-06-2025 13:16-0400 Body weight 68.58 kg Swapna Corea [employer] Work Phone: [facility] 11-07-2022 08:24-0400 Body mass index (BMI) [Ratio] 29.29 kg/m2 Stephen Rey MD Work Phone: [facility] 11-07-2022 08:24-0400 Body weight 70.31 kg Stephen Rey MD Work Phone: [facility] 11-07-2022 08:24-0400 Diastolic blood pressure 79 mm[Hg] Stephen Rey MD Work Phone: [facility] 11-07-2022 08:24-0400 Heart rate 67 /min Stephen Rey MD Work Phone: [facility] 11-07-2022 08:24-0400 Systolic blood pressure 127 mm[Hg] Stephen Rey MD Work Phone: [facility] 11-17-2021 15:22-0400 Body height 157.[address] Satinder Griggs Work Phone: [facility] Work Phone: 11-17-2021 15:22-0400 Body mass index (BMI) [Ratio] 30.4 kg/m2 Dr. Satinder Griggs Work Phone: [facility] Work Phone: 11-17-2021 15:22-0400 Body temperature 97.2 [degF] Dr. Satinder Griggs Work Phone: [facility] Work Phone: 11-17-2021 15:22-0400 Body weight 75.[address] Satinder Griggs Work Phone: [facility] Work Phone: 11-17-2021 15:22-0400 Diastolic blood pressure 78 mm[Hg] Dr. Satinder Griggs Work Phone: [facility] Work Phone: 11-17-2021 15:22-0400 Heart rate 75 /min Dr. Satinder Griggs Work Phone: [facility] Work Phone: 11-17-2021 15:22-0400 Respiratory rate 18 /min Dr. Satinder Griggs Work Phone: [facility] Work Phone: 11-17-2021 15:22-0400 SaO2% (BldA) [Mass fraction] 98 % Dr. Satinder Griggs Work Phone: [facility] Work Phone: 11-17-2021 15:22-0400 Systolic blood pressure 120 mm[Hg] Dr. Satinder Griggs Work Phone: [facility] Work Phone: 06-27-2017 16:22-0500 BMI (Body Mass Index) 26.77 kg/m2 Jalen Mcdaniel [facility] Work Phone: 06-27-2017 16:22-0500 Body Temperature 97.5 [degF] Jalen SANCHES [facility] Work Phone: 06-27-2017 16:22-0500 BP Diastolic 78 mm[Hg] Jalen SANCHES [facility] Work Phone: 06-27-2017 16:22-0500 BP Systolic 128 mm[Hg] Jalen SANCHES [facility] Work Phone: 06-27-2017 16:22-0500 Height 162.56 cm Jalen Violeta SANCHES [facility] Work Phone: 06-27-2017 16:22-0500 Pulse (Heart Rate) 82 /min Jalen SANCHES [facility] Work Phone: 06-27-2017 16:22-0500 Respiratory Rate 14 /min Jalenez SANCHES [facility] Work Phone: 06-27-2017 16:22-0500 Weight 70.76 kg Jalen SANCHES [facility] Work Phone: Encounters Encounter Date Encounter Type Care Provider Facility Start: 06-11-2025 ambulatory Swapna Corea Facility:[facility] Start: 05-20-2025 End: 05-20-2025 ambulatory Swapna Corea Facility:[facility] Start: 05-13-2025 End: 05-13-2025 ambulatory Alanna Avila Facility:[facility] Start: 05-05-2025 ambulatory Yong SULLIVAN Facility:[facility] Start: 04-22-2025 End: 04-22-2025 ambulatory Swapna Corea [employer] Work Phone: -[facility] Start: 04-22-2025 End: 04-22-2025 Patient encounter procedure Michelle Quinn [employer] -[facility] Work Phone: Start: 02-18-2025 End: 02-18-2025 ambulatory Swapna Corea [employer] Work Phone: -[facility] Start: 02-18-2025 End: 02-18-2025 Patient encounter procedure Swapna Corea [employer] -[facility] Work Phone: Start: 02-18-2025 End: 02-18-2025 ambulatory Swapna Hanover Facility:[facility] Start: 01-26-2025 End: 01-26-2025 Patient encounter procedure Jalen Mcdaniel [facility] Work Phone: Start: 01-26-2025 End: 01-26-2025 ambulatory Swapna Corea [employer] Work Phone: -[facility] Start: 01-18-2025 End: 01-18-2025 Patient encounter procedure Jalen Mcdaniel PA -[facility] Work Phone: Start: 01-18-2025 End: 01-18-2025 ambulatory Swapna Corea [employer] Work Phone: [facility] Work Phone: Start: 01-18-2025 End: 01-18-2025 ambulatory Swapnayohana Corea Facility:[facility] Start: 01-11-2025 End: 01-11-2025 Patient encounter procedure Jalen Mcdaniel PA -[facility] Work Phone: Start: 01-11-2025 End: 01-11-2025 ambulatory Swapna Corea [employer] Work Phone: [facility] Work Phone: Start: 01-06-2025 End: 01-06-2025 Emergency department patient visit Swapna Corea [employer] Work Phone: -Emergency Department Work Phone: Start: 12-01-2024 End: 12-01-2024 ambulatory Swapna Corea [employer] Work Phone: [facility] Work Phone: Start: 12-01-2024 End: 12-01-2024 Patient encounter procedure Swapnayohana Corea [employer] -Radiology, [place] Work Phone: Start: 12-01-2024 End: 12-01-2024 ambulatory [facility] Facility:[facility] Start: 11-12-2024 End: 11-12-[address] Alanna Avila MD -Laboratory Work Phone: Start: 11-12-2024 End: 11-12-2024 ambulatory [facility] Facility:[facility] Start: 06-18-2024 End: 06-18-2024 ambulatory [facility] Facility:[facility] Start: 11-06-2023 End: 11-06-2023 ambulatory [facility] Work Phone: Start: 11-06-2023 End: 11-06-2023 Patient encounter procedure [facility]-Laboratory Work Phone: Start: 10-11-2023 End: 10-11-2023 ambulatory [facility] Work Phone: Start: 10-11-2023 End: 10-11-2023 Discharged Recurring [facility]-Physical Therapy Work Phone: Start: 10-11-2023 Registered Recurring [facility]-Physical Therapy Work Phone: Start: 08-30-2023 End: 08-30-2023 ambulatory [facility] Work Phone: Start: 08-30-2023 End: 08-30-2023 Patient encounter procedure [facility]-Laboratory Work Phone: Start: 06-11-2023 End: 06-11-2023 ambulatory [facility] Work Phone: Start: 06-11-2023 End: 06-11-2023 Patient encounter procedure [facility]-Radiology, [facility] Work Phone: Start: 05-27-2023 End: 05-28-2023 Emergency department patient visit DR DAT IVY MD Facility:B Start: 05-06-2023 End: 05-06-2023 ambulatory [facility] Work Phone: Start: 05-06-2023 End: 05-06-2023 Patient encounter procedure [facility]-Laboratory Work Phone: Start: 11-07-2022 End: 11-07-2022 ambulatory STEPHEN [facility] Start: 11-07-2022 End: 11-07-2022 Office outpatient visit 40 minutes Stephen Rey MD Work Phone: [facility] Comment on above: Arthralgia, unspecif ied joint (Primary Dx); Rheumatoid factor positive; Primary osteoarthritis involving multiple joints; Obesity, unspecified classification, unspecified obesity type, unspecified whether serious comorbidity present; Prediabetes Start: 08-06-2022 End: 08-10-2022 ambulatory [facility] Start: 08-06-2022 End: 08-10-2022 Encounter for general adult medical examination without abnormal findings [facility] Start: 08-06-2022 End: 08-06-2022 ambulatory [facility] Start: 08-06-2022 End: 08-06-2022 Encounter for general adult medical examination without abnormal findings [facility] Start: 07-04-2022 End: 07-05-2022 ambulatory [facility] Start: 05-08-2022 End: 05-08-2022 ambulatory [facility] Work Phone: Start: 05-08-2022 End: 05-08-2022 Patient encounter procedure [facility]-Laboratory Start: 04-20-2022 End: 04-20-2022 Patient encounter procedure [facility]-Laboratory, Specimen Start: 01-01-2022 End: 01-01-[address] Satinder Griggs Work Phone: [facility]-Ultrasound, [facility] Start: 12-15-2021 End: 12-15-[address] Satnider Griggs Work Phone: [facility]-Laboratory, Specimen Start: 11-30-2021 End: 11-30-[address] Satinder Griggs Work Phone: [facility]-Outpatient Breast Imaging Start: 11-17-2021 End: 11-17-[address] Satinder Griggs Work Phone: [facility] Endocrinology Procedures Date Procedure Procedure Detail Performing Clinician Start: 02-18-2025 Screening mammography R juli Anmol [employer] Work Phone: Start: 01-18-2025 X-ray of chest posteroanterior view Swapna Anmol [employer] Work Phone: Start: 01-06-2025 Estimated creatinine clearance Swapna Suttongar [employer] Work Phone: Start: 01-06-2025 Computed tomography of abdomen and pelvis with intravenous contrast Swapna Suttongar [employer] Work Phone: Start: 12-01-2024 Plain x-ray of pelvi s and lower extremity Swapna Corea [employer] Work Phone: Start: 08-30-2023 X-ray of both [...] Date Care Activity Detail Author Start: 01-06-2025 [facility] Start: 11-12-2023 End: 11-12-2023 Patient encounter procedure 11/12/2023 8:30 AM EDT Office Visit [facility] [address] [place] [address] [place] [address] Stephen Rey MD [facility] [place] [address] [facility] Start: 03-29-2023 Influenza vaccination Sequential Influenza Vaccine (Season Ended) [facility] Start: 06-27-2017 End: 06-27-2017 Appointment Appointment [facility] Work Phone: Start: 2013 Administration of herpes zoster vaccine Zoster Vaccines (1 of 2) [facility] Start: 2013 Screening for malignant neoplasm of colon Flexible sigmoidoscopy [facility] Start: 2003 Screening for malignant neoplasm of breast Mammogram [facility] Start: 1978 HIV screening HIV Screening [facility] Start: 1975 Depression screening using PHQ-9 (Patient Health Questionnaire 9) score Depression Screening (PHQ-2/9) [facility] Start: 1966 History and physical examination, annual for health maintenance Wellness Visit [facility] Start: 1963 COVID-19 Vaccine (#1) COVID-19 Vaccine (#1) [facility] Start: 1963 Screening for malignant neoplasm of cervix Pap Smear [facility] Start: 1963 Screening for malignant neoplasm of colon [facility] Start: 1963 Tetanus vaccination Tetanus: Every 10yrs [facility] Patient Education Bruises (Contu sions) ED Abd Injury Blunt Benign ED Laceration Superficial No Stitch [facility] Work Phone: [facility] Work Phone: XR Ribs GE 3 Views a nd Chest PA [facility] Work Phone: Payers Date Payer Category Payer Unknown [id number] 2025 Unknown [id number] 2024 Self-pay [id number] 2021 Unknown MARIA D MONIQUE/PREF/HMO/PPO [id number] 2021-Present [phone] [address] [place] [address] [id number] 1963 Unknown [id number] 1963 Unknown [id number] [id number] 1963 Unknown [id number] [id number] 1963 Unknown [id number] [id number] 1963 Unknown [id number] [id number] 1963 Unknown [id number] [id number] 1963 Unknown [id number] [id number] 1963 Unknown [id number] 2.16.840.1.291544.3.579.2.903 1963 Unknown [id number] [id number] 1959 Unknown [id number] Unknown [id number] Unknown [id number] Unknown [id number] [id number] Unknown [id number] [id number] Unknown [id number] [id number] Unknown [id number] [id number] Unknown [id number] [id number] Unknown [id number] [id number] Unknown [id number] [id number] Unknown [id number] [id number] Unknown [id number] Unknown [id number] Unknown [id number] Unknown [id number] Unknown [id number] Unknown [id number] Social History Date Type Detail Facility Start: 11-17-2021 End: 11-17-2021 Tobacco smoking status NHIS Unknown if ever smoked [facility] Start: 1965 Sex Assigned At Female [facility] Start: 08-06-2022 End: 01-11-2025 Tobacco smoking status NHIS Never smoked tobacco [facility] Start: 08-06-2022 Tobacco use and exposure Smokeless tobacco non-user [facility] Start: 08-06-2022 History of Social function [facility] Start: 08-06-2022 Tobacco use panel [facility] Start: 1965 [facility]: 10-21-2022 End: 10-31-2022 Exposure to SARS-CoV-2 (event) Not sure [facility] Mental Status Date Assessment Result Facility 01-06-2025 Cognitive function Level Of Cons ciousness Awake;Alert;Appropriate [facility] Work Phone: Clinical Notes 11-07-2022 to 04-22-2025 Note Date & Type Note Facility 04-22-2025 Progress note [facility] 01-26-2025 Progress note [facility] 01-26-2025 Progress note Note Date/Time January 26, 2025 6:18am [facility] [address], [address] [place] [address] OFFICE VISIT Date of Service: 01/26/25 MR#: [id number] Acct: [id number] Name: ALINE BOLAÑOS Rep #: [id number] : 1965 Provider: MYRON Hurtado Age/Sex: 59/F Location: [facility] Status: Signed Intake Vital Signs 01/11/25 06:43 [...] tablet) Nurse's Note: Patient here for a [facility] f/u. Patient states that she feels like that she can go back to work. Patient states she was able to life yesterday at work. Patient state her right side she can't lay on but she is ok with lifting and her left arm looks better. [facility] Medical History (Updated 01/14/25 @ 00:00 by [...] cancer Diabetes H/O transfusion of whole blood Gurabo disease Hypertension Myocardial infarction Ovarian cancer Respiratory disease Skin cancer Social History Smoking Status: Never smoker alcohol intake: current alcohol intake frequency: a few times a week Alcohol type: beer substance use type: does not use what type of physical activity do you participate in: none HPI HPI Details: ALINE BLOAÑOS, is a 59 F who [facility] work-related injury suffered on 01/06/2025 patient so states. 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 She reported to [facility] ED where treated for released the [...] Cosigner Signature: Date (if applicable) CC: ~ [employer] Work Phone: 1(186) 891-220406-23-2025 Radiology Diagnostic study note [facility] Imaging Services [address] [place], [place] [address] Ribs Uni Min 3V w/PA Chest MR#: [id number] Acct: [id number] Name: ALINE BOLAÑOS Rep #: [id number] : 1965 F 59 From: Caio Gordon MD PCP: MICHAEL Beach Status: REG CLI Study:Ribs Uni Min 3V w/PA Chest Date of Exam : 01/18/25 Exam# [id number] Ordering Dr: St ct Mcdaniel PROCEDURE: RIBS [...] left lung base. Reading Location: [facility] CC: PROTECTIVE CLOTHING ISSUER-C Swapna Corea; MYRON Hurtado ~ Instructor Physical Education: Signed [facility]06-16-2025 Evaluation note* Diagnosis Onset Date Resolution Status Admit Date Laceration of left forearm acute January 11, 2025 6:15am Blunt abdominal trauma inactive [facility] 2024 6:15am Blunt chest trauma inactive December 272024 6:15am Contusion of multiple sites of right upper extremity inactive January 11, 2025 6:15am [facility] Work Phone: 1(796) 412-705206-16-2025 Evaluation note* Diagnosis Onset Date Resolution Status Admit Date Laceration of left forearm acute January 11, 2025 6:15am Blunt abdominal trauma inactive [facility] 2024 6:15am Blunt chest trauma inactive December 272024 6:15am Contusion of multiple sites of right upper extremity inactive January 112024 6:15am Cystocele and rectocele with incomplete uterovaginal prolapse acute April 22, 2025 8:45am [facility] [employer] [facility] Work Phone: 1(604) 632-114206-11-2025 Discharge summary [facility] Medical Records Department [address] [place] [address] Emergency Department Summary 01/06/25 MR#: [id number] Acct: [id number] Name: ALINE BOLAÑOS Rep #:[id number] : [...] Prior similar symptoms: No Recent Illness[facility] Medical History Fatigue 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 OVERALL FINAL ASSESSMENT: . Reading Location: [facility] CT of the abdomen and pelvis [...] 7 days if not longer Print Language: Cymraes Disposition Disposition: Home, Self Care What to do if you have Problems For any increased pain, shortness of breath, bleeding, nausea or vomiting, chestpain, or any unexpected problems, contact your Primary Care Provider. Call [facility] ([phone]) or report tothe closest Emergency Room. Call 911 if necessary. 01/06/252049 Cosigner Signature (if applicable): CC: MICHAEL Corea ~ Signed [facility]06-11-2025 Radiology Diagnostic study note [facility] Imaging Services [address] [place] [address] Abdomen/Pelvis W IV Cont ONLY MR#: [id number] Acct: [id number] Name: ALINE BOLAÑOS Rep #: [id number] : 1965 F 59 From: Chandan Sherman MD PCP: MICHAEL Beach Status: REG ER Study:Abdomen/Pelvis W IV Cont ONLY Date of E xam: 01/06/25 Exam# [id number] Ordering Dr: Sharif Koenig MD PROCEDURE: ABDOMEN/PELVIS [...] abnormality. OVERALL FINAL ASSESSMENT: . Reading [facility] CC: PROTECTIVE CLOTHING ISSUER-C Swapna Corea; Dr. Lazaro Koenig MD ~ Instructor Physical Education: Signed [facility]06-11-2025 Discharge summary Author Lazaro Koenig [facility] Note Date/Time January 06, 2025 8:50 pm [facility] Medical Records Department [address] [place] [address] Emergency Department Summary 01/06/25 MR#: [id number] Acct: [id number] Name: ALINE BOLAÑOS Rep #:[id number] : [...] Prior similar symptoms: No Recent Illness/[facility]ization: [facility] Medical History Fatigue 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 OVERALL FINAL ASSESSMENT: . Reading Location: [facility] of the abdomen and pelvis [...] Care Provider: Swapna Corea Referrals: Swapna Corea, PROTECTIVE CLOTHING ISSUER-C [Primary Care Provider] - 3-5 Days if [...] 7 days if not longer Print Language: Cymraes Disposition Disposition: Home, Self Care What to do if you have Problems For any increased pain, shortness of breath, bleeding, nausea or vomiting, chestpain, or any unexpected problems, contact your Primary Care Provider. Call [facility] ([phone]) or report to the closest Emergency Room. Call 911 if necessary. 01/06/252049 <Electronically signed by Lazaro Koenig MD> Cosigner Signature (if applicable): CC: PROTECTIVE CLOTHING ISSUER-C Swapna Corea ~ Signed [facility] Work Phone: 1(396) 462-250006-11-2025 Hospital Discharge instructions Additional Instructions 1. Apply ice to areas of discomfort 6-8 times a day. 2. Take pain medicine as prescribed for your pain. 3. You will hurt in more places and you presently do 4. You will feel worse than you presently do over the next 24 to 48 hours 5. You may hurt for 3 to 7 days if not [facility] Work Phone: 1(338) 730-265405-06-2025 Radiology Diagnostic study note [facility] Imaging Services [address] [place], [place] [address] HIP, UNI W/ Pelvis 2-3 Views MR#: [id number] Acct: [id number] Name: ALINE BOLAÑOS Rep #: [id number] : 1965 F 59 From: Leeann Diego MD PCP: MICHAEL Beach Status: REG CLI Study:HIP, UNI W/ Pelvis 2-3 Views Date of Ex am: 12/01/24 Exam# [id number] Ordering Dr: Ra kameron Corea NP-Jaspreet PROCEDURE: [...] Reading Location: [facility] CC: MICHAEL Corea ~ Instructor Physical Education: Signed [facility]04-23-2024 Discharge summary Author Carrillo Carroll [facility] November 19, 2023 3:27pm Note Date/Time November 19, 2023 3:2 4pm [facility] Physical Therapy [facility] [place] [address] / REHABILITATION SERVICES DISCHARGE SUMMARY MR#: [id number] Acct: [id number] Name: ALINE BOLAÑOS Rep #: [id number] [...] Carrillo Carroll PT Cert. LATONYA, OCS> 11/19/23 4427 CC: DPM Dr. Kit Oconnor; PROTECTIVE CLOTHING ISSUER-C Swapna Corea ~ JLWero Signed [facility] Work Phone: [phone]) 214-460304-12-2023 History of Present illness Narrative* Stephen Rey [...] diagnosed to his rheumatoid arthritis fine outside head of cytogenetics. She was put on methotrexate which did [...] 12 month(s) Telehealth appointments okSmith Rey MD Recreation Worker Manager Gyn Note: To expedite correspondence this note was generated by [employer] voice recognition software. Somegrammatical or spelling errors may occur using the system. 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 [facility] Work Phone: Evaluation noteNo assessment information available [facility] Work Phone: Evaluation note* Diagnosis Arthralgia, unspecified [...] left forearm acute January 11, 2025 6:15am [facility] Work Phone: Progress note Author Michelle Quinn [facility] Note Date/Time April 22, 2025 9:17am [facility] [address], [address] [place] [address] OFFICE VISIT Date of Service: 04/22/25 MR#: [id number] Acct: [id number] Name: ALINE BOLAÑOS Rep #: [id number] : 1965 Provider: MICHAEL uQinn Age/Sex: 60/F Location: 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 feels like I'm sitting [...] Date (if applicable) CC: MICHAEL Corea ~ 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 Chief Complaint PROTECTIVE CLOTHING ISSUER THYROID, APPROVE D BY SCREENING Reason for [...] February 18, 2025 3:44 pm Vaginal Discharge ([place]) April 222024 8:45am Reason for Visit Admit [...] rest Unknown Arthritis Unknown Autoimmune disorder Unknown Gurabo's disease Unknown Myocardial infarction Unknown Malignant neoplasm of breast Unknown Disorder of respiratory system Unknown Malignant neoplasm Unknown Hypertension Unknown Cerebrovascular accident (CVA) Unknown Relationship Condition Age at Onset Recorded Date/T blanche grandmother Diabetes mellitus Unknown grandfather Gurabo's disease Unknown father Angina at rest Unknown [...] December 30, 2020 9 :14am Power of Sales Representative [employer] No December 30, 2020 9:14am Advance Directive Response Recorded Date/ Time Living Will No December 30, 2020 8 :14am Power of Sales Representative [employer] No December 30, 2020 8:14am Advance Directive Response Recorded Date/ Time Do you have a Healthcare Power of Sales Representative [employer]? No January 06, 2025 6:07pm Summary Purpose [...] section and content) DATE CREATED AUTHOR 07/05/2022 [facility] DATE CREATED AUTHOR AUTHOR'S ORGANIZ ATION 08/11/2022 [facility] DATE CREATED AUTHOR AUTHOR'S ORGANIZ ATION 11/09/2022 [facility] DATE CREATED AUTHOR AUTHOR'S ORGANIZ ATION 06/02/2023 [facility] ([place]) DATE CREATED AUTHOR AUTHOR'S ORGANIZ ATION 06/09/2025 [facility] Care Teams (unrecognized sec tion and content) Collar Feller Relationship Specialty Start Date End Date Satinder Griggs MD [address] [place] [address] PCP - General Family Medicine 08/06/22 Team [...] Member Role Status Dates Swapna Anmol , PROTECTIVE CLOTHING ISSUER-C Primary Care Provider Active Start: November 12, 2024 End: November 12, 2024 Dr. Alanna Avila MD Attending Provider Active Start: November 12, 2024 End: November 12, 2024 Dr. Alanna Avila MD Referring Provider Active Start: November 12, 2024 End: November 12, 2024 Team Status: Inactive Member Role Status Dates Swapna Corea , PROTECTIVE CLOTHING ISSUER-C Primary Care Provider Active Start: December 01, 2024 End: December 01, 2024 Swapna Corea , PROTECTIVE CLOTHING ISSUER-C Attending Provider Active St art: December 01, 2024 End: December 01, 2024 Swapnayohana Corea , PROTECTIVE CLOTHING ISSUER-C Referring Provider Active St art: December 01, 2024 End: December 01, 2024 Team Status: Active Member Role Status Dates Swapnayohana Corea , PROTECTIVE CLOTHING ISSUER-C Primary Care Provider Active Team Status: Inactive Member Role Status Dates Swapnayohana Corea , PROTECTIVE CLOTHING ISSUER-C Primary Care Provider Active Start: January 06, 2025 End: January 06, 2025 Dr. Lazaro Koenig MD Referring Provider Active Sta rt: January 06, 2025 End: January 06, 2025 Dr. Lazaro Koenig MD Emergency Provider Active Sta rt: January 06, 2025 End: January 06, 2025 Team Status: Inactive Member Role Status Dates Swapna Corea , PROTECTIVE CLOTHING ISSUER-C Primary Care Provider Active Start: January 11, 2025 End: January 11, 2025 Swapna Corea , PROTECTIVE CLOTHING ISSUER-C Referring Provider Active St art: January 11, 2025 End: January 11, 2025 Jalen Mcdaniel PA, PA Attending Provider Active Start: January 11, 2025 End: January 11, 2025 Team Status: Inactive Member Role Status Dates Swapna Corea , PROTECTIVE CLOTHING ISSUER-C Primary Care Provider Active Start: January 06, [...] Member Role Status Dates Swapna Corea , PROTECTIVE CLOTHING ISSUER-C Primary Care Provider Active Start: January 18, 2025 End: January 18, 2025 Swapna Anmol , PROTECTIVE CLOTHING ISSUER-C Referring Provider Active St art: January 18, 2025 End: January 18, 2025 Jalen SANCHES PA Attending Provider Active Start: January 18, 2025 End: January 18, 2025 Team Status: Active Member Role/Relationship Status Dates Swapna Corea , PROTECTIVE CLOTHING ISSUER-C Primary Care Provider Active Team Status: Inactive Member Role/Relationship Status Dates Swapnayohana Corea , PROTECTIVE CLOTHING ISSUER-C Primary Care Provider Active Start: November 12, 2024 End: November 12, 2024 Dr. Alanna Avila MD Attending Provider Active Start: November 12, 2024 End: November 12, 2024 Dr. Alanna Avila MD Referring Provider Active Start: November 12, 2024 End: November 12, 2024 Team Status: Inactive Member Role/Relationship Status Dates Swapnayohana Corea , PROTECTIVE CLOTHING ISSUER-C Primary Care Provider Active Start: December 01, 2024 End: December 01, 2024 Swapna Corea , PROTECTIVE CLOTHING ISSUER-C Attending Provider Active St art: December 01, 2024 End: December 01, 2024 Swapna Croea , PROTECTIVE CLOTHING ISSUER-C Referring Provider Active St art: December 01, 2024 End: December 01, 2024 Team Status: Inactive Member Role/Relationship Status Dates Swapna Corea , PROTECTIVE CLOTHING ISSUER-C Primary Care Provider Active Start: January 06, [...] Member Role/Relationship Status Dates Swapna Anmol , PROTECTIVE CLOTHING ISSUER-C Primary Care Provider Active Start: January 11, 2025 End: January 11, 2025 Swapna Anmol , PROTECTIVE CLOTHING ISSUER-C Referring Provider Active St art: January 11, 2025 End: January 11, 2025 Jalen SANCHES PA Attending Provider Active Start: January 11, 2025 End: January 11, 2025 Team Status: Inactive Member Role/Relationship Status Dates Swapna Corea , PROTECTIVE CLOTHING ISSUER-C Primary Care Provider Active Start: January 18, 2025 End: January 18, 2025 Swapna Corea , PROTECTIVE CLOTHING ISSUER-C Referring Provider Active St art: January 18, 2025 End: January 18, 2025 MYRON Disla Attending Provider Active Start: January 18, 2025 End: January 18, 2025 Team Status: Inactive Member Role/Relationship Status Dates Swapna Corea , PROTECTIVE CLOTHING ISSUER-C Primary Care Provider Active Start: January 18, 2025 End: January 18, 2025 MYRON Disla Attending Provider Active Start: January 18, 2025 End: January 18, 2025 MYRON Disla Referring Provider Active Start: January 18, 2025 End: January 18, 2025 Team Status: Inactive Member Role/Relationship Status Dates Swapna Corea , PROTECTIVE CLOTHING ISSUER-C Primary Care Provider Active Start: January 26, 2025 End: January 26, 2025 Swapna Corea , PROTECTIVE CLOTHING ISSUER-C Referring Provider Active St art: January 26, 2025 End: January 26, 2025 MYRON Disla Attending Provider Active Start: January 26, 2025 End: January 26, 2025 Team Status: Inactive Member Role/Relationship Status Dates Swapna Corea , PROTECTIVE CLOTHING ISSUER-C Primary Care Provider Active Start: February 18, 2025 End: February 18, 2025 Swapna Corea , PROTECTIVE CLOTHING ISSUER-C Attending Provider Active St art: February 18, 2025 End: February 18, 2025 Swapna Corea , PROTECTIVE CLOTHING ISSUER-C Referring Provider Active St art: February 18, 2025 End: February 18, 2025 Team Status: Active Member Role/Relationship Status Dates Swapna Corea , PROTECTIVE CLOTHING ISSUER-C Primary care physician Active Team Status: Inactive Member Role/Relationship Status Dates Swapna Corea , PROTECTIVE CLOTHING ISSUER-C Primary care physician Active Start: January 06, 2025 End: January 06, 2025 Dr. Lazaro Koenig MD Attending physician Active St art: January 06, 2025 End: January 06, 2025 Dr. Lazaor Koenig MD Referring Provider Active Sta rt: January 06, 2025 End: January 06, 2025 Dr. Lazaro Koenig MD Emergency Department Physician Acti ve Start: January 06, 2025 End: January 06, 2025 Team Status: Inactive Member Role/Relationship Status Dates Swapna Corea , PROTECTIVE CLOTHING ISSUER-C Primary care physician Active Start: January 11, 2025 End: January 11, 2025 Swapna Corea , PROTECTIVE CLOTHING ISSUER-C Referring Provider Active St art: January 11, 2025 End: January 11, 2025 Jalen SANCHES PA Attending physician Active Start: January 11, 2025 End: January 11, 2025 Team Status: Inactive Member Role/Relationship Status Dates Swapna Corea , PROTECTIVE CLOTHING ISSUER-C Primary care physician Active Start: January 18, 2025 End: January 18, 2025 Swapna Corea , PROTECTIVE CLOTHING ISSUER-C Referring Provider Active St art: January 18, 2025 End: January 18, 2025 Jalen SANCHES PA Attending physician Active Start: January 18, 2025 End: January 18, 2025 Team Status: Inactive Member Role/Relationship Status Dates Swapna Corea , PROTECTIVE CLOTHING ISSUER-C Primary care physician Active Start: January 18, 2025 End: January 18, 2025 Jalen SANCHES PA Attending physician Active Start: January 18, 2025 End: January 18, 2025 Jalen SANCHES PA Referring Provider Active Start: January 18, 2025 End: January 18, 2025 Team Status: Inactive Member Role/Relationship Status Dates Swapna Corea , PROTECTIVE CLOTHING ISSUER-C Primary care physician Active Start: January 26, 2025 End: January 26, 2025 Swapna Corea , PROTECTIVE CLOTHING ISSUER-C Referring Provider Active St art: January 26, 2025 End: January 26, 2025 Jalen SANCHES PA Attending physician Active Start: January 26, 2025 End: January 26, 2025 Team Status: Inactive Member Role/Relationship Status Dates Swapna Corea , PROTECTIVE CLOTHING ISSUER-C Primary care physician Active Start: February 18, 2025 End: February 18, 2025 Swapna Corea , PROTECTIVE CLOTHING ISSUER-C Attending physician Active S tart: February 18, 2025 End: February 18, 2025 Swapna Corea , PROTECTIVE CLOTHING ISSUER-C Referring Provider Active St art: February 18, 2025 End: February 18, 2025 Team Status: Inactive Member Role/Relationship Status Dates Swapnayohana Corea , PROTECTIVE CLOTHING ISSUER-C Primary care physician Active Start: April 22, 2025 End: April 22, 2025 Swapna Corea NP-Jaspreet Referring Provider Active St art: April 22, 2025 End: April 22, 2025 Michelle Quinn NP, PROTECTIVE CLOTHING ISSUER-C Attending physician Active Start: April 22, 2025 [...] BE BASED ON THE PRIMARY CLINICAL RECORDS. [employer] provides no warranty or guarantee of the accuracy or completeness of information in this document.
== END | disposition home or self-care (01) ==
LOC: LAB 15:48
PROVIDERS: PCP Nurse Practitioner Family; Referring Provider Internal Medicine Endocrinology, Diabetes & Metabolism; Visit Provider Internal Medicine Endocrinology, Diabetes & Metabolism
DX: E03.8 Other specified hypothyroidism (principal)
CPT/HCPCS: 36415; 84439; 84443